=== PATIENT | male | born 1970 | race Caucasian/White ===

== ENCOUNTER 2016-09-07 05:52 | Day surgery (SDC) | payer BC ==
[2016-09-01 11:14] VITALS: BMI 21.4
[2016-09-07 06:19] VITALS: RESP 16; TEMP 97.8
[2016-09-07] MEDS ORDERED: SODIUM CHLORIDE 0.9% 1,000 ML IV ONE (06:22)
[2016-09-07 06:29] LABS: Basophils # (A) 0.1 k/uL (0-0.2); Basophils % (A) 1 %; CH 32.5; Eosinophils # (A) 0.2 k/uL (0-0.7); Eosinophils % (A) 2 %; HCT 45.7 % (39.0-53.0); HDW 2.68; HGB 15.3 gm/dL (13.0-17.5); Luc # (Auto) 0.18; Luc % (Auto) 2; Lymphocytes # (A) 3.5 k/uL (1.0-4.8); Lymphocytes % (A) 39 %; MCH 32.2 pg (25.0-35.0); MCHC 33.5 g/dL (31.0-37.0); Mean Platelet Volume 9.5; Monocytes # (A) 0.6 k/uL (0-1.0); Monocytes % (A) 7 %; Neutrophils # (A) 4.5 k/uL (1.3-7.7); Neutrophils % (A) 50 %; RBC 4.76 m/uL (4.30-5.90); RDW 13.7 % (11.5-15.5); WBC (Perox) 9.25
[2016-09-07] MEDS ORDERED: fentaNYL (PF) 50 MCG/ML 2 ML AMP ONE (07:16)
[2016-09-07] MEDS ORDERED: MIDAZOLAM 2 MG/2 ML VIAL ONE ×2 (07:16→07:28)
[2016-09-07] MEDS: BENZOCAINE SPRAY 100 APPLIC/CAN MUCOUS MEM ONE ×3 (07:24→07:40)
[2016-09-07] MEDS ORDERED: MIDAZOLAM 2 MG/2 ML VIAL IVP ONE (07:41)
[2016-09-07] MEDS: MIDAZOLAM 2 MG/2 ML VIAL IVP ONE ×2 (07:43→07:46)
[2016-09-07 09:42] VITALS: BP 91/53; PULSE 71
--- NOTE | 2016-09-07 14:39 | ECHOT ---
DATE OF SERVICE: September 07, 2016. PERFORMING PHYSICIAN: Brian Harris MD, Software Project Manager. PROCEDURE PERFORMED: Transesophageal echocardiogram. INDICATIONS: This is a pleasant 46-year-old gentleman who is known to have coronary artery disease and prior stenting of the LAD who was found to have severe aortic stenosis by transthoracic echocardiogram. The BETSEY is for further clarification. COMPLICATIONS: None. LEVEL OF SEDATION: Moderate. PROCEDURE DESCRIPTION: After obtaining informed consent, the patient was brought to the transesophageal echocardiogram suite. A pulse oximetry and heart rate monitors were attached to the patient. The transesophageal echocardiogram probe was advanced through the bite guard to the midesophagus, where 2-D echocardiogram images as well as color Doppler images of various cardiac structures were obtained. Particular attention was paid to the aortic valve. The procedure was completed without any complication. FINDINGS: The left ventricular dimension and systolic function appeared to be within normal limits with an ejection fraction of 60% and normal wall motion. There was mild concentric left ventricular hypertrophy seen. The right ventricle is of normal size and function. The left atrium and right atrium appeared to be within normal. The left atrial appendage appeared to be free from any thrombus. The intra-atrial septum appeared to be intact. The aortic valve is very calcified and thickened and probably bicuspid with restriction to opening and evidence of critical aortic stenosis with aortic valve mean gradient 100 mmHg. The mitral valve seems to be also thickened and calcified with mild MR. Mild tricuspid regurgitation was seen. CONCLUSION: 1. Probably bicuspid aortic valve with evidence of severe aortic sclerosis and a critical aortic stenosis along with mild aortic insufficiency. 2. Normal cardiac chamber sizes. 3. Normal left ventricular dimension and systolic function. 4. Mild concentric LVH. 5. Normal left atrial appendage. 6. Intact intra-atrial septum. 7. Normal aortic root dimension. 8. No evidence of pericardial effusion.
== END 2016-09-07 11:14 | disposition home or self-care (01) ==
LOC: CATHCVL 05:52
PROVIDERS: ATTEND Internal Medicine Interventional Cardiology
DX: I08.3 Combined rheumatic disorders of mitral, aortic and tricuspid valves (principal); Z79.02 Long term (current) use of antithrombotics/antiplatelets; Z79.82 Long term (current) use of aspirin; Z79.899 Other long term (current) drug therapy; F17.210 Nicotine dependence, cigarettes, uncomplicated; I73.9 Peripheral vascular disease, unspecified
CPT/HCPCS: 93312; 93320; 93325; 85025; J2250

== ENCOUNTER 2016-09-11 14:56 | Inpatient (IN) | payer BC ==
[2016-09-11] MEDS ORDERED: ASPIRIN 81 MG CHEW PO STA (15:07)
[2016-09-11] MEDS ORDERED: SODIUM CHLORIDE 0.9% 500 ML IV STA (15:07)
--- NOTE | 2016-09-11 15:14 | ED ---
Chest Pain HPI - General Chief Complaint: Chest Pain Stated Complaint: chest pain Time Seen by Provider: 09/11/16 15:07 Source: patient, EMS Mode of arrival: EMS Limitations: no limitations - History of Present Illness Initial Comments: This patient is a 46-year-old man who presents with chest pain. The patient had onset of this while at work approximately 1 hour he 40 1. He states that he had a feeling of tingling in the precordial/substernal area. It was constant , mild intensity, and he did not notice anything that make it worse. He states that he took a sublingual nitroglycerin and then had some lightheadedness, and then felt like he was going to pass out. 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 He then was lying on the floor and the symptoms improved, such that the symptoms have resolved now. Complaint: chest pain Onset/Timin -: hour(s) Onset: other (While at work) Pain Location: substernal Pain Radiation: none Severity: mild Quality: other (Tingling) Consistency: constant, now resolved Improves With: nitroglycerin Worsens With: nothing - Related Data Home Medications Medication Instructions Recorded Confirmed Aspirin EC [Ecotrin Low Dose] 81 mg PO DAILY 08/22/16 09/11/16 Metoprolol Tartrate [Lopressor] 12.5 mg PO BID 08/22/16 09/11/16 Triamcinolone 0.025% Cream 1 applic TOPICAL BID 09/11/16 09/11/16 [Kenalog] Previous Rx's Medication Instructions Recorded Atorvastatin [Lipitor] 80 mg PO HS #30 tab 07/23/16 Clopidogrel [Plavix] 75 mg PO DAILY #30 tab 07/23/16 Nitroglycerin Sl Tabs [Nitrostat] 0.4 mg SUBLINGUAL Q5M PRN #0 tab 07/23/16 Allergies Allergy/AdvReac Type Severity Reaction Status Date / Time milk Allergy Rash/Hives Verified 09/11/16 15:14 tetanus immune globulin Allergy Unknown Verified 09/11/16 15:14 Review of Systems ROS Statement: Those systems with pertinent positive or pertinent negative responses have been documented in the HPI. ROS Other: All systems not noted in ROS Statement are negative. Constitutional: Denies: fever, chills Eyes: Denies: vision change Respiratory: Denies: cough, dyspnea Cardiovascular: Reports: as per HPI, chest pain, other (Near syncopal episode). Denies: palpitations, edema, syncope Gastrointestinal: Denies: abdominal pain, nausea, vomiting Genitourinary: Denies: dysuria, hematuria Musculoskeletal: Denies: back pain Skin: Denies: rash Neurological: Denies: headache, weakness, numbness EKG Findings - EKG Comments: EKG Findings:: Patient has left bundle-branch block present on the comparison EKG from July 2016. - EKG Results: EKG: interpreted by GM, sinus rhythm (Rate approximate 73 bpm) - Blocks, [place], Hypertrophy, ST Abn: AV and intraventricular conduction: left bundle branch block (fixed/intermittent , complete/incomplete) Past Medical History Past Medical History: Chest Pain / Angina, CVA/TIA, Hyperlipidemia, Myocardial Infarction ([place]) Additional Past Medical History / Comment(s): 04/23/15 TIA, denies residual effects. HX: heart murmur, head injury with scalp laceration requiring cira, bronchitis. Last Myocardial Infarction Date:: 07-21-16 History of Any Multi-Drug Resistant Organisms: None Reported Past Surgical History: Heart Catheterization With Stent, Hernia Repair Additional Past Surgical History / Comment(s): L inquinal hernia repair. HEART CATH W/ STENT TO LAD Past Anesthesia/Blood Transfusion Reactions: No Reported Reaction Date of Last Stent Placement:: 07-21-16 Past Psychological History: No Psychological Hx Reported Additional Psychological History / Comment(s): Pt lives with his STEPHEN. He is independent. He uses no assistive devices or home care. He drives. Smoking Status: Current every day smoker Past Alcohol Use History: None Reported Additional Past Alcohol Use History / Comment(s): Pt started smoking at 13 yrs of age and smokes 3-4 cigarettes per day. Past Drug Use History: None Reported - Past Family History Father Family Medical History: AFIB, COPD, Eye Disorder Additional Family Medical History / Comment(s): Father has emphysema, spinal and neck surgeries, neuropathy, spinal stenosis, eye herpes. Mother Family Medical History: CVA/TIA, Hyperlipidemia, Hypertension Additional Family Medical History / Comment(s): Mother has had a recent TIA. General Exam Limitations: no limitations General appearance: alert, in no apparent distress Head exam: Present: atraumatic, normocephalic Eye exam: Present: normal appearance. Absent: scleral icterus, conjunctival injection ENT exam: Present: normal oropharynx Neck exam: Present: normal inspection, full ROM Respiratory exam: Present: normal lung sounds bilaterally. Absent: respiratory distress, wheezes, rales, rhonchi, stridor Cardiovascular Exam: Present: regular rate, normal rhythm, systolic murmur. Absent: diastolic murmur, rubs, gallop GI/Abdominal exam: Present: soft. Absent: distended, tenderness, guarding, rebound, mass Extremities exam: Present: normal inspection, normal capillary refill. Absent: pedal edema, calf tenderness Back exam: Present: normal inspection, CVA tenderness (R), CVA tenderness (L) Neurological exam: Present: alert Skin exam: Present: warm, dry, intact, normal color. Absent: rash, cyanosis, diaphoretic, erythema, petechiae, pallor, mottled Course Vital Signs 09/11/16 09/11/16 09/11/16 15:01 15:15 15:31 Temperature 97.8 F 98.0 F Pulse Rate 75 79 Pulse Rate [ 80 Tricot Knitter ] Respiratory 16 18 Rate Blood Pressure 98/64 104/60 O2 Sat by Pulse 98 98 Oximetry 09/11/16 16:32 Temperature 98.1 F Pulse Rate 78 Pulse Rate [ Tricot Knitter ] Respiratory 16 Rate Blood Pressure 90/53 O2 Sat by Pulse [address] [facility] Patient is a 46-year-old man with history of previous coronary disease who presents with episode of angina while at work that was relieved with nitroglycerin, but, given by a near-syncopal episode. Patient will be admitted for serial cardiac enzymes and telemetry monitoring. Cardiology consultation. Case discussed with his admitting physician. Disposition Clinical Impression: Chest pain, Near syncope Disposition: ADMITTED IP TO THIS [facility] Condition: Fair
[2016-09-11 15:25] LABS: Basophils # (A) 0.1 k/uL (0-0.2); Basophils % (A) 1 %; CH 32.5; CHCM 33.8; Eosinophils # (A) 0.1 k/uL (0-0.7); Eosinophils % (A) 1 %; HCT 42.4 % (39.0-53.0); HDW 2.68; Luc # (Auto) 0.13; Luc % (Auto) 2; Lymphocytes # (A) 2.5 k/uL (1.0-4.8); Lymphocytes % (A) 34 %; MCH 31.9 pg (25.0-35.0); MCV 96.7 fL (80.0-100.0); Monocytes # (A) 0.4 k/uL (0-1.0); Monocytes % (A) 5 %; Neutrophils # (A) 4.3 k/uL (1.3-7.7); Neutrophils % (A) 57 %; RBC 4.39 m/uL (4.30-5.90); RDW 13.7 % (11.5-15.5); WBC 7.5 k/uL (3.8-10.6); WBC (Perox) 8.07
[2016-09-11 15:40] LABS: INR 1.3 (<1.1); Prothrombin Time 12.9 sec (9.0-12.0)
[2016-09-11 15:41] LABS: ALT 35 U/L (21-72); AST 30 U/L (17-59); Alkaline Phosphatase 63 U/L (38-126); Anion Gap 9 mmol/L; Blood Urea Nitrogen 11 mg/dL (9-20); Calcium 8.5 mg/dL (8.4-10.2); Carbon Dioxide 23 mmol/L (22-30); Chloride 110 mmol/L (98-107); Glucose 116 mg/dL (74-99); Magnesium 1.6 mg/dL (1.6-2.3); Non-African American GFR(MDRD) >60 (>60 ml/min/1.73 sqM); Potassium 4.4 mmol/L (3.5-5.1); Sodium 142 mmol/L (137-145); Total Bilirubin 0.8 mg/dL (0.2-1.3); Total Protein 6.5 g/dL (6.3-8.2)
--- NOTE | 2016-09-11 15:51 | P.CRDCN ---
History of Present Illness Consult date: 09/11/16 Chief complaint: Presyncope History of present illness: This is a pleasant 46-year-old gentleman who I have seen in the office once after an acute coronary syndrome with known coronary artery disease and prior stenting of the distal LAD in July 2016, severe aortic stenosis, and significant history of smoking, was brought to the emergency room by ambulance earlier today. The patient was at work when he felt some tingling sensation in the chest and subsequently he took a nitroglycerin sublingual and then started feeling dizzy and lightheaded. Ambulance was called and the patient was brought to the emergency room and in the ER he was slightly hypotensive but his blood pressure has improved significantly after that. The patient presented to the emergency room in July 2016 after he had syncope at work. The EKG showed new LBBB. Subsequently the patient was rushed to the cardiac catheterization laboratory where he underwent a heart catheterization and was found to have severe disease involving the distal LAD where he underwent stenting of the LAD with a good angiographic results. Subsequently he underwent an echocardiogram which showed evidence of severe aortic stenosis. Last week the patient underwent transesophageal echocardiogram which showed it seems to be bicuspid aortic valve with evidence of critical aortic stenosis and significant mean gradient. He was scheduled to be seen in the office today for a follow-up visit and to be referred to see cardiothoracic surgeon. I am going to admit the patient to the hospital. Hold the Plavix. Hold metoprolol. IV fluids. I already spoken with Dr. Sanchez who is going to see the patient tomorrow. Past Medical History Past Medical History: Chest Pain / Angina, CVA/TIA, Hyperlipidemia, Myocardial Infarction ([place]) Additional Past Medical History / Comment(s): 04/23/15 TIA, denies residual effects. HX: heart murmur, head injury with scalp laceration requiring cira, bronchitis. Last Myocardial Infarction Date:: 07-21-16 History of Any Multi-Drug Resistant Organisms: None Reported Past Surgical History: Heart Catheterization With Stent, Hernia Repair Additional Past Surgical History / Comment(s): L inquinal hernia repair. HEART CATH W/ STENT TO LAD Past Anesthesia/Blood Transfusion Reactions: No Reported Reaction Date of Last Stent Placement:: 07-21-16 Past Psychological History: No Psychological Hx Reported Additional Psychological History / Comment(s): Pt lives with his STEPHEN. He is independent. He uses no assistive devices or home care. He drives. Smoking Status: Current every day smoker Past Alcohol Use History: None Reported Additional Past Alcohol Use History / Comment(s): Pt started smoking at 13 yrs of age and smokes 3-4 cigarettes per day. Past Drug Use History: None Reported - Past Family History Father Family Medical History: AFIB, COPD, Eye Disorder Additional Family Medical History / Comment(s): Father has emphysema, spinal and neck surgeries, neuropathy, spinal stenosis, eye herpes. Mother Family Medical History: CVA/TIA, Hyperlipidemia, Hypertension Additional Family Medical History / Comment(s): Mother has had a recent TIA. Medications and Allergies Home Medications Medication Instructions Recorded Confirmed Type Aspirin EC [Ecotrin Low Dose] 81 mg PO DAILY 08/22/16 09/11/16 History Metoprolol Tartrate [Lopressor] 12.5 mg PO BID 08/22/16 09/11/16 History Triamcinolone 0.025% Cream 1 applic TOPICAL BID 09/11/16 09/11/16 History [Kenalog] Allergies Allergy/AdvReac Type Severity Reaction Status Date / Time milk Allergy Rash/Hives Verified 09/11/16 15:14 tetanus immune globulin Allergy Unknown Verified 09/11/16 15:14 Physical Exam Vitals: Vital Signs Temp Pulse Pulse Resp BP Pulse Ox 09/11/16 15:31 98.0 F 79 18 104/60 98 09/11/16 15:15 80 09/11/16 15:01 97.8 F 75 16 98/64 98 Intake and Output 09/11/16 09/11/16 09/11/16 06:59 14:59 22:59 Other: Weight 67.132 kg Patient Weight 09/12/16 06:59 Weight 67.132 kg - Constitutional General appearance: no acute distress - Respiratory Respiratory: bilateral: CTA - Cardiovascular Rhythm: regular Heart sounds: normal: S1 Abnormal Heart Sounds: systolic murmur Results 09/11/16 15:05 09/11/16 15:05 Cardiac Enzymes 09/11/16 Range/Units 15:05 AST 30 (17-59) U/L Coagulation 09/11/16 Range/Units 15:05 PT 12.9 H (9.0-12.0) sec APTT 26.0 (22.0-30.0) sec CBC 09/11/16 Range/Units 15:05 WBC 7.5 (3.8-10.6) k/uL RBC 4.39 (4.30-5.90) m/uL Hgb 14.0 (13.0-17.5) gm/dL Hct 42.4 (39.0-53.0) % Plt Count 102 L (150-450) k/uL Comprehensive Metabolic Panel 09/11/16 Range/Units 15:05 Sodium 142 (137-145) mmol/L Potassium 4.4 (3.5-5.1) mmol/L Chloride 110 H (98-107) mmol/L Carbon Dioxide 23 (22-30) mmol/L BUN 11 (9-20) mg/dL Creatinine 1.05 (0.66-1.25) mg/dL Glucose 116 H (74-99) mg/dL Calcium 8.5 (8.4-10.2) mg/dL AST 30 (17-59) U/L ALT 35 (21-72) U/L Alkaline Phosphatase 63 (38-126) U/L Total Protein 6.5 (6.3-8.2) g/dL Albumin 3.7 (3.5-5.0) g/dL Intake and Output 09/11/16 09/11/16 09/11/16 06:59 14:59 22:59 Other: Weight 67.132 kg Patient Weight 09/12/16 06:59 Weight 67.132 kg 09/11/16 15:05 09/11/16 15:05 Assessment and Plan Plan: Assessment #1 critical aortic stenosis #2 CAD and prior LAD stenting Plan #1 hold blood pressure medications #2 IV fluid #3 hold Plavix #4 waiting for the cardiothoracic surgery consult
[2016-09-11 15:55] LABS: Creatine Kinase MB 1.1 ng/mL (0.0-2.4); Troponin I 0.021 ng/mL (0.000-0.034)
--- NOTE | 2016-09-11 16:46 | XR ---
EXAMINATION TYPE: XR chest 1V portable DATE OF EXAM: 09/11/2016 4:39 PM COMPARISON: Prior chest x-ray December HISTORY: Chest pain, hypotension TECHNIQUE: Single frontal view of the chest is obtained on 2 images. FINDINGS: There are overlying cardiac leads. Interstitium is somewhat increased. Heart size is stabl e. Pulmonary vascularity and ernesto not significantly changed. No pneumothorax or pleural effusion. IMPRESSION: Correlate to exclude pulmonary venous hypertension and interstitial edema. Follow-up is recommended.
[2016-09-11] MEDS ORDERED: NITROGLYCERIN SL TABS 0.4 MG TAB SUBLINGUAL PRN (17:27)
[2016-09-11 21:52] LABS: Creatine Kinase MB 2.2 ng/mL (0.0-2.4)
[2016-09-11 21:59] LABS: Troponin I 0.266 ng/mL (0.000-0.034)
[2016-09-12 03:22] LABS: Cholesterol 74 mg/dL (<200); HDL Cholesterol 45 mg/dL (40-60); Triglycerides 49 mg/dL (<150)
[2016-09-12 03:43] LABS: Creatine Kinase MB 2.2 ng/mL (0.0-2.4); Troponin I 0.174 ng/mL (0.000-0.034)
[2016-09-12] MEDS: ASPIRIN 325 MG TAB PO SCH (10:24)
--- NOTE | 2016-09-12 10:48 | ECHOF ---
Referral Reason:CP MEASUREMENTS -------- HEIGHT: 175.3 cm WEIGHT: 67.1 kg BP: IVSd: 1.5 cm (0.6 - 1.1) LVIDd: 4.0 cm (3.9 - 5.3) LVPWd: 1.7 cm (0.6 - 1.1) IVSs: 2.1 cm LVIDs: 2.7 cm LVPWs: 2.4 cm MV E Stew: 1.32 m/s MV DecT: 164 ms MV A Stew: 0.94 m/s MV E/A Ratio: 1.40 AV maxP.96 mmHg AV meanP.43 mmHg RAP: 5.00 mmHg RVSP: 19.44 mmHg FINDINGS -------- Sinus rhythm. Limited Study There is severe concentric left ventricular hypertrophy. Overall left ventricular systolic function is low-normal with, an EF between 50 - 55 %. There is severe aortic stenosis present. Peak/mean gradient across the Aortic Valve is 92.96mmHg / 58.43mmHg. CONCLUSIONS -------- 1. Sinus rhythm. 2. Limited Study 3. There is severe concentric left ventricular hypertrophy. 4. Overall left ventricular systolic function is low-normal with, an EF between 50 - 55 %. 5. There is severe aortic stenosis present. 6. Peak/mean gradient across the Aortic Valve is 92.96mmHg / 58.43mmHg. LOIN PULLER: Paulina Palmer [facility]
--- NOTE | 2016-09-12 11:48 | P.PN ---
Subjective Principal diagnosis: Critical This is a pleasant 46-year-old gentleman with a known CAD and known critical aortic stenosis was brought to the hospital by ambulance with presyncope. He was found to be hypotensive. He just underwent a BETSEY which showed critical aortic stenosis and he was scheduled to see cardiothoracic surgeon in the next few days. I'll follow-up with him today, he denies having any chest pain or discomfort or difficulty breathing. Blood pressure continues to be marginally low. The repeated echocardiogram in the ER yesterday continues to show preserved LV function with critical aortic stenoses. Cardiothoracic surgery consult was placed and the patient is in process to be seen. I will continue holding any kind of blood pressure medication and continue holding any kind of nitroglycerin sublingual. I am starting the patient on some IV fluid because he is nothing by mouth. Objective - Vital Signs Vital signs: Vital Signs Temp 98.0 F 09/12/16 08:00 Pulse 93 09/12/16 08:00 Resp 16 09/12/16 03:47 BP 98/60 09/12/16 08:00 Pulse Ox 95 09/12/16 08:00 Intake & Output 09/11/16 09/12/16 09/12/16 18:59 06:59 18:59 Intake Total 120 Output Total 1000 650 Balance -880 -650 Weight 66.933 kg Intake: Oral 120 Output: Urine 1000 650 Other: Voiding Method Urinal - Constitutional General appearance: Present: no acute distress - Respiratory Respiratory: bilateral: CTA - Cardiovascular Rhythm: regular Heart sounds: normal: S1 - Labs CBC & Chem 7: 09/11/16 15:05 09/11/16 15:05 Labs: Abnormal Lab Results - Last 24 Hours (Table) 09/11/16 09/12/16 Range/Units 21:04 02:51 Troponin I 0.266 H* 0.174 H* (0.000-0.034) ng/mL Assessment and Plan Plan: Assessment #1 symptomatic critical aortic stenoses #2 marginal below blood pressure Plan #1 continue holding the blood pressure medications #2 continue holding nitroglycerin #3 start IV fluid #4 follow-up with the patient
[2016-09-12] MEDS ORDERED: MD COMMUNICATION TO PHARMACY 1 EACH MISC PO ONE ×2 (12:19)
--- NOTE | 2016-09-12 12:42 | P.GSCN ---
History of Present Illness Consult date: 09/12/16 Reason for Consult: Severe bicuspid aortic valve stenosis Requesting physician: Brian Harris History of present illness: Patient is a 46 years old gentleman with past medical history of tobacco abuse, TIA, non-ST elevation myocardial infarction status post stenting of his distal LAD in July 2016 admitted for a tingling chest sensation for which he took nitroglycerin followed by diaphoresis and weakness. He denies syncope per se or chest pain. Patient has severe bicuspid aortic valve stenosis discovered after his stenting and a cardiothoracic surgical consult was called. Patient had presented to the emergency room end of August for bronchitis and took 3 days of antibiotics. He has a persistent dry cough however improved. Denies fever or chills. Patient remains in functional class I Review of Systems - Cardiovascular Cardiovascular Comment(s): Tingling sensation in the chest Reports lightheadedness - Respiratory Reports congestion, Reports cough Past Medical History Past Medical History: Chest Pain / Angina, CVA/TIA, Hyperlipidemia, Myocardial Infarction ([place]) Additional Past Medical History / Comment(s): 04/23/15 TIA, denies residual effects. HX: heart murmur, head injury with scalp laceration requiring cira, bronchitis. Last Myocardial Infarction Date:: 07-21-16 History of Any Multi-Drug Resistant Organisms: None Reported Past Surgical History: Heart Catheterization With Stent, Hernia Repair Additional Past Surgical History / Comment(s): L inquinal hernia repair. HEART CATH W/ STENT TO LAD Past Anesthesia/Blood Transfusion Reactions: No Reported Reaction Date of Last Stent Placement:: 07-21-16 Past Psychological History: No Psychological Hx Reported Additional Psychological History / Comment(s): Pt lives with his STEPHEN. He is independent. He uses no assistive devices or home care. He drives. Smoking Status: Current every day smoker Past Alcohol Use History: None Reported Additional Past Alcohol Use History / Comment(s): Pt started smoking at 13 yrs of age and smokes 3-4 cigarettes per day. Past Drug Use History: None Reported - Past Family History Father Family Medical History: AFIB, COPD, Eye Disorder Additional Family Medical History / Comment(s): Father has emphysema, spinal and neck surgeries, neuropathy, spinal stenosis, eye herpes. Mother Family Medical History: CVA/TIA, Hyperlipidemia, Hypertension Additional Family Medical History / Comment(s): Mother has had a recent TIA. Medications and Allergies Home Medications and Allergies Comment(s): Patient took his last Plavix on 09/10/2015 Home Medications Medication Instructions Recorded Confirmed Type Aspirin EC [Ecotrin Low Dose] 81 mg PO DAILY 08/22/16 09/11/16 History Metoprolol Tartrate [Lopressor] 12.5 mg PO BID 08/22/16 09/11/16 History Triamcinolone 0.025% Cream 1 applic TOPICAL BID 09/11/16 09/11/16 History [Kenalog] Allergies Allergy/AdvReac Type Severity Reaction Status Date / Time milk Allergy Rash/Hives Verified 09/11/16 15:14 tetanus immune globulin Allergy Unknown Verified 09/11/16 15:14 Surgical - Exam Vital Signs Temp Pulse Resp BP Pulse Ox 97.8 F 75 16 98/64 98 09/11/16 15:01 09/11/16 15:01 09/11/16 15:01 09/11/16 15:01 09/11/16 15:01 - Cardiovascular Heart Sounds: abnormal: S2 (Absent) Abnormal Heart Sounds: systolic murmur - Integumentary Patient is edentulous. No peripheral edema Results - Labs 09/11/16 15:05 09/11/16 15:05 Abnormal Lab Results - Last 24 Hours (Table) 09/11/16 09/12/16 Range/Units 21:04 02:51 Troponin I 0.266 H* 0.174 H* (0.000-0.034) ng/mL Diabetes panel 09/12/16 Range/Units 02:51 Triglycerides 49 (<150) mg/dL HDL Cholesterol 45 (40-60) mg/dL - Imaging Chest x-ray: report reviewed, image reviewed EKG: report reviewed, image reviewed Additional studies: Patient's has severe LVH and severe aortic valve stenosis with preserved systolic function. Trace aortic valve regurgitation. Mild mitral regurgitation. Assessment and Plan Plan: 46 years old gentleman with the above comorbidities, status post distal LAD stenting with a drug-eluting stent in July 2016 with at this point severe aortic valve stenosis on a bicuspid valve without evidence of ascending aortic dilatation on a computed tomography scan performed on 08/23/2016. Case was discussed with Dr. Estrada. We will be initiating preoperative workup in particular pulmonary assessment before potential proceeding with surgical aortic valve replacement early next week after at least 5 days off Plavix interruption. Cardiology would decide on potential bridging with heparin in view of recent distal LAD stenting. Choice of valve will be further discussed with the patient once the plans are finalized.
[2016-09-12 13:44] LABS: INR 1.3 (<1.1); Prothrombin Time 12.6 sec (9.0-12.0)
[2016-09-12 13:55] LABS: Basophils # (A) 0.1 k/uL (0-0.2); Basophils % (A) 1 %; CH 32.5; CHCM 33.4; Eosinophils # (A) 0.1 k/uL (0-0.7); Eosinophils % (A) 1 %; HDW 2.64; HGB 13.8 gm/dL (13.0-17.5); Luc % (Auto) 1; Lymphocytes # (A) 2.4 k/uL (1.0-4.8); Lymphocytes % (A) 20 %; MCH 32.2 pg (25.0-35.0); MCHC 32.9 g/dL (31.0-37.0); MCV 97.8 fL (80.0-100.0); Mean Platelet Volume 10.2; Monocytes # (A) 0.6 k/uL (0-1.0); Monocytes % (A) 5 %; Neutrophils # (A) 8.9 k/uL (1.3-7.7); Neutrophils % (A) 73 %; RBC 4.29 m/uL (4.30-5.90); WBC 12.2 k/uL (3.8-10.6)
[2016-09-12 14:03] LABS: ALT 38 U/L (21-72); AST 23 U/L (17-59); Alkaline Phosphatase 54 U/L (38-126); Anion Gap 7 mmol/L; Blood Urea Nitrogen 14 mg/dL (9-20); Calcium 8.9 mg/dL (8.4-10.2); Carbon Dioxide 25 mmol/L (22-30); Chloride 112 mmol/L (98-107); Glucose 115 mg/dL (74-99); Magnesium 1.8 mg/dL (1.6-2.3); Non-African American GFR(MDRD) >60 (>60 ml/min/1.73 sqM); Potassium 4.3 mmol/L (3.5-5.1); Sodium 144 mmol/L (137-145); Total Bilirubin 1.1 mg/dL (0.2-1.3); Total Protein 6.1 g/dL (6.3-8.2)
--- NOTE | 2016-09-12 14:26 | US ---
EXAMINATION TYPE: US carotid duplex BILAT DATE OF EXAM: 09/12/2016 1:18 PM COMPARISON: NONE CLINICAL HISTORY: chest pain,near syncope. EXAM MEASUREMENTS: RIGHT: Peak Systolic Velocity (PSV) cm/sec ----- Right CCA: 117.6 ----- Right ICA: 100.2 ----- Right ECA: 97.3 ICA/CCA ratio: 0.9 RIGHT: End Diastole cm/sec ----- Right CCA: 14.4 ----- Right ICA: 24.6 ----- Right ECA: 0.0 LEFT: Peak Systolic Velocity (PSV) cm/sec ----- Left CCA: 95.8 ----- Left ICA: 87.1 ----- Left ECA: 100.2 ICA/CCA ratio: 0.9 LEFT: End Diastole cm/sec ----- Left CCA: 15.8 ----- Left ICA: 21.7 ----- Left ECA: 10.0 VERTEBRALS (direction of flow): Right Vertebral: Antegrade Left Vertebral: Antegrade Findings: No significant stenosis seen, mild plaque noted, no elevated velocities. IMPRESSION: 1. No significant hemodynamic stenosis bilaterally. 2. Mild plaque seen bilaterally Criteria for Assigning % of Stenosis / Diameter reduction (Estimation based on the indirect measurements of the internal carotid artery velocities (ICA PSV). 1. Normal (no stenosis)=ICA PSV < 125 cm/s: ratio < 2.0: ICA EDV<40 cm/s. 2. Less than 50% stenosis=ICA PSV < 125 cm/s: ratio < 2.0: ICA EDV<40 cm/s. 3. 50 to 69% stenosis=ICA PSV of 125 to 230 cm/s: ration 2.0 ? 4.0: ICA EDV 40-100 cm/s. 4. Greater than 70% stenosis to near occlusion= ICA PSV > 230 cm/s: ratio > 4.0: ICA EDV > 100 cm/s. 5. Near occlusion= ICA PSV velocities may be low or undetectable: variable ratio and ICA EDV. 6. Total occlusion=unable to detect flow.
[2016-09-12 14:34] LABS: Hepatitis B Surface Ag Index 0.08
[2016-09-12 14:39] LABS: Hepatitis B Core IgM Index 0.03
[2016-09-12 14:51] LABS: Hepatitis C Virus IgG Index 0.02
[2016-09-12 15:04] LABS: Hepatitis C Virus IgG Ab Negative (Negative)
--- NOTE | 2016-09-12 15:06 | P.CNPUL ---
History of Present Illness Consult date: 09/12/16 Requesting physician: Theo Haas Reason for consult: COPD Chief complaint: Chest pain History of present illness: This is a very pleasant 46-year-old gentleman who follows with Dr. Haas as his primary care physician. He has a history of TIA, coronary artery disease with recent stent placement to the LAD. He has preserved left ventricular systolic function with estimated ejection fraction 45-50%. He was also found to have significant bicuspid aortic valve stenosis and the plan is for aortic valve replacement. He states he has known about heart murmur for approximately 3 years now. He does have a 30+ pack per day smoking history up to as many as 3 packs per day at one point. He has not been seen by a passenger coach driver in the past but was scheduled to be seen in our office 09/21/2016 for preop evaluation prior to his aortic valve replacement. He is not on oxygen nor any inhalers in the outpatient setting. He was recently treated for what he felt was bronchitis with a Tri-Terry of azithromycin 500 mg daily 3 days. He presented here to the emergency room yesterday with complaints of chest tingling and numbness. He states he did have some anxiety secondary to recent cardiac event. He is seen today in the end emergency room still. He is awake and alert in no acute distress. He denies any chest pain, palpitations, lightheadedness or dizziness. No shortness of breath, cough or congestion. His chest x-ray did reveal some pulmonary venous hypertension and mild congestion. His proBNP level was 6510. There is a small troponin leak. The plan is performing aortic valve replacement early next week. The patient's Plavix has been on hold and he'll be bridged in the interim. Review of Systems 14 point review of system was conducted all negative other than as mentioned in HPI. Past Medical History Past Medical History: Chest Pain / Angina, CVA/TIA, Hyperlipidemia, Myocardial Infarction ([place]) Additional Past Medical History / Comment(s): 04/23/15 TIA, denies residual effects. HX: heart murmur, head injury with scalp laceration requiring cira, bronchitis. Last Myocardial Infarction Date:: 07-21-16 History of Any Multi-Drug Resistant Organisms: None Reported Past Surgical History: Heart Catheterization With Stent, Hernia Repair Additional Past Surgical History / Comment(s): L inquinal hernia repair. HEART CATH W/ STENT TO LAD Past Anesthesia/Blood Transfusion Reactions: No Reported Reaction Date of Last Stent Placement:: 07-21-16 Past Psychological History: No Psychological Hx Reported Additional Psychological History / Comment(s): Pt lives with his STEPHEN. He is independent. He uses no assistive devices or home care. He drives. Smoking Status: Current every day smoker Past Alcohol Use History: None Reported Additional Past Alcohol Use History / Comment(s): Pt started smoking at 13 yrs of age and smokes 3-4 cigarettes per day. Past Drug Use History: None Reported - Past Family History Father Family Medical History: AFIB, COPD, Eye Disorder Additional Family Medical History / Comment(s): Father has emphysema, spinal and neck surgeries, neuropathy, spinal stenosis, eye herpes. Mother Family Medical History: CVA/TIA, Hyperlipidemia, Hypertension Additional Family Medical History / Comment(s): Mother has had a recent TIA. Medications and Allergies Home Medications Medication Instructions Recorded Confirmed Type Aspirin EC [Ecotrin Low Dose] 81 mg PO DAILY 08/22/16 09/11/16 History Metoprolol Tartrate [Lopressor] 12.5 mg PO BID 08/22/16 09/11/16 History Triamcinolone 0.025% Cream 1 applic TOPICAL BID 09/11/16 09/11/16 History [Kenalog] Allergies Allergy/AdvReac Type Severity Reaction Status Date / Time milk Allergy Rash/Hives Verified 09/11/16 15:14 tetanus immune globulin Allergy Unknown Verified 09/11/16 15:14 Physical Exam Vitals: Vital Signs Temp Pulse Pulse Resp BP BP Pulse Ox 09/12/16 12:00 95 117/56 95 09/12/16 08:00 98.0 F 93 98/60 95 09/12/16 03:47 98.1 F 75 16 104/55 97 09/12/16 00:00 98.3 F 77 18 137/90 94 L 09/11/16 20:42 76 16 105/57 95 09/11/16 19:01 98.2 F 76 18 105/57 94 L Intake and Output 09/11/16 09/12/16 09/12/16 22:59 06:59 14:59 Intake Total 120 Output Total 1000 650 Balance -880 -650 Intake: Oral 120 Output: Urine 1000 650 Other: Voiding Method Urinal Weight 65.317 kg 66.933 kg GENERAL EXAM: Alert, active, comfortable in no apparent distress. HEAD: Normocephalic. EYES: Normal reaction of pupils, equal size. NOSE: Clear with pink turbinates. THROAT: No erythema or exudates. NECK: No masses, no JVD. CHEST: No chest wall deformity. LUNGS: Equal air entry with no crackles, wheeze, rhonchi or dullness. Diminished. CVS: S1 and S2 normal with positive mumur, regular rhythm. ABDOMEN: No hepatosplenomegaly, normal bowel sounds, no guarding or rigidity. SPINE: No scoliosis or deformity SKIN: No rashes CENTRAL NERVOUS SYSTEM: No focal deficits, tone is normal in all 4 extremities. Extremities: There is no significant peripheral edema. No clubbing, no cyanosis. Peripheral pulses are intact. Results - Laboratory Findings CBC and BMP: 09/12/16 13:18 09/11/16 15:05 PT/INR, D-dimer PT 12.6 sec (9.0-12.0) H 09/12/16 13:18 INR 1.3 (<1.1) 09/12/16 13:18 D-Dimer 0.49 mg/L FEU (<0.60) 09/11/16 15:05 Abnormal lab findings: Abnormal Labs 09/11/16 09/12/16 09/12/16 21:04 02:51 13:18 WBC 12.2 H RBC 4.29 L Plt Count 97 L Neutrophils # 8.9 H PT Troponin I 0.266 H* 0.174 H* 09/12/16 09/12/16 13:18 13:18 WBC RBC Plt Count Neutrophils # PT 12.6 H Troponin I 0.088 H* - Diagnostic Findings Chest x-ray: image reviewed Assessment and Plan Plan: Impression: #1 Chest discomfort in a patient with recent non-ST segment elevation myocardial infarction and stenting to the LAD. #2 Severe bicuspid aortic valve stenosis here #3 Chronic and ongoing tobacco dependence. #4 Recent computed tomography scan of the chest revealing diffuse emphysematous changes and interstitial pulmonary fibrotic changes bilaterally with scarring and atelectasis in the lung bases. #5 Nodular scarring measuring 6 x 3 mm in the apical area of the right upper lobe. #6 Coronary artery disease with status post stenting to the LAD on 07/21/2016. #7 History of TIAs. Plan: The patient was seen and evaluated by Dr. Chan. His chest x-ray and labs were reviewed. He will require full pulmonary function testing to evaluate the severity of his COPD. We'll continue with bronchodilators and add Pulmicort and Perforomist inhalations twice a day. We will offer a NicoDerm patch as well. He is educated regarding the importance of complete smoking cessation. He will require follow-up CT scans of the chest in regards to the pulmonary nodule. The plan is for valve replacement early next week. We'll continue to follow make further recommendations based on his clinical status.
[2016-09-12] MEDS ORDERED: IPRATROPIUM-ALBUTEROL 3 ML NEB INHALATION PRN (15:08)
--- NOTE | 2016-09-12 15:15 | P.HPIM ---
History of Present Illness H&P Date: 09/12/16 Chief Complaint: Chest pain Patient is a 46-year-old male, patient of Dr. Theo Haas in the outpatient setting with medical history significant for myocardial infarction with stent placement to the LAD in July 2016, TIA, hyperlipidemia, and nicotine dependence. Patient presented to the emergency department with complaints of chest pain that started while he was at work associated with diaphoresis and lightheadedness after he took a nitroglycerin. Troponins 0.021 , 0.266, 0.174, and 0.088. NT proBNP 6510. Chest x-ray with evidence of pulmonary venous hypertension and interstitial edema. Echocardiogram with Doppler significant for severe concentric left ventricular hypertrophy, severe aortic stenosis, and left ventricular systolic function with an EF between 50-55 %. No significant stenosis seen on bilateral carotid Dopplers. Patient has been evaluated by cardiology and cardiothoracic surgery and is currently being scheduled for aortic valve replacement early next week after he has been off Plavix for 5 days. Consult has been requested for pulmonology assessment and clearance prior to surgery. Upon examination, patient is doing well. Denies chills, fevers, lightheadedness , nausea, vomiting, shortness of breath, chest pain, abdominal pain, or leg swelling. Patient does report bilateral calf pain after walking for long time. Patient reports that he's down to 6-7 cigarettes a day after smoking 3 packs for many years. Past Medical History Past Medical History: Chest Pain / Angina, CVA/TIA, Hyperlipidemia, Myocardial Infarction ([place]) Additional Past Medical History / Comment(s): 04/23/15 TIA, denies residual effects. HX: heart murmur, head injury with scalp laceration requiring cira, bronchitis. Last Myocardial Infarction Date:: 07-21-16 History of Any Multi-Drug Resistant Organisms: None Reported Past Surgical History: Heart Catheterization With Stent, Hernia Repair Additional Past Surgical History / Comment(s): L inquinal hernia repair. HEART CATH W/ STENT TO LAD Past Anesthesia/Blood Transfusion Reactions: No Reported Reaction Date of Last Stent Placement:: 07-21-16 Past Psychological History: No Psychological Hx Reported Additional Psychological History / Comment(s): Pt lives with his STEPHEN. He is independent. He uses no assistive devices or home care. He drives. Smoking Status: Current every day smoker Past Alcohol Use History: None Reported Additional Past Alcohol Use History / Comment(s): Pt started smoking at 13 yrs of age and smokes 3-4 cigarettes per day. Past Drug Use History: None Reported - Past Family History Father Family Medical History: AFIB, COPD, Eye Disorder Additional Family Medical History / Comment(s): Father has emphysema, spinal and neck surgeries, neuropathy, spinal stenosis, eye herpes. Mother Family Medical History: CVA/TIA, Hyperlipidemia, Hypertension Additional Family Medical History / Comment(s): Mother has had a recent TIA. Medications and Allergies Home Medications Medication Instructions Recorded Confirmed Type Aspirin EC [Ecotrin Low Dose] 81 mg PO DAILY 08/22/16 09/11/16 History Metoprolol Tartrate [Lopressor] 12.5 mg PO BID 08/22/16 09/11/16 History Triamcinolone 0.025% Cream 1 applic TOPICAL BID 09/11/16 09/11/16 History [Kenalog] Allergies Allergy/AdvReac Type Severity Reaction Status Date / Time milk Allergy Rash/Hives Verified 09/11/16 15:14 tetanus immune globulin Allergy Unknown Verified 09/11/16 15:14 Physical Exam Vitals: Vital Signs Temp Pulse Pulse Resp BP BP Pulse Ox 09/12/16 12:00 95 117/56 95 09/12/16 08:00 98.0 F 93 98/60 95 09/12/16 03:47 98.1 F 75 16 104/55 97 09/12/16 00:00 98.3 F 77 18 137/90 94 L 09/11/16 20:42 76 16 105/57 95 09/11/16 19:01 98.2 F 76 18 105/57 94 L Intake and Output 09/11/16 09/12/16 09/12/16 22:59 06:59 14:59 Intake Total 120 Output Total 1000 650 Balance -880 -650 Intake: Oral 120 Output: Urine 1000 650 Other: Voiding Method Urinal Weight 65.317 kg 66.933 kg GENERAL: Pt awake and alert, well-appearing, well-nourished, and in no acute distress. HEAD: Atraumatic, normocephalic. EYES: Pupils equal, round, and reactive to light, extraocular movements intact, sclera anicteric, conjunctiva are normal. ENT: Oropharynx clear without exudates. Moist mucous membranes. NECK:Normal range of motion, supple without lymphadenopathy or JVD. LUNGS: Breath sounds clear to auscultation bilaterally. No wheezes, rales, or rhonchi. HEART: Heart S1, S2, no S3 or S4. Systolic murmur. ABDOMEN: Soft, nontender, nondistended, normoactive bowel sounds. No guarding, no rebound. No masses or organomegaly appreciated. EXTREMITIES: 1+ dorsalis pedal pulses. No edema. No calf tenderness. NEUROLOGICAL: Pt oriented x 3. Cranial nerves II through XII grossly intact. Strength and sensation grossly intact. PSYCH: Normal mood, normal affect. SKIN: Warm, dry, intact. Lower extremities with dry skin. Results CBC & Chem 7: 09/12/16 13:18 09/11/16 15:05 Labs: Abnormal Lab Results - Last 24 Hours (Table) 09/11/16 09/12/16 09/12/16 Range/Units 21:04 02:51 13:18 WBC 12.2 H (3.8-10.6) k/uL RBC 4.29 L (4.30-5.90) m/uL Plt Count 97 L (150-450) k/uL Neutrophils # 8.9 H (1.3-7.7) k/uL PT (9.0-12.0) sec Troponin I 0.266 H* 0.174 H* (0.000-0.034) ng/mL 09/12/16 09/12/16 Range/Units 13:18 13:18 WBC (3.8-10.6) k/uL RBC (4.30-5.90) m/uL Plt Count (150-450) k/uL Neutrophils # (1.3-7.7) k/uL PT 12.6 H (9.0-12.0) sec Troponin I 0.088 H* (0.000-0.034) ng/mL Thrombosis Risk Factor Assmnt - DVT/VTE Prophylaxis DVT/VTE Prophylaxis: Mechanical Prophylaxis ordered - Choose All That Apply Any of the Below Risk Factors Present?: Yes Each Factor Represents 1 point: Acute [place] Other Risk Factors: No Other congenital or acquired thrombophilia - If yes, enter type in comment: No Thrombosis Risk Factor Assessment Total Risk Factor Score: 1 Thrombosis Risk Factor Assessment Level: Low Risk Assessment and Plan Plan: Impression: 1. Severe aortic stenosis. 2. Coronary artery disease with myocardial infarction in July 2016 with stenting to the distal LAD. 3. History of hyperlipidemia. 4. History of TIA. 5. History of bronchitis. 6. Nicotine dependence. 7. Elevated troponins. 8. Elevated proBNP. 9. Calf pain when walking long distances along with decreased pulses to bilateral feet suspect secondary to peripheral vascular disease secondary to smoking. Plan: 1. Patient is currently scheduled for aortic valve replacement pending pulmonary assessment and discontinuation of Plavix. Cardiology has seen and evaluated patient, recommendations noted. Pulmonary consult pending. Smoking secession encouraged. Continue to monitor patient, continue current medications , continue GI and DVT prophylaxis, continue to follow with consultants. The above impression and plan have been discussed and directed by Dr. Haas. Hailey CARDOSO acting as scribe for Dr. Haas.
[2016-09-12 16:55] LABS: Appearance,Urine Clear (Clear); Bilirubin,Urine Negative (Negative); Glucose,Urine (UA) Negative (Negative); Ketones,Urine Negative (Negative); Leukocyte Esterase,Urine Negative (Negative); Nitrite,Urine Negative (Negative); PH, Urine 6.5 (5.0-8.0); Protein,Urine Negative (Negative); Specific Gravity,Urine 1.011 (1.001-1.035); UA Billing (MACRO vs. MICRO) CHEM; Urobilinogen,Urine <2.0 mg/dL (<2.0)
[2016-09-12] MEDS: IPRATROPIUM-ALBUTEROL 3 ML NEB INHALATION SCH ×2 (16:57→21:11)
[2016-09-12] MEDS: NICOTINE 21MG/24HR PATCH TRANSDERM SCH (17:47)
[2016-09-12] MEDS: BUDESONIDE 1 MG/2 ML NEBU INHALATION SCH (21:11)
[2016-09-12] MEDS: FORMOTEROL FUMARATE 20 MCG/2 ML NEBU INHALATION SCH (21:11)
[2016-09-12] MEDS: FAMOTIDINE 20 MG TAB PO SCH (21:49)
[2016-09-12] MEDS: MUPIROCIN 2% OINT 22 GM TUBE NASAL SCH (21:57)
[2016-09-13 06:11] LABS: Basophils % (A) 0 %; CH 32.5; CHCM 33.6; Eosinophils # (A) 0.2 k/uL (0-0.7); Eosinophils % (A) 2 %; HCT 40.3 % (39.0-53.0); HDW 2.59; HGB 13.1 gm/dL (13.0-17.5); Luc % (Auto) 1; Lymphocytes # (A) 2.4 k/uL (1.0-4.8); Lymphocytes % (A) 23 %; MCH 31.6 pg (25.0-35.0); MCHC 32.6 g/dL (31.0-37.0); MCV 97.1 fL (80.0-100.0); Monocytes # (A) 0.5 k/uL (0-1.0); Monocytes % (A) 5 %; Neutrophils # (A) 7.3 k/uL (1.3-7.7); Neutrophils % (A) 69 %; RBC 4.15 m/uL (4.30-5.90); RDW 13.8 % (11.5-15.5); WBC 10.5 k/uL (3.8-10.6); WBC (Perox) 11.07
[2016-09-13 06:21] LABS: ALT 43 U/L (21-72); AST 23 U/L (17-59); Alkaline Phosphatase 56 U/L (38-126); Anion Gap 11 mmol/L; Blood Urea Nitrogen 13 mg/dL (9-20); Calcium 8.8 mg/dL (8.4-10.2); Carbon Dioxide 22 mmol/L (22-30); Chloride 111 mmol/L (98-107); Glucose 108 mg/dL (74-99); Non-African American GFR(MDRD) >60 (>60 ml/min/1.73 sqM); Potassium 4.2 mmol/L (3.5-5.1); Sodium 144 mmol/L (137-145); Total Bilirubin 1.1 mg/dL (0.2-1.3); Total Protein 6.1 g/dL (6.3-8.2)
[2016-09-13] MEDS: IPRATROPIUM-ALBUTEROL 3 ML NEB INHALATION SCH ×4 (08:10→19:40)
[2016-09-13] MEDS: FORMOTEROL FUMARATE 20 MCG/2 ML NEBU INHALATION SCH ×2 (08:20→19:40)
[2016-09-13] MEDS: BUDESONIDE 1 MG/2 ML NEBU INHALATION SCH ×2 (08:20→19:40)
[2016-09-13] MEDS: ASPIRIN 325 MG TAB PO SCH (08:42)
[2016-09-13] MEDS: NICOTINE 21MG/24HR PATCH TRANSDERM SCH (08:42)
[2016-09-13] MEDS: MUPIROCIN 2% OINT 22 GM TUBE NASAL SCH (08:43)
--- NOTE | 2016-09-13 09:29 | P.PN ---
Progress Note - Text Preoperative CV Surgery Nursing Patient getting pulmonary function testing. Vital Signs: Afebrile, T-max 98.8F Vital Signs - 24 hr 09/12/16 09/12/16 09/12/16 12:00 15:01 16:00 Temperature 98.1 F 98.1 F Pulse Rate Pulse Rate [ 95 76 77 Fitness Studies Teacher ] Respiratory 18 18 Rate Blood Pressure 117/56 102/58 110/58 [Right Arm] O2 Sat by Pulse 95 96 94 L Oximetry 09/12/16 09/12/16 09/12/16 16:59 17:14 17:27 Temperature Pulse Rate 80 80 Pulse Rate [ Fitness Studies Teacher ] Respiratory Rate Blood Pressure [Right Arm] O2 Sat by Pulse 96 Oximetry 09/12/16 09/12/16 09/12/16 20:25 21:07 21:20 Temperature 97.3 F L Pulse Rate 82 86 Pulse Rate [ 86 Fitness Studies Teacher ] Respiratory 18 Rate Blood Pressure 109/72 [Right Arm] O2 Sat by Pulse 93 L Oximetry 09/12/16 09/12/16 09/12/16 21:21 21:36 23:15 Temperature 98.8 F Pulse Rate 86 86 Pulse Rate [ 100 Fitness Studies Teacher ] Respiratory 18 Rate Blood Pressure 90/53 [Right Arm] O2 Sat by Pulse 90 L Oximetry 09/13/16 09/13/16 04:45 08:00 Temperature 97.3 F L 97.0 F L Pulse Rate Pulse Rate [ 88 97 Fitness Studies Teacher ] Respiratory 18 14 Rate Blood Pressure 104/61 108/59 [Right Arm] O2 Sat by Pulse 90 L 98 Oximetry Labs: Short CBC 09/12/16 09/13/16 Range/Units 13:18 05:58 WBC 12.2 H 10.5 (3.8-10.6) k/uL Hgb 13.8 13.1 (13.0-17.5) gm/dL Hct 42.0 40.3 (39.0-53.0) % Plt Count 97 L 100 L (150-450) k/uL Neutrophils # 8.9 H 7.3 (1.3-7.7) k/uL BMP 09/12/16 09/13/16 13:18 05:55 Sodium 144 144 Potassium 4.3 4.2 Chloride 112 H 111 H Carbon Dioxide 25 22 BUN 14 13 Creatinine 0.98 1.01 Glucose 115 H 108 H Calcium 8.9 8.8 Cardiac Enzymes 09/12/16 Range/Units 13:18 Troponin I 0.088 H* (0.000-0.034) ng/mL Liver Function 09/12/16 09/13/16 Range/Units 13:18 05:55 Total Bilirubin 1.1 1.1 (0.2-1.3) mg/dL AST 23 23 (17-59) U/L ALT 38 43 (21-72) U/L Alkaline Phosphatase 54 56 (38-126) U/L Albumin 3.4 L 3.4 L (3.5-5.0) g/dL Urine 09/12/16 Range/Units 16:45 Urine Color Yellow Urine Appearance Clear (Clear) Urine pH 6.5 (5.0-8.0) Ur Specific Whitman 1.011 (1.001-1.035) Urine Protein Negative (Negative) Urine Glucose (UA) Negative (Negative) O2 sat: 98% on room air Heart: S1S2, regular rate and rhythm, portable telemetry shows a normal sinus rhythm with a left bundle branch block. U/O: Adequate Intake & Output 09/11/16 09/12/16 09/13/16 09/14/16 06:59 06:59 06:59 06:59 Intake Total 120 1040 118 Output Total 1000 2150 Balance -880 -1110 118 Weight 66.933 kg 66.9 kg Active Medications Albuterol/Ipratropium (Duoneb 0.5 Mg-3 Mg/3 Ml Soln) 3 ml INHALATION RT-QID [facility] Last Admin: 09/13/16 08:10 Dose: 3 ml Albuterol/Ipratropium (Duoneb 0.5 Mg-3 Mg/3 Ml Soln) 3 ml INHALATION RT-Q2H PRN PRN Reason: Shortness Of Breath Or Wheezing Aminocaproic Acid (Amicar) 5,000 mg IV ONCE ONE Stop: 09/18/16 05:01 Aspirin (Aspirin) 325 mg PO DAILY [facility] Last Admin: 09/13/16 08:42 Dose: 325 mg Aspirin (Aspirin) 325 mg PO ONCE ONE Stop: 09/18/16 05:01 Atorvastatin Calcium (Lipitor) 80 mg PO [facility] Budesonide (Pulmicort) 1 mg INHALATION RT-BID [facility] Last Admin: 09/13/16 08:20 Dose: 1 mg Calcium Chloride (Calcium Chloride) 1,000 mg IVP ONCE ONE Stop: 09/18/16 05:01 Chlorhexidine Gluconate (Peridex) 15 ml MUCOUS MEM ONCE ONE Stop: 09/18/16 06:01 Famotidine (Pepcid) 20 mg PO HS [facility] Last Admin: 09/12/16 21:49 Dose: 20 mg Formoterol Fumarate (Perforomist) 20 mcg INHALATION RT-BID [facility] Last Admin: 09/13/16 08:20 Dose: 20 mcg Heparin Sodium (Porcine) (Heparin Sodium (1,000 Unit/Ml)) 10,000 unit IV ONCE ONE Stop: 09/18/16 05:01 Heparin Sodium (Porcine) (Heparin) 30,000 unit IV ONCE ONE Stop: 09/18/16 05:01 Heparin Sodium (Porcine) (Heparin) 30,000 unit IV ONCE ONE Stop: 09/18/16 05:01 Heparin Sodium (Porcine) (Heparin) 30,000 unit IV ONCE ONE Stop: 09/18/16 05:01 Albumin Human 50 ml/ IV (Solution) 50 mls @ 100 mls/hr IVPB ONCE ONE Stop: 09/18/16 05:29 Albumin Human 50 ml/ IV (Solution) 50 mls @ 100 mls/hr IVPB ONCE ONE Stop: 09/18/16 05:29 Albumin Human 500 ml/ IV (Solution) 500 mls @ 250 mls/hr IVPB ONCE ONE Stop: 09/18/16 06:59 Albumin Human 500 ml/ IV (Solution) 500 mls @ 250 mls/hr IVPB ONCE ONE Stop: 09/18/16 06:59 Albumin Human 500 ml/ IV (Solution) 500 mls @ 250 mls/hr IVPB ONCE ONE Stop: 09/18/16 06:59 Albumin Human 500 ml/ IV (Solution) 500 mls @ 250 mls/hr IVPB ONCE ONE Stop: 09/18/16 06:59 Albumin Human 500 ml/ IV (Solution) 500 mls @ 250 mls/hr IVPB ONCE ONE Stop: 09/18/16 06:59 Albumin Human 500 ml/ IV (Solution) 500 mls @ 250 mls/hr IVPB ONCE ONE Stop: 09/18/16 06:59 Aminocaproic Acid 5,000 mg/ (Dextrose/Water) 70 mls @ 200 mls/hr IV ONCE ONE Stop: 09/18/16 05:20 Aminocaproic Acid 5,000 mg/ (Dextrose/Water) 70 mls @ 200 mls/hr IV ONCE ONE Stop: 09/18/16 05:20 Potassium Chloride 110 meq/Magnesium Sulfate 16 meq/Sodium Bicarbonate 40 ml/ Lidocaine HCl 100 mg/ Dextrose /Water 1,109 mls @ 0 mls/hr IV .Q0M [facility]; Per Protocol PRN Reason: Protocol Potassium Chloride 25 meq/Sodium Chloride 27 meq/Magnesium Sulfate 16 meq/ Sodium Bicarbonate 40 ml/Lidocaine HCl 100 mg/ Dextrose /Water 1,073.25 mls @ 0 mls/hr IV .Q0M [facility] PRN Reason: Per Protocol Clevidipine 25 mg/ IV Solution 50 mls @ 2 mls/hr IV .Q24H ONE; 1 MG/HR PRN Reason: Protocol Stop: 09/19/16 04:59 Heparin Sodium (Porcine) 5,000 (unit/ Sodium Chloride) 501 mls @ 0 mls/hr IV ONCE ONE PRN Reason: As Directed Stop: 09/18/16 05:01 Insulin Human Regular 100 unit (/ Sodium Chloride) 101 mls @ 0 mls/hr IV .Q0M ONE PRN Reason: Titrate Stop: 09/18/16 05:01 Nitroglycerin/Dextrose 50 mg/ (IV Solution) 250 mls @ 1.5 mls/hr IV .Q24H ONE; 5 MCG/MIN PRN Reason: Protocol Stop: 09/19/16 04:59 Norepinephrine Bitartrate 4 mg (/ Sodium Chloride) 254 mls @ 0 mls/hr IV .Q0M ONE; Titrate PRN Reason: Protocol Stop: 09/18/16 05:01 Phenylephrine HCl 40 mg/ (Sodium Chloride) 254 mls @ 0 mls/hr IV .Q0M ONE; Per Protocol PRN Reason: Protocol Stop: 09/18/16 05:01 Propofol 500 mg/ IV Solution 50 mls @ 0 mls/hr IV .Q0M ONE; Titrate PRN Reason: Protocol Stop: 09/18/16 05:01 Protamine Sulfate 250 mg/ IV (Solution) 25 mls @ 0 mls/hr IV ONCE ONE PRN Reason: As Directed Stop: 09/18/16 05:01 Cefazolin Sodium 2 gm/ Sodium (Chloride) 30 mls @ 60 mls/hr IVPB ONCE ONE Stop: 09/18/16 05:29 Cefazolin Sodium 1,000 mg/ (Sodium Chloride) 1,000 mls @ 999 mls/hr IRRIGATION ONCE ONE Stop: 09/18/16 06:00 Magnesium Sulfate (Magnesium Sulfate Syg) 16.24 meq IV ONCE ONE Stop: 09/18/16 05:01 Mannitol (Osmitrol 25%) 12.5 gm IV ONCE ONE Stop: 09/18/16 05:01 Mannitol (Osmitrol 25%) 12.5 gm IV ONCE ONE Stop: 09/18/16 05:01 Metoprolol Tartrate (Lopressor) 12.5 mg PO ONCE ONE Stop: 09/18/16 05:01 Mupirocin (Bactroban Oint) 1 applic NASAL BID [facility] Stop: 09/17/16 21:01 Last Admin: 09/13/16 08:43 Dose: 1 applic Nicotine (Habitrol 21mg/24hr Patch) 1 patch TRANSDERM DAILY [facility] Last Admin: 09/12/16 17:47 Dose: Not Given Nitroglycerin/Dextrose (Nitro Drip 25 Mg/250 Ml In D5w Pmx) 1 mg IV ONCE ONE Stop: 09/18/16 05:01 Phenylephrine HCl (Jack-Synephrine Syringe) 1 mg IV ONCE ONE Stop: 09/18/16 05:01 Phenylephrine HCl (Jack-Synephrine Syringe) 1 mg IV ONCE ONE Stop: 09/18/16 05:01 Phenylephrine HCl (Jack-Synephrine Syringe) 1 mg IV ONCE ONE Stop: 09/18/16 05:01 Phenylephrine HCl (Jack-Synephrine Syringe) 1 mg IV ONCE ONE Stop: 09/18/16 05:01 Protamine Sulfate (Protamine Sulfate) 250 mg IV ONCE ONE Stop: 09/18/16 05:01 Sodium Bicarbonate (Sodium Bicarb 8.4% (1 Meq/Ml)) 50 ml IV ONCE ONE Stop: 09/18/16 05:01 Plan: Continue preoperative workup Continue to hold Plavix in anticipation of surgery.
--- NOTE | 2016-09-13 12:01 | P.PN ---
Subjective This is a very pleasant 46-year-old gentleman who follows with Dr. Haas as his primary care physician. He has a history of TIA, coronary artery disease with recent stent placement to the LAD. He has preserved left ventricular systolic function with estimated ejection fraction 45-50%. He was also found to have significant bicuspid aortic valve stenosis and the plan is for aortic valve replacement. He states he has known about heart murmur for approximately 3 years now. He does have a 30+ pack per day smoking history up to as many as 3 packs per day at one point. 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 He is not on oxygen nor any inhalers in the outpatient setting. He was recently treated for what he felt was bronchitis with a Tri-Terry of azithromycin 500 mg daily 3 days. He presented here to the emergency room yesterday with complaints of chest tingling and numbness. He states he did have some anxiety secondary to recent cardiac event. He is seen today in the end emergency room still. He is awake and alert in no acute distress. He denies any chest pain, palpitations, lightheadedness or dizziness. No shortness of breath, cough or congestion. His chest x-ray did reveal some pulmonary venous hypertension and mild congestion. His proBNP level was 6510. There is a small troponin leak. The plan is performing aortic valve replacement early next week. The patient's Plavix has been on hold and he'll be bridged in the interim. On 09/13/2016 the patient is being seen in follow-up. He completed a pulmonary function test and he was found to have mild to moderate COPD with an FEV1 of 69 % of predicted at baseline. She was started on a course of Zithromax and a prednisone burst taper to optimize further COPD. CAT scan of the chest was noted and there is a subcentimeter right apical scar which is of no major significance at this point however this is to be monitored and later stage. The patient is on IV heparin. The patient will be undergoing aortic valve replacement and later stage. Objective - Vital Signs Vital signs: Vital Signs Temp 97.0 F L 09/13/16 08:00 Pulse 97 09/13/16 08:00 Resp 14 09/13/16 08:00 BP 108/59 09/13/16 08:00 Pulse Ox 98 09/13/16 08:00 Intake & Output 09/12/16 09/13/16 09/13/16 18:59 06:59 18:59 Intake Total 440 600 118 Output Total 1250 900 700 Balance -810 -300 -582 Weight 66.9 kg Intake: Oral 440 600 118 Output: Urine 1250 900 700 Other: # Voids 1 1 - Exam Head exam was generally normal. There was no scleral icterus or corneal arcus. Mucous membranes were moist.Neck was supple and without jugular venous distension, thyromegaly, or carotid bruits. Carotids were easily palpable bilaterally. There was no adenopathy. Lung sounds are diminished bilaterally with no wheezes or rhonchi at this point. Heart sounds are regular and there is a systolic ejection murmur grade 3/6 heard throughout the precordium.Abdominal exam revealed normal bowel sounds. The abdomen was soft, non-tender, and without masses, organomegaly, or appreciable enlargement of the abdominal aorta.Examination of the extremities revealed easily palpable radial, femoral and pedal pulses. There was no cyanosis, clubbing or edema. - Labs CBC & Chem 7: 09/13/16 05:58 09/13/16 05:55 Labs: Abnormal Lab Results - Last 24 Hours (Table) 09/12/16 09/12/16 09/12/16 Range/Units 13:18 13:18 13:18 WBC 12.2 H (3.8-10.6) k/uL RBC 4.29 L (4.30-5.90) m/uL Plt Count 97 L (150-450) k/uL Neutrophils # 8.9 H (1.3-7.7) k/uL PT 12.6 H (9.0-12.0) sec Chloride 112 H (98-107) mmol/L Glucose 115 H (74-99) mg/dL Troponin I (0.000-0.034) ng/mL Total Protein 6.1 L (6.3-8.2) g/dL Albumin 3.4 L (3.5-5.0) g/dL 09/12/16 09/13/16 09/13/16 Range/Units 13:18 05:55 05:58 WBC (3.8-10.6) k/uL RBC 4.15 L (4.30-5.90) m/uL Plt Count 100 L (150-450) k/uL Neutrophils # (1.3-7.7) k/uL PT (9.0-12.0) sec Chloride 111 H (98-107) mmol/L Glucose 108 H (74-99) mg/dL Troponin I 0.088 H* (0.000-0.034) ng/mL Total Protein 6.1 L (6.3-8.2) g/dL Albumin 3.4 L (3.5-5.0) g/dL Microbiology - Last 24 Hours (Table) 09/12/16 16:45 Urine Culture - Preliminary Urine,Voided 09/12/16 17:55 Nasal Screen MRSA/MSSA ([facility]) - Preliminary Nasopharyngeal Swab Assessment and Plan Plan: Impression: #1 Chest discomfort in a patient with recent non-ST segment elevation myocardial infarction and stenting to the LAD. #2 Severe bicuspid aortic valve stenosis, symptomatic and the patient is awaiting aortic valve replacement #3 COPD of a mild to moderate in severity with an FEV1 of 69% of predicted . CAT scan of the chest was completed and it showed chronic diffuse emphysematous changes bilaterally most likely an incision with chronic smoking #4 right apical scar/nodule, subcentimeter, of no major significance of this point however this is to be monitored closely postop\ #5 nicotine addiction/smoking #6 Coronary artery disease with status post stenting to the LAD on 07/21/2016. #7 History of TIAs. Plan Patient is stable. Pulmonary standpoint. His COPD is mild to moderate in nature. He has enough lung capacity to undergo thoracotomy and aortic valve replacement. He was placed on albuterol and Atrovent about treatments around the clock. We will provide incentive spirometer. He'll complete a course of Z- Terry. As for the right apical subcentimeter pulmonary lesion, this can be inspected intraoperatively and if significant he may be considered for a intraoperative wedge resection. Otherwise, he will need outpatient follow-up with serial CAT scan imaging every 4-6 months especially with his COPD and chronic smoking status. The patient will be kept in the hospital and IV heparin. The plan is to proceed with an aortic valve replacement within the next few days.
--- NOTE | 2016-09-13 12:28 | P.PN ---
Subjective Principal diagnosis: Presyncope This is a pleasant 46-year-old gentleman with a known CAD and known critical aortic stenosis was brought to the hospital by ambulance with presyncope. He was found to be hypotensive.He just underwent a BETSEY which showed critical aortic stenosis. Patient was seen in consultation by cardiothoracic surgery. He is scheduled to undergo surgery on Sunday at this time. The blood pressure continues to be marginally low, therefore his blood pressure medications are continuing to be on hold at this time. He is noted at times to be mildly tachycardic as well. Overall the patient is feeling well, Objective - Vital Signs Vital signs: Vital Signs Temp 97.0 F L 09/13/16 08:00 Pulse 76 09/13/16 12:09 Resp 14 09/13/16 08:00 BP 108/59 09/13/16 08:00 Pulse Ox 98 09/13/16 08:00 Intake & Output 09/12/16 09/13/16 09/13/16 18:59 06:59 18:59 Intake Total 440 600 118 Output Total 1250 900 700 Balance -810 -300 -582 Weight 66.9 kg Intake: Oral 440 600 118 Output: Urine 1250 900 700 Other: # Voids 1 1 - Exam PHYSICAL EXAMINATION: HEENT: Head is atraumatic, normocephalic. Pupils equal, round. Neck is supple. There is no elevated jugular venous pressure. HEART EXAMINATION: Heart S1 and S2 systolic ejection murmur is heard. CHEST EXAMINATION: Lungs are clear to auscultation and precussion. No chest wall tenderness is noted on palpation or with deep breathing. ABDOMEN: Soft, nontender. Bowel sounds are heard. No organomegaly noted. EXTREMITIES: 2+ peripheral pulses with no evidence of peripheral edema and no calf tenderness noted. NEUROLOGIC patient is awake, alert and oriented -3. . - Labs CBC & Chem 7: 09/13/16 05:58 09/13/16 05:55 Labs: Abnormal Lab Results - Last 24 Hours (Table) 09/12/16 09/12/16 09/12/16 Range/Units 13:18 13:18 13:18 WBC 12.2 H (3.8-10.6) k/uL RBC 4.29 L (4.30-5.90) m/uL Plt Count 97 L (150-450) k/uL Neutrophils # 8.9 H (1.3-7.7) k/uL PT 12.6 H (9.0-12.0) sec Chloride 112 H (98-107) mmol/L Glucose 115 H (74-99) mg/dL Troponin I (0.000-0.034) ng/mL Total Protein 6.1 L (6.3-8.2) g/dL Albumin 3.4 L (3.5-5.0) g/dL 09/12/16 09/13/16 09/13/16 Range/Units 13:18 05:55 05:58 WBC (3.8-10.6) k/uL RBC 4.15 L (4.30-5.90) m/uL Plt Count 100 L (150-450) k/uL Neutrophils # (1.3-7.7) k/uL PT (9.0-12.0) sec Chloride 111 H (98-107) mmol/L Glucose 108 H (74-99) mg/dL Troponin I 0.088 H* (0.000-0.034) ng/mL Total Protein 6.1 L (6.3-8.2) g/dL Albumin 3.4 L (3.5-5.0) g/dL Microbiology - Last 24 Hours (Table) 09/12/16 16:45 Urine Culture - Preliminary Urine,Voided 09/12/16 17:55 Nasal Screen MRSA/MSSA ([facility]) - Preliminary Nasopharyngeal Swab Assessment and Plan (1) Pre-syncope Status: Acute (2) TIA (transient ischemic attack) Status: Acute (3) Hyperlipemia Status: Acute (4) Critical aortic valve stenosis Status: Acute (5) Presence of stent in LAD coronary artery Status: Acute (6) Systolic murmur Status: Acute (7) Tobacco abuse Status: Acute Plan: From cardiology's perspective, we will continue the patient on his current medications. He is not at present on any antihypertensive medications because of marginally low blood pressure. He will remain on the telemetry unit, scheduled for aortic valve surgery on Sunday. DNP note has been reviewed, I agree with a documented findings and plan of care. Patient was seen and examined.
--- NOTE | 2016-09-13 15:42 | P.PN ---
Subjective Principal diagnosis: Critical aortic stenosis Patient is a 46-year-old male, patient of Dr. Theo Haas in the outpatient setting with medical history significant for myocardial infarction with stent placement to the LAD in July 2016, TIA, hyperlipidemia, and nicotine dependence. Patient presented to the emergency department with complaints of chest pain that started while he was at work associated with diaphoresis and lightheadedness after he took a nitroglycerin. Troponins 0.021 , 0.266, 0.174, and 0.088. NT proBNP 6510. Chest x-ray with evidence of pulmonary venous hypertension and interstitial edema. Echocardiogram with Doppler significant for severe concentric left ventricular hypertrophy, severe aortic stenosis, and left ventricular systolic function with an EF between 50-55 %. No significant stenosis seen on bilateral carotid Dopplers. Patient has been evaluated by cardiology and cardiothoracic surgery and is currently being scheduled for aortic valve replacement early next week after he has been off Plavix for 5 days. Pulmonary service has seen and evaluated patient and is scheduled to undergo pulmonary function testing to evaluate severity of COPD. Upon examination, patient is doing well. Denies chills, fevers, lightheadedness , nausea, vomiting, shortness of breath, chest pain, abdominal pain, or leg swelling. Afebrile. Objective - Vital Signs Vital signs: Vital Signs Temp 97.1 F L 09/13/16 12:00 Pulse 76 09/13/16 12:09 Resp 14 09/13/16 12:00 BP 104/56 09/13/16 12:00 Pulse Ox 99 09/13/16 12:00 Intake & Output 09/12/16 09/13/16 09/13/16 18:59 06:59 18:59 Intake Total 440 600 118 Output Total 1250 900 700 Balance -810 -300 -582 Weight 66.9 kg Intake: Oral 440 600 118 Output: Urine 1250 900 700 Other: # Voids 1 1 - Exam GENERAL: Pt awake and alert, well-appearing, well-nourished, and in no acute distress. HEAD: Atraumatic, normocephalic. EYES: Pupils equal, round, and reactive to light, extraocular movements intact, sclera anicteric, conjunctiva are normal. ENT: Oropharynx clear without exudates. Moist mucous membranes. NECK:Normal range of motion, supple without lymphadenopathy or JVD. LUNGS: Breath sounds clear to auscultation bilaterally. No wheezes, rales, or rhonchi. HEART: Heart S1, S2, no S3 or S4. Systolic murmur. ABDOMEN: Soft, nontender, nondistended, normoactive bowel sounds. No guarding, no rebound. No masses or organomegaly appreciated. EXTREMITIES: 1+ dorsalis pedal pulses. No edema. No calf tenderness. NEUROLOGICAL: Pt oriented x 3. Cranial nerves II through XII grossly intact. Strength and sensation grossly intact. PSYCH: Normal mood, normal affect. SKIN: Warm, dry, intact. Lower extremities with dry skin. - Labs CBC & Chem 7: 09/13/16 05:58 09/13/16 05:55 Labs: Abnormal Lab Results - Last 24 Hours (Table) 09/13/16 09/13/16 Range/Units 05:55 05:58 RBC 4.15 L (4.30-5.90) m/uL Plt Count 100 L (150-450) k/uL Chloride 111 H (98-107) mmol/L Glucose 108 H (74-99) mg/dL Total Protein 6.1 L (6.3-8.2) g/dL Albumin 3.4 L (3.5-5.0) g/dL Microbiology - Last 24 Hours (Table) 09/12/16 16:45 Urine Culture - Preliminary Urine,Voided 09/12/16 17:55 Nasal Screen MRSA/MSSA ([facility]) - Preliminary Nasopharyngeal Swab Assessment and Plan Plan: Impression: 1. Severe bicuspid aortic valve stenosis, symptomatic. 2. Coronary artery disease with myocardial infarction in July 2016 with stenting to the distal LAD. 3. History of hyperlipidemia. 4. History of TIA. 5. History of bronchitis. 6. Nicotine dependence. 7. Elevated troponins. 8. Elevated proBNP. 9. Calf pain when walking long distances along with decreased pulses to bilateral feet suspect secondary to peripheral vascular disease secondary to smoking. 10. Mild to moderate COPD with an FEV1 of 69% of predicted at baseline. 11. Right apical scar/nodule, subcentimeter, of no major significance at this point, continue to monitor closely postop. Plan: 1. Patient is currently scheduled for aortic valve replacement on Sunday. Cardiology has seen and evaluated patient, recommendations noted. Continue IV heparin. Patient has been started on Zithromax and prednisone burst taper to optimize COPD. Smoking secession encouraged. Continue to monitor patient, continue current medications, continue GI and DVT prophylaxis, continue to follow with consultants. The above impression and plan have been discussed and directed by Dr. Haas. Hailey CARDOSO acting as scribe for Dr. Haas.
[2016-09-13] MEDS ORDERED: METOPROLOL TARTRATE 25 MG TAB PO SCH (21:00)
[2016-09-13] MEDS: ATORVASTATIN 80 MG TAB PO SCH (22:28)
[2016-09-13] MEDS: FAMOTIDINE 20 MG TAB PO SCH (22:29)
[2016-09-14] MEDS: MUPIROCIN 2% OINT 22 GM TUBE NASAL SCH ×3 (06:36→21:24)
[2016-09-14] MEDS: TRIAMCINOLONE 0.1% CREAM 80 GM TUBE TOPICAL SCH ×3 (06:37→21:24)
[2016-09-14] MEDS: IPRATROPIUM-ALBUTEROL 3 ML NEB INHALATION SCH ×4 (08:42→20:15)
[2016-09-14] MEDS: FORMOTEROL FUMARATE 20 MCG/2 ML NEBU INHALATION SCH ×2 (08:43→20:15)
[2016-09-14] MEDS: BUDESONIDE 1 MG/2 ML NEBU INHALATION SCH ×2 (08:43→20:15)
[2016-09-14] MEDS ORDERED: HEPARIN SODIUM,PORCINE/D5W PMX 25,000 UNIT in DEXTROSE/WATER 1 500ML.BAG IV SCH (09:00)
[2016-09-14] MEDS: ASPIRIN 325 MG TAB PO SCH (09:05)
[2016-09-14] MEDS: NICOTINE 21MG/24HR PATCH TRANSDERM SCH ×2 (09:05→09:07)
--- NOTE | 2016-09-14 09:06 | P.PN ---
Subjective Principal diagnosis: Chest pain, near syncope, severe aortic stenosis. Patient is sitting up in bed in no apparent distress, with at bedside. Denies chest pain, shortness of breath. Objective - Vital Signs Vital signs: Vital Signs Temp 97.5 F L 09/14/16 04:00 Pulse 72 09/14/16 08:43 Resp 18 09/14/16 04:00 BP 114/56 09/14/16 04:00 Pulse Ox 91 L 09/14/16 04:00 Intake & Output 09/13/16 09/14/16 09/14/16 18:59 06:59 18:59 Intake Total 118 Output Total 700 1400 Balance -582 -1400 Weight 66 kg Intake: Oral 118 Output: Urine 700 1400 Other: Voiding Method Urinal # Voids 1 - Constitutional General appearance: Present: cooperative, no acute distress - Respiratory Details: Lung sounds very diminished bilaterally, respirations even and nonlabored. Remains on room air. - Cardiovascular Details: Clear S1, S2 absent, systolic murmur present regular rate and rhythm, normal sinus rhythm on telemetry. No edema present. Palpable radial, DP, PT pulses. - Gastrointestinal Gastrointestinal Comment(s): Abdomen soft, nontender, nondistended. Bowel sounds active 4 quadrants. Patient tolerating diet. - Genitourinary Genitourinary Comment(s): Voiding clear yellow urine per urinal - Integumentary Integumentary Comment(s): Skin warm, dry, intact. - Neurologic Neurologic Comment(s): Alert and oriented 3, following all commands. - Musculoskeletal Musculoskeletal Comment(s): Able to ambulate in beltran ways. - Psychiatric Psychiatric: Present: appropriate affect, intact judgment & insight - Allied health notes Allied health notes reviewed: nursing - Labs CBC & Chem 7: 09/13/16 05:58 09/13/16 05:55 Labs: Microbiology - Last 24 Hours (Table) 09/12/16 17:55 Nasal Screen MRSA/MSSA ([facility]) - Final Nasopharyngeal Swab Staphylococcus aureus,Not MRSA 09/12/16 16:45 Urine Culture - Final Urine,Voided Assessment and Plan (1) Critical aortic valve stenosis Status: Acute (2) Near syncope Status: Acute (3) Hyperlipemia Status: Acute (4) Chest pain Status: Acute Plan: 1. Continue aspirin, Lipitor. Continue to hold Plavix. 2. Hold beta blockers at this time per cardiology recommendation secondary to marginal blood pressure and severity of the aortic valve. 3. 5 m walk test done, #1 3.43 seconds, #2 3.14 seconds, #3 4.01 seconds line 4. Encourage smoking cessation. 5. Continue preoperative teaching, encourage incentive spirometry use, encourage ambulation in the hallway.
--- NOTE | 2016-09-14 13:52 | P.PN ---
Subjective Principal diagnosis: Critical aortic stenosis Patient is a 46-year-old male, patient of Dr. Theo Haas in the outpatient setting with medical history significant for myocardial infarction with stent placement to the LAD in July 2016, TIA, hyperlipidemia, and nicotine dependence. Patient presented to the emergency department with complaints of chest pain that started while he was at work associated with diaphoresis and lightheadedness after he took a nitroglycerin. Troponins 0.021 , 0.266, 0.174, and 0.088. NT proBNP 6510. Chest x-ray with evidence of pulmonary venous hypertension and interstitial edema. Echocardiogram with Doppler significant for severe concentric left ventricular hypertrophy, severe aortic stenosis, and left ventricular systolic function with an EF between 50-55 %. No significant stenosis seen on bilateral carotid Dopplers. Patient has been evaluated by cardiology and cardiothoracic surgery and is currently being scheduled for aortic valve replacement early next week after he has been off Plavix for 5 days. Pulmonary service has seen and evaluated patient and is scheduled to undergo pulmonary function testing to evaluate severity of COPD. Upon examination, patient is doing well. Denies chills, fevers, lightheadedness , nausea, vomiting, shortness of breath, chest pain, abdominal pain, or leg swelling. Afebrile. Objective - Vital Signs Vital signs: Vital Signs Temp 98.6 F 09/14/16 09:10 Pulse 107 H 09/14/16 09:10 Resp 18 09/14/16 09:10 BP 108/58 09/14/16 09:10 Pulse Ox 99 09/14/16 09:10 Intake & Output 09/13/16 09/14/16 09/14/16 18:59 06:59 18:59 Intake Total 118 360 Output Total 700 1400 1200 Balance -582 -1400 -840 Weight 66 kg Intake: Oral 118 360 Output: Urine 700 1400 1200 Other: Voiding Method Urinal Urinal # Voids 1 # Bowel Movements 0 - Exam GENERAL: Pt awake and alert, well-appearing, well-nourished, and in no acute distress. HEAD: Atraumatic, normocephalic. EYES: Pupils equal, round, and reactive to light, extraocular movements intact, sclera anicteric, conjunctiva are normal. ENT: Oropharynx clear without exudates. Moist mucous membranes. NECK:Normal range of motion, supple without lymphadenopathy or JVD. LUNGS: Breath sounds clear to auscultation bilaterally. No wheezes, rales, or rhonchi. HEART: Heart S1, S2, no S3 or S4. Systolic murmur. ABDOMEN: Soft, nontender, nondistended, normoactive bowel sounds. No guarding, no rebound. No masses or organomegaly appreciated. EXTREMITIES: 1+ dorsalis pedal pulses. No edema. No calf tenderness. NEUROLOGICAL: Pt oriented x 3. Cranial nerves II through XII grossly intact. Strength and sensation grossly intact. PSYCH: Normal mood, normal affect. SKIN: Warm, dry, intact. Lower extremities with dry skin. - Labs CBC & Chem 7: 09/13/16 05:58 09/13/16 05:55 Labs: Microbiology - Last 24 Hours (Table) 09/12/16 17:55 Nasal Screen MRSA/MSSA ([facility]) - Final Nasopharyngeal Swab Staphylococcus aureus,Not MRSA 09/12/16 16:45 Urine Culture - Final Urine,Voided Assessment and Plan Plan: Impression: 1. Severe bicuspid aortic valve stenosis, symptomatic. 2. Coronary artery disease with myocardial infarction in July 2016 with stenting to the distal LAD. 3. History of hyperlipidemia. 4. History of TIA. 5. History of bronchitis. 6. Nicotine dependence. 7. Elevated troponins. 8. Elevated proBNP. 9. Calf pain when walking long distances along with decreased pulses to bilateral feet suspect secondary to peripheral vascular disease secondary to smoking. 10. Mild to moderate COPD with an FEV1 of 69% of predicted at baseline. 11. Right apical scar/nodule, subcentimeter, of no major significance at this point, continue to monitor closely postop. Plan: 1. Patient is currently scheduled for aortic valve replacement on Sunday. Cardiology has seen and evaluated patient, recommendations noted. Continue IV heparin. Patient has been started on Zithromax and prednisone burst taper to optimize COPD. Smoking secession encouraged. Continue to monitor patient, continue current medications, continue GI and DVT prophylaxis, continue to follow with consultants. The above impression and plan have been discussed and directed by Dr. Haas. Hailey CARDOSO acting as scribe for Dr. Haas.
--- NOTE | 2016-09-14 15:28 | P.PN ---
Subjective Principal diagnosis: Presyncope This is a pleasant 46-year-old gentleman with a known CAD and known critical aortic stenosis was brought to the hospital by ambulance with presyncope. He was found to be hypotensive.He just underwent a BETSEY which showed critical aortic stenosis. Patient was seen in consultation by cardiothoracic surgery. He is scheduled to undergo surgery on Sunday at this time. The blood pressure continues to be marginally low, therefore his blood pressure medications are continuing to be on hold at this time. He is noted at times to be mildly tachycardic as well. Overall the patient is feeling well, Objective - Vital Signs Vital signs: Vital Signs Temp 98.6 F 09/14/16 09:10 Pulse 107 H 09/14/16 09:10 Resp 18 09/14/16 09:10 BP 108/58 09/14/16 09:10 Pulse Ox 99 09/14/16 09:10 Intake & Output 09/13/16 09/14/16 09/14/16 18:59 06:59 18:59 Intake Total 118 360 Output Total 700 1400 1200 Balance -582 -1400 -840 Weight 66 kg Intake: Oral 118 360 Output: Urine 700 1400 1200 Other: Voiding Method Urinal Urinal # Voids 1 # Bowel Movements 0 - Exam PHYSICAL EXAMINATION: HEENT: Head is atraumatic, normocephalic. Pupils equal, round. Neck is supple. There is no elevated jugular venous pressure. HEART EXAMINATION: Heart S1 and S2 systolic ejection murmur is heard. CHEST EXAMINATION: Lungs are clear to auscultation and precussion. No chest wall tenderness is noted on palpation or with deep breathing. ABDOMEN: Soft, nontender. Bowel sounds are heard. No organomegaly noted. EXTREMITIES: 2+ peripheral pulses with no evidence of peripheral edema and no calf tenderness noted. NEUROLOGIC patient is awake, alert and oriented -3. . - Labs CBC & Chem 7: 09/13/16 05:58 09/13/16 05:55 Labs: Microbiology - Last 24 Hours (Table) 09/12/16 17:55 Nasal Screen MRSA/MSSA ([facility]) - Final Nasopharyngeal Swab Staphylococcus aureus,Not MRSA 09/12/16 16:45 Urine Culture - Final Urine,Voided Assessment and Plan (1) Pre-syncope Status: Acute (2) TIA (transient ischemic attack) Status: Acute (3) Hyperlipemia Status: Acute (4) Critical aortic valve stenosis Status: Acute (5) Presence of stent in LAD coronary artery Status: Acute (6) Systolic murmur Status: Acute (7) Tobacco abuse Status: Acute Plan: From cardiology's perspective, we will continue the patient on his current medications. He is not at present on any antihypertensive medications because of marginally low blood pressure. Continue aspirin and Lipitor. He will remain on the telemetry unit, scheduled for aortic valve surgery on Sunday. DNP note has been reviewed, I agree with a documented findings and plan of care. Patient was seen and examined.
--- NOTE | 2016-09-14 16:47 | P.PN ---
Subjective This is a very pleasant 46-year-old gentleman who follows with Dr. Haas as his primary care physician. He has a history of TIA, coronary artery disease with recent stent placement to the LAD. He has preserved left ventricular systolic function with estimated ejection fraction 45-50%. He was also found to have significant bicuspid aortic valve stenosis and the plan is for aortic valve replacement. He states he has known about heart murmur for approximately 3 years now. He does have a 30+ pack per day smoking history up to as many as 3 packs per day at one point. 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 He is not on oxygen nor any inhalers in the outpatient setting. He was recently treated for what he felt was bronchitis with a Tri-Terry of azithromycin 500 mg daily 3 days. He presented here to the emergency room yesterday with complaints of chest tingling and numbness. He states he did have some anxiety secondary to recent cardiac event. He is seen today in the end emergency room still. He is awake and alert in no acute distress. He denies any chest pain, palpitations, lightheadedness or dizziness. No shortness of breath, cough or congestion. His chest x-ray did reveal some pulmonary venous hypertension and mild congestion. His proBNP level was 6510. There is a small troponin leak. The plan is performing aortic valve replacement early next week. The patient's Plavix has been on hold and he'll be bridged in the interim. On 09/13/2016 the patient is being seen in follow-up. He completed a pulmonary function test and he was found to have mild to moderate COPD with an FEV1 of 69 % of predicted at baseline. She was started on a course of Zithromax and a prednisone burst taper to optimize further COPD. CAT scan of the chest was noted and there is a subcentimeter right apical scar which is of no major significance at this point however this is to be monitored and later stage. The patient is on IV heparin. The patient will be undergoing aortic valve replacement and later stage. On 09/14/2016, the patient is still awaiting his cardiac surgery. The patient is currently off IV heparin. No chest pain. No shortness of breath. He is ambulating in the hallway. The tentative plan is to proceed with aortic valve replacement by Sunday. Objective - Vital Signs Vital signs: Vital Signs Temp 97.4 F L 09/14/16 16:00 Pulse 104 H 09/14/16 16:28 Resp 18 09/14/16 16:00 BP 110/59 09/14/16 16:00 Pulse Ox 97 09/14/16 16:00 Intake & Output 09/13/16 09/14/16 09/14/16 18:59 06:59 18:59 Intake Total 118 360 Output Total 700 1400 1200 Balance -582 -1400 -840 Weight 66 kg Intake: Oral 118 360 Output: Urine 700 1400 1200 Other: Voiding Method Urinal Urinal # Voids 1 # Bowel Movements 0 - Exam Head exam was generally normal. There was no scleral icterus or corneal arcus. Mucous membranes were moist.Neck was supple and without jugular venous distension, thyromegaly, or carotid bruits. Carotids were easily palpable bilaterally. There was no adenopathy. Lung sounds are diminished bilaterally with no wheezes or rhonchi at this point. Heart sounds are regular and there is a systolic ejection murmur grade 3/6 heard throughout the precordium.Abdominal exam revealed normal bowel sounds. The abdomen was soft, non-tender, and without masses, organomegaly, or appreciable enlargement of the abdominal aorta.Examination of the extremities revealed easily palpable radial, femoral and pedal pulses. There was no cyanosis, clubbing or edema. - Labs CBC & Chem 7: 09/13/16 05:58 09/13/16 05:55 Labs: Microbiology - Last 24 Hours (Table) 09/12/16 17:55 Nasal Screen MRSA/MSSA ([facility]) - Final Nasopharyngeal Swab Staphylococcus aureus,Not MRSA 09/12/16 16:45 Urine Culture - Final Urine,Voided Assessment and Plan Plan: Impression: #1 Chest discomfort in a patient with recent non-ST segment elevation myocardial infarction and stenting to the LAD. #2 Severe bicuspid aortic valve stenosis, symptomatic and the patient is awaiting aortic valve replacement #3 COPD of a mild to moderate in severity with an FEV1 of 69% of predicted . CAT scan of the chest was completed and it showed chronic diffuse emphysematous changes bilaterally most likely an incision with chronic smoking #4 right apical scar/nodule, subcentimeter, of no major significance of this point however this is to be monitored closely postop\ #5 nicotine addiction/smoking #6 Coronary artery disease with status post stenting to the LAD on 07/21/2016. #7 History of TIAs. Plan Patient is stable. Pulmonary standpoint. His COPD is mild to moderate in nature. He has enough lung capacity to undergo thoracotomy and aortic valve replacement. He was placed on albuterol and Atrovent about treatments around the clock. We will provide incentive spirometer. He'll complete a course of Z- Terry. As for the right apical subcentimeter pulmonary lesion, this can be inspected intraoperatively and if significant he may be considered for a intraoperative wedge resection. Otherwise, he will need outpatient follow-up with serial CAT scan imaging every 4-6 months especially with his COPD and chronic smoking status. The patient will be kept in the hospital and IV heparin. The patient is in a stable condition is still. No significant events overnight. The patient is looking for an aortic valve replacement early next week.
[2016-09-14] MEDS: ATORVASTATIN 80 MG TAB PO SCH (21:24)
[2016-09-14] MEDS: FAMOTIDINE 20 MG TAB PO SCH (21:24)
[2016-09-15] MEDS: NICOTINE 21MG/24HR PATCH TRANSDERM SCH (08:06)
[2016-09-15] MEDS: TRIAMCINOLONE 0.1% CREAM 80 GM TUBE TOPICAL SCH ×2 (08:06→21:38)
[2016-09-15] MEDS: ASPIRIN 325 MG TAB PO SCH (08:06)
[2016-09-15] MEDS: MUPIROCIN 2% OINT 22 GM TUBE NASAL SCH ×2 (08:06→21:36)
[2016-09-15] MEDS: FORMOTEROL FUMARATE 20 MCG/2 ML NEBU INHALATION SCH ×2 (08:41→20:44)
[2016-09-15] MEDS: IPRATROPIUM-ALBUTEROL 3 ML NEB INHALATION SCH ×4 (08:41→20:46)
[2016-09-15] MEDS: BUDESONIDE 1 MG/2 ML NEBU INHALATION SCH ×2 (08:41→20:44)
[2016-09-15 10:33] LABS: Basophils # (A) 0.1 k/uL (0-0.2); Basophils % (A) 1 %; CH 32.4; CHCM 33.2; Eosinophils # (A) 0.1 k/uL (0-0.7); Eosinophils % (A) 2 %; HCT 42.4 % (39.0-53.0); HDW 2.65; HGB 13.6 gm/dL (13.0-17.5); Luc # (Auto) 0.11; Luc % (Auto) 1; Lymphocytes # (A) 2.1 k/uL (1.0-4.8); Lymphocytes % (A) 23 %; MCH 31.4 pg (25.0-35.0); MCV 98.1 fL (80.0-100.0); Mean Platelet Volume 10.9; Monocytes # (A) 0.6 k/uL (0-1.0); Monocytes % (A) 6 %; Neutrophils # (A) 6.1 k/uL (1.3-7.7); Neutrophils % (A) 67 %; RBC 4.32 m/uL (4.30-5.90); WBC 9.1 k/uL (3.8-10.6); WBC (Perox) 10.31
[2016-09-15 10:46] LABS: Anion Gap 12 mmol/L; Blood Urea Nitrogen 10 mg/dL (9-20); Calcium 9.5 mg/dL (8.4-10.2); Carbon Dioxide 24 mmol/L (22-30); Chloride 107 mmol/L (98-107); Glucose 116 mg/dL (74-99); Non-African American GFR(MDRD) >60 (>60 ml/min/1.73 sqM); Potassium 4.1 mmol/L (3.5-5.1); Sodium 143 mmol/L (137-145)
--- NOTE | 2016-09-15 12:16 | P.PN ---
Subjective Principal diagnosis: Critical aortic stenosis Patient is a 46-year-old male, patient of Dr. Theo Haas in the outpatient setting with medical history significant for myocardial infarction with stent placement to the LAD in July 2016, TIA, hyperlipidemia, and nicotine dependence. Patient presented to the emergency department with complaints of chest pain that started while he was at work associated with diaphoresis and lightheadedness after he took a nitroglycerin. Troponins 0.021 , 0.266, 0.174, and 0.088. NT proBNP 6510. Chest x-ray with evidence of pulmonary venous hypertension and interstitial edema. Echocardiogram with Doppler significant for severe concentric left ventricular hypertrophy, severe aortic stenosis, and left ventricular systolic function with an EF between 50-55 %. No significant stenosis seen on bilateral carotid Dopplers. Patient has been evaluated by cardiology and cardiothoracic surgery and is currently being scheduled for aortic valve replacement on Sunday. Upon examination, patient is doing well. Denies chills, fevers, lightheadedness , nausea, vomiting, shortness of breath, chest pain, abdominal pain, or leg swelling. Afebrile. Patient reports good appetite. Urinating without difficulty. Denies diarrhea or constipation. Afebrile. Hemodynamically stable. Objective - Vital Signs Vital signs: Vital Signs Temp 97.0 F L 09/15/16 11:53 Pulse 96 09/15/16 12:00 Resp 14 09/15/16 11:53 BP 118/56 09/15/16 11:53 Pulse Ox 97 09/15/16 11:53 Intake & Output 09/14/16 09/15/16 09/15/16 18:59 06:59 18:59 Intake Total 600 1800 Output Total 1200 1800 600 Balance -600 0 -600 Weight 65.9 kg Intake: Oral 600 1800 Output: Urine 1200 1800 600 Other: Voiding Method Urinal Urinal # Voids 2 1 0 # Bowel Movements 0 - Exam GENERAL: Pt awake and alert, well-appearing, well-nourished, and in no acute distress. HEAD: Atraumatic, normocephalic. EYES: Pupils equal, round, and reactive to light, extraocular movements intact, sclera anicteric, conjunctiva are normal. ENT: Oropharynx clear without exudates. Moist mucous membranes. NECK:Normal range of motion, supple without lymphadenopathy or JVD. LUNGS: Breath sounds clear to auscultation bilaterally. No wheezes, rales, or rhonchi. HEART: Heart S1, S2, no S3 or S4. Systolic murmur. ABDOMEN: Soft, nontender, nondistended, normoactive bowel sounds. No guarding, no rebound. No masses or organomegaly appreciated. EXTREMITIES: 1+ dorsalis pedal pulses. No edema. No calf tenderness. NEUROLOGICAL: Pt oriented x 3. Cranial nerves II through XII grossly intact. Strength and sensation grossly intact. PSYCH: Normal mood, normal affect. SKIN: Warm, dry, intact. Lower extremities with dry skin. - Labs CBC & Chem 7: 09/15/16 10:17 09/15/16 10:17 Labs: Abnormal Lab Results - Last 24 Hours (Table) 09/15/16 09/15/16 Range/Units 10: 10:17 Plt Count 107 L (150-450) k/uL Glucose 116 H (74-99) mg/dL Assessment and Plan Plan: Impression: 1. Severe bicuspid aortic valve stenosis, symptomatic. 2. Coronary artery disease with myocardial infarction in July 2016 with stenting to the distal LAD. 3. History of hyperlipidemia. 4. History of TIA. 5. History of bronchitis. 6. Nicotine dependence. 7. Elevated troponins. 8. Elevated proBNP. 9. Calf pain when walking long distances along with decreased pulses to bilateral feet suspect secondary to peripheral vascular disease secondary to smoking. 10. Mild to moderate COPD with an FEV1 of 69% of predicted at baseline. 11. Right apical scar/nodule, subcentimeter, of no major significance at this point, continue to monitor closely postop. Plan: 1. Patient is currently scheduled for aortic valve replacement on Sunday. Cardiology has seen and evaluated patient, recommendations noted. Patient has been started on Zithromax and prednisone burst taper to optimize COPD. Smoking secession encouraged. Continue to monitor patient, continue current medications , continue GI and DVT prophylaxis, continue to follow with consultants. The above impression and plan have been discussed and directed by Dr. Haas. Hailey CARDOSO acting as scribe for Dr. Haas.
--- NOTE | 2016-09-15 12:23 | P.PN ---
Progress Note - Text This is a pleasant 46-year-old gentleman with a past medical history significant for CAD and prior stenting of the distal LAD, severe aortic stenoses , history of smoking, and known PAD, presented to the hospital complaining of atypical chest discomfort as well as dizziness and lightheadedness and presyncope. He just underwent was esophageal echocardiogram recently and that showed critical aortic stenosis secondary to bicuspid aortic valve. The patient was scheduled to see me in the office and to send the patient to have an aVR but unfortunately he ended in the emergency room here. He was admitted to the hospital where all his blood pressure medications were stopped and he was restarted on the aspirin and a statin. From the cardiac vascular standpoint of view, he seems to be doing good. He was seen and evaluated by the cardiothoracic surgery service and the plan is to proceed with aVR this coming Sunday. I would continue the aspirin and a statin and start the patient on heparin IV at low intensity only. We'll continue following up with him
[2016-09-15] MEDS ORDERED: HEPARIN SODIUM,PORCINE 5,000 UNIT/ML 1 ML VIAL IV PRN (12:31)
[2016-09-15] MEDS ORDERED: HEPARIN SODIUM,PORCINE 5,000 UNIT/ML 1 ML VIAL IV ONE (12:31)
[2016-09-15] MEDS: HEPARIN SODIUM,PORCINE/D5W PMX 25,000 UNIT in DEXTROSE/WATER 1 500ML.BAG IV SCH (13:30)
--- NOTE | 2016-09-15 15:28 | P.PN ---
Subjective Principal diagnosis: Chest pain, near syncope, severe aortic stenosis. Patient is sitting up in bed in no apparent distress, with at bedside. Denies chest pain, shortness of breath. Objective - Vital Signs Vital signs: Vital Signs Temp 97.0 F L 09/15/16 11:53 Pulse 96 09/15/16 12:00 Resp 14 09/15/16 11:53 BP 118/56 09/15/16 11:53 Pulse Ox 97 09/15/16 11:53 Intake & Output 09/14/16 09/15/16 09/15/16 18:59 06:59 18:59 Intake Total 600 1800 240 Output Total 1200 1800 1800 Balance -600 0 -1560 Weight 65.9 kg Intake: Oral 600 1800 240 Output: Urine 1200 1800 1800 Other: Voiding Method Urinal Urinal # Voids 2 1 0 # Bowel Movements 0 - Constitutional General appearance: Present: cooperative, no acute distress - Respiratory Details: Lungs sounds diminished bilaterally. Respirations even and nonlabored. Patient remains on room air. Using incentive spirometer. - Cardiovascular Details: Clear S1. Absent S2, systolic murmur present. Regular rate and rhythm, normal sinus rhythm on telemetry. No edema present. Palpable radial, DP, PT pulses bilaterally. - Gastrointestinal Gastrointestinal Comment(s): Abdomen soft nontender nondistended. Active bowel sounds 4 quadrants. Tolerating diet. - Genitourinary Genitourinary Comment(s): Voiding clear yellow urine per urinal. - Integumentary Integumentary Comment(s): Skin warm, dry, pink, intact. - Neurologic Neurologic Comment(s): Alert and oriented 3. Following all commands. - Musculoskeletal Musculoskeletal Comment(s): Ambulating in beltran without incident. - Psychiatric Psychiatric: Present: appropriate affect, intact judgment & insight - Allied health notes Allied health notes reviewed: nursing - Labs CBC & Chem 7: 09/15/16 10:17 09/15/16 10:17 Labs: Abnormal Lab Results - Last 24 Hours (Table) 09/15/16 09/15/16 Range/Units 10:17 10:17 Plt Count 107 L (150-450) k/uL Glucose 116 H (74-99) mg/dL Assessment and Plan (1) Critical aortic valve stenosis Status: Acute (2) Near syncope Status: Acute (3) Hyperlipemia Status: Acute (4) Chest pain Status: Acute Plan: 1. Continue aspirin, Lipitor. Continue to hold Plavix. 2. Hold beta blockers at this time per cardiology recommendation secondary to marginal blood pressure and severity of the aortic valve. 3. Encourage smoking cessation. 4. Continue preoperative teaching, encourage incentive spirometry use, encourage ambulation in the hallway. 5. Plan for aortic valve replacement on September 18. Time with Patient: Greater than 30
[2016-09-15] MEDS: ATORVASTATIN 80 MG TAB PO SCH (21:36)
[2016-09-15] MEDS: FAMOTIDINE 20 MG TAB PO SCH (21:36)
[2016-09-16] MEDS: TRIAMCINOLONE 0.1% CREAM 80 GM TUBE TOPICAL SCH ×2 (08:01→20:45)
[2016-09-16] MEDS: MUPIROCIN 2% OINT 22 GM TUBE NASAL SCH ×2 (08:01→20:45)
[2016-09-16] MEDS: NICOTINE 21MG/24HR PATCH TRANSDERM SCH (08:01)
[2016-09-16] MEDS: ASPIRIN 325 MG TAB PO SCH (08:01)
[2016-09-16] MEDS: FORMOTEROL FUMARATE 20 MCG/2 ML NEBU INHALATION SCH ×2 (08:23→19:21)
[2016-09-16] MEDS: IPRATROPIUM-ALBUTEROL 3 ML NEB INHALATION SCH ×4 (08:23→19:21)
[2016-09-16] MEDS: BUDESONIDE 1 MG/2 ML NEBU INHALATION SCH ×2 (08:24→19:21)
--- NOTE | 2016-09-16 09:40 | P.PN ---
Subjective Principal diagnosis: Critical This is a pleasant 46-year-old gentleman with a known CAD and known critical aortic stenosis was brought to the hospital by ambulance with presyncope. He was found to be hypotensive. He just underwent a BETSEY which showed critical aortic stenosis and he was scheduled to see cardiothoracic surgeon in the next few days. I'll follow-up with him today, he denies having any chest pain or discomfort or difficulty breathing. Blood pressure continues to be marginally low. The repeated echocardiogram in the ER yesterday continues to show preserved LV function with critical aortic stenoses. The patient is going to have an AVR on Sunday. Objective - Vital Signs Vital signs: Vital Signs Temp 96.8 F L 09/16/16 08:00 Pulse 94 09/16/16 08:45 Resp 16 09/16/16 08:00 BP 96/58 09/16/16 08:00 Pulse Ox 93 L 09/16/16 08:26 Intake & Output 09/15/16 09/16/16 09/16/16 18:59 06:59 18:59 Intake Total 462 264.079 360 Output Total 2400 2150 Balance -1938 -1885.921 360 Weight 65.9 kg Intake: Intake, IV Titration 264.079 Amount Heparin Sodium,Porcine/ 264.079 D5w Pmx 25,000 unit In Dextrose/Water 1 500ml. bag @ 12 UNITS/KG/HR 15. 81 mls/hr IV .Q24H [facility] Rx #:[id number] Oral 462 360 Output: Urine 2400 2150 Other: Voiding Method Urinal Urinal # Voids 0 1 - Constitutional General appearance: Present: no acute distress - Labs CBC & Chem 7: 09/15/16 10:17 09/15/16 10:17 Labs: Abnormal Lab Results - Last 24 Hours (Table) 09/15/16 09/15/16 09/15/16 Range/Units 10:17 10:17 19:42 Plt Count 107 L (150-450) k/uL APTT 31.3 H (22.0-30.0) sec Glucose 116 H (74-99) mg/dL 09/16/16 Range/Units 03:42 Plt Count (150-450) k/uL APTT 39.3 H (22.0-30.0) sec Glucose (74-99) mg/dL Assessment and Plan Plan: Assessment #1 symptomatic critical aortic stenoses #2 marginal below blood pressure Plan #1 continue holding the blood pressure medications #2 continue holding nitroglycerin #3 aVR this coming Sunday
[2016-09-16] MEDS: HEPARIN SODIUM,PORCINE/D5W PMX 25,000 UNIT in DEXTROSE/WATER 1 500ML.BAG IV SCH (10:48)
--- NOTE | 2016-09-16 18:19 | P.PN ---
Subjective 46 yr old with h/o of critical is admitted to the hospital with an episode of diaphoresis, and near syncope. Pt was admitted, and monitered in the hospital for recurrent symptoms. Pt has been off plavix since last sunday. Currently symptom free. Denies chest pain, n/v , abdominal pain, dizziness. Does have a cough non productive in nature. Objective - Vital Signs Vital signs: Vital Signs Temp 96.8 F L 09/16/16 15:37 Pulse 98 09/16/16 15:43 Resp 16 09/16/16 15:38 BP 106/60 09/16/16 15:37 Pulse Ox 95 09/16/16 15:37 Intake & Output 09/15/16 09/16/16 09/16/16 18:59 06:59 18:59 Intake Total 462 264.079 970.227 Output Total 2400 2150 500 Balance -1938 -1885.921 470.227 Weight 65.9 kg Intake: IV 220 .9 @ 20 220 Intake, IV Titration 264.079 150.227 Amount Heparin Sodium,Porcine/ 264.079 150.227 D5w Pmx 25,000 unit In Dextrose/Water 1 500ml. bag @ 12 UNITS/KG/HR 15. 81 mls/hr IV .Q24H [facility] Rx #:[id number] Oral 462 600 Output: Urine 2400 2150 500 Other: Voiding Method Urinal Urinal # Voids 0 1 1 - Constitutional General appearance: Present: average body habitus, no acute distress - EENT Eyes: Present: EOMI, PERRLA - Neck Neck: Present: normal ROM - Respiratory Respiratory: negative: CTA - Cardiovascular Rhythm: regular Heart sounds: normal: S1, S2 Abnormal Heart Sounds: Present: systolic murmur - Gastrointestinal General gastrointestinal: Absent: absent bowel sounds, decreased bowel sounds, distended, hepatomegaly, hyperactive bowel sounds, normal bowel sounds, organomegaly, rigid, scaphoid, soft, splenomegaly, tenderness, umbilical hernia , ventral hernia - Neurologic Neurologic: Present: CNII-XII intact. Absent: focal deficits - Psychiatric Psychiatric: Present: A&O x's 3, appropriate affect - Labs CBC & Chem 7: 09/15/16 10:17 09/15/16 10:17 Labs: Abnormal Lab Results - Last 24 Hours (Table) 09/15/16 09/16/1609/16/17 Range/Units 19:42 03:42 10:36 APTT 31.3 H 39.3 H 52.5 H (22.0-30.0) sec Assessment and Plan Plan: 1. Critical aortic stenosis 2. COPD, stable 3. Pulmonary nodule 4. CAD, s/p PCI LAD in jul, 2016. 5. H/o of HTN Plan continue anticoagulation.ASA, Atorvastatin 80mg. Surgery on sunday. Poss wedge resection in regards to the nodule IS. Telemetry. slightly tachycardic.
[2016-09-16] MEDS: ATORVASTATIN 80 MG TAB PO SCH (20:45)
[2016-09-16] MEDS: FAMOTIDINE 20 MG TAB PO SCH (20:45)
[2016-09-17] MEDS: NICOTINE 21MG/24HR PATCH TRANSDERM SCH (08:00)
[2016-09-17] MEDS: MUPIROCIN 2% OINT 22 GM TUBE NASAL SCH ×2 (08:00→21:15)
[2016-09-17] MEDS: ASPIRIN 325 MG TAB PO SCH (08:00)
[2016-09-17] MEDS: FORMOTEROL FUMARATE 20 MCG/2 ML NEBU INHALATION SCH ×2 (08:02→20:42)
[2016-09-17] MEDS: BUDESONIDE 1 MG/2 ML NEBU INHALATION SCH ×2 (08:02→20:42)
[2016-09-17] MEDS: IPRATROPIUM-ALBUTEROL 3 ML NEB INHALATION SCH ×4 (08:02→20:42)
[2016-09-17] MEDS: HEPARIN SODIUM,PORCINE/D5W PMX 25,000 UNIT in DEXTROSE/WATER 1 500ML.BAG IV SCH (08:16)
[2016-09-17] MEDS: TRIAMCINOLONE 0.1% CREAM 80 GM TUBE TOPICAL SCH ×2 (08:16→21:28)
--- NOTE | 2016-09-17 11:06 | P.PN ---
Progress Note - Text CV Surgery Preoperative Nursing Note Patient is awake and alert, in no acute distress, resting in bed with no complaints. Vital signs are stable. Patient is afebrile. Portable telemetry shows a normal sinus rhythm without ectopy. Oxygen saturation is 93% on room air. Incentive Spirometry: 2500 ml. Patient gave a return demonstration of correct use of the incentive spirometer. IVs: Heparin drip at 18 units per kilogram per hour. Plan: For aortic valve replacement tomorrow a.m. All questions answered regarding the operation and recovery process. Patient verbalizes his understanding of the procedure and states his willingness to proceed.
--- NOTE | 2016-09-17 11:47 | P.PN ---
Subjective 46 yr old with h/o of critical is admitted to the hospital with an episode of diaphoresis, and near syncope. Pt was admitted, and monitered in the hospital for recurrent symptoms. Pt has been off plavix since last sunday. Currently symptom free. Denies chest pain, n/v , abdominal pain, dizziness. Does have a cough non productive in nature. 09/17/2016 Patient denies having any new complaints. Objective - Vital Signs Vital signs: Vital Signs Temp 97.6 F 09/17/16 11:25 Pulse 90 09/17/16 11:26 Resp 16 09/17/16 11:26 BP 104/63 09/17/16 11:25 Pulse Ox 95 09/17/16 11:25 Intake & Output 09/16/16 09/17/16 09/17/16 18:59 06:59 18:59 Intake Total 2951.238 0361 740.000 Output Total 1050 1000 600 Balance 40.227 172 140.000 Weight 65.4 kg Intake: IV 220 572 .9 @ 20 220 240 Heparin Sodium,Porcine/ 332 D5w Pmx 25,000 unit In Dextrose/Water 1 500ml. bag @ 12 UNITS/KG/HR 15. 81 mls/hr IV .Q24H [facility] Rx #:[id number] Intake, IV Titration 150.227 500.000 Amount Heparin Sodium,Porcine/ 150.227 500.000 D5w Pmx 25,000 unit In Dextrose/Water 1 500ml. bag @ 12 UNITS/KG/HR 15. 81 mls/hr IV .Q24H [facility] Rx #:[id number] Oral 720 600 240 Output: Urine 1050 1000 600 Other: Voiding Method Urinal Urinal Urinal # Voids 1 1 1 - Exam Gen. appearance alert oriented 3 in no acute distress Lungs good air entry clear to auscultation Heart S1-S2 heard a loud systolic murmur is predominantly appreciated at the aortic region Abdomen is soft nontender no organomegaly Lower extremity is no edema appreciated. Neurologically no focal motor or sensory deficits appreciated. - Labs CBC & Chem 7: 09/15/16 10:17 09/15/16 10:17 Labs: Abnormal Lab Results - Last 24 Hours (Table) 09/17/16 09/17/16 Range/Units 06:16 06:16 APTT 55.5 H (22.0-30.0) sec Crossmatch See Detail Assessment and Plan Plan: 1. Critical aortic stenosis 2. COPD, stable 3. Pulmonary nodule 4. CAD, s/p PCI LAD in jul, 2016. 5. H/o of HTN Plan continue anticoagulation.ASA, Atorvastatin 80mg. Surgery on sunday. Poss wedge resection in regards to the nodule IS. Telemetry. slightly tachycardic.
--- NOTE | 2016-09-17 13:59 | P.PN ---
Progress Note - Text This is a pleasant 46-year-old gentleman with a known CAD and known critical aortic stenosis was brought to the hospital by ambulance with presyncope. He was found to be hypotensive. He just underwent a BETSEY which showed critical aortic stenosis and he was scheduled to see cardiothoracic surgeon in the next few days. I'll follow-up with him today, he denies having any chest pain or discomfort or difficulty breathing. Blood pressure continues to be marginally low. The repeated echocardiogram in the ER yesterday continues to show preserved LV function with critical aortic stenoses. The patient is going to have an AVR on Sunday.
[2016-09-17] MEDS: FAMOTIDINE 20 MG TAB PO SCH (21:15)
[2016-09-17] MEDS: ATORVASTATIN 80 MG TAB PO SCH (21:15)
[2016-09-18] MEDS ORDERED: PROTAMINE SULFATE 10 MG/ML 25 ML VIAL IV PRN (05:00)
[2016-09-18] MEDS ORDERED: HEPARIN SODIUM,PORCINE 5,000 UNIT in SODIUM CHLORIDE 0.9% 500 ML IV PRN (05:00)
[2016-09-18] MEDS ORDERED: PROTAMINE SULFATE 250 MG in EMPTY BAG 1 BAG IV PRN (05:00)
[2016-09-18] MEDS ORDERED: DEXTROSE 5% IN WATER 1,000 ML with POTASSIUM CHLORIDE 110 MEQ, MAGNESIUM SULFATE 16 MEQ... IV PRN ×5 (05:00)
[2016-09-18] MEDS ORDERED: AMINOCAPROIC ACID 5,000 MG in DEXTROSE 5% IN WATER 50 ML IV PRN ×4 (05:00)
[2016-09-18] MEDS ORDERED: ASPIRIN 325 MG TAB PO ONE (05:00)
[2016-09-18] MEDS ORDERED: DEXTROSE 5% IN WATER 1,000 ML with POTASSIUM CHLORIDE 25 MEQ, SODIUM CHLORIDE 4MEQ/ML V... IV PRN ×6 (05:00)
[2016-09-18] MEDS ORDERED: HEPARIN SODIUM 1,000 UNIT/ML VIAL IV PRN (05:00)
[2016-09-18] MEDS ORDERED: NITROGLYCERIN-D5W PMX 25 MG/250 ML BTL IV PRN (05:00)
[2016-09-18] MEDS ORDERED: NITROGLYCERIN-D5W PMX 50 MG in DEXTROSE/WATER 1 250ML.BAG IV PRN (05:00)
[2016-09-18] MEDS ORDERED: PHENYLEPHRINE-0.9% NACL SYG 1 MG/10 ML SYRINGE IV PRN ×4 (05:00)
[2016-09-18] MEDS ORDERED: ALBUMIN HUMAN 25% 50 ML in EMPTY BAG 1 BAG IVPB PRN (05:00)
[2016-09-18] MEDS ORDERED: METOPROLOL TARTRATE 12.5 MG TAB PO ONE (05:00)
[2016-09-18] MEDS ORDERED: ALBUMIN HUMAN 5% 500 ML in EMPTY BAG 1 BAG IVPB PRN ×6 (05:00)
[2016-09-18] MEDS ORDERED: SODIUM BICARB 8.4% 50 ML SYR (1 MEQ/ML) IV PRN (05:00)
[2016-09-18] MEDS ORDERED: MAGNESIUM SULFATE SYG 4.06 MEQ/ML SYRINGE IV PRN (05:00)
[2016-09-18] MEDS ORDERED: PROPOFOL 500 MG in EMPTY BAG 1 BAG IV PRN (05:00)
[2016-09-18] MEDS ORDERED: NOREPINEPHRINE 4 MG in SODIUM CHLORIDE 0.9% 250 ML IV PRN (05:00)
[2016-09-18] MEDS ORDERED: ceFAZolin 2 GM in SODIUM CHLORIDE 0.9% 30 ML IVPB PRN (05:00)
[2016-09-18] MEDS ORDERED: PHENYLEPHRINE 40 MG in SODIUM CHLORIDE 0.9% 250 ML IV PRN (05:00)
[2016-09-18] MEDS ORDERED: MANNITOL 25% 12.5 GM/50 ML VIAL IV PRN ×4 (05:00→08:39)
[2016-09-18] MEDS ORDERED: AMINOCAPROIC ACID 250 MG/ML 20 ML VIAL IV PRN ×2 (05:00→08:40)
[2016-09-18] MEDS ORDERED: CALCIUM CHLORIDE 100 MG/ML 10 ML SYRINGE IVP PRN (05:00)
[2016-09-18] MEDS ORDERED: ceFAZolin 1,000 MG in SODIUM CHLORIDE 0.9% IRRIGATIO 1,000 ML IRRIGATION PRN (05:00)
[2016-09-18] MEDS ORDERED: INSULIN REGULAR 100 UNIT in SODIUM CHLORIDE 0.9% 100 ML IV PRN (05:00)
[2016-09-18] MEDS ORDERED: CLEVIDIPINE BUTYRATE 25 MG in EMPTY BAG 1 BAG IV PRN (05:00)
[2016-09-18] MEDS ORDERED: CHLORHEXIDINE GLUCONATE 15 ML CUP MUCOUS MEM ONE (06:00)
[2016-09-18] MEDS ORDERED: IV FLUID CONTINUATION 550 ML IV ONE (06:23)
[2016-09-18 06:58] LABS: Basophils # (A) 0.1 k/uL (0-0.2); Basophils % (A) 2 %; CH 32.3; CHCM 33.5; Eosinophils # (A) 0.1 k/uL (0-0.7); Eosinophils % (A) 2 %; HCT 40.4 % (39.0-53.0); HDW 2.64; HGB 13.2 gm/dL (13.0-17.5); Luc # (Auto) 0.15; Luc % (Auto) 2; Lymphocytes # (A) 2.9 k/uL (1.0-4.8); Lymphocytes % (A) 36 %; MCH 31.6 pg (25.0-35.0); MCHC 32.5 g/dL (31.0-37.0); Monocytes # (A) 0.6 k/uL (0-1.0); Monocytes % (A) 7 %; Neutrophils # (A) 4.3 k/uL (1.3-7.7); Neutrophils % (A) 52 %; RBC 4.17 m/uL (4.30-5.90); RDW 14.1 % (11.5-15.5); WBC 8.2 k/uL (3.8-10.6); WBC (Perox) 8.59
[2016-09-18 07:07] LABS: Ionized Calcium 5.1 mg/dL (4.5-5.3)
[2016-09-18 07:09] LABS: INR 1.2 (<1.1); Partial Thromboplastin Time 34.4 sec (22.0-30.0); Prothrombin Time 12.1 sec (9.0-12.0)
[2016-09-18 07:15] LABS: Anion Gap 9 mmol/L; Blood Urea Nitrogen 13 mg/dL (9-20); Calcium 8.9 mg/dL (8.4-10.2); Carbon Dioxide 24 mmol/L (22-30); Chloride 109 mmol/L (98-107); Glucose 96 mg/dL (74-99); Magnesium 1.7 mg/dL (1.6-2.3); Non-African American GFR(MDRD) >60 (>60 ml/min/1.73 sqM); Potassium 4.4 mmol/L (3.5-5.1); Sodium 142 mmol/L (137-145)
[2016-09-18] MEDS ORDERED: VECURONIUM 10 MG VIAL IV ONE (08:04)
[2016-09-18] MEDS ORDERED: PHENYLEPHRINE-0.9% NACL SYG 1 MG/10 ML SYRINGE ONE (08:04)
[2016-09-18] MEDS ORDERED: LIDOCAINE 1% INJ 10MG/ML (20 ML MDV) ONE (08:04)
[2016-09-18] MEDS ORDERED: HEPARIN SODIUM,PORCINE 10,000 UNIT/ML 1 ML VIAL ONE (08:04)
[2016-09-18] MEDS ORDERED: SODIUM CHLORIDE 0.9% IRRIG 1,000 ML BTL IRRIGATION ONE (08:04)
[2016-09-18] MEDS ORDERED: PROPOFOL 10 MG/ML 20 ML VIAL IV ONE (08:04)
[2016-09-18] MEDS ORDERED: LIDOCAINE 2% SYG (PF) 100 MG/5 ML ONE (08:04)
[2016-09-18] MEDS ORDERED: MAGNESIUM SULFATE 4 MEQ/ML 2 ML VIAL ONE (08:04)
[2016-09-18] MEDS ORDERED: MIDAZOLAM 2 MG/2 ML VIAL ONE (08:04)
[2016-09-18] MEDS ORDERED: HEPARIN SODIUM 1,000 UNIT/ML VIAL ONE (08:04)
[2016-09-18] MEDS ORDERED: fentaNYL (PF) 50 MCG/ML 2 ML AMP ONE (08:04)
[2016-09-18] MEDS ORDERED: CALCIUM CHLORIDE 100 MG/ML 10 ML SYRINGE ONE (08:04)
[2016-09-18] MEDS ORDERED: SODIUM BICARB 8.4% 50 ML SYR (1 MEQ/ML) ONE (08:04)
[2016-09-18] MEDS ORDERED: fentaNYL (PF) 50 MCG/ML 50 ML VIAL ONE (08:04)
[2016-09-18] MEDS ORDERED: ELECTROLYTE-R (PH 7.4) 1,000 ML IV.SOLN IV ONE (08:04)
[2016-09-18 08:57] LABS: Glucose,Whole Blood 94 mg/dL (75-99)
[2016-09-18 09:54] LABS: Glucose,Whole Blood 114 mg/dL (75-99)
[2016-09-18 10:22] LABS: Glucose,Whole Blood 280 mg/dL (75-99)
[2016-09-18 10:45] LABS: Glucose,Whole Blood 248 mg/dL (75-99)
[2016-09-18 11:00] LABS: Glucose,Whole Blood 184 mg/dL (75-99)
[2016-09-18 11:33] LABS: Glucose,Whole Blood 159 mg/dL (75-99)
[2016-09-18 11:50] LABS: Glucose,Whole Blood 151 mg/dL (75-99)
[2016-09-18] MEDS: FORMOTEROL FUMARATE 20 MCG/2 ML NEBU INHALATION SCH (12:00)
[2016-09-18] MEDS: BUDESONIDE 1 MG/2 ML NEBU INHALATION SCH (12:00)
[2016-09-18] MEDS: IPRATROPIUM-ALBUTEROL 3 ML NEB INHALATION SCH ×4 (12:00→19:21)
[2016-09-18 12:22] LABS: Glucose,Whole Blood 165 mg/dL (75-99)
[2016-09-18] MEDS: HEPARIN SODIUM,PORCINE/D5W PMX 25,000 UNIT in DEXTROSE/WATER 1 500ML.BAG IV SCH (13:11)
[2016-09-18] MEDS: NICOTINE 21MG/24HR PATCH TRANSDERM SCH (13:11)
[2016-09-18] MEDS: TRIAMCINOLONE 0.1% CREAM 80 GM TUBE TOPICAL SCH (13:11)
[2016-09-18 13:20] LABS: Glucose,Whole Blood 89 mg/dL (75-99)
[2016-09-18] MEDS ORDERED: Phosphorus Replacement Protoco 1 EACH MISC MISCELLANE PRN (13:22)
[2016-09-18] MEDS ORDERED: MORPHINE SULFATE 2 MG/ML SYRINGE IVP PRN ×2 (13:22)
[2016-09-18] MEDS ORDERED: ALBUMIN HUMAN 5% 250 ML in EMPTY BAG 1 BAG IVPB PRN (13:22)
[2016-09-18] MEDS ORDERED: Magnesium Replacement Protocol 1 EACH MISC MISCELLANE PRN (13:22)
[2016-09-18] MEDS ORDERED: DEXTROSE 5% IN WATER 100 ML with AMIODARONE 150 MG IV PRN (13:22)
[2016-09-18] MEDS ORDERED: hydrALAZINE HCL 20 MG/ML 1 ML VIAL IVP PRN (13:22)
[2016-09-18] MEDS ORDERED: CLEVIDIPINE BUTYRATE 25 MG in EMPTY BAG 1 BAG IV SCH (13:22)
[2016-09-18] MEDS ORDERED: METOCLOPRAMIDE 5 MG/ML 2 ML VIAL IVP PRN (13:22)
[2016-09-18] MEDS ORDERED: AMIODARONE 450 MG in DEXTROSE 5% IN WATER 250 ML IV PRN ×2 (13:22)
[2016-09-18] MEDS ORDERED: Potassium Replacement Protocol 1 EACH MISC MISCELLANE PRN (13:22)
[2016-09-18] MEDS ORDERED: ONDANSETRON 4 MG/2 ML VIAL IVP PRN (13:22)
[2016-09-18] MEDS ORDERED: PROPOFOL 500 MG in EMPTY BAG 1 BAG IV SCH (13:22)
[2016-09-18 13:31] LABS: Glucose,Whole Blood 113 mg/dL (75-99)
[2016-09-18] MEDS ORDERED: NITROGLYCERIN-D5W PMX 50 MG in DEXTROSE/WATER 1 250ML.BAG IV SCH (14:00)
[2016-09-18 14:40] LABS: Glucose,Whole Blood 99 mg/dL (75-99)
[2016-09-18 14:43] LABS: Basophils # (A) 0.1 k/uL (0-0.2); Basophils % (A) 0 %; CH 32.4; CHCM 32.8; Eosinophils % (A) 0 %; HCT 21.2 % (39.0-53.0); Immature Gran Flag Slight; Large Platelets Flag Slight; Luc # (Auto) 0.09; Luc % (Auto) 1; Lymphocytes # (A) 1.1 k/uL (1.0-4.8); Lymphocytes % (A) 8 %; MCH 32.9 pg (25.0-35.0); MCHC 33.1 g/dL (31.0-37.0); MCV 99.5 fL (80.0-100.0); Macrocytosis Slight; Mean Platelet Volume 12.5; Monocytes # (A) 0.9 k/uL (0-1.0); Monocytes % (A) 7 %; Neutrophils # (A) 10.8 k/uL (1.3-7.7); Neutrophils % (A) 83 %; RBC 2.13 m/uL (4.30-5.90); RDW 14.4 % (11.5-15.5); WBC (Perox) 13.35
[2016-09-18 14:52] LABS: Ionized Calcium 4.2 mg/dL (4.5-5.3)
[2016-09-18 14:54] LABS: Partial Thromboplastin Time 45.2 sec (22.0-30.0); Prothrombin Time 18.9 sec (9.0-12.0)
[2016-09-18 15:00] LABS: ALT 41 U/L (21-72); AST 38 U/L (17-59); Alkaline Phosphatase 24 U/L (38-126); Anion Gap 7 mmol/L; Blood Urea Nitrogen 12 mg/dL (9-20); Calcium 6.6 mg/dL (8.4-10.2); Carbon Dioxide 26 mmol/L (22-30); Chloride 110 mmol/L (98-107); Glucose 92 mg/dL (74-99); Magnesium 2.2 mg/dL (1.6-2.3); Non-African American GFR(MDRD) >60 (>60 ml/min/1.73 sqM); Potassium 4.7 mmol/L (3.5-5.1); Sodium 143 mmol/L (137-145); Total Bilirubin 1.1 mg/dL (0.2-1.3); Total Protein 4.2 g/dL (6.3-8.2)
[2016-09-18 15:11] LABS: Manual Review Performed
--- NOTE | 2016-09-18 15:14 | XR ---
EXAMINATION TYPE: XR chest 1V portable DATE OF EXAM: 09/18/2016 2:48 PM CLINICAL HISTORY: Post open cardiac surgery. TECHNIQUE: Single AP portable semiupright view of the chest is obtained. COMPARISON: Chest x-ray from September 11, 2016 FINDINGS: There is new endotracheal tube with tip at superior aortic knob level, proximally 5 to 6 c m above the ismale. There is new orogastric tube projecting below diaphragm. There is right internal jugular [place]-Bruno catheter with tip at level of pulmonary outflow tract at carinal level. Sternal wir es as well as cardiac closure device superior left heart border are now identified. There is mediasti nal drainage catheter now present. Cardiac silhouette size is upper limits of normal and more prominent versus prior. Well-defined lucen t heart borders raises concern for pneumomediastinum or pneumopericardium. Mild to moderate central v ascular congestion is seen more prominent versus prior study. No large pleural effusion or pneumothor ax is present bilaterally. Epicardial pacer wires are noted. Osseous structures are intact. Linear courtney cency right infraclavicular region could reflect small amount of subcutaneous air though favor produc t of overlying artifact. IMPRESSION: 1. New tubes and lines are satisfactory in position as detailed above. 2. Slightly more prominent mild to moderate central vascular congestion. Possible pneumopericardium o r pneumomediastinum presumed postsurgical.
[2016-09-18] MEDS: CALCIUM GLUCONATE 1,000 MG in SODIUM CHLORIDE 0.9% 100 ML IVPB SCH ×2 (15:15→15:58)
[2016-09-18 15:25] LABS: ABG HCO3 24 mmol/L (21-25); ABG PCO2 43 mmHg (35-45); ABG PH 7.36 (7.35-7.45); ABG PO2 184 mmHg (83-108); ABG TCO2 25 mmol/L (19-24)
[2016-09-18 15:33] LABS: Glucose,Whole Blood 107 mg/dL (75-99)
[2016-09-18] MEDS: LACTATED RINGERS 1,000 ML IV SCH (15:44)
[2016-09-18] MEDS ORDERED: MILRINONE-D5W PMX 20 MG in DEXTROSE/WATER 1 100ML.BAG IV SCH (15:45)
[2016-09-18] MEDS: NOREPINEPHRINE 4 MG in SODIUM CHLORIDE 0.9% 250 ML IV SCH ×2 (15:59→21:47)
[2016-09-18] MEDS ORDERED: NOREPINEPHRINE 16 MG in SODIUM CHLORIDE 0.9% 250 ML IV SCH (16:30)
[2016-09-18 16:35] LABS: Glucose,Whole Blood 123 mg/dL (75-99)
[2016-09-18] MEDS: ACETAMINOPHEN IV (For NPO) 1,000 MG in EMPTY BAG 1 BAG IVPB SCH (16:59)
[2016-09-18] MEDS ORDERED: INSULIN REGULAR 100 UNIT in SODIUM CHLORIDE 0.9% 100 ML IV SCH (17:00)
[2016-09-18] MEDS: ceFAZolin 2 GM in SODIUM CHLORIDE 0.9% 100 ML IVPB SCH ×2 (17:16→23:35)
--- NOTE | 2016-09-18 17:26 | P.PN ---
Subjective Principal diagnosis: Severe aortic stenosis This is a very pleasant 46-year-old gentleman who follows with Dr. Haas as his primary care physician. He has a history of TIA, coronary artery disease with recent stent placement to the LAD. He has preserved left ventricular systolic function with estimated ejection fraction 45-50%. He was also found to have significant bicuspid aortic valve stenosis and the plan is for aortic valve replacement. He states he has known about heart murmur for approximately 3 years now. He does have a 30+ pack per day smoking history up to as many as 3 packs per day at one point. He has not been seen by a manager floral in the past but was scheduled to be seen in our office 09/21/2016 for preop evaluation prior to his aortic valve replacement. He is not on oxygen nor any inhalers in the outpatient setting. He was recently treated for what he felt was bronchitis with a Tri-Terry of azithromycin 500 mg daily 3 days. He presented here to the emergency room yesterday with complaints of chest tingling and numbness. He states he did have some anxiety secondary to recent cardiac event. He is seen today in the end emergency room still. He is awake and alert in no acute distress. He denies any chest pain, palpitations, lightheadedness or dizziness. No shortness of breath, cough or congestion. His chest x-ray did reveal some pulmonary venous hypertension and mild congestion. His proBNP level was 6510. There is a small troponin leak. The plan is performing aortic valve replacement early next week. The patient's Plavix has been on hold and he'll be bridged in the interim. Patient was seen today on 09/18/2016, patient just came back from the OR, and he is status post aortic valve replacement. Patient is also status post distal LAD stenting. Presently the patient is on mechanical ventilation, he is on assist control rate of 20, tidal volume of 550, FiO2 is down to 50%, he was earlier on 100%. And PEEP is at 5. Postoperative chest x-ray showed postoperative changes, otherwise unremarkable. ABG was reviewed, pO2 was 184 pCO2 of 43 and pH of 7.36. Basic metabolic profile is normal. Platelets were noted to be low at 42,000. Objective - Vital Signs Vital signs: Vital Signs Temp 96.1 F L 09/18/16 16:00 Pulse 90 09/18/16 16:00 Resp 20 09/18/16 16:00 BP 101/52 09/18/16 16:00 Pulse Ox 97 09/18/16 16:00 Intake & Output 09/17/16 09/18/16 09/18/16 18:59 06:59 18:59 Intake Total 1604.000 775.901 Output Total 1275 2100 3913 Balance 329.000 -2100 3137.099 Weight 65.6 kg 65.6 kg Intake: IV 384 0 .9 @ 20 160 Heparin Sodium,Porcine/ 224 D5w Pmx 25,000 unit In Dextrose/Water 1 500ml. bag @ 12 UNITS/KG/HR 15. 81 mls/hr IV .Q24H [facility] Rx #:[id number] Intake, IV Titration 500.000 775.901 Amount Albumin Human 5% 250 ml 500 In Empty Bag 1 bag @ 250 mls/hr IVPB Q1HR PRN Rx#: [id number] Calcium Gluconate 1,000 100 mg In Sodium Chloride 0.9 % 100 ml @ 100 mls/hr IVPB Q1HR ZOILA Rx#: [id number] Heparin Sodium,Porcine/ 500.000 D5w Pmx 25,000 unit In Dextrose/Water 1 500ml. bag @ 12 UNITS/KG/HR 15. 81 mls/hr IV .Q24H [facility] Rx #:[id number] Lactated Ringers 1,000 ml 100 @ 50 mls/hr IV .Q20H [facility] Rx#:[id number] Milrinone-D5w Pmx 20 mg 7.8 In Dextrose/Water 1 100ml .bag @ 0.2 MCG/KG/MIN 3. 93 mls/hr IV .Q24H [facility] Rx #:[id number] Norepinephrine 4 mg In 66.724 Sodium Chloride 0.9% 250 ml @ Titrate IV .Q0M [facility] Rx#:[id number] Propofol 500 mg In Empty 1.377 Bag 1 bag @ Titrate IV . Q0M [facility]A Rx#:[id number] Oral 720 Output: Chest Tube Drainage 119 mediastinal 119 Urine 1275 2100 794 Estimated Blood Loss 3000 Other: Voiding Method Urinal Toilet Urinal # Voids 1 1 # Bowel Movements 0 0 ABP, PAP, CO, CI - Last Documented Arterial Blood Pressure 100/55 Pulmonary Artery Pressure 43/27 Cardiac Output 7.4 Cardiac Index 4.1 - Exam Physical Exam: Revealed a 46-year-old white male on mechanical ventilation, sedated, in no distress. HEENT:[Neck is supple.] [No neck masses.] [No thyromegaly.] [No JVD.] Endotracheal tube is intact. Chest: [Minimal crackles at the bases otherwise unremarkable..] Cardiac Exam: [Normal S1 and S2, no S3 gallop, 2/6 systolic murmur throughout the precordium. Positive pericardial rub. Abdomen: [Soft, nontender, no megaly, no rebound, no guarding, normal bowel sounds.] Extremities: [No clubbing, no edema, no cyanosis.] Neurological Exam: Cannot be assessed, patient is fully sedated. - Labs CBC & Chem 7: 09/18/16 14:30 09/18/16 14:30 Labs: Abnormal Lab Results - Last 24 Hours (Table) 09/17/16 09/18/16 09/18/16 Range/Units 06:16 06:45 06:45 WBC (3.8-10.6) k/uL RBC 4.17 L (4.30-5.90) m/uL Hgb (13.0-17.5) gm/dL Hct (39.0-53.0) % Plt Count 110 L (150-450) k/uL Neutrophils # (1.3-7.7) k/uL PT 12.1 H (9.0-12.0) sec APTT 34.4 H (22.0-30.0) sec ABG pO2 (83-108) mmHg ABG Total CO2 (19-24) mmol/L ABG O2 Saturation (94-97) % Chloride (98-107) mmol/L POC Glucose (mg/dL) (75-99) mg/dL Calcium (8.4-10.2) mg/dL Ionized Calcium Yadira (4.5-5.3) mg/dL Alkaline Phosphatase (38-126) U/L Total Protein (6.3-8.2) g/dL Albumin (3.5-5.0) g/dL Crossmatch See Detail 09/18/16 09/18/16 09/18/16 Range/Units 06:45 09:52 10:19 WBC (3.8-10.6) k/uL RBC (4.30-5.90) m/uL Hgb (13.0-17.5) gm/dL Hct (39.0-53.0) % Plt Count (150-450) k/uL Neutrophils # (1.3-7.7) k/uL PT (9.0-12.0) sec APTT (22.0-30.0) sec ABG pO2 (83-108) mmHg ABG Total CO2 (19-24) mmol/L ABG O2 Saturation (94-97) % Chloride 109 H (98-107) mmol/L POC Glucose (mg/dL) 114 H 280 H (75-99) mg/dL Calcium (8.4-10.2) mg/dL Ionized Calcium Yadira (4.5-5.3) mg/dL Alkaline Phosphatase (38-126) U/L Total Protein (6.3-8.2) g/dL Albumin (3.5-5.0) g/dL Crossmatch 09/18/16 09/18/16 09/18/16 Range/Units 10:43 10:58 11:30 WBC (3.8-10.6) k/uL RBC (4.30-5.90) m/uL Hgb (13.0-17.5) gm/dL Hct (39.0-53.0) % Plt Count (150-450) k/uL Neutrophils # (1.3-7.7) k/uL PT (9.0-12.0) sec APTT (22.0-30.0) sec ABG pO2 (83-108) mmHg ABG Total CO2 (19-24) mmol/L ABG O2 Saturation (94-97) % Chloride (98-107) mmol/L POC Glucose (mg/dL) 248 H 184 H 159 H (75-99) mg/dL Calcium (8.4-10.2) mg/dL Ionized Calcium Yadira (4.5-5.3) mg/dL Alkaline Phosphatase (38-126) U/L Total Protein (6.3-8.2) g/dL Albumin (3.5-5.0) g/dL Crossmatch 09/18/16 09/18/16 09/18/16 Range/Units 11:49 12:19 13:29 WBC (3.8-10.6) k/uL RBC (4.30-5.90) m/uL Hgb (13.0-17.5) gm/dL Hct (39.0-53.0) % Plt Count (150-450) k/uL Neutrophils # (1.3-7.7) k/uL PT (9.0-12.0) sec APTT (22.0-30.0) sec ABG pO2 (83-108) mmHg ABG Total CO2 (19-24) mmol/L ABG O2 Saturation (94-97) % Chloride (98-107) mmol/L POC Glucose (mg/dL) 151 H 165 H 113 H (75-99) mg/dL Calcium (8.4-10.2) mg/dL Ionized Calcium Yadira (4.5-5.3) mg/dL Alkaline Phosphatase (38-126) U/L Total Protein (6.3-8.2) g/dL Albumin (3.5-5.0) g/dL Crossmatch 09/18/16 09/18/16 09/18/16 Range/Units 14:30 14:30 14:30 WBC 13.0 H (3.8-10.6) k/uL RBC 2.13 L (4.30-5.90) m/uL Hgb 7.0 L* D (13.0-17.5) gm/dL Hct 21.2 L (39.0-53.0) % Plt Count 42 L* D (150-450) k/uL Neutrophils # 10.8 H (1.3-7.7) k/uL PT 18.9 H (9.0-12.0) sec APTT 45.2 H (22.0-30.0) sec ABG pO2 (83-108) mmHg ABG Total CO2 (19-24) mmol/L ABG O2 Saturation (94-97) % Chloride 110 H (98-107) mmol/L POC Glucose (mg/dL) (75-99) mg/dL Calcium 6.6 L (8.4-10.2) mg/dL Ionized Calcium Yadira 4.2 L (4.5-5.3) mg/dL Alkaline Phosphatase 24 L (38-126) U/L Total Protein 4.2 L (6.3-8.2) g/dL Albumin 2.9 L (3.5-5.0) g/dL Crossmatch 09/18/16 09/18/16 09/18/16 Range/Units 15:00 15:32 16:31 WBC (3.8-10.6) k/uL RBC (4.30-5.90) m/uL Hgb (13.0-17.5) gm/dL Hct (39.0-53.0) % Plt Count (150-450) k/uL Neutrophils # (1.3-7.7) k/uL PT (9.0-12.0) sec APTT (22.0-30.0) sec ABG pO2 184 H (83-108) mmHg ABG Total CO2 25 H (19-24) mmol/L ABG O2 Saturation 99.0 H (94-97) % Chloride (98-107) mmol/L POC Glucose (mg/dL) 107 H 123 H (75-99) mg/dL Calcium (8.4-10.2) mg/dL Ionized Calcium Yadira (4.5-5.3) mg/dL Alkaline Phosphatase (38-126) U/L Total Protein (6.3-8.2) g/dL Albumin (3.5-5.0) g/dL Crossmatch Assessment and Plan Plan: Impression: 1 Status post aortic valve replacement, patient is presently on mechanical ventilation as expected. 2 recent stenting of LAD in July of 2016. 3 history of right apical scarring/nodule will need to have outpatient follow- up. 4 history of TIAs. 5 history of mild to moderate COPD and history of chronic smoking. Recommendation: Patient will remain on mechanical ventilation, bronchodilators, and we will likely wean and extubate later this evening. We will continue to follow. Time with Patient: Greater than 30
[2016-09-18 17:31] LABS: Glucose,Whole Blood 125 mg/dL (75-99)
[2016-09-18 17:40] LABS: Basophils % (A) 0 %; CH 32.2; CHCM 32.7; Eosinophils % (A) 0 %; HCT 21.1 % (39.0-53.0); HDW 2.79; HGB 7.1 gm/dL (13.0-17.5); Large Platelets Flag Marked; Luc # (Auto) 0.09; Luc % (Auto) 1; Lymphocytes # (A) 0.7 k/uL (1.0-4.8); Lymphocytes % (A) 6 %; MCH 33.1 pg (25.0-35.0); MCHC 33.4 g/dL (31.0-37.0); Macrocytosis Slight; Mean Platelet Volume 13.3; Monocytes % (A) 8 %; Neutrophils # (A) 10.8 k/uL (1.3-7.7); Neutrophils % (A) 85 %; RBC 2.13 m/uL (4.30-5.90); RDW 14.5 % (11.5-15.5); WBC 12.7 k/uL (3.8-10.6); WBC (Perox) 12.93
[2016-09-18 17:51] LABS: Ionized Calcium 4.5 mg/dL (4.5-5.3)
[2016-09-18 17:53] LABS: INR 1.7 (<1.1); Prothrombin Time 16.9 sec (9.0-12.0)
[2016-09-18 17:59] LABS: ALT 37 U/L (21-72); AST 50 U/L (17-59); Alkaline Phosphatase 29 U/L (38-126); Anion Gap 10 mmol/L; Blood Urea Nitrogen 14 mg/dL (9-20); Calcium 7.5 mg/dL (8.4-10.2); Carbon Dioxide 24 mmol/L (22-30); Chloride 109 mmol/L (98-107); Glucose 115 mg/dL (74-99); Non-African American GFR(MDRD) >60 (>60 ml/min/1.73 sqM); Potassium 4.8 mmol/L (3.5-5.1); Sodium 143 mmol/L (137-145); Total Bilirubin 2.3 mg/dL (0.2-1.3); Total Protein 4.7 g/dL (6.3-8.2)
[2016-09-18 18:38] LABS: Glucose,Whole Blood 119 mg/dL (75-99)
[2016-09-18 19:21] LABS: Glucose,Whole Blood 106 mg/dL (75-99)
[2016-09-18 20:06] LABS: Glucose,Whole Blood 121 mg/dL (75-99)
[2016-09-18] MEDS ORDERED: HEPARIN SODIUM,PORCINE 5,000 UNIT/ML 1 ML VIAL SQ SCH (21:00)
[2016-09-18 21:03] LABS: INR 1.5 (<1.1); Partial Thromboplastin Time 83.9 sec (22.0-30.0); Prothrombin Time 14.9 sec (9.0-12.0)
[2016-09-18 21:03] LABS: Glucose,Whole Blood 125 mg/dL (75-99)
[2016-09-18 21:15] LABS: CH 32.2; CHCM 32.7; HCT 21.3 % (39.0-53.0); HDW 2.73; Large Platelets Flag Moderate; MCH 32.5 pg (25.0-35.0); MCHC 32.7 g/dL (31.0-37.0); MCV 99.2 fL (80.0-100.0); Macrocytosis Slight; Mean Platelet Volume 11.6; RBC 2.15 m/uL (4.30-5.90); RDW 14.4 % (11.5-15.5); WBC 10.5 k/uL (3.8-10.6)
[2016-09-18 21:18] LABS: Ionized Calcium 4.6 mg/dL (4.5-5.3)
[2016-09-18] MEDS: MUPIROCIN 2% OINT 22 GM TUBE NASAL SCH (21:19)
[2016-09-18 21:29] LABS: Anion Gap 9 mmol/L; Blood Urea Nitrogen 16 mg/dL (9-20); Calcium 7.6 mg/dL (8.4-10.2); Carbon Dioxide 24 mmol/L (22-30); Chloride 110 mmol/L (98-107); Glucose 112 mg/dL (74-99); Magnesium 2.2 mg/dL (1.6-2.3); Non-African American GFR(MDRD) >60 (>60 ml/min/1.73 sqM); Potassium 4.3 mmol/L (3.5-5.1); Sodium 143 mmol/L (137-145)
[2016-09-18 21:59] LABS: Glucose,Whole Blood 117 mg/dL (75-99)
[2016-09-18 22:04] LABS: ABG Base Excess -2.3 mmol/L; ABG HCO3 21 mmol/L (21-25); ABG PCO2 32 mmHg (35-45); ABG PH 7.44 (7.35-7.45); ABG PO2 84 mmHg (83-108); ABG TCO2 22 mmol/L (19-24)
[2016-09-18] MEDS: SODIUM PHOSPHATE 10 MMOL in SODIUM CHLORIDE 0.9% 100 ML IVPB SCH (22:39)
[2016-09-18 23:04] LABS: Glucose,Whole Blood 129 mg/dL (75-99)
[2016-09-19 00:06] LABS: Glucose,Whole Blood 123 mg/dL (75-99)
[2016-09-19] MEDS: ACETAMINOPHEN IV (For NPO) 1,000 MG in EMPTY BAG 1 BAG IVPB SCH ×4 (00:37→19:53)
[2016-09-19] MEDS: SODIUM PHOSPHATE 10 MMOL in SODIUM CHLORIDE 0.9% 100 ML IVPB SCH (00:40)
[2016-09-19 01:03] LABS: Magnesium 2.1 mg/dL (1.6-2.3); Potassium 4.5 mmol/L (3.5-5.1)
[2016-09-19 01:17] LABS: Glucose,Whole Blood 124 mg/dL (75-99)
[2016-09-19 02:11] LABS: Glucose,Whole Blood 125 mg/dL (75-99)
[2016-09-19 03:51] LABS: Glucose,Whole Blood 124 mg/dL (75-99)
[2016-09-19 04:18] LABS: Basophils % (A) 0 %; CH 32.2; CHCM 32.6; Eosinophils % (A) 0 %; HCT 22.1 % (39.0-53.0); HDW 2.78; HGB 7.1 gm/dL (13.0-17.5); Large Platelets Flag Moderate; Luc # (Auto) 0.08; Luc % (Auto) 1; Lymphocytes # (A) 1.2 k/uL (1.0-4.8); Lymphocytes % (A) 12 %; MCH 32.1 pg (25.0-35.0); MCHC 32.3 g/dL (31.0-37.0); MCV 99.5 fL (80.0-100.0); Macrocytosis Slight; Mean Platelet Volume 12.8; Monocytes # (A) 0.6 k/uL (0-1.0); Monocytes % (A) 7 %; Neutrophils # (A) 7.6 k/uL (1.3-7.7); Neutrophils % (A) 80 %; RBC 2.22 m/uL (4.30-5.90); RDW 14.8 % (11.5-15.5); WBC 9.5 k/uL (3.8-10.6); WBC (Perox) 9.76
[2016-09-19 04:40] LABS: Ionized Calcium 4.5 mg/dL (4.5-5.3)
[2016-09-19 04:48] LABS: ALT 43 U/L (21-72); AST 78 U/L (17-59); Alkaline Phosphatase 29 U/L (38-126); Anion Gap 9 mmol/L; Blood Urea Nitrogen 18 mg/dL (9-20); Calcium 7.4 mg/dL (8.4-10.2); Carbon Dioxide 24 mmol/L (22-30); Chloride 110 mmol/L (98-107); Glucose 111 mg/dL (74-99); Magnesium 2.1 mg/dL (1.6-2.3); Non-African American GFR(MDRD) 59 (>60 ml/min/1.73 sqM); Phosphorous 4.5 mg/dL (2.5-4.5); Potassium 4.3 mmol/L (3.5-5.1); Sodium 143 mmol/L (137-145); Total Bilirubin 0.9 mg/dL (0.2-1.3); Total Protein 4.6 g/dL (6.3-8.2)
[2016-09-19 05:11] LABS: Glucose,Whole Blood 125 mg/dL (75-99)
--- NOTE | 2016-09-19 05:49 | OP ---
DATE OF SERVICE: 09/18/2016 SURGEON: Unique Hagen MD DAMPPROOFER: [place] CM PREOPERATIVE DIAGNOSES: Severe aortic valve stenosis with bicuspid aortic valve heavily calcified, coronary artery disease, status post recent stenting of his distal left anterior descending artery, left bundle branch block. POSTOPERATIVE DIAGNOSES: Severe aortic valve stenosis with bicuspid aortic valve heavily calcified, coronary artery disease, status post recent stenting of his distal left anterior descending artery, left bundle branch block. OPERATION: 1. Aortic valve replacement using a 21 mm Carbomedics mechanical bileaflet tilting disc valve. 2. Exclusion of the left atrial appendage using a 35 mm AtriClip. ANESTHESIA: ESTIMATED BLOOD LOSS: SPECIMENS REMOVED: COMPLICATIONS: OPERATIVE FINDINGS: INDICATION FOR SURGERY: Patient is a 46-year-old gentleman who presented in July 2016 with chest pain and had a left bundle branch block was taken to the cardiac cath where he underwent stenting with a drug-eluting stent of his distal LAD just before the apex. Patient had a echo after that procedure that showed severe aortic valve stenosis with bicuspid aortic valve. Patient had recurrent chest pain, was readmitted to the hospital at this point and we waited off Plavix for about 5 days and bridged with heparin for 2 days before proceeding today with aortic valve replacement. Discussion followed with the patient and in view of his age decision was made to proceed with a mechanical valve. Risks, benefits, and alternatives were discussed with him and his . They understood and agreed to proceed. DESCRIPTION OF THE PROCEDURE: Patient in supine position a [place]-Bruno catheter was inserted via the right internal jugular vein and a right radial arterial line. The PA pressure was 60/30 and the cardiac index was 2.4. Subsequently general endotracheal anesthesia was induced uneventfully. The Bower catheter was inserted. Patient received 2 grams of cefazolin intravenously. The chest, abdomen and both lower extremities were prepped and draped using ChloraPrep. Ioban was used to cover the skin. BETSEY confirmed the preoperative finding of severe aortic valve stenosis on a bicuspid heavily calcified aortic valve. The ascending aorta appeared to be normal. There was no significant mitral valve regurgitation. There was severe hypertrophy with preserved function. The apex appeared hypokinetic. Limited midline sternotomy was performed and no bone wax was used. I made a breach in the right pleura to decompress any potential pneumothorax at the end of the procedure. Mediastinal fat was transected between 2 ties. Pericardium was opened in an inverted T fashion and a pericardial cradle was created. Findings included a soft aorta relatively small in size and a hypertrophied heart. After systemic heparinization, after placement of perspective pledgeted pursestring, aortic cannulation with a 21 Georgian soft flow cannula in the distal ascending aorta, a 29/37 dual stage venous cannula via the right atrial appendage was carried. Antegrade as well as retrograde cardioplegia catheters were also placed via pledgeted pursestrings. Patient went in fibrillation with hypotension when we tried to get the retrograde cardioplegia catheter and for that reason I initiated bypass and remained warm. At this point I proceeded at excluding the left atrial appendage, which was quite posterior down the pulmonary artery using a 35 mm AtriClip. Subsequently, the aorta was clamped and during aortic clamping, myocardial protection was achieved with an initial dose of antegrade cold blood cardioplegia followed by a retrograde dose. Subsequent doses were all given retrograde every 15 minutes. The last dose was warm blood around 1 L. Patient temperature was allowed to drift down to 34 degrees Celsius. The aorta was opened in a transverse fashion around two-thirds of its circumference as it was small. The left main ostium was high. The right coronary artery, which was rudimentary was also identified and it was also high takeoff as predicted in a bicuspid valve. The valve was heavily calcified protruding high in the aorta and obscuring the annulus. It took a while to decalcify and excise this valve. The final result was very satisfactory with pliable annulus throughout. The valve was bicuspid with fusion of the right and noncoronary cusp. Several sessions of thorough irrigation were performed. There was adequate backflow into the left main and the right coronary artery ostiae as we gave retrograde cardioplegia. Subsequently, the annulus was sized to a 21 mm top hat Carbomedics mechanical valve, which was selected. A total of 16 Ticron (2-0) sutures pledgeted on the ventricular side were placed and were passed symmetrically into the valve which seated nicely in a supraannular position. Both coronary ostia were clear. The needles were cut and the sutures were tied using the core knot device.Thorough irrigation performed one more time. There was adequate and free tilting movement of both valve discs with no entrapment. Rewarming started at this point and the aorta was closed using Prolene 4-0 in 2 layers, first layer in a horizontal mattress fashion pledgeted on each corner and the second layer in an over and over technique. Patient was given lidocaine and magnesium before unclamping the aorta after several de-airing maneuver. It took several defibrillations to regain rhythm and I placed a bipolar ventricular pacing wire via the inferior aspect of the right ventricle and placed 2 monopolar atrial wires via the pursestring of the venous cannulation. Progressively, patient regained spontaneous sinus rhythm with good conduction with his known left bundle branch block. The valve appeared to be seated nicely with no paravalvular leak. We eventually weaned off cardiopulmonary bypass after ensuring adequate de-airing guided by BETSEY. I started half dose Primacor in 0.3 mcg/kg per minute to help this very hypertrophied ventricle. Test dose and full dose protamine was given. One substernal chest tube 36 Georgian was brought into the midline. After ensuring adequate hemostasis and hemodynamics and after correct sponge, instrument and needle count, a total 7 stainless steel wires were used to close the sternum in interrupted fashion after interposing fibrillar between the sternal edges. Thorough irrigation with cefazolin followed. The rest of the closure proceeded in layers. Skin glue sealant was applied. The patient did not receive any blood back product, but received 900 mL of cell saver blood. He was transferred to the ICU on 0.3 mcg/kg per minute of Primacor, low-dose Levophed, cardiac index of 3.2, PA pressure 41/25, heart rate normal sinus rhythm with a left bundle branch block at 90 and a mean arterial pressure of 70. MTDD
[2016-09-19 06:08] LABS: Glucose,Whole Blood 122 mg/dL (75-99)
[2016-09-19] MEDS: ceFAZolin 2 GM in SODIUM CHLORIDE 0.9% 100 ML IVPB SCH (06:12)
[2016-09-19 07:03] LABS: INR 1.4 (<1.1); Prothrombin Time 13.6 sec (9.0-12.0)
[2016-09-19 07:14] LABS: Glucose,Whole Blood 123 mg/dL (75-99)
[2016-09-19] MEDS ORDERED: FUROSEMIDE 10 MG/ML 2 ML VIAL IV ONE (07:34)
[2016-09-19 08:02] LABS: Glucose,Whole Blood 123 mg/dL (75-99)
--- NOTE | 2016-09-19 08:06 | P.PN ---
Subjective Principal diagnosis: Severe aortic valve stenosis with bicuspid aortic valve heavily calcified, coronary artery disease, status post recent stenting of his distal left anterior descending artery, left bundle branch block. Postop day #1 aortic valve replacement using a 22 mm [employer] mechanical bileaflet tilting disc valve, postop day #1 exclusion of the left atrial appendage using a 35 mm AtriClip. Patient currently up in chair, denies pain, only complaint is that he wants more to drink. is at bedside. Objective - Vital Signs Vital signs: Vital Signs Temp 98.1 F 09/18/16 19:00 Pulse 83 09/19/16 07:00 Resp 14 09/19/16 07:00 BP 98/53 09/19/16 07:00 Pulse Ox 96 09/19/16 07:00 Intake & Output 09/18/16 09/19/16 09/19/16 18:59 06:59 18:59 Intake Total 3094.058 2460.407 65.9 Output Total 4258 1231 78 Balance -3171.799 919.407 -12.1 Weight 65.6 kg 75.1 kg Intake: IV 0 1494.9 65.9 ACETAMINOPHEN IV (For NPO 400 ) 1,000 mg In Empty Bag 1 bag @ 400 mls/hr IVPB Q6HR [facility] Rx#:[id number] CO/CI 180 Lactated Ringers 1,000 ml 540 50 @ 50 mls/hr IV .Q20H [facility] Rx#:[id number] Milrinone-D5w Pmx 20 mg 42.9 3.9 In Dextrose/Water 1 100ml .bag @ 0.2 MCG/KG/MIN 3. 93 mls/hr IV .Q24H [facility] Rx #:[id number] Pressure Bag 132 12 ceFAZolin 2 gm In Sodium 200 Chloride 0.9% 100 ml @ 100 mls/hr IVPB Q8H [facility] Rx#:[id number] Intake, IV Titration 1086.201 655.507 Amount ACETAMINOPHEN IV (For NPO 100 ) 1,000 mg In Empty Bag 1 bag @ 400 mls/hr IVPB Q6HR [facility] Rx#:[id number] Albumin Human 5% 250 ml 500 In Empty Bag 1 bag @ 250 mls/hr IVPB Q1HR PRN Rx#: [id number] Calcium Gluconate 1,000 100 mg In Sodium Chloride 0.9 % 100 ml @ 100 mls/hr IVPB Q1HR [facility] Rx#: [id number] Insulin Regular 100 unit 2.5 3.185 In Sodium Chloride 0.9% 100 ml @ Per Protocol IV .Q0M [facility] Rx#:[id number] Lactated Ringers 1,000 ml 200 50 @ 50 mls/hr IV .Q20H [facility] Rx#:[id number] Milrinone-D5w Pmx 20 mg 15.6 3.9 In Dextrose/Water 1 100ml .bag @ 0.2 MCG/KG/MIN 3. 93 mls/hr IV .Q24H [facility] Rx #:[id number] Norepinephrine 16 mg In 34.874 Sodium Chloride 0.9% 250 ml @ Titrate IV .Q0M [facility] Rx#:[id number] Norepinephrine 4 mg In 66.724 239.776 Sodium Chloride 0.9% 250 ml @ Titrate IV .Q0M [facility] Rx#:[id number] Propofol 500 mg In Empty 1.377 23.772 Bag 1 bag @ Titrate IV . Q0M [facility] Rx#:[id number] Sodium Phosphate 10 mmol 200 In Sodium Chloride 0.9% 100 ml @ 50 mls/hr IVPB Q2H [facility] Rx#:[id number] ceFAZolin 2 gm In Sodium 100 100 Chloride 0.9% 100 ml @ 100 mls/hr IVPB Q8H [facility] Rx#:[id number] Output: Chest Tube Drainage 189 436 40 mediastinal 189 436 40 Urine 1069 795 38 Estimated Blood Loss 3000 Other: Voiding Method Indwelling Catheter Indwelling Catheter # Bowel Movements 0 0 ABP, PAP, CO, CI - Last Documented Arterial Blood Pressure 125/55 Pulmonary Artery Pressure 36/20 Cardiac Output 7.5 Cardiac Index 4.2 - Constitutional General appearance: Present: cooperative, no acute distress - Respiratory Details: Lung sounds diminished bilaterally, respirations even and nonlabored, currently on 10 L high flow oxygen, able to achieve 1000 mL on incentive spirometer. Effective cough present. - Cardiovascular Details: S1 present, no clear S2, systolic murmur present. Regular rate and rhythm, normal sinus rhythm with a bundle branch block on telemetry. No edema present. Palpable radial, DP, PT pulses present. Chest stable. Heart hugger in place with good return demonstration of use. Mediastinal chest tube present draining serosanguineous fluid, 210 mL in the last 8 hours, 700 mL total in the atrium. Atrial and ventricular epicardial pacemaker wires present, generator turned to the VVI was a backup rate of 60 bpm. Breckenridge-Bruno catheter present. - Gastrointestinal Gastrointestinal Comment(s): Abdomen soft, nontender, nondistended. Hypoactive bowel sounds present. Patient unsure if flatus is present, no bowel movement yet since surgery. Tolerating clear liquids at this time. - Genitourinary Genitourinary Comment(s): Bower catheter in draining clear yellow urine. - Integumentary Integumentary Comment(s): Skin warm, dry, pink. Anterior chest incision covered with dry intact Dermabond dressing. - Neurologic Neurologic Comment(s): Alert and oriented 3, following all commands. - Musculoskeletal Musculoskeletal Comment(s): Currently up in chair with assist 2. - Psychiatric Psychiatric: Present: appropriate affect, intact judgment & insight - Allied health notes Allied health notes reviewed: RT - Labs CBC & Chem 7: 09/19/16 03:55 09/19/16 03:55 Labs: Abnormal Lab Results - Last 24 Hours (Table) 09/17/16 09/18/16 09/18/16 Range/Units 06:16 09:52 10:19 WBC (3.8-10.6) k/uL RBC (4.30-5.90) m/uL Hgb (13.0-17.5) gm/dL Hct (39.0-53.0) % Plt Count (150-450) k/uL Neutrophils # (1.3-7.7) k/uL Lymphocytes # (1.0-4.8) k/uL PT (9.0-12.0) sec APTT (22.0-30.0) sec ABG pCO2 (35-45) mmHg ABG pO2 (83-108) mmHg ABG Total CO2 (19-24) mmol/L ABG O2 Saturation (94-97) % Chloride (98-107) mmol/L Creatinine (0.66-1.25) mg/dL Glucose (74-99) mg/dL POC Glucose (mg/dL) 114 H 280 H (75-99) mg/dL Calcium (8.4-10.2) mg/dL Ionized Calcium Yadira (4.5-5.3) mg/dL Phosphorus (2.5-4.5) mg/dL Total Bilirubin (0.2-1.3) mg/dL AST (17-59) U/L Alkaline Phosphatase (38-126) U/L Total Protein (6.3-8.2) g/dL Albumin (3.5-5.0) g/dL Crossmatch See Detail 09/18/16 09/18/16 09/18/16 Range/Units 10:43 10:58 11:30 WBC (3.8-10.6) k/uL RBC (4.30-5.90) m/uL Hgb (13.0-17.5) gm/dL Hct (39.0-53.0) % Plt Count (150-450) k/uL Neutrophils # (1.3-7.7) k/uL Lymphocytes # (1.0-4.8) k/uL PT (9.0-12.0) sec APTT (22.0-30.0) sec ABG pCO2 (35-45) mmHg ABG pO2 (83-108) mmHg ABG Total CO2 (19-24) mmol/L ABG O2 Saturation (94-97) % Chloride (98-107) mmol/L Creatinine (0.66-1.25) mg/dL Glucose (74-99) mg/dL POC Glucose (mg/dL) 248 H 184 H 159 H (75-99) mg/dL Calcium (8.4-10.2) mg/dL Ionized Calcium Yadira (4.5-5.3) mg/dL Phosphorus (2.5-4.5) mg/dL Total Bilirubin (0.2-1.3) mg/dL AST (17-59) U/L Alkaline Phosphatase (38-126) U/L Total Protein (6.3-8.2) g/dL Albumin (3.5-5.0) g/dL Crossmatch 09/18/16 09/18/16 09/18/16 Range/Units 11:49 12:19 13:29 WBC (3.8-10.6) k/uL RBC (4.30-5.90) m/uL Hgb (13.0-17.5) gm/dL Hct (39.0-53.0) % Plt Count (150-450) k/uL Neutrophils # (1.3-7.7) k/uL Lymphocytes # (1.0-4.8) k/uL PT (9.0-12.0) sec APTT (22.0-30.0) sec ABG pCO2 (35-45) mmHg ABG pO2 (83-108) mmHg ABG Total CO2 (19-24) mmol/L ABG O2 Saturation (94-97) % Chloride (98-107) mmol/L Creatinine (0.66-1.25) mg/dL Glucose (74-99) mg/dL POC Glucose (mg/dL) 151 H 165 H 113 H (75-99) mg/dL Calcium (8.4-10.2) mg/dL Ionized Calcium Yadira (4.5-5.3) mg/dL Phosphorus (2.5-4.5) mg/dL Total Bilirubin (0.2-1.3) mg/dL AST (17-59) U/L Alkaline Phosphatase (38-126) U/L Total Protein (6.3-8.2) g/dL Albumin (3.5-5.0) g/dL Crossmatch 09/18/16 09/18/16 09/18/16 Range/Units 14:30 14:30 14:30 WBC 13.0 H (3.8-10.6) k/uL RBC 2.13 L (4.30-5.90) m/uL Hgb 7.0 L* D (13.0-17.5) gm/dL Hct 21.2 L (39.0-53.0) % Plt Count 42 L* D (150-450) k/uL Neutrophils # 10.8 H (1.3-7.7) k/uL Lymphocytes # (1.0-4.8) k/uL PT 18.9 H (9.0-12.0) sec APTT 45.2 H (22.0-30.0) sec ABG pCO2 (35-45) mmHg ABG pO2 (83-108) mmHg ABG Total CO2 (19-24) mmol/L ABG O2 Saturation (94-97) % Chloride 110 H (98-107) mmol/L Creatinine (0.66-1.25) mg/dL Glucose (74-99) mg/dL POC Glucose (mg/dL) (75-99) mg/dL Calcium 6.6 L (8.4-10.2) mg/dL Ionized Calcium Yadira 4.2 L (4.5-5.3) mg/dL Phosphorus (2.5-4.5) mg/dL Total Bilirubin (0.2-1.3) mg/dL AST (17-59) U/L Alkaline Phosphatase 24 L (38-126) U/L Total Protein 4.2 L (6.3-8.2) g/dL Albumin 2.9 L (3.5-5.0) g/dL Crossmatch 09/18/16 09/18/16 09/18/16 Range/Units 15:00 15:32 16:31 WBC (3.8-10.6) k/uL RBC (4.30-5.90) m/uL Hgb (13.0-17.5) gm/dL Hct (39.0-53.0) % Plt Count (150-450) k/uL Neutrophils # (1.3-7.7) k/uL Lymphocytes # (1.0-4.8) k/uL PT (9.0-12.0) sec APTT (22.0-30.0) sec ABG pCO2 (35-45) mmHg ABG pO2 184 H (83-108) mmHg ABG Total CO2 25 H (19-24) mmol/L ABG O2 Saturation 99.0 H (94-97) % Chloride (98-107) mmol/L Creatinine (0.66-1.25) mg/dL Glucose (74-99) mg/dL POC Glucose (mg/dL) 107 H 123 H (75-99) mg/dL Calcium (8.4-10.2) mg/dL Ionized Calcium Yadira (4.5-5.3) mg/dL Phosphorus (2.5-4.5) mg/dL Total Bilirubin (0.2-1.3) mg/dL AST (17-59) U/L Alkaline Phosphatase (38-126) U/L Total Protein (6.3-8.2) g/dL Albumin (3.5-5.0) g/dL Crossmatch 09/18/16 09/18/16 09/18/16 Range/Units 17:30 17:30 17:30 WBC 12.7 H (3.8-10.6) k/uL RBC 2.13 L (4.30-5.90) m/uL Hgb 7.1 L (13.0-17.5) gm/dL Hct 21.1 L (39.0-53.0) % Plt Count 48 L* (150-450) k/uL Neutrophils # 10.8 H (1.3-7.7) k/uL Lymphocytes # 0.7 L (1.0-4.8) k/uL PT (9.0-12.0) sec APTT (22.0-30.0) sec ABG pCO2 (35-45) mmHg ABG pO2 (83-108) mmHg ABG Total CO2 (19-24) mmol/L ABG O2 Saturation (94-97) % Chloride 109 H (98-107) mmol/L Creatinine (0.66-1.25) mg/dL Glucose 115 H (74-99) mg/dL POC Glucose (mg/dL) 125 H (75-99) mg/dL Calcium 7.5 L (8.4-10.2) mg/dL Ionized Calcium Yadira (4.5-5.3) mg/dL Phosphorus (2.5-4.5) mg/dL Total Bilirubin 2.3 H (0.2-1.3) mg/dL AST (17-59) U/L Alkaline Phosphatase 29 L (38-126) U/L Total Protein 4.7 L (6.3-8.2) g/dL Albumin 3.4 L (3.5-5.0) g/dL Crossmatch 09/18/16 09/18/16 09/18/16 Range/Units 17:30 18:37 19:19 WBC (3.8-10.6) k/uL RBC (4.30-5.90) m/uL Hgb (13.0-17.5) gm/dL Hct (39.0-53.0) % Plt Count (150-450) k/uL Neutrophils # (1.3-7.7) k/uL Lymphocytes # (1.0-4.8) k/uL PT 16.9 H (9.0-12.0) sec APTT 52.0 H (22.0-30.0) sec ABG pCO2 (35-45) mmHg ABG pO2 (83-108) mmHg ABG Total CO2 (19-24) mmol/L ABG O2 Saturation (94-97) % Chloride (98-107) mmol/L Creatinine (0.66-1.25) mg/dL Glucose (74-99) mg/dL POC Glucose (mg/dL) 119 H 106 H (75-99) mg/dL Calcium (8.4-10.2) mg/dL Ionized Calcium Yadira (4.5-5.3) mg/dL Phosphorus (2.5-4.5) mg/dL Total Bilirubin (0.2-1.3) mg/dL AST (17-59) U/L Alkaline Phosphatase (38-126) U/L Total Protein (6.3-8.2) g/dL Albumin (3.5-5.0) g/dL Crossmatch 09/18/16 09/18/16 09/18/16 Range/Units 20:04 20:30 20:30 WBC (3.8-10.6) k/uL RBC 2.15 L (4.30-5.90) m/uL Hgb 7.0 L* (13.0-17.5) gm/dL Hct 21.3 L (39.0-53.0) % Plt Count 49 L* (150-450) k/uL Neutrophils # (1.3-7.7) k/uL Lymphocytes # (1.0-4.8) k/uL PT 14.9 H (9.0-12.0) sec APTT 83.9 H (22.0-30.0) sec ABG pCO2 (35-45) mmHg ABG pO2 (83-108) mmHg ABG Total CO2 (19-24) mmol/L ABG O2 Saturation (94-97) % Chloride (98-107) mmol/L Creatinine (0.66-1.25) mg/dL Glucose (74-99) mg/dL POC Glucose (mg/dL) 121 H (75-99) mg/dL Calcium (8.4-10.2) mg/dL Ionized Calcium Yadira (4.5-5.3) mg/dL Phosphorus (2.5-4.5) mg/dL Total Bilirubin (0.2-1.3) mg/dL AST (17-59) U/L Alkaline Phosphatase (38-126) U/L Total Protein (6.3-8.2) g/dL Albumin (3.5-5.0) g/dL Crossmatch 09/18/16 09/18/16 09/18/16 Range/Units 20:30 21:01 21:50 WBC (3.8-10.6) k/uL RBC (4.30-5.90) m/uL Hgb (13.0-17.5) gm/dL Hct (39.0-53.0) % Plt Count (150-450) k/uL Neutrophils # (1.3-7.7) k/uL Lymphocytes # (1.0-4.8) k/uL PT (9.0-12.0) sec APTT (22.0-30.0) sec ABG pCO2 32 L (35-45) mmHg ABG pO2 (83-108) mmHg ABG Total CO2 (19-24) mmol/L ABG O2 Saturation (94-97) % Chloride 110 H (98-107) mmol/L Creatinine (0.66-1.25) mg/dL Glucose 112 H (74-99) mg/dL POC Glucose (mg/dL) 125 H (75-99) mg/dL Calcium 7.6 L (8.4-10.2) mg/dL Ionized Calcium Yadira (4.5-5.3) mg/dL Phosphorus 2.0 L (2.5-4.5) mg/dL Total Bilirubin (0.2-1.3) mg/dL AST (17-59) U/L Alkaline Phosphatase (38-126) U/L Total Protein (6.3-8.2) g/dL Albumin (3.5-5.0) g/dL Crossmatch 09/18/16 09/18/16 09/19/16 Range/Units 21:58 23:02 00:02 WBC (3.8-10.6) k/uL RBC (4.30-5.90) m/uL Hgb (13.0-17.5) gm/dL Hct (39.0-53.0) % Plt Count (150-450) k/uL Neutrophils # (1.3-7.7) k/uL Lymphocytes # (1.0-4.8) k/uL PT (9.0-12.0) sec APTT (22.0-30.0) sec ABG pCO2 (35-45) mmHg ABG pO2 (83-108) mmHg ABG Total CO2 (19-24) mmol/L ABG O2 Saturation (94-97) % Chloride (98-107) mmol/L Creatinine (0.66-1.25) mg/dL Glucose (74-99) mg/dL POC Glucose (mg/dL) 117 H 129 H 123 H (75-99) mg/dL Calcium (8.4-10.2) mg/dL Ionized Calcium Yadira (4.5-5.3) mg/dL Phosphorus (2.5-4.5) mg/dL Total Bilirubin (0.2-1.3) mg/dL AST (17-59) U/L Alkaline Phosphatase (38-126) U/L Total Protein (6.3-8.2) g/dL Albumin (3.5-5.0) g/dL Crossmatch 09/19/16 09/19/16 09/19/16 Range/Units 01:12 02:08 03:49 WBC (3.8-10.6) k/uL RBC (4.30-5.90) m/uL Hgb (13.0-17.5) gm/dL Hct (39.0-53.0) % Plt Count (150-450) k/uL Neutrophils # (1.3-7.7) k/uL Lymphocytes # (1.0-4.8) k/uL PT (9.0-12.0) sec APTT (22.0-30.0) sec ABG pCO2 (35-45) mmHg ABG pO2 (83-108) mmHg ABG Total CO2 (19-24) mmol/L ABG O2 Saturation (94-97) % Chloride (98-107) mmol/L Creatinine (0.66-1.25) mg/dL Glucose (74-99) mg/dL POC Glucose (mg/dL) 124 H 125 H 124 H (75-99) mg/dL Calcium (8.4-10.2) mg/dL Ionized Calcium Yadira (4.5-5.3) mg/dL Phosphorus (2.5-4.5) mg/dL Total Bilirubin (0.2-1.3) mg/dL AST (17-59) U/L Alkaline Phosphatase (38-126) U/L Total Protein (6.3-8.2) g/dL Albumin (3.5-5.0) g/dL Crossmatch 09/19/16 09/19/16 09/19/16 Range/Units 03:55 03:55 03:55 WBC (3.8-10.6) k/uL RBC 2.22 L (4.30-5.90) m/uL Hgb 7.1 L (13.0-17.5) gm/dL Hct 22.1 L (39.0-53.0) % Plt Count 50 L* (150-450) k/uL Neutrophils # (1.3-7.7) k/uL Lymphocytes # (1.0-4.8) k/uL PT (9.0-12.0) sec APTT 33.5 H (22.0-30.0) sec ABG pCO2 (35-45) mmHg ABG pO2 (83-108) mmHg ABG Total CO2 (19-24) mmol/L ABG O2 Saturation (94-97) % Chloride 110 H (98-107) mmol/L Creatinine 1.30 H (0.66-1.25) mg/dL Glucose 111 H (74-99) mg/dL POC Glucose (mg/dL) (75-99) mg/dL Calcium 7.4 L (8.4-10.2) mg/dL Ionized Calcium Yadira (4.5-5.3) mg/dL Phosphorus (2.5-4.5) mg/dL Total Bilirubin (0.2-1.3) mg/dL AST 78 H (17-59) U/L Alkaline Phosphatase 29 L (38-126) U/L Total Protein 4.6 L (6.3-8.2) g/dL Albumin 3.3 L (3.5-5.0) g/dL Crossmatch 09/19/16 09/19/16 09/19/16 Range/Units 03:55 05:09 06:06 WBC (3.8-10.6) k/uL RBC (4.30-5.90) m/uL Hgb (13.0-17.5) gm/dL Hct (39.0-53.0) % Plt Count (150-450) k/uL Neutrophils # (1.3-7.7) k/uL Lymphocytes # (1.0-4.8) k/uL PT 13.6 H (9.0-12.0) sec APTT (22.0-30.0) sec ABG pCO2 (35-45) mmHg ABG pO2 (83-108) mmHg ABG Total CO2 (19-24) mmol/L ABG O2 Saturation (94-97) % Chloride (98-107) mmol/L Creatinine (0.66-1.25) mg/dL Glucose (74-99) mg/dL POC Glucose (mg/dL) 125 H 122 H (75-99) mg/dL Calcium (8.4-10.2) mg/dL Ionized Calcium Yadira (4.5-5.3) mg/dL Phosphorus (2.5-4.5) mg/dL Total Bilirubin (0.2-1.3) mg/dL AST (17-59) U/L Alkaline Phosphatase (38-126) U/L Total Protein (6.3-8.2) g/dL Albumin (3.5-5.0) g/dL Crossmatch 09/19/16 Range/Units 07:12 WBC (3.8-10.6) k/uL RBC (4.30-5.90) m/uL Hgb (13.0-17.5) gm/dL Hct (39.0-53.0) % Plt Count (150-450) k/uL Neutrophils # (1.3-7.7) k/uL Lymphocytes # (1.0-4.8) k/uL PT (9.0-12.0) sec APTT (22.0-30.0) sec ABG pCO2 (35-45) mmHg ABG pO2 (83-108) mmHg ABG Total CO2 (19-24) mmol/L ABG O2 Saturation (94-97) % Chloride (98-107) mmol/L Creatinine (0.66-1.25) mg/dL Glucose (74-99) mg/dL POC Glucose (mg/dL) 123 H (75-99) mg/dL Calcium (8.4-10.2) mg/dL Ionized Calcium Yadira (4.5-5.3) mg/dL Phosphorus (2.5-4.5) mg/dL Total Bilirubin (0.2-1.3) mg/dL AST (17-59) U/L Alkaline Phosphatase (38-126) U/L Total Protein (6.3-8.2) g/dL Albumin (3.5-5.0) g/dL Crossmatch - Imaging and Cardiology Chest x-ray: image reviewed Assessment and Plan (1) Critical aortic valve stenosis Status: Acute (2) Near syncope Status: Acute (3) Hyperlipemia Status: Acute (4) Chest pain Status: Acute Plan: 1. Continue aspirin, beta alvin, statin. Hold Plavix secondary to low platelet count. We will start Coumadin today. 2. DC Primacor, wean levophed as tolerated, will DC his Breckenridge later today if cardiac output and index remain okay. 3. Will KVO IV fluids, give Lasix IV push 1 dose. Monitor urine output. 4. Encourage incentive spirometry use, coughing and deep breathing.. 5. Monitor labs closely. 6. GI/DVT prophylaxis. 7. Encourage early mobility. 8. More recs as patient progresses. Time with Patient: Greater than 30
[2016-09-19 08:09] LABS: ABG Base Excess -3.2 mmol/L; ABG HCO3 23 mmol/L (21-25); ABG PCO2 50 mmHg (35-45); ABG PH 7.29 (7.35-7.45); ABG PO2 302 mmHg (83-108); ABG TCO2 25 mmol/L (19-24)
[2016-09-19 08:10] LABS: ABG Oxygen Saturation 99.9 % (94-97)
[2016-09-19 08:11] LABS: ABG HCO3 24 mmol/L (21-25); ABG Oxygen Saturation 99.3 % (94-97); ABG PCO2 63 mmHg (35-45); ABG PH 7.21 (7.35-7.45); ABG PO2 185 mmHg (83-108); ABG TCO2 26 mmol/L (19-24)
[2016-09-19 08:12] LABS: ABG Base Excess -0.5 mmol/L; ABG HCO3 25 mmol/L (21-25); ABG PCO2 50 mmHg (35-45); ABG PH 7.33 (7.35-7.45); ABG PO2 409 mmHg (83-108); ABG TCO2 27 mmol/L (19-24)
[2016-09-19 08:16] LABS: ABG HCO3 21 mmol/L (21-25); ABG Oxygen Saturation 99.9 % (94-97); ABG PCO2 39 mmHg (35-45); ABG PH 7.35 (7.35-7.45); ABG PO2 267 mmHg (83-108); ABG TCO2 22 mmol/L (19-24)
[2016-09-19 08:18] LABS: ABG Base Excess -6.5 mmol/L; ABG HCO3 19 mmol/L (21-25); ABG Oxygen Saturation 99.8 % (94-97); ABG PCO2 41 mmHg (35-45); ABG PH 7.29 (7.35-7.45); ABG PO2 258 mmHg (83-108); ABG TCO2 20 mmol/L (19-24)
--- NOTE | 2016-09-19 08:19 | XR ---
EXAMINATION TYPE: XR chest 1V portable DATE OF EXAM: 09/19/2016 6:49 AM COMPARISON: Prior chest x-ray 18 September 2016 HISTORY: Postop cardiac surgery TECHNIQUE: Single frontal view of the chest is obtained. FINDINGS: Patient is post median sternotomy. Heart size is stable. Epicardial pacing leads are prese nt, right jugular central venous catheter shows the distal tip in the pulmonary artery. No evident pn eumothorax. Difficult to exclude small effusions, there is basilar increased density present. Pneumop ericardium change no longer evident. Interstitium somewhat improved. There are overlying cardiac lead s. Interval increase density in the lung bases, there is blunting of the costophrenic angles. IMPRESSION: Correlate for basilar edema versus pneumonia, atelectasis and associated effusion. There may be some improvement in volume status.
[2016-09-19 08:20] LABS: ABG Base Excess -4.6 mmol/L; ABG HCO3 21 mmol/L (21-25); ABG Oxygen Saturation 99.8 % (94-97); ABG PCO2 44 mmHg (35-45); ABG PO2 250 mmHg (83-108); ABG TCO2 22 mmol/L (19-24)
[2016-09-19 08:21] LABS: ABG Base Excess -1.3 mmol/L; ABG HCO3 23 mmol/L (21-25); ABG Oxygen Saturation 99.9 % (94-97); ABG PCO2 42 mmHg (35-45); ABG PH 7.37 (7.35-7.45); ABG PO2 287 mmHg (83-108); ABG TCO2 25 mmol/L (19-24)
[2016-09-19 08:23] LABS: ABG Base Excess -4.2 mmol/L; ABG HCO3 21 mmol/L (21-25); ABG Oxygen Saturation 99.9 % (94-97); ABG PCO2 41 mmHg (35-45); ABG PH 7.33 (7.35-7.45); ABG PO2 289 mmHg (83-108); ABG TCO2 22 mmol/L (19-24)
[2016-09-19 08:24] LABS: ABG HCO3 32 mmol/L (21-25); ABG PCO2 60 mmHg (35-45); ABG PH 7.35 (7.35-7.45); ABG PO2 230 mmHg (83-108)
[2016-09-19 08:25] LABS: ABG Base Excess 5.9 mmol/L; ABG Oxygen Saturation 99.8 % (94-97); ABG TCO2 34 mmol/L (19-24)
[2016-09-19] MEDS: PANTOPRAZOLE 40 MG/10 ML VIAL IVP SCH (08:26)
[2016-09-19] MEDS: ASPIRIN 81 MG CHEW PO SCH (08:26)
[2016-09-19] MEDS: HEPARIN SODIUM,PORCINE 5,000 UNIT/ML 1 ML VIAL SQ SCH ×2 (08:27→15:12)
[2016-09-19] MEDS: METOPROLOL TARTRATE 12.5 MG TAB PO SCH ×2 (08:28→22:52)
[2016-09-19] MEDS: MUPIROCIN 2% OINT 22 GM TUBE NASAL SCH ×2 (08:28→21:42)
[2016-09-19] MEDS: ATORVASTATIN 40 MG TAB PO SCH (08:28)
[2016-09-19] MEDS ORDERED: ASPIRIN 325 MG TAB PO SCH (09:00)
[2016-09-19] MEDS ORDERED: CLOPIDOGREL 75 MG TAB PO SCH (09:00)
[2016-09-19 09:09] LABS: Glucose,Whole Blood 145 mg/dL (75-99)
[2016-09-19 10:13] LABS: Glucose,Whole Blood 140 mg/dL (75-99)
[2016-09-19 11:07] LABS: Glucose,Whole Blood 129 mg/dL (75-99)
[2016-09-19] MEDS: IPRATROPIUM-ALBUTEROL 3 ML NEB INHALATION SCH ×3 (11:11→19:22)
[2016-09-19 12:08] LABS: Glucose,Whole Blood 126 mg/dL (75-99)
[2016-09-19] MEDS ORDERED: BISACODYL 10 MG SUPP RECTAL PRN (12:48)
[2016-09-19] MEDS ORDERED: MAGNESIUM HYDROXIDE 2,400 MG/10 ML CUP PO PRN (12:48)
--- NOTE | 2016-09-19 13:06 | P.PN ---
Progress Note - Text This is a pleasant 46-year-old gentleman with a known CAD and known critical aortic stenosis was brought to the hospital by ambulance with presyncope. He was found to be hypotensive. He just underwent a BETSEY which showed critical aortic stenosis and he was scheduled to see cardiothoracic surgeon in the next few days. The patient underwent aortic valve replacement using mechanical valve yesterday. He was extubated. Hemodynamically history requires small dose of Levophed which is going to be weaned. The platelets was checked and came in to be low. We are holding the Plavix because of that. I would continue the current medical treatment and continue following up with him.
--- NOTE | 2016-09-19 14:14 | P.PN ---
Subjective Principal diagnosis: Critical aortic stenosis with known coronary artery disease Patient is a 46-year-old male, patient of Dr. Theo Haas in the outpatient setting with medical history significant for myocardial infarction with stent placement to the LAD in July 2016, TIA, hyperlipidemia, and nicotine dependence. Patient presented to the emergency department with complaints of chest pain that started while he was at work associated with diaphoresis and lightheadedness after he took a nitroglycerin. Troponins 0.021 , 0.266, 0.174, and 0.088. NT proBNP 6510. Chest x-ray with evidence of pulmonary venous hypertension and interstitial edema. Echocardiogram with Doppler significant for severe concentric left ventricular hypertrophy, severe aortic stenosis, and left ventricular systolic function with an EF between 50-55 %. No significant stenosis seen on bilateral carotid Dopplers. Patient was evaluated by cardiology and cardiothoracic surgery and underwent aortic valve replacement with mechanical valve on 09/18/2016. Patient was evaluated in the intensive care unit where he is postop day #1. Patient has been extubated. Patient is currently on small dose of vasopressor for hemodynamic support. Patient is doing well. Denies chills, nausea, vomiting, shortness of breath, chest pain, or abdominal pain. Denies flatus or bowel movements. Incisional pain controlled. Afebrile. Patient tolerated clear liquid diet. Urine output adequate. Afebrile. Hemoglobin 7.1. Platelet count 50. Objective - Vital Signs Vital signs: Vital Signs Temp 98.1 F 09/18/16 19:00 Pulse 72 09/19/16 11:25 Resp 18 09/19/16 10:00 BP 99/52 09/19/16 09:00 Pulse Ox 97 09/19/16 10:00 Intake & Output 09/18/16 09/19/16 09/19/16 18:59 06:59 18:59 Intake Total 2337.046 8798.407 259.7 Output Total 4258 1231 463 Balance -3171.799 919.407 -203.3 Weight 65.6 kg 75.1 kg Intake: IV 0 1494.9 259.7 ACETAMINOPHEN IV (For NPO 400 ) 1,000 mg In Empty Bag 1 bag @ 400 mls/hr IVPB Q6HR [facility] Rx#:[id number] CO/CI 180 Lactated Ringers 1,000 ml 540 200 @ 30 mls/hr IV .Q24H [facility] Rx#:[id number] Milrinone-D5w Pmx 20 mg 42.9 11.7 In Dextrose/Water 1 100ml .bag @ 0.2 MCG/KG/MIN 3. 93 mls/hr IV .Q24H [facility] Rx #:[id number] Pressure Bag 132 48 ceFAZolin 2 gm In Sodium 200 Chloride 0.9% 100 ml @ 100 mls/hr IVPB Q8H [facility] Rx#:[id number] Intake, IV Titration 1086.201 655.507 Amount ACETAMINOPHEN IV (For NPO 100 ) 1,000 mg In Empty Bag 1 bag @ 400 mls/hr IVPB Q6HR [facility] Rx#:[id number] Albumin Human 5% 250 ml 500 In Empty Bag 1 bag @ 250 mls/hr IVPB Q1HR PRN Rx#: [id number] Calcium Gluconate 1,000 100 mg In Sodium Chloride 0.9 % 100 ml @ 100 mls/hr IVPB Q1HR [facility] Rx#: [id number] Insulin Regular 100 unit 2.5 3.185 In Sodium Chloride 0.9% 100 ml @ Per Protocol IV .Q0M [facility] Rx#:[id number] Lactated Ringers 1,000 ml 200 50 @ 30 mls/hr IV .Q24H [facility] Rx#:[id number] Milrinone-D5w Pmx 20 mg 15.6 3.9 In Dextrose/Water 1 100ml .bag @ 0.2 MCG/KG/MIN 3. 93 mls/hr IV .Q24H [facility] Rx #:[id number] Norepinephrine 16 mg In 34.874 Sodium Chloride 0.9% 250 ml @ Titrate IV .Q0M [facility] Rx#:[id number] Norepinephrine 4 mg In 66.724 239.776 Sodium Chloride 0.9% 250 ml @ Titrate IV .Q0M [facility] Rx#:[id number] Propofol 500 mg In Empty 1.377 23.772 Bag 1 bag @ Titrate IV . Q0M [facility] Rx#:[id number] Sodium Phosphate 10 mmol 200 In Sodium Chloride 0.9% 100 ml @ 50 mls/hr IVPB Q2H [facility] Rx#:[id number] ceFAZolin 2 gm In Sodium 100 100 Chloride 0.9% 100 ml @ 100 mls/hr IVPB Q8H [facility] Rx#:[id number] Output: Chest Tube Drainage 189 436 190 mediastinal 189 436 190 Urine 1069 795 273 Estimated Blood Loss 3000 Other: Voiding Method Indwelling Catheter Indwelling Catheter Indwelling Catheter # Bowel Movements 0 0 ABP, PAP, CO, CI - Last Documented Arterial Blood Pressure 118/59 Pulmonary Artery Pressure 34/21 Cardiac Output 6.8 Cardiac Index 3.8 - Exam GENERAL: Pt awake and alert, well-appearing, well-nourished, and in no acute distress. HEAD: Atraumatic, normocephalic. EYES: Pupils equal and round. Sclera anicteric, conjunctiva are normal. ENT: Moist mucous membranes. NECK:Supple without lymphadenopathy or JVD. LUNGS: Breath sounds diminished to auscultation bilaterally. No wheezes, rales , or rhonchi. HEART: Heart S1, S2, no S3 or S4. Regular rate and rhythm. Systolic murmur. ABDOMEN: Soft, nontender, nondistended, hyperactive bowel sounds. EXTREMITIES: 1+ dorsalis pedal pulses. No edema. No calf tenderness. NEUROLOGICAL: Pt oriented x 3. Cranial nerves II through XII grossly intact. Strength and sensation grossly intact. PSYCH: Normal mood, normal affect. SKIN: Warm, dry. Midline chest dressing dry and intact. - Labs CBC & Chem 7: 09/19/16 03:55 09/19/16 03:55 Labs: Abnormal Lab Results - Last 24 Hours (Table) 09/17/16 09/18/16 09/18/16 Range/Units 06:16 08:50 09:54 WBC (3.8-10.6) k/uL RBC (4.30-5.90) m/uL Hgb (13.0-17.5) gm/dL Hct (39.0-53.0) % Plt Count (150-450) k/uL Neutrophils # (1.3-7.7) k/uL Lymphocytes # (1.0-4.8) k/uL PT (9.0-12.0) sec APTT (22.0-30.0) sec ABG pH 7.29 L 7.21 L (7.35-7.45) ABG pCO2 50 H 63 H (35-45) mmHg ABG pO2 302 H 185 H (83-108) mmHg ABG HCO3 (21-25) mmol/L ABG Total CO2 25 H 26 H (19-24) mmol/L ABG O2 Saturation 99.9 H 99.3 H (94-97) % ABG Hematocrit (34.0-46.0) % ABG Sodium 148 H (135-146) mmol/L ABG Potassium 5.0 H 5.9 H (3.4-4.5) mmol/L Chloride (98-107) mmol/L Creatinine (0.66-1.25) mg/dL Glucose (74-99) mg/dL POC Glucose (mg/dL) (75-99) mg/dL Calcium (8.4-10.2) mg/dL Ionized Calcium Yadira (4.5-5.3) mg/dL Phosphorus (2.5-4.5) mg/dL Total Bilirubin (0.2-1.3) mg/dL AST (17-59) U/L Alkaline Phosphatase (38-126) U/L Total Protein (6.3-8.2) g/dL Albumin (3.5-5.0) g/dL Arterial Blood Potassium 5.0 H 5.9 H (3.4-4.5) mmol/L Crossmatch See Detail 09/18/16 09/18/16 09/18/16 Range/Units 10:23 10:44 11:00 WBC (3.8-10.6) k/uL RBC (4.30-5.90) m/uL Hgb (13.0-17.5) gm/dL Hct (39.0-53.0) % Plt Count (150-450) k/uL Neutrophils # (1.3-7.7) k/uL Lymphocytes # (1.0-4.8) k/uL PT (9.0-12.0) sec APTT (22.0-30.0) sec ABG pH 7.33 L 7.29 L (7.35-7.45) ABG pCO2 50 H (35-45) mmHg ABG pO2 409 H 267 H 258 H (83-108) mmHg ABG HCO3 19 L (21-25) mmol/L ABG Total CO2 27 H (19-24) mmol/L ABG O2 Saturation 100.0 H 99.9 H 99.8 H (94-97) % ABG Hematocrit 25 L 26 L 27 L (34.0-46.0) % ABG Sodium (135-146) mmol/L ABG Potassium >8.0 H* 7.3 H* 6.6 H* (3.4-4.5) mmol/L Chloride (98-107) mmol/L Creatinine (0.66-1.25) mg/dL Glucose (74-99) mg/dL POC Glucose (mg/dL) (75-99) mg/dL Calcium (8.4-10.2) mg/dL Ionized Calcium Yadira (4.5-5.3) mg/dL Phosphorus (2.5-4.5) mg/dL Total Bilirubin (0.2-1.3) mg/dL AST (17-59) U/L Alkaline Phosphatase (38-126) U/L Total Protein (6.3-8.2) g/dL Albumin (3.5-5.0) g/dL Arterial Blood Potassium >8.0 H* 7.3 H* 6.6 H* (3.4-4.5) mmol/L Crossmatch 09/18/16 09/18/16 09/18/16 Range/Units 11:32 11:51 12:21 WBC (3.8-10.6) k/uL RBC (4.30-5.90) m/uL Hgb (13.0-17.5) gm/dL Hct (39.0-53.0) % Plt Count (150-450) k/uL Neutrophils # (1.3-7.7) k/uL Lymphocytes # (1.0-4.8) k/uL PT (9.0-12.0) sec APTT (22.0-30.0) sec ABG pH 7.30 L 7.33 L (7.35-7.45) ABG pCO2 (35-45) mmHg ABG pO2 250 H 287 H 289 H (83-108) mmHg ABG HCO3 (21-25) mmol/L ABG Total CO2 25 H (19-24) mmol/L ABG O2 Saturation 99.8 H 99.9 H 99.9 H (94-97) % ABG Hematocrit 25 L 21 L 24 L (34.0-46.0) % ABG Sodium 148 H 147 H (135-146) mmol/L ABG Potassium 6.0 H 5.8 H 5.9 H (3.4-4.5) mmol/L Chloride (98-107) mmol/L Creatinine (0.66-1.25) mg/dL Glucose (74-99) mg/dL POC Glucose (mg/dL) (75-99) mg/dL Calcium (8.4-10.2) mg/dL Ionized Calcium Yadira (4.5-5.3) mg/dL Phosphorus (2.5-4.5) mg/dL Total Bilirubin (0.2-1.3) mg/dL AST (17-59) U/L Alkaline Phosphatase (38-126) U/L Total Protein (6.3-8.2) g/dL Albumin (3.5-5.0) g/dL Arterial Blood Potassium 6.0 H 5.8 H 5.9 H (3.4-4.5) mmol/L Crossmatch 09/18/16 09/18/16 09/18/16 Range/Units 13:28 14:30 14:30 WBC 13.0 H (3.8-10.6) k/uL RBC 2.13 L (4.30-5.90) m/uL Hgb 7.0 L* D (13.0-17.5) gm/dL Hct 21.2 L (39.0-53.0) % Plt Count 42 L* D (150-450) k/uL Neutrophils # 10.8 H (1.3-7.7) k/uL Lymphocytes # (1.0-4.8) k/uL PT (9.0-12.0) sec APTT (22.0-30.0) sec ABG pH (7.35-7.45) ABG pCO2 60 H (35-45) mmHg ABG pO2 230 H (83-108) mmHg ABG HCO3 32 H (21-25) mmol/L ABG Total CO2 34 H (19-24) mmol/L ABG O2 Saturation 99.8 H (94-97) % ABG Hematocrit 29 L (34.0-46.0) % ABG Sodium 152 H (135-146) mmol/L ABG Potassium 4.8 H (3.4-4.5) mmol/L Chloride 110 H (98-107) mmol/L Creatinine (0.66-1.25) mg/dL Glucose (74-99) mg/dL POC Glucose (mg/dL) (75-99) mg/dL Calcium 6.6 L (8.4-10.2) mg/dL Ionized Calcium Yadira 4.2 L (4.5-5.3) mg/dL Phosphorus (2.5-4.5) mg/dL Total Bilirubin (0.2-1.3) mg/dL AST (17-59) U/L Alkaline Phosphatase 24 L (38-126) U/L Total Protein 4.2 L (6.3-8.2) g/dL Albumin 2.9 L (3.5-5.0) g/dL Arterial Blood Potassium 4.8 H (3.4-4.5) mmol/L Crossmatch 09/18/16 09/18/16 09/18/16 Range/Units 14:30 15:00 15:32 WBC (3.8-10.6) k/uL RBC (4.30-5.90) m/uL Hgb (13.0-17.5) gm/dL Hct (39.0-53.0) % Plt Count (150-450) k/uL Neutrophils # (1.3-7.7) k/uL Lymphocytes # (1.0-4.8) k/uL PT 18.9 H (9.0-12.0) sec APTT 45.2 H (22.0-30.0) sec ABG pH (7.35-7.45) ABG pCO2 (35-45) mmHg ABG pO2 184 H (83-108) mmHg ABG HCO3 (21-25) mmol/L ABG Total CO2 25 H (19-24) mmol/L ABG O2 Saturation 99.0 H (94-97) % ABG Hematocrit (34.0-46.0) % ABG Sodium (135-146) mmol/L ABG Potassium (3.4-4.5) mmol/L Chloride (98-107) mmol/L Creatinine (0.66-1.25) mg/dL Glucose (74-99) mg/dL POC Glucose (mg/dL) 107 H (75-99) mg/dL Calcium (8.4-10.2) mg/dL Ionized Calcium Yadira (4.5-5.3) mg/dL Phosphorus (2.5-4.5) mg/dL Total Bilirubin (0.2-1.3) mg/dL AST (17-59) U/L Alkaline Phosphatase (38-126) U/L Total Protein (6.3-8.2) g/dL Albumin (3.5-5.0) g/dL Arterial Blood Potassium (3.4-4.5) mmol/L Crossmatch 09/18/16 09/18/16 09/18/16 Range/Units 16:31 17:30 17:30 WBC 12.7 H (3.8-10.6) k/uL RBC 2.13 L (4.30-5.90) m/uL Hgb 7.1 L (13.0-17.5) gm/dL Hct 21.1 L (39.0-53.0) % Plt Count 48 L* (150-450) k/uL Neutrophils # 10.8 H (1.3-7.7) k/uL Lymphocytes # 0.7 L (1.0-4.8) k/uL PT (9.0-12.0) sec APTT (22.0-30.0) sec ABG pH (7.35-7.45) ABG pCO2 (35-45) mmHg ABG pO2 (83-108) mmHg ABG HCO3 (21-25) mmol/L ABG Total CO2 (19-24) mmol/L ABG O2 Saturation (94-97) % ABG Hematocrit (34.0-46.0) % ABG Sodium (135-146) mmol/L ABG Potassium (3.4-4.5) mmol/L Chloride (98-107) mmol/L Creatinine (0.66-1.25) mg/dL Glucose (74-99) mg/dL POC Glucose (mg/dL) 123 H 125 H (75-99) mg/dL Calcium (8.4-10.2) mg/dL Ionized Calcium Yadira (4.5-5.3) mg/dL Phosphorus (2.5-4.5) mg/dL Total Bilirubin (0.2-1.3) mg/dL AST (17-59) U/L Alkaline Phosphatase (38-126) U/L Total Protein (6.3-8.2) g/dL Albumin (3.5-5.0) g/dL Arterial Blood Potassium (3.4-4.5) mmol/L Crossmatch 09/18/16 09/18/16 09/18/16 Range/Units 17:30 17:30 18:37 WBC (3.8-10.6) k/uL RBC (4.30-5.90) m/uL Hgb (13.0-17.5) gm/dL Hct (39.0-53.0) % Plt Count (150-450) k/uL Neutrophils # (1.3-7.7) k/uL Lymphocytes # (1.0-4.8) k/uL PT 16.9 H (9.0-12.0) sec APTT 52.0 H (22.0-30.0) sec ABG pH (7.35-7.45) ABG pCO2 (35-45) mmHg ABG pO2 (83-108) mmHg ABG HCO3 (21-25) mmol/L ABG Total CO2 (19-24) mmol/L ABG O2 Saturation (94-97) % ABG Hematocrit (34.0-46.0) % ABG Sodium (135-146) mmol/L ABG Potassium (3.4-4.5) mmol/L Chloride 109 H (98-107) mmol/L Creatinine (0.66-1.25) mg/dL Glucose 115 H (74-99) mg/dL POC Glucose (mg/dL) 119 H (75-99) mg/dL Calcium 7.5 L (8.4-10.2) mg/dL Ionized Calcium Yadira (4.5-5.3) mg/dL Phosphorus (2.5-4.5) mg/dL Total Bilirubin 2.3 H (0.2-1.3) mg/dL AST (17-59) U/L Alkaline Phosphatase 29 L (38-126) U/L Total Protein 4.7 L (6.3-8.2) g/dL Albumin 3.4 L (3.5-5.0) g/dL Arterial Blood Potassium (3.4-4.5) mmol/L Crossmatch 09/18/16 09/18/16 09/18/16 Range/Units 19:19 20:04 20:30 WBC (3.8-10.6) k/uL RBC 2.15 L (4.30-5.90) m/uL Hgb 7.0 L* (13.0-17.5) gm/dL Hct 21.3 L (39.0-53.0) % Plt Count 49 L* (150-450) k/uL Neutrophils # (1.3-7.7) k/uL Lymphocytes # (1.0-4.8) k/uL PT (9.0-12.0) sec APTT (22.0-30.0) sec ABG pH (7.35-7.45) ABG pCO2 (35-45) mmHg ABG pO2 (83-108) mmHg ABG HCO3 (21-25) mmol/L ABG Total CO2 (19-24) mmol/L ABG O2 Saturation (94-97) % ABG Hematocrit (34.0-46.0) % ABG Sodium (135-146) mmol/L ABG Potassium (3.4-4.5) mmol/L Chloride (98-107) mmol/L Creatinine (0.66-1.25) mg/dL Glucose (74-99) mg/dL POC Glucose (mg/dL) 106 H 121 H (75-99) mg/dL Calcium (8.4-10.2) mg/dL Ionized Calcium Yadira (4.5-5.3) mg/dL Phosphorus (2.5-4.5) mg/dL Total Bilirubin (0.2-1.3) mg/dL AST (17-59) U/L Alkaline Phosphatase (38-126) U/L Total Protein (6.3-8.2) g/dL Albumin (3.5-5.0) g/dL Arterial Blood Potassium (3.4-4.5) mmol/L Crossmatch 09/18/16 09/18/16 09/18/16 Range/Units 20:30 20:30 21:01 WBC (3.8-10.6) k/uL RBC (4.30-5.90) m/uL Hgb (13.0-17.5) gm/dL Hct (39.0-53.0) % Plt Count (150-450) k/uL Neutrophils # (1.3-7.7) k/uL Lymphocytes # (1.0-4.8) k/uL PT 14.9 H (9.0-12.0) sec APTT 83.9 H (22.0-30.0) sec ABG pH (7.35-7.45) ABG pCO2 (35-45) mmHg ABG pO2 (83-108) mmHg ABG HCO3 (21-25) mmol/L ABG Total CO2 (19-24) mmol/L ABG O2 Saturation (94-97) % ABG Hematocrit (34.0-46.0) % ABG Sodium (135-146) mmol/L ABG Potassium (3.4-4.5) mmol/L Chloride 110 H (98-107) mmol/L Creatinine (0.66-1.25) mg/dL Glucose 112 H (74-99) mg/dL POC Glucose (mg/dL) 125 H (75-99) mg/dL Calcium 7.6 L (8.4-10.2) mg/dL Ionized Calcium Yadira (4.5-5.3) mg/dL Phosphorus 2.0 L (2.5-4.5) mg/dL Total Bilirubin (0.2-1.3) mg/dL AST (17-59) U/L Alkaline Phosphatase (38-126) U/L Total Protein (6.3-8.2) g/dL Albumin (3.5-5.0) g/dL Arterial Blood Potassium (3.4-4.5) mmol/L Crossmatch 09/18/16 09/18/16 09/18/16 Range/Units 21:50 21:58 23:02 WBC (3.8-10.6) k/uL RBC (4.30-5.90) m/uL Hgb (13.0-17.5) gm/dL Hct (39.0-53.0) % Plt Count (150-450) k/uL Neutrophils # (1.3-7.7) k/uL Lymphocytes # (1.0-4.8) k/uL PT (9.0-12.0) sec APTT (22.0-30.0) sec ABG pH (7.35-7.45) ABG pCO2 32 L (35-45) mmHg ABG pO2 (83-108) mmHg ABG HCO3 (21-25) mmol/L ABG Total CO2 (19-24) mmol/L ABG O2 Saturation (94-97) % ABG Hematocrit (34.0-46.0) % ABG Sodium (135-146) mmol/L ABG Potassium (3.4-4.5) mmol/L Chloride (98-107) mmol/L Creatinine (0.66-1.25) mg/dL Glucose (74-99) mg/dL POC Glucose (mg/dL) 117 H 129 H (75-99) mg/dL Calcium (8.4-10.2) mg/dL Ionized Calcium Yadira (4.5-5.3) mg/dL Phosphorus (2.5-4.5) mg/dL Total Bilirubin (0.2-1.3) mg/dL AST (17-59) U/L Alkaline Phosphatase (38-126) U/L Total Protein (6.3-8.2) g/dL Albumin (3.5-5.0) g/dL Arterial Blood Potassium (3.4-4.5) mmol/L Crossmatch 09/19/16 09/19/16 09/19/16 Range/Units 00:02 01:12 02:08 WBC (3.8-10.6) k/uL RBC (4.30-5.90) m/uL Hgb (13.0-17.5) gm/dL Hct (39.0-53.0) % Plt Count (150-450) k/uL Neutrophils # (1.3-7.7) k/uL Lymphocytes # (1.0-4.8) k/uL PT (9.0-12.0) sec APTT (22.0-30.0) sec ABG pH (7.35-7.45) ABG pCO2 (35-45) mmHg ABG pO2 (83-108) mmHg ABG HCO3 (21-25) mmol/L ABG Total CO2 (19-24) mmol/L ABG O2 Saturation (94-97) % ABG Hematocrit (34.0-46.0) % ABG Sodium (135-146) mmol/L ABG Potassium (3.4-4.5) mmol/L Chloride (98-107) mmol/L Creatinine (0.66-1.25) mg/dL Glucose (74-99) mg/dL POC Glucose (mg/dL) 123 H 124 H 125 H (75-99) mg/dL Calcium (8.4-10.2) mg/dL Ionized Calcium Yadira (4.5-5.3) mg/dL Phosphorus (2.5-4.5) mg/dL Total Bilirubin (0.2-1.3) mg/dL AST (17-59) U/L Alkaline Phosphatase (38-126) U/L Total Protein (6.3-8.2) g/dL Albumin (3.5-5.0) g/dL Arterial Blood Potassium (3.4-4.5) mmol/L Crossmatch 09/19/16 09/19/16 09/19/16 Range/Units 03:49 03:55 03:55 WBC (3.8-10.6) k/uL RBC 2.22 L (4.30-5.90) m/uL Hgb 7.1 L (13.0-17.5) gm/dL Hct 22.1 L (39.0-53.0) % Plt Count 50 L* (150-450) k/uL Neutrophils # (1.3-7.7) k/uL Lymphocytes # (1.0-4.8) k/uL PT (9.0-12.0) sec APTT (22.0-30.0) sec ABG pH (7.35-7.45) ABG pCO2 (35-45) mmHg ABG pO2 (83-108) mmHg ABG HCO3 (21-25) mmol/L ABG Total CO2 (19-24) mmol/L ABG O2 Saturation (94-97) % ABG Hematocrit (34.0-46.0) % ABG Sodium (135-146) mmol/L ABG Potassium (3.4-4.5) mmol/L Chloride 110 H (98-107) mmol/L Creatinine 1.30 H (0.66-1.25) mg/dL Glucose 111 H (74-99) mg/dL POC Glucose (mg/dL) 124 H (75-99) mg/dL Calcium 7.4 L (8.4-10.2) mg/dL Ionized Calcium Yadira (4.5-5.3) mg/dL Phosphorus (2.5-4.5) mg/dL Total Bilirubin (0.2-1.3) mg/dL AST 78 H (17-59) U/L Alkaline Phosphatase 29 L (38-126) U/L Total Protein 4.6 L (6.3-8.2) g/dL Albumin 3.3 L (3.5-5.0) g/dL Arterial Blood Potassium (3.4-4.5) mmol/L Crossmatch 09/19/16 09/19/16 09/19/16 Range/Units 03:55 03:55 05:09 WBC (3.8-10.6) k/uL RBC (4.30-5.90) m/uL Hgb (13.0-17.5) gm/dL Hct (39.0-53.0) % Plt Count (150-450) k/uL Neutrophils # (1.3-7.7) k/uL Lymphocytes # (1.0-4.8) k/uL PT 13.6 H (9.0-12.0) sec APTT 33.5 H (22.0-30.0) sec ABG pH (7.35-7.45) ABG pCO2 (35-45) mmHg ABG pO2 (83-108) mmHg ABG HCO3 (21-25) mmol/L ABG Total CO2 (19-24) mmol/L ABG O2 Saturation (94-97) % ABG Hematocrit (34.0-46.0) % ABG Sodium (135-146) mmol/L ABG Potassium (3.4-4.5) mmol/L Chloride (98-107) mmol/L Creatinine (0.66-1.25) mg/dL Glucose (74-99) mg/dL POC Glucose (mg/dL) 125 H (75-99) mg/dL Calcium (8.4-10.2) mg/dL Ionized Calcium Yadira (4.5-5.3) mg/dL Phosphorus (2.5-4.5) mg/dL Total Bilirubin (0.2-1.3) mg/dL AST (17-59) U/L Alkaline Phosphatase (38-126) U/L Total Protein (6.3-8.2) g/dL Albumin (3.5-5.0) g/dL Arterial Blood Potassium (3.4-4.5) mmol/L Crossmatch 09/19/16 09/19/16 09/19/16 Range/Units 06:06 07:12 08:01 WBC (3.8-10.6) k/uL RBC (4.30-5.90) m/uL Hgb (13.0-17.5) gm/dL Hct (39.0-53.0) % Plt Count (150-450) k/uL Neutrophils # (1.3-7.7) k/uL Lymphocytes # (1.0-4.8) k/uL PT (9.0-12.0) sec APTT (22.0-30.0) sec ABG pH (7.35-7.45) ABG pCO2 (35-45) mmHg ABG pO2 (83-108) mmHg ABG HCO3 (21-25) mmol/L ABG Total CO2 (19-24) mmol/L ABG O2 Saturation (94-97) % ABG Hematocrit (34.0-46.0) % ABG Sodium (135-146) mmol/L ABG Potassium (3.4-4.5) mmol/L Chloride (98-107) mmol/L Creatinine (0.66-1.25) mg/dL Glucose (74-99) mg/dL POC Glucose (mg/dL) 122 H 123 H 123 H (75-99) mg/dL Calcium (8.4-10.2) mg/dL Ionized Calcium Yadira (4.5-5.3) mg/dL Phosphorus (2.5-4.5) mg/dL Total Bilirubin (0.2-1.3) mg/dL AST (17-59) U/L Alkaline Phosphatase (38-126) U/L Total Protein (6.3-8.2) g/dL Albumin (3.5-5.0) g/dL Arterial Blood Potassium (3.4-4.5) mmol/L Crossmatch 09/19/16 09/19/16 09/19/16 Range/Units 09:07 10:10 11:05 WBC (3.8-10.6) k/uL RBC (4.30-5.90) m/uL Hgb (13.0-17.5) gm/dL Hct (39.0-53.0) % Plt Count (150-450) k/uL Neutrophils # (1.3-7.7) k/uL Lymphocytes # (1.0-4.8) k/uL PT (9.0-12.0) sec APTT (22.0-30.0) sec ABG pH (7.35-7.45) ABG pCO2 (35-45) mmHg ABG pO2 (83-108) mmHg ABG HCO3 (21-25) mmol/L ABG Total CO2 (19-24) mmol/L ABG O2 Saturation (94-97) % ABG Hematocrit (34.0-46.0) % ABG Sodium (135-146) mmol/L ABG Potassium (3.4-4.5) mmol/L Chloride (98-107) mmol/L Creatinine (0.66-1.25) mg/dL Glucose (74-99) mg/dL POC Glucose (mg/dL) 145 H 140 H 129 H (75-99) mg/dL Calcium (8.4-10.2) mg/dL Ionized Calcium Yadira (4.5-5.3) mg/dL Phosphorus (2.5-4.5) mg/dL Total Bilirubin (0.2-1.3) mg/dL AST (17-59) U/L Alkaline Phosphatase (38-126) U/L Total Protein (6.3-8.2) g/dL Albumin (3.5-5.0) g/dL Arterial Blood Potassium (3.4-4.5) mmol/L Crossmatch 09/19/16 Range/Units 12:07 WBC (3.8-10.6) k/uL RBC (4.30-5.90) m/uL Hgb (13.0-17.5) gm/dL Hct (39.0-53.0) % Plt Count (150-450) k/uL Neutrophils # (1.3-7.7) k/uL Lymphocytes # (1.0-4.8) k/uL PT (9.0-12.0) sec APTT (22.0-30.0) sec ABG pH (7.35-7.45) ABG pCO2 (35-45) mmHg ABG pO2 (83-108) mmHg ABG HCO3 (21-25) mmol/L ABG Total CO2 (19-24) mmol/L ABG O2 Saturation (94-97) % ABG Hematocrit (34.0-46.0) % ABG Sodium (135-146) mmol/L ABG Potassium (3.4-4.5) mmol/L Chloride (98-107) mmol/L Creatinine (0.66-1.25) mg/dL Glucose (74-99) mg/dL POC Glucose (mg/dL) 126 H (75-99) mg/dL Calcium (8.4-10.2) mg/dL Ionized Calcium Yadira (4.5-5.3) mg/dL Phosphorus (2.5-4.5) mg/dL Total Bilirubin (0.2-1.3) mg/dL AST (17-59) U/L Alkaline Phosphatase (38-126) U/L Total Protein (6.3-8.2) g/dL Albumin (3.5-5.0) g/dL Arterial Blood Potassium (3.4-4.5) mmol/L Crossmatch Assessment and Plan Plan: Impression: 1. Severe bicuspid aortic valve stenosis, symptomatic, status post aortic valve replacement using a mechanical valve on 09/18/2016. 2. Coronary artery disease with myocardial infarction in July 2016 with stenting to the distal LAD. 3. History of hyperlipidemia. 4. History of TIA. 5. History of bronchitis. 6. Nicotine dependence. 7. Mild to moderate COPD with an FEV1 of 69% of predicted at baseline. 11. Right apical scar/nodule. 12. Thrombocytopenia. Platelet count 50. Plan: 1. Continue surgical management by cardiothoracic service. Continue current medications. Continue to follow with cardiology and pulmonology service. Continue GI and DVT prophylaxis. Continue supportive treatment and pain management. Continue incentive spirometry 10 times an hour while awake. Increase activity as tolerated. The above impression and plan have been discussed and directed by Dr. Haas. Hailey CARDOSO acting as scribe for Dr. Haas.
[2016-09-19 14:18] LABS: Glucose,Whole Blood 107 mg/dL (75-99)
[2016-09-19 15:16] LABS: Glucose,Whole Blood 128 mg/dL (75-99)
[2016-09-19 16:04] LABS: Glucose,Whole Blood 136 mg/dL (75-99)
[2016-09-19 17:10] LABS: Glucose,Whole Blood 142 mg/dL (75-99)
[2016-09-19] MEDS: HYDROcodone/APAP 5-325MG 1 EACH TAB PO PRN ×2 (17:54→21:41)
[2016-09-19] MEDS: LACTATED RINGERS 1,000 ML IV SCH (17:55)
[2016-09-19] MEDS ORDERED: WARFARIN 5 MG TAB PO ONE (18:00)
[2016-09-19 18:05] LABS: Glucose,Whole Blood 133 mg/dL (75-99)
[2016-09-19 19:17] LABS: Glucose,Whole Blood 128 mg/dL (75-99)
[2016-09-19 20:48] LABS: Glucose,Whole Blood 130 mg/dL (75-99)
[2016-09-19] MEDS: SENNOSIDES-DOCUSATE SODIUM 1 EACH TAB PO SCH (21:44)
[2016-09-19] MEDS: BENZOCAINE/MENTHOL LOZENG 1 EACH LOZENGE MUCOUS MEM PRN (21:47)
[2016-09-19 23:04] LABS: Glucose,Whole Blood 118 mg/dL (75-99)
[2016-09-20] MEDS: HYDROcodone/APAP 5-325MG 1 EACH TAB PO PRN ×4 (00:37→19:59)
[2016-09-20] MEDS: HEPARIN SODIUM,PORCINE 5,000 UNIT/ML 1 ML VIAL SQ SCH ×3 (00:38→16:42)
[2016-09-20 00:40] LABS: Glucose,Whole Blood 118 mg/dL (75-99)
[2016-09-20 02:34] LABS: Glucose,Whole Blood 117 mg/dL (75-99)
[2016-09-20 04:10] LABS: Glucose,Whole Blood 115 mg/dL (75-99)
[2016-09-20 04:54] LABS: Basophils # (A) 0.1 k/uL (0-0.2); Basophils % (A) 0 %; CH 32.8; CHCM 33.2; Eosinophils % (A) 0 %; HCT 23.2 % (39.0-53.0); HDW 2.77; HGB 7.5 gm/dL (13.0-17.5); Large Platelets Flag Moderate; Luc # (Auto) 0.17; Luc % (Auto) 1; Lymphocytes # (A) 1.8 k/uL (1.0-4.8); Lymphocytes % (A) 13 %; MCH 32.4 pg (25.0-35.0); MCHC 32.6 g/dL (31.0-37.0); MCV 99.6 fL (80.0-100.0); Macrocytosis Slight; Mean Platelet Volume 12.2; Monocytes # (A) 1.1 k/uL (0-1.0); Monocytes % (A) 8 %; Neutrophils % (A) 78 %; RBC 2.33 m/uL (4.30-5.90); WBC 14.1 k/uL (3.8-10.6); WBC (Perox) 14.75
[2016-09-20 04:57] LABS: Ionized Calcium 4.6 mg/dL (4.5-5.3)
[2016-09-20 05:01] LABS: INR 1.6 (<1.1); Prothrombin Time 15.3 sec (9.0-12.0)
[2016-09-20 05:08] LABS: ALT 44 U/L (21-72); AST 63 U/L (17-59); Alkaline Phosphatase 39 U/L (38-126); Anion Gap 8 mmol/L; Blood Urea Nitrogen 21 mg/dL (9-20); Calcium 7.7 mg/dL (8.4-10.2); Carbon Dioxide 24 mmol/L (22-30); Chloride 103 mmol/L (98-107); Glucose 103 mg/dL (74-99); Non-African American GFR(MDRD) >60 (>60 ml/min/1.73 sqM); Phosphorous 2.6 mg/dL (2.5-4.5); Potassium 4.1 mmol/L (3.5-5.1); Sodium 135 mmol/L (137-145); Total Bilirubin 0.6 mg/dL (0.2-1.3)
[2016-09-20 06:17] LABS: Glucose,Whole Blood 118 mg/dL (75-99)
[2016-09-20] MEDS: IPRATROPIUM-ALBUTEROL 3 ML NEB INHALATION SCH ×4 (07:26→19:08)
[2016-09-20 08:17] LABS: Glucose,Whole Blood 114 mg/dL (75-99)
--- NOTE | 2016-09-20 08:17 | XR ---
EXAMINATION TYPE: XR chest 1V portable DATE OF EXAM: 09/20/2016 6:55 AM COMPARISON: Prior chest x-ray 19 September 2016 HISTORY: Abnormal chest x-ray, postop TECHNIQUE: Single frontal view of the chest is obtained. FINDINGS: Right jugular central venous sheath remains in place, catheter has been removed. Post medi an sternotomy change, left atrial appendage clipping again noted. There are overlying cardiac leads. No sizable pneumothorax evident. The heart remains enlarged. Bibasilar density is present, there is i nterval obscuration of the hemidiaphragms. Mediastinal drain remains in place. IMPRESSION: Interval increase in pleural effusions and associated edema versus atelectasis. Pneumoni a not excluded. Follow-up recommended.
[2016-09-20] MEDS: MUPIROCIN 2% OINT 22 GM TUBE NASAL SCH ×2 (08:50→20:00)
[2016-09-20] MEDS: METOPROLOL TARTRATE 12.5 MG TAB PO SCH ×2 (08:50→19:59)
[2016-09-20] MEDS: PANTOPRAZOLE 40 MG/10 ML VIAL IVP SCH (08:51)
[2016-09-20] MEDS: ATORVASTATIN 40 MG TAB PO SCH (08:51)
[2016-09-20] MEDS: ASPIRIN 81 MG CHEW PO SCH (08:51)
[2016-09-20] MEDS ORDERED: CALCIUM GLUCONATE 1,000 MG in SODIUM CHLORIDE 0.9% 100 ML IVPB ONE (09:23)
--- NOTE | 2016-09-20 09:24 | P.PN ---
Subjective Principal diagnosis: Critical This is a pleasant 46-year-old gentleman with a known CAD and known critical aortic stenosis was brought to the hospital by ambulance with presyncope. He was found to be hypotensive. He just underwent a BETSEY which showed critical aortic stenosis and he was scheduled to see cardiothoracic surgeon in the next few days. The patient underwent an aVR using mechanical valve yesterday. He continues to be slightly unstable and requiring small dose of Levophed. Currently he is on triple therapy. The platelet has been slightly better. Objective - Vital Signs Vital signs: Vital Signs Temp 98.1 F 09/20/16 04:00 Pulse 84 09/20/16 07:40 Resp 15 09/20/16 07:00 BP 108/56 09/20/16 07:00 Pulse Ox 96 09/20/16 07:00 Intake & Output 09/19/16 09/20/16 09/20/16 18:59 06:59 18:59 Intake Total 653.7 1639.443 Output Total 990 890 Balance -336.3 749.443 Intake: IV 653.7 552 Lactated Ringers 1,000 ml 540 480 @ 30 mls/hr IV .Q24H [facility] Rx#:[id number] Milrinone-D5w Pmx 20 mg 11.7 In Dextrose/Water 1 100ml .bag @ 0.2 MCG/KG/MIN 3. 93 mls/hr IV .Q24H [facility] Rx #:[id number] Pressure Bag 102 72 Intake, IV Titration 247.443 Amount Insulin Regular 100 unit 16.317 In Sodium Chloride 0.9% 100 ml @ Per Protocol IV .Q0M [facility] Rx#:[id number] Norepinephrine 16 mg In 231.126 Sodium Chloride 0.9% 250 ml @ Titrate IV .Q0M [facility] Rx#:[id number] Oral 840 Output: Chest Tube Drainage 410 90 mediastinal 410 90 Urine 580 800 Other: Voiding Method Indwelling Catheter Indwelling Catheter ABP, PAP, CO, CI - Last Documented Arterial Blood Pressure 128/56 Pulmonary Artery Pressure 37/20 Cardiac Output 6 Cardiac Index 3.8 - Constitutional General appearance: Present: no acute distress - Labs CBC & Chem 7: 09/20/16 04:22 09/20/16 04:22 Labs: Abnormal Lab Results - Last 24 Hours (Table) 09/19/16 09/19/16 09/19/16 Range/Units 10:10 11:05 12:07 WBC (3.8-10.6) k/uL RBC (4.30-5.90) m/uL Hgb (13.0-17.5) gm/dL Hct (39.0-53.0) % Plt Count (150-450) k/uL Neutrophils # (1.3-7.7) k/uL Monocytes # (0-1.0) k/uL PT (9.0-12.0) sec Sodium (137-145) mmol/L BUN (9-20) mg/dL Glucose (74-99) mg/dL POC Glucose (mg/dL) 140 H 129 H 126 H (75-99) mg/dL Calcium (8.4-10.2) mg/dL AST (17-59) U/L Total Protein (6.3-8.2) g/dL Albumin (3.5-5.0) g/dL 09/19/16 09/19/16 09/19/16 Range/Units 14:16 15:14 16:01 WBC (3.8-10.6) k/uL RBC (4.30-5.90) m/uL Hgb (13.0-17.5) gm/dL Hct (39.0-53.0) % Plt Count (150-450) k/uL Neutrophils # (1.3-7.7) k/uL Monocytes # (0-1.0) k/uL PT (9.0-12.0) sec Sodium (137-145) mmol/L BUN (9-20) mg/dL Glucose (74-99) mg/dL POC Glucose (mg/dL) 107 H 128 H 136 H (75-99) mg/dL Calcium (8.4-10.2) mg/dL AST (17-59) U/L Total Protein (6.3-8.2) g/dL Albumin (3.5-5.0) g/dL 09/19/16 09/19/16 09/19/16 Range/Units 17:08 18:03 19:14 WBC (3.8-10.6) k/uL RBC (4.30-5.90) m/uL Hgb (13.0-17.5) gm/dL Hct (39.0-53.0) % Plt Count (150-450) k/uL Neutrophils # (1.3-7.7) k/uL Monocytes # (0-1.0) k/uL PT (9.0-12.0) sec Sodium (137-145) mmol/L BUN (9-20) mg/dL Glucose (74-99) mg/dL POC Glucose (mg/dL) 142 H 133 H 128 H (75-99) mg/dL Calcium (8.4-10.2) mg/dL AST (17-59) U/L Total Protein (6.3-8.2) g/dL Albumin (3.5-5.0) g/dL 09/19/16 09/19/16 09/20/16 Range/Units 20:47 23:03 00:39 WBC (3.8-10.6) k/uL RBC (4.30-5.90) m/uL Hgb (13.0-17.5) gm/dL Hct (39.0-53.0) % Plt Count (150-450) k/uL Neutrophils # (1.3-7.7) k/uL Monocytes # (0-1.0) k/uL PT (9.0-12.0) sec Sodium (137-145) mmol/L BUN (9-20) mg/dL Glucose (74-99) mg/dL POC Glucose (mg/dL) 130 H 118 H 118 H (75-99) mg/dL Calcium (8.4-10.2) mg/dL AST (17-59) U/L Total Protein (6.3-8.2) g/dL Albumin (3.5-5.0) g/dL 09/20/16 09/20/16 09/20/16 Range/Units 02:33 04:09 04:22 WBC (3.8-10.6) k/uL RBC (4.30-5.90) m/uL Hgb (13.0-17.5) gm/dL Hct (39.0-53.0) % Plt Count (150-450) k/uL Neutrophils # (1.3-7.7) k/uL Monocytes # (0-1.0) k/uL PT (9.0-12.0) sec Sodium 135 L (137-145) mmol/L BUN 21 H (9-20) mg/dL Glucose 103 H (74-99) mg/dL POC Glucose (mg/dL) 117 H 115 H (75-99) mg/dL Calcium 7.7 L (8.4-10.2) mg/dL AST 63 H (17-59) U/L Total Protein 5.0 L (6.3-8.2) g/dL Albumin 3.2 L (3.5-5.0) g/dL 09/20/16 09/20/16 09/20/16 Range/Units 04:22 04:22 06:16 WBC 14.1 H (3.8-10.6) k/uL RBC 2.33 L (4.30-5.90) m/uL Hgb 7.5 L (13.0-17.5) gm/dL Hct 23.2 L (39.0-53.0) % Plt Count 74 L (150-450) k/uL Neutrophils # 11.0 H (1.3-7.7) k/uL Monocytes # 1.1 H (0-1.0) k/uL PT 15.3 H (9.0-12.0) sec Sodium (137-145) mmol/L BUN (9-20) mg/dL Glucose (74-99) mg/dL POC Glucose (mg/dL) 118 H (75-99) mg/dL Calcium (8.4-10.2) mg/dL AST (17-59) U/L Total Protein (6.3-8.2) g/dL Albumin (3.5-5.0) g/dL 09/20/16 Range/Units 08:16 WBC (3.8-10.6) k/uL RBC (4.30-5.90) m/uL Hgb (13.0-17.5) gm/dL Hct (39.0-53.0) % Plt Count (150-450) k/uL Neutrophils # (1.3-7.7) k/uL Monocytes # (0-1.0) k/uL PT (9.0-12.0) sec Sodium (137-145) mmol/L BUN (9-20) mg/dL Glucose (74-99) mg/dL POC Glucose (mg/dL) 114 H (75-99) mg/dL Calcium (8.4-10.2) mg/dL AST (17-59) U/L Total Protein (6.3-8.2) g/dL Albumin (3.5-5.0) g/dL Assessment and Plan Plan: Assessment #1 symptomatic critical aortic stenoses #2 marginal below blood pressure Plan #1 the patient underwent an aVR using mechanical valve #2 we'll continue following up with the patient
[2016-09-20 10:23] LABS: Glucose,Whole Blood 150 mg/dL (75-99)
[2016-09-20] MEDS: CLOPIDOGREL 75 MG TAB PO SCH (10:43)
--- NOTE | 2016-09-20 11:46 | P.PN ---
Progress Note - Text Mediastinal chest tube removed without incident. Pt melanie well.
[2016-09-20 11:58] LABS: Glucose,Whole Blood 109 mg/dL (75-99)
--- NOTE | 2016-09-20 12:35 | P.PN ---
Subjective Principal diagnosis: Critical aortic stenosis with known coronary artery disease Patient is a 46-year-old male, patient of Dr. Theo Haas in the outpatient setting with medical history significant for myocardial infarction with stent placement to the LAD in July 2016, TIA, hyperlipidemia, and nicotine dependence. Patient presented to the emergency department with complaints of chest pain associated with diaphoresis and lightheadedness after he took a nitroglycerin. Patient was found to have evidence of critical aortic stenosis. Patient was evaluated by cardiology and cardiothoracic surgery and underwent aortic valve replacement with mechanical valve on 09/18/2016. Patient is evaluated in the intensive care unit where he is postop day #2. Patient reports he had one episode of emesis after getting up this morning. Denies flatus or bowel movements. Incisional pain controlled. Patient remains on small dose of norepinephrine for hemodynamic support. Afebrile. Urine output adequate. T-max the last 24 hours 99.4. Hemoglobin stable at 7.5. Platelet count improved to 74. Objective - Vital Signs Vital signs: Vital Signs Temp 98.1 F 09/20/16 08:00 Pulse 79 09/20/16 11:33 Resp 13 09/20/16 10:00 BP 107/64 09/20/16 10:00 Pulse Ox 95 09/20/16 10:00 Intake & Output 09/19/16 09/20/16 09/20/16 18:59 06:59 18:59 Intake Total 653.7 1639.443 135 Output Total 990 890 290 Balance -336.3 749.443 -155 Weight 78.4 kg Intake: IV 653.7 552 135 Lactated Ringers 1,000 ml 540 480 120 @ 30 mls/hr IV .Q24H [facility] Rx#:[id number] Milrinone-D5w Pmx 20 mg 11.7 In Dextrose/Water 1 100ml .bag @ 0.2 MCG/KG/MIN 3. 93 mls/hr IV .Q24H [facility] Rx #:[id number] Pressure Bag 102 72 15 Intake, IV Titration 247.443 Amount Insulin Regular 100 unit 16.317 In Sodium Chloride 0.9% 100 ml @ Per Protocol IV .Q0M [facility] Rx#:[id number] Norepinephrine 16 mg In 231.126 Sodium Chloride 0.9% 250 ml @ Titrate IV .Q0M [facility] Rx#:[id number] Oral 840 Output: Chest Tube Drainage 410 90 20 mediastinal 410 90 20 Urine 580 800 270 Other: Voiding Method Indwelling Catheter Indwelling Catheter ABP, PAP, CO, CI - Last Documented Arterial Blood Pressure 123/58 Pulmonary Artery Pressure 37/20 Cardiac Output 6 Cardiac Index 3.8 - Exam GENERAL: Pt awake and alert, well-appearing, well-nourished, and in no acute distress. HEAD: Atraumatic, normocephalic. EYES: Pupils equal and round. Sclera anicteric, conjunctiva are normal. ENT: Moist mucous membranes. NECK:Supple without lymphadenopathy or JVD. LUNGS: Breath sounds diminished to auscultation bilaterally. No wheezes, rales , or rhonchi. HEART: Heart S1, S2, no S3 or S4. Regular rate and rhythm. Systolic murmur. ABDOMEN: Soft, nontender, nondistended, hypoactive bowel sounds. EXTREMITIES: 1+ dorsalis pedal pulses. No edema. No calf tenderness. NEUROLOGICAL: Pt oriented x 3. Cranial nerves II through XII grossly intact. Strength and sensation grossly intact. PSYCH: Normal mood, normal affect. SKIN: Warm, dry. Midline chest dressing dry and intact. - Labs CBC & Chem 7: 09/20/16 04:22 09/20/16 04:22 Labs: Abnormal Lab Results - Last 24 Hours (Table) 09/19/16 09/19/16 09/19/16 Range/Units 14:16 15:14 16:01 WBC (3.8-10.6) k/uL RBC (4.30-5.90) m/uL Hgb (13.0-17.5) gm/dL Hct (39.0-53.0) % Plt Count (150-450) k/uL Neutrophils # (1.3-7.7) k/uL Monocytes # (0-1.0) k/uL PT (9.0-12.0) sec Sodium (137-145) mmol/L BUN (9-20) mg/dL Glucose (74-99) mg/dL POC Glucose (mg/dL) 107 H 128 H 136 H (75-99) mg/dL Calcium (8.4-10.2) mg/dL AST (17-59) U/L Total Protein (6.3-8.2) g/dL Albumin (3.5-5.0) g/dL 09/19/16 09/19/16 09/19/16 Range/Units 17:08 18:03 19:14 WBC (3.8-10.6) k/uL RBC (4.30-5.90) m/uL Hgb (13.0-17.5) gm/dL Hct (39.0-53.0) % Plt Count (150-450) k/uL Neutrophils # (1.3-7.7) k/uL Monocytes # (0-1.0) k/uL PT (9.0-12.0) sec Sodium (137-145) mmol/L BUN (9-20) mg/dL Glucose (74-99) mg/dL POC Glucose (mg/dL) 142 H 133 H 128 H (75-99) mg/dL Calcium (8.4-10.2) mg/dL AST (17-59) U/L Total Protein (6.3-8.2) g/dL Albumin (3.5-5.0) g/dL 09/19/16 09/19/16 09/20/16 Range/Units 20:47 23:03 00:39 WBC (3.8-10.6) k/uL RBC (4.30-5.90) m/uL Hgb (13.0-17.5) gm/dL Hct (39.0-53.0) % Plt Count (150-450) k/uL Neutrophils # (1.3-7.7) k/uL Monocytes # (0-1.0) k/uL PT (9.0-12.0) sec Sodium (137-145) mmol/L BUN (9-20) mg/dL Glucose (74-99) mg/dL POC Glucose (mg/dL) 130 H 118 H 118 H (75-99) mg/dL Calcium (8.4-10.2) mg/dL AST (17-59) U/L Total Protein (6.3-8.2) g/dL Albumin (3.5-5.0) g/dL 09/20/16 09/20/16 09/20/16 Range/Units 02:33 04:09 04:22 WBC (3.8-10.6) k/uL RBC (4.30-5.90) m/uL Hgb (13.0-17.5) gm/dL Hct (39.0-53.0) % Plt Count (150-450) k/uL Neutrophils # (1.3-7.7) k/uL Monocytes # (0-1.0) k/uL PT (9.0-12.0) sec Sodium 135 L (137-145) mmol/L BUN 21 H (9-20) mg/dL Glucose 103 H (74-99) mg/dL POC Glucose (mg/dL) 117 H 115 H (75-99) mg/dL Calcium 7.7 L (8.4-10.2) mg/dL AST 63 H (17-59) U/L Total Protein 5.0 L (6.3-8.2) g/dL Albumin 3.2 L (3.5-5.0) g/dL 09/20/16 09/20/16 09/20/16 Range/Units 04:22 04:22 06:16 WBC 14.1 H (3.8-10.6) k/uL RBC 2.33 L (4.30-5.90) m/uL Hgb 7.5 L (13.0-17.5) gm/dL Hct 23.2 L (39.0-53.0) % Plt Count 74 L (150-450) k/uL Neutrophils # 11.0 H (1.3-7.7) k/uL Monocytes # 1.1 H (0-1.0) k/uL PT 15.3 H (9.0-12.0) sec Sodium (137-145) mmol/L BUN (9-20) mg/dL Glucose (74-99) mg/dL POC Glucose (mg/dL) 118 H (75-99) mg/dL Calcium (8.4-10.2) mg/dL AST (17-59) U/L Total Protein (6.3-8.2) g/dL Albumin (3.5-5.0) g/dL 09/20/16 09/20/16 09/20/16 Range/Units 08:16 10:22 11:57 WBC (3.8-10.6) k/uL RBC (4.30-5.90) m/uL Hgb (13.0-17.5) gm/dL Hct (39.0-53.0) % Plt Count (150-450) k/uL Neutrophils # (1.3-7.7) k/uL Monocytes # (0-1.0) k/uL PT (9.0-12.0) sec Sodium (137-145) mmol/L BUN (9-20) mg/dL Glucose (74-99) mg/dL POC Glucose (mg/dL) 114 H 150 H 109 H (75-99) mg/dL Calcium (8.4-10.2) mg/dL AST (17-59) U/L Total Protein (6.3-8.2) g/dL Albumin (3.5-5.0) g/dL - Imaging and Cardiology Chest x-ray: report reviewed (Interval increase in pleural effusions and associated edema versus atelectasis. Pneumonia not excluded. Read by Dr. Tsai.) Assessment and Plan Plan: Impression: 1. Severe bicuspid aortic valve stenosis, symptomatic, status post aortic valve replacement using a mechanical valve on 09/18/2016. 2. Coronary artery disease with myocardial infarction in July 2016 with stenting to the distal LAD. 3. History of hyperlipidemia. 4. History of TIA. 5. History of bronchitis. 6. Nicotine dependence. 7. Mild to moderate COPD with an FEV1 of 69% of predicted at baseline. 11. Right apical scar/nodule. 12. Thrombocytopenia. Platelet count 74. 13. Acute hypoxic respiratory failure. Patient is currently on 10 L nasal cannula. Chest x-ray with interval increase in pleural effusions and associated edema versus atelectasis. Pneumonia not excluded. Plan: 1. Continue surgical management by cardiothoracic service. Continue current medications. Continue to follow with cardiology and pulmonology service. Continue GI and DVT prophylaxis. Continue supportive treatment and pain management. Continue incentive spirometry 10 times an hour while awake. Increase activity as tolerated. The above impression and plan have been discussed and directed by Dr. Haas. Hailey CARDOSO acting as scribe for Dr. Haas.
--- NOTE | 2016-09-20 13:24 | P.ARTDOP ---
Arterial Doppler LOWER EXTREMITY ARTERIAL DOPPLER: DATE OF SERVICE: 09/12/2016 Reason for study: Pre-open heart surgery Doppler waveforms: Multiphasic but blunted distally. Pulse volume recording: Some blunting distally. Pressure gradients: Across the knee on the right above the thigh on the left and across the knee on the left. Ankle-brachial indices: 0.68 on the right and 0.66 on the left. Toe pressures: [] on the right, [] on the left Impression: Moderate bilateral fem-pop disease..
[2016-09-20] MEDS: INSULIN LISPRO (humaLOG) 300 UNIT/3 ML VIAL SQ SCH ×3 (13:27→20:06)
--- NOTE | 2016-09-20 13:42 | P.PN ---
Subjective Principal diagnosis: Severe aortic stenosis This is a very pleasant 46-year-old gentleman who follows with Dr. Haas as his primary care physician. He has a history of TIA, coronary artery disease with recent stent placement to the LAD. He has preserved left ventricular systolic function with estimated ejection fraction 45-50%. He was also found to have significant bicuspid aortic valve stenosis and the plan is for aortic valve replacement. He states he has known about heart murmur for approximately 3 years now. He does have a 30+ pack per day smoking history up to as many as 3 packs per day at one point. He has not been seen by a medical health researcher in the past but was scheduled to be seen in our office 09/21/2016 for preop evaluation prior to his aortic valve replacement. He is not on oxygen nor any inhalers in the outpatient setting. He was recently treated for what he felt was bronchitis with a Tri-Terry of azithromycin 500 mg daily 3 days. He presented here to the emergency room yesterday with complaints of chest tingling and numbness. He states he did have some anxiety secondary to recent cardiac event. He is seen today in the end emergency room still. He is awake and alert in no acute distress. He denies any chest pain, palpitations, lightheadedness or dizziness. No shortness of breath, cough or congestion. His chest x-ray did reveal some pulmonary venous hypertension and mild congestion. His proBNP level was 6510. There is a small troponin leak. The plan is performing aortic valve replacement early next week. The patient's Plavix has been on hold and he'll be bridged in the interim. Patient was seen today on 09/18/2016, patient just came back from the OR, and he is status post aortic valve replacement. Patient is also status post distal LAD stenting. Presently the patient is on mechanical ventilation, he is on assist control rate of 20, tidal volume of 550, FiO2 is down to 50%, he was earlier on 100%. And PEEP is at 5. Postoperative chest x-ray showed postoperative changes, otherwise unremarkable. ABG was reviewed, pO2 was 184 pCO2 of 43 and pH of 7.36. Basic metabolic profile is normal. Platelets were noted to be low at 42,000. Patient was seen on 09/19/2016, and he has been doing well, extubated overnight, and his postoperative course seems so far to be uneventful. Chest x-ray shows right lower lobe atelectasis, possible early infiltrate, however the patient is not showing any other findings to suggest pneumonia, hence we will hold on antibiotics for now, but if the patient develops worsening symptoms, antibiotics would have to be started. Patient is postoperative day #1, aortic valve replacement using 22 mm [employer] medical bileaflet tilting disc valve. Objective - Vital Signs Vital signs: Vital Signs Temp 98.1 F 09/20/16 08:00 Pulse 79 09/20/16 11:33 Resp 13 09/20/16 10:00 BP 107/64 09/20/16 10:00 Pulse Ox 95 09/20/16 10:00 Intake & Output 09/19/16 09/20/16 09/20/16 18:59 06:59 18:59 Intake Total 653.7 1639.443 135 Output Total 990 890 290 Balance -336.3 749.443 -155 Weight 78.4 kg Intake: IV 653.7 552 135 Lactated Ringers 1,000 ml 540 480 120 @ 30 mls/hr IV .Q24H [facility] Rx#:[id number] Milrinone-D5w Pmx 20 mg 11.7 In Dextrose/Water 1 100ml .bag @ 0.2 MCG/KG/MIN 3. 93 mls/hr IV .Q24H [facility] Rx #:[id number] Pressure Bag 102 72 15 Intake, IV Titration 247.443 Amount Insulin Regular 100 unit 16.317 In Sodium Chloride 0.9% 100 ml @ Per Protocol IV .Q0M [facility] Rx#:[id number] Norepinephrine 16 mg In 231.126 Sodium Chloride 0.9% 250 ml @ Titrate IV .Q0M [facility] Rx#:[id number] Oral 840 Output: Chest Tube Drainage 410 90 20 mediastinal 410 90 20 Urine 580 800 270 Other: Voiding Method Indwelling Catheter Indwelling Catheter ABP, PAP, CO, CI - Last Documented Arterial Blood Pressure 123/58 Pulmonary Artery Pressure 37/20 Cardiac Output 6 Cardiac Index 3.8 - Exam Physical Exam: Revealed a 46-year-old white male off mechanical ventilation, in no distress HEENT:[Neck is supple.] [No neck masses.] [No thyromegaly.] [No JVD.] Endotracheal tube is intact. Chest: [Minimal crackles at the bases otherwise unremarkable..] Cardiac Exam: [Normal S1 and S2, no S3 gallop, 2/6 systolic murmur throughout the precordium. Positive pericardial rub. Abdomen: [Soft, nontender, no megaly, no rebound, no guarding, normal bowel sounds.] Extremities: [No clubbing, no edema, no cyanosis.] Neurological Exam: No gross focal neurologic deficit - Labs CBC & Chem 7: 09/20/16 04:22 09/20/16 04:22 Labs: Abnormal Lab Results - Last 24 Hours (Table) 09/19/16 09/19/16 09/19/16 Range/Units 14:16 15:14 16:01 WBC (3.8-10.6) k/uL RBC (4.30-5.90) m/uL Hgb (13.0-17.5) gm/dL Hct (39.0-53.0) % Plt Count (150-450) k/uL Neutrophils # (1.3-7.7) k/uL Monocytes # (0-1.0) k/uL PT (9.0-12.0) sec Sodium (137-145) mmol/L BUN (9-20) mg/dL Glucose (74-99) mg/dL POC Glucose (mg/dL) 107 H 128 H 136 H (75-99) mg/dL Calcium (8.4-10.2) mg/dL AST (17-59) U/L Total Protein (6.3-8.2) g/dL Albumin (3.5-5.0) g/dL 09/19/16 09/19/16 09/19/16 Range/Units 17:08 18:03 19:14 WBC (3.8-10.6) k/uL RBC (4.30-5.90) m/uL Hgb (13.0-17.5) gm/dL Hct (39.0-53.0) % Plt Count (150-450) k/uL Neutrophils # (1.3-7.7) k/uL Monocytes # (0-1.0) k/uL PT (9.0-12.0) sec Sodium (137-145) mmol/L BUN (9-20) mg/dL Glucose (74-99) mg/dL POC Glucose (mg/dL) 142 H 133 H 128 H (75-99) mg/dL Calcium (8.4-10.2) mg/dL AST (17-59) U/L Total Protein (6.3-8.2) g/dL Albumin (3.5-5.0) g/dL 09/19/16 09/19/16 09/20/16 Range/Units 20:47 23:03 00:39 WBC (3.8-10.6) k/uL RBC (4.30-5.90) m/uL Hgb (13.0-17.5) gm/dL Hct (39.0-53.0) % Plt Count (150-450) k/uL Neutrophils # (1.3-7.7) k/uL Monocytes # (0-1.0) k/uL PT (9.0-12.0) sec Sodium (137-145) mmol/L BUN (9-20) mg/dL Glucose (74-99) mg/dL POC Glucose (mg/dL) 130 H 118 H 118 H (75-99) mg/dL Calcium (8.4-10.2) mg/dL AST (17-59) U/L Total Protein (6.3-8.2) g/dL Albumin (3.5-5.0) g/dL 09/20/16 09/20/16 09/20/16 Range/Units 02:33 04:09 04:22 WBC (3.8-10.6) k/uL RBC (4.30-5.90) m/uL Hgb (13.0-17.5) gm/dL Hct (39.0-53.0) % Plt Count (150-450) k/uL Neutrophils # (1.3-7.7) k/uL Monocytes # (0-1.0) k/uL PT (9.0-12.0) sec Sodium 135 L (137-145) mmol/L BUN 21 H (9-20) mg/dL Glucose 103 H (74-99) mg/dL POC Glucose (mg/dL) 117 H 115 H (75-99) mg/dL Calcium 7.7 L (8.4-10.2) mg/dL AST 63 H (17-59) U/L Total Protein 5.0 L (6.3-8.2) g/dL Albumin 3.2 L (3.5-5.0) g/dL 09/20/16 09/20/16 09/20/16 Range/Units 04:22 04:22 06:16 WBC 14.1 H (3.8-10.6) k/uL RBC 2.33 L (4.30-5.90) m/uL Hgb 7.5 L (13.0-17.5) gm/dL Hct 23.2 L (39.0-53.0) % Plt Count 74 L (150-450) k/uL Neutrophils # 11.0 H (1.3-7.7) k/uL Monocytes # 1.1 H (0-1.0) k/uL PT 15.3 H (9.0-12.0) sec Sodium (137-145) mmol/L BUN (9-20) mg/dL Glucose (74-99) mg/dL POC Glucose (mg/dL) 118 H (75-99) mg/dL Calcium (8.4-10.2) mg/dL AST (17-59) U/L Total Protein (6.3-8.2) g/dL Albumin (3.5-5.0) g/dL 09/20/16 09/20/16 09/20/16 Range/Units 08:16 10:22 11:57 WBC (3.8-10.6) k/uL RBC (4.30-5.90) m/uL Hgb (13.0-17.5) gm/dL Hct (39.0-53.0) % Plt Count (150-450) k/uL Neutrophils # (1.3-7.7) k/uL Monocytes # (0-1.0) k/uL PT (9.0-12.0) sec Sodium (137-145) mmol/L BUN (9-20) mg/dL Glucose (74-99) mg/dL POC Glucose (mg/dL) 114 H 150 H 109 H (75-99) mg/dL Calcium (8.4-10.2) mg/dL AST (17-59) U/L Total Protein (6.3-8.2) g/dL Albumin (3.5-5.0) g/dL Assessment and Plan Plan: Impression: 1 Status post aortic valve replacement, postoperative day #1 extubated and tolerated the extubation well 2 recent stenting of LAD in July of 2016. 3 history of right apical scarring/nodule will need to have outpatient follow- up. 4 history of TIAs. 5 history of mild to moderate COPD and history of chronic smoking. Recommendation: Patient was extubated, continue incentive spirometry, continue to monitor the abnormality on the right lower lobe. We'll decide on antibiotics in the next 24 hours. This evaluation was on 09/19/2016 Time with Patient: Less than 30
--- NOTE | 2016-09-20 13:45 | P.PN ---
Subjective Principal diagnosis: Severe aortic stenosis This is a very pleasant 46-year-old gentleman who follows with Dr. Haas as his primary care physician. He has a history of TIA, coronary artery disease with recent stent placement to the LAD. He has preserved left ventricular systolic function with estimated ejection fraction 45-50%. He was also found to have significant bicuspid aortic valve stenosis and the plan is for aortic valve replacement. He states he has known about heart murmur for approximately 3 years now. He does have a 30+ pack per day smoking history up to as many as 3 packs per day at one point. He has not been seen by a farm operations technical director in the past but was scheduled to be seen in our office 09/21/2016 for preop evaluation prior to his aortic valve replacement. He is not on oxygen nor any inhalers in the outpatient setting. He was recently treated for what he felt was bronchitis with a Tri-Terry of azithromycin 500 mg daily 3 days. He presented here to the emergency room yesterday with complaints of chest tingling and numbness. He states he did have some anxiety secondary to recent cardiac event. He is seen today in the end emergency room still. He is awake and alert in no acute distress. He denies any chest pain, palpitations, lightheadedness or dizziness. No shortness of breath, cough or congestion. His chest x-ray did reveal some pulmonary venous hypertension and mild congestion. His proBNP level was 6510. There is a small troponin leak. The plan is performing aortic valve replacement early next week. The patient's Plavix has been on hold and he'll be bridged in the interim. Patient was seen today on 09/18/2016, patient just came back from the OR, and he is status post aortic valve replacement. Patient is also status post distal LAD stenting. Presently the patient is on mechanical ventilation, he is on assist control rate of 20, tidal volume of 550, FiO2 is down to 50%, he was earlier on 100%. And PEEP is at 5. Postoperative chest x-ray showed postoperative changes, otherwise unremarkable. ABG was reviewed, pO2 was 184 pCO2 of 43 and pH of 7.36. Basic metabolic profile is normal. Platelets were noted to be low at 42,000. Patient was seen on 09/19/2016, and he has been doing well, extubated overnight, and his postoperative course seems so far to be uneventful. Chest x-ray shows right lower lobe atelectasis, possible early infiltrate, however the patient is not showing any other findings to suggest pneumonia, hence we will hold on antibiotics for now, but if the patient develops worsening symptoms, antibiotics would have to be started. Patient is postoperative day #1, aortic valve replacement using 22 mm [employer] medical bileaflet tilting disc valve. Patient was reevaluated today on 09/20/2016, continues to do relatively well, his mediastinal chest tube was removed today, patient is postoperative day #2. He is status post aortic valve replacement using 22 mm [employer] medical bileaflet tilting disc valve. Chest x-ray continues to show abnormality in the right lower lobe, and the patient is now experiencing coughing spells his cough is productive with thick brownish phlegm, hence I will go ahead and empirically start the patient today on Rocephin. Cultures on the sputum were ordered. Overall clinically the patient is doing much better. Objective - Vital Signs Vital signs: Vital Signs Temp 98.1 F 09/20/16 08:00 Pulse 79 09/20/16 11:33 Resp 13 09/20/16 10:00 BP 107/64 09/20/16 10:00 Pulse Ox 95 09/20/16 10:00 Intake & Output 09/19/16 09/20/16 09/20/16 18:59 06:59 18:59 Intake Total 653.7 1639.443 135 Output Total 990 890 290 Balance -336.3 749.443 -155 Weight 78.4 kg Intake: IV 653.7 552 135 Lactated Ringers 1,000 ml 540 480 120 @ 30 mls/hr IV .Q24H [facility] Rx#:[id number] Milrinone-D5w Pmx 20 mg 11.7 In Dextrose/Water 1 100ml .bag @ 0.2 MCG/KG/MIN 3. 93 mls/hr IV .Q24H [facility] Rx #:[id number] Pressure Bag 102 72 15 Intake, IV Titration 247.443 Amount Insulin Regular 100 unit 16.317 In Sodium Chloride 0.9% 100 ml @ Per Protocol IV .Q0M [facility] Rx#:[id number] Norepinephrine 16 mg In 231.126 Sodium Chloride 0.9% 250 ml @ Titrate IV .Q0M [facility] Rx#:[id number] Oral 840 Output: Chest Tube Drainage 410 90 20 mediastinal 410 90 20 Urine 580 800 270 Other: Voiding Method Indwelling Catheter Indwelling Catheter ABP, PAP, CO, CI - Last Documented Arterial Blood Pressure 123/58 Pulmonary Artery Pressure 37/20 Cardiac Output 6 Cardiac Index 3.8 - Exam Physical Exam: Revealed a 46-year-old white male off mechanical ventilation, in no distress HEENT:[Neck is supple.] [No neck masses.] [No thyromegaly.] [No JVD.] Endotracheal tube is intact. Chest: [Minimal crackles at the bases otherwise unremarkable..] Cardiac Exam: [Normal S1 and S2, no S3 gallop, 2/6 systolic murmur throughout the precordium. Positive pericardial rub. Abdomen: [Soft, nontender, no megaly, no rebound, no guarding, normal bowel sounds.] Extremities: [No clubbing, no edema, no cyanosis.] Neurological Exam: No gross focal neurologic deficit - Labs CBC & Chem 7: 09/20/16 04:22 09/20/16 04:22 Labs: Abnormal Lab Results - Last 24 Hours (Table) 09/19/16 09/19/16 09/19/16 Range/Units 14:16 15:14 16:01 WBC (3.8-10.6) k/uL RBC (4.30-5.90) m/uL Hgb (13.0-17.5) gm/dL Hct (39.0-53.0) % Plt Count (150-450) k/uL Neutrophils # (1.3-7.7) k/uL Monocytes # (0-1.0) k/uL PT (9.0-12.0) sec Sodium (137-145) mmol/L BUN (9-20) mg/dL Glucose (74-99) mg/dL POC Glucose (mg/dL) 107 H 128 H 136 H (75-99) mg/dL Calcium (8.4-10.2) mg/dL AST (17-59) U/L Total Protein (6.3-8.2) g/dL Albumin (3.5-5.0) g/dL 09/19/16 09/19/16 09/19/16 Range/Units 17:08 18:03 19:14 WBC (3.8-10.6) k/uL RBC (4.30-5.90) m/uL Hgb (13.0-17.5) gm/dL Hct (39.0-53.0) % Plt Count (150-450) k/uL Neutrophils # (1.3-7.7) k/uL Monocytes # (0-1.0) k/uL PT (9.0-12.0) sec Sodium (137-145) mmol/L BUN (9-20) mg/dL Glucose (74-99) mg/dL POC Glucose (mg/dL) 142 H 133 H 128 H (75-99) mg/dL Calcium (8.4-10.2) mg/dL AST (17-59) U/L Total Protein (6.3-8.2) g/dL Albumin (3.5-5.0) g/dL 09/19/16 09/19/16 09/20/16 Range/Units 20:47 23:03 00:39 WBC (3.8-10.6) k/uL RBC (4.30-5.90) m/uL Hgb (13.0-17.5) gm/dL Hct (39.0-53.0) % Plt Count (150-450) k/uL Neutrophils # (1.3-7.7) k/uL Monocytes # (0-1.0) k/uL PT (9.0-12.0) sec Sodium (137-145) mmol/L BUN (9-20) mg/dL Glucose (74-99) mg/dL POC Glucose (mg/dL) 130 H 118 H 118 H (75-99) mg/dL Calcium (8.4-10.2) mg/dL AST (17-59) U/L Total Protein (6.3-8.2) g/dL Albumin (3.5-5.0) g/dL 09/20/16 09/20/16 09/20/16 Range/Units 02:33 04:09 04:22 WBC (3.8-10.6) k/uL RBC (4.30-5.90) m/uL Hgb (13.0-17.5) gm/dL Hct (39.0-53.0) % Plt Count (150-450) k/uL Neutrophils # (1.3-7.7) k/uL Monocytes # (0-1.0) k/uL PT (9.0-12.0) sec Sodium 135 L (137-145) mmol/L BUN 21 H (9-20) mg/dL Glucose 103 H (74-99) mg/dL POC Glucose (mg/dL) 117 H 115 H (75-99) mg/dL Calcium 7.7 L (8.4-10.2) mg/dL AST 63 H (17-59) U/L Total Protein 5.0 L (6.3-8.2) g/dL Albumin 3.2 L (3.5-5.0) g/dL 09/20/16 09/20/16 09/20/16 Range/Units 04:22 04:22 06:16 WBC 14.1 H (3.8-10.6) k/uL RBC 2.33 L (4.30-5.90) m/uL Hgb 7.5 L (13.0-17.5) gm/dL Hct 23.2 L (39.0-53.0) % Plt Count 74 L (150-450) k/uL Neutrophils # 11.0 H (1.3-7.7) k/uL Monocytes # 1.1 H (0-1.0) k/uL PT 15.3 H (9.0-12.0) sec Sodium (137-145) mmol/L BUN (9-20) mg/dL Glucose (74-99) mg/dL POC Glucose (mg/dL) 118 H (75-99) mg/dL Calcium (8.4-10.2) mg/dL AST (17-59) U/L Total Protein (6.3-8.2) g/dL Albumin (3.5-5.0) g/dL 09/20/16 09/20/16 09/20/16 Range/Units 08:16 10:22 11:57 WBC (3.8-10.6) k/uL RBC (4.30-5.90) m/uL Hgb (13.0-17.5) gm/dL Hct (39.0-53.0) % Plt Count (150-450) k/uL Neutrophils # (1.3-7.7) k/uL Monocytes # (0-1.0) k/uL PT (9.0-12.0) sec Sodium (137-145) mmol/L BUN (9-20) mg/dL Glucose (74-99) mg/dL POC Glucose (mg/dL) 114 H 150 H 109 H (75-99) mg/dL Calcium (8.4-10.2) mg/dL AST (17-59) U/L Total Protein (6.3-8.2) g/dL Albumin (3.5-5.0) g/dL Assessment and Plan Plan: Impression: 1 Status post aortic valve replacement, postoperative day #1 extubated and tolerated the extubation well 2 recent stenting of LAD in July of 2016. 3 history of right apical scarring/nodule will need to have outpatient follow- up. 4 history of TIAs. 5 history of mild to moderate COPD and history of chronic smoking. 6 right lower lobe atelectasis, difficult to rule out underlying pneumonia, patient has leukocytosis today, no documented fever, he has productive sputum brownish in color, hence I will empirically start Rocephin, severe cultures were ordered, and will follow closely. Recommendation: Continue bronchodilators, antibiotics were started, continue incentive spirometry, and ambulate today. Time with Patient: Less than 30
[2016-09-20 16:46] LABS: Glucose,Whole Blood 126 mg/dL (75-99)
[2016-09-20] MEDS: FERROUS SULFATE 325 MG TAB PO SCH (17:19)
[2016-09-20] MEDS ORDERED: WARFARIN 5 MG TAB PO ONE (18:00)
[2016-09-20] MEDS ORDERED: DEXTROSE 5% IN WATER 100 ML with AMIODARONE 150 MG IV ONE (19:00)
[2016-09-20 19:48] LABS: Anion Gap 9 mmol/L; Blood Urea Nitrogen 21 mg/dL (9-20); Carbon Dioxide 23 mmol/L (22-30); Chloride 102 mmol/L (98-107); Glucose 158 mg/dL (74-99); Non-African American GFR(MDRD) >60 (>60 ml/min/1.73 sqM); Potassium 4.7 mmol/L (3.5-5.1); Sodium 134 mmol/L (137-145)
[2016-09-20] MEDS: LACTATED RINGERS 1,000 ML IV SCH (19:58)
[2016-09-20] MEDS: AMIODARONE 450 MG in DEXTROSE 5% IN WATER 250 ML IV SCH ×2 (19:59)
[2016-09-20] MEDS: SENNOSIDES-DOCUSATE SODIUM 1 EACH TAB PO SCH (20:01)
[2016-09-20 20:07] LABS: Glucose,Whole Blood 161 mg/dL (75-99)
[2016-09-21 00:16] LABS: Glucose,Whole Blood 141 mg/dL (75-99)
[2016-09-21] MEDS: HEPARIN SODIUM,PORCINE 5,000 UNIT/ML 1 ML VIAL SQ SCH ×2 (00:16→09:01)
[2016-09-21] MEDS: INSULIN LISPRO (humaLOG) 300 UNIT/3 ML VIAL SQ SCH ×6 (00:17→20:51)
[2016-09-21] MEDS: HYDROcodone/APAP 5-325MG 1 EACH TAB PO PRN ×3 (02:20→20:34)
[2016-09-21] MEDS: AMIODARONE 450 MG in DEXTROSE 5% IN WATER 250 ML IV SCH ×6 (04:09→15:19)
[2016-09-21 04:22] LABS: Glucose,Whole Blood 128 mg/dL (75-99)
[2016-09-21] MEDS: BENZOCAINE/MENTHOL LOZENG 1 EACH LOZENGE MUCOUS MEM PRN ×2 (04:57→20:34)
[2016-09-21 05:08] LABS: Basophils # (A) 0.1 k/uL (0-0.2); Basophils % (A) 0 %; CH 32.8; CHCM 33.5; Eosinophils # (A) 0.1 k/uL (0-0.7); Eosinophils % (A) 1 %; HCT 22.9 % (39.0-53.0); HGB 7.4 gm/dL (13.0-17.5); Large Platelets Flag Moderate; Luc # (Auto) 0.26; Luc % (Auto) 2; Lymphocytes # (A) 1.5 k/uL (1.0-4.8); Lymphocytes % (A) 12 %; MCHC 32.4 g/dL (31.0-37.0); MCV 98.7 fL (80.0-100.0); Macrocytosis Slight; Mean Platelet Volume 11.6; Monocytes # (A) 1.4 k/uL (0-1.0); Monocytes % (A) 11 %; Neutrophils # (A) 9.8 k/uL (1.3-7.7); Neutrophils % (A) 75 %; RBC 2.32 m/uL (4.30-5.90); RDW 15.5 % (11.5-15.5); WBC (Perox) 14.02
[2016-09-21 05:19] LABS: Ionized Calcium 4.5 mg/dL (4.5-5.3)
[2016-09-21 05:27] LABS: ALT 53 U/L (21-72); AST 56 U/L (17-59); Alkaline Phosphatase 40 U/L (38-126); Anion Gap 9 mmol/L; Blood Urea Nitrogen 20 mg/dL (9-20); Calcium 7.8 mg/dL (8.4-10.2); Carbon Dioxide 24 mmol/L (22-30); Chloride 101 mmol/L (98-107); Glucose 110 mg/dL (74-99); Non-African American GFR(MDRD) >60 (>60 ml/min/1.73 sqM); Potassium 4.1 mmol/L (3.5-5.1); Sodium 134 mmol/L (137-145); Total Bilirubin 0.5 mg/dL (0.2-1.3); Total Protein 4.8 g/dL (6.3-8.2)
[2016-09-21 05:31] LABS: Large Platelets Present; Manual Review Performed
[2016-09-21 05:38] LABS: Prothrombin Time 65.2 sec (9.0-12.0)
[2016-09-21 05:41] LABS: INR 6.4 (<1.1)
--- NOTE | 2016-09-21 08:18 | XR ---
EXAMINATION TYPE: XR chest 1V portable DATE OF EXAM: 09/21/2016 6:35 AM COMPARISON: Prior chest x-ray 20 September 2016 HISTORY: Postop cardiac surgery TECHNIQUE: Single frontal view of the chest is obtained. FINDINGS: The heart remains enlarged. Bilateral pleural effusions are again noted. No evident pneumo thorax. Postop changes again seen. There are overlying cardiac leads. IMPRESSION: Bilateral pleural effusions and associated atelectasis versus edema, correlate to exclu de pneumonia. Cardiomegaly. Follow-up recommended.
[2016-09-21 08:26] LABS: Glucose,Whole Blood 126 mg/dL (75-99)
[2016-09-21] MEDS: PANTOPRAZOLE 40 MG/10 ML VIAL IVP SCH (09:01)
[2016-09-21] MEDS: FERROUS SULFATE 325 MG TAB PO SCH ×2 (09:01→16:38)
[2016-09-21] MEDS: CLOPIDOGREL 75 MG TAB PO SCH (09:01)
[2016-09-21] MEDS: ASPIRIN 81 MG CHEW PO SCH (09:01)
[2016-09-21] MEDS: ATORVASTATIN 40 MG TAB PO SCH (09:01)
[2016-09-21] MEDS: METOPROLOL TARTRATE 12.5 MG TAB PO SCH (09:02)
[2016-09-21] MEDS: MUPIROCIN 2% OINT 22 GM TUBE NASAL SCH ×2 (10:25→20:34)
[2016-09-21] MEDS ORDERED: METOPROLOL TARTRATE 25 MG TAB PO STA (10:29)
--- NOTE | 2016-09-21 10:37 | P.PN ---
Subjective Principal diagnosis: Critical aortic stenosis with known coronary artery disease Patient is a 46-year-old male, patient of Dr. Theo Haas in the outpatient setting with medical history significant for myocardial infarction with stent placement to the LAD in July 2016, TIA, hyperlipidemia, and nicotine dependence. Patient presented to the emergency department with complaints of chest pain associated with diaphoresis and lightheadedness after he took a nitroglycerin. Patient was found to have evidence of critical aortic stenosis. Patient was evaluated by cardiology and cardiothoracic surgery and underwent aortic valve replacement with mechanical valve on 09/18/2016. Patient is evaluated in the intensive care unit where he is postop day #3. Patient sitting up in a chair and complains of slight nausea without vomiting. Patient reports productive cough. Denies chills, increased shortness of breath , or abdominal pain. Reports flatus without bowel movements. Incisional pain controlled. Vasopressors have been weaned off. Patient currently on IV amiodarone for episode of atrial fibrillation last night. Patient currently in sinus rhythm. Afebrile. Urine output adequate. WBC decreased to 13. Hemoglobin stable at 7.4. Platelet count improved to 96. INR 6.4. Patient has been started on IV Rocephin for empiric coverage for right lower lobe atelectasis, rule out underlying pneumonia. Objective - Vital Signs Vital signs: Vital Signs Temp 98.7 F 09/21/16 08:30 Pulse 67 09/21/16 10:00 Resp 13 09/21/16 10:00 BP 91/60 09/21/16 10:00 Pulse Ox 97 09/21/16 10:00 Intake & Output 09/20/16 09/21/16 09/21/16 18:59 06:59 18:59 Intake Total 376 746.531 160 Output Total 765 500 0 Balance -389 246.531 160 Weight 78.3 kg Intake: IV 376 260 60 Lactated Ringers 1,000 ml 340 260 60 @ 30 mls/hr IV .Q24H [facility] Rx#:[id number] Pressure Bag 36 Intake, IV Titration 236.531 100 Amount Amiodarone 450 mg In 236.531 Dextrose 5% in Water 250 ml @ 1 MG/MIN 34.53 mls/ hr IV .Q7H31M [facility] Rx#: [id number] cefTRIAXone 1,000 mg In 100 Sodium Chloride 0.9% 50 ml @ 100 mls/hr IVPB Q24HR [facility] Rx#:[id number] Oral 250 Output: Chest Tube Drainage 20 mediastinal 20 Urine 745 500 0 Other: Voiding Method Indwelling Catheter Urinal Urinal # Voids 1 ABP, PAP, CO, CI - Last Documented Arterial Blood Pressure 123/58 Pulmonary Artery Pressure 37/20 Cardiac Output 6 Cardiac Index 3.8 - Exam GENERAL: Pt awake and alert, well-appearing, well-nourished, and in no acute distress. HEAD: Atraumatic, normocephalic. EYES: Pupils equal and round. Sclera anicteric, conjunctiva are normal. ENT: Moist mucous membranes. NECK:Supple without lymphadenopathy or JVD. LUNGS: Breath sounds diminished with crackles to posterior bases. HEART: Heart S1, S2, no S3 or S4. Regular rate and rhythm. Systolic murmur. ABDOMEN: Soft, nontender, nondistended, hypoactive bowel sounds. EXTREMITIES: 1+ dorsalis pedal pulses. No edema. No calf tenderness. NEUROLOGICAL: Pt oriented x 3. Cranial nerves II through XII grossly intact. Strength and sensation grossly intact. PSYCH: Normal mood, normal affect. SKIN: Warm, dry. Midline chest dressing dry and intact. - Labs CBC & Chem 7: 09/21/16 04:51 09/21/16 04:51 Labs: Abnormal Lab Results - Last 24 Hours (Table) 09/20/16 09/20/16 09/20/16 Range/Units 11:57 16:44 19:03 WBC (3.8-10.6) k/uL RBC (4.30-5.90) m/uL Hgb (13.0-17.5) gm/dL Hct (39.0-53.0) % Plt Count (150-450) k/uL Neutrophils # (1.3-7.7) k/uL Monocytes # (0-1.0) k/uL PT (9.0-12.0) sec INR (<1.1) Sodium 134 L (137-145) mmol/L BUN 21 H (9-20) mg/dL Glucose 158 H (74-99) mg/dL POC Glucose (mg/dL) 109 H 126 H (75-99) mg/dL Calcium 8.0 L (8.4-10.2) mg/dL Total Protein (6.3-8.2) g/dL Albumin (3.5-5.0) g/dL 09/20/16 09/21/16 09/21/16 Range/Units 20:05 00:15 04:20 WBC (3.8-10.6) k/uL RBC (4.30-5.90) m/uL Hgb (13.0-17.5) gm/dL Hct (39.0-53.0) % Plt Count (150-450) k/uL Neutrophils # (1.3-7.7) k/uL Monocytes # (0-1.0) k/uL PT (9.0-12.0) sec INR (<1.1) Sodium (137-145) mmol/L BUN (9-20) mg/dL Glucose (74-99) mg/dL POC Glucose (mg/dL) 161 H 141 H 128 H (75-99) mg/dL Calcium (8.4-10.2) mg/dL Total Protein (6.3-8.2) g/dL Albumin (3.5-5.0) g/dL 09/21/16 09/21/16 09/21/16 Range/Units 04:51 04:51 04:51 WBC 13.0 H (3.8-10.6) k/uL RBC 2.32 L (4.30-5.90) m/uL Hgb 7.4 L (13.0-17.5) gm/dL Hct 22.9 L (39.0-53.0) % Plt Count 96 L (150-450) k/uL Neutrophils # 9.8 H (1.3-7.7) k/uL Monocytes # 1.4 H (0-1.0) k/uL PT 65.2 H (9.0-12.0) sec INR 6.4 H* (<1.1) Sodium 134 L (137-145) mmol/L BUN (9-20) mg/dL Glucose 110 H (74-99) mg/dL POC Glucose (mg/dL) (75-99) mg/dL Calcium 7.8 L (8.4-10.2) mg/dL Total Protein 4.8 L (6.3-8.2) g/dL Albumin 3.0 L (3.5-5.0) g/dL 09/21/16 Range/Units 08:24 WBC (3.8-10.6) k/uL RBC (4.30-5.90) m/uL Hgb (13.0-17.5) gm/dL Hct (39.0-53.0) % Plt Count (150-450) k/uL Neutrophils # (1.3-7.7) k/uL Monocytes # (0-1.0) k/uL PT (9.0-12.0) sec INR (<1.1) Sodium (137-145) mmol/L BUN (9-20) mg/dL Glucose (74-99) mg/dL POC Glucose (mg/dL) 126 H (75-99) mg/dL Calcium (8.4-10.2) mg/dL Total Protein (6.3-8.2) g/dL Albumin (3.5-5.0) g/dL Microbiology - Last 24 Hours (Table) 09/20/16 16:13 Gram Stain - Preliminary Sputum Assessment and Plan Plan: Impression: 1. Severe bicuspid aortic valve stenosis, symptomatic, status post aortic valve replacement using a mechanical valve on 09/18/2016. 2. Coronary artery disease with myocardial infarction in July 2016 with stenting to the distal LAD. 3. History of hyperlipidemia. 4. History of TIA. 5. History of bronchitis. 6. Nicotine dependence. 7. Mild to moderate COPD with an FEV1 of 69% of predicted at baseline. 11. Right apical scar/nodule, follow-up in outpatient setting. 12. Thrombocytopenia. Platelet count 96. 13. Acute hypoxic respiratory failure. Patient is currently on 10 L nasal cannula with oxygen saturation of 93%. Productive sputum. Chest x-ray with bilateral pleural effusions and associated edema versus atelectasis. Pneumonia not excluded. Plan: 1. Continue surgical management by cardiothoracic service. Continue current medications. Continue to follow with cardiology and pulmonology service. Continue GI and DVT prophylaxis. Continue supportive treatment and pain management. Continue incentive spirometry 10 times an hour while awake. Increase activity as tolerated. The above impression and plan have been discussed and directed by Dr. Haas. Hailey CARDOSO acting as scribe for Dr. Haas.
[2016-09-21] MEDS: IPRATROPIUM-ALBUTEROL 3 ML NEB INHALATION SCH ×4 (10:47→19:57)
[2016-09-21 11:45] LABS: Prothrombin Time 81.8 sec (9.0-12.0)
[2016-09-21 11:49] LABS: INR 7.9 (<1.1)
[2016-09-21 11:53] LABS: Glucose,Whole Blood 112 mg/dL (75-99)
[2016-09-21] MEDS: AMIODARONE 200 MG TAB PO SCH ×2 (12:23→20:34)
--- NOTE | 2016-09-21 12:44 | P.PN ---
Subjective Principal diagnosis: Severe aortic stenosis This is a very pleasant 46-year-old gentleman who follows with Dr. Haas as his primary care physician. He has a history of TIA, coronary artery disease with recent stent placement to the LAD. He has preserved left ventricular systolic function with estimated ejection fraction 45-50%. He was also found to have significant bicuspid aortic valve stenosis and the plan is for aortic valve replacement. He states he has known about heart murmur for approximately 3 years now. He does have a 30+ pack per day smoking history up to as many as 3 packs per day at one point. He has not been seen by a field artillery operations specialist in the past but was scheduled to be seen in our office 09/21/2016 for preop evaluation prior to his aortic valve replacement. He is not on oxygen nor any inhalers in the outpatient setting. He was recently treated for what he felt was bronchitis with a Tri-Terry of azithromycin 500 mg daily 3 days. He presented here to the emergency room yesterday with complaints of chest tingling and numbness. He states he did have some anxiety secondary to recent cardiac event. He is seen today in the end emergency room still. He is awake and alert in no acute distress. He denies any chest pain, palpitations, lightheadedness or dizziness. No shortness of breath, cough or congestion. His chest x-ray did reveal some pulmonary venous hypertension and mild congestion. His proBNP level was 6510. There is a small troponin leak. The plan is performing aortic valve replacement early next week. The patient's Plavix has been on hold and he'll be bridged in the interim. Patient was seen today on 09/18/2016, patient just came back from the OR, and he is status post aortic valve replacement. Patient is also status post distal LAD stenting. Presently the patient is on mechanical ventilation, he is on assist control rate of 20, tidal volume of 550, FiO2 is down to 50%, he was earlier on 100%. And PEEP is at 5. Postoperative chest x-ray showed postoperative changes, otherwise unremarkable. ABG was reviewed, pO2 was 184 pCO2 of 43 and pH of 7.36. Basic metabolic profile is normal. Platelets were noted to be low at 42,000. Patient was seen on 09/19/2016, and he has been doing well, extubated overnight, and his postoperative course seems so far to be uneventful. Chest x-ray shows right lower lobe atelectasis, possible early infiltrate, however the patient is not showing any other findings to suggest pneumonia, hence we will hold on antibiotics for now, but if the patient develops worsening symptoms, antibiotics would have to be started. Patient is postoperative day #1, aortic valve replacement using 22 mm [employer] medical bileaflet tilting disc valve. Patient was reevaluated today on 09/20/2016, continues to do relatively well, his mediastinal chest tube was removed today, patient is postoperative day #2. He is status post aortic valve replacement using 22 mm [employer] medical bileaflet tilting disc valve. Chest x-ray continues to show abnormality in the right lower lobe, and the patient is now experiencing coughing spells his cough is productive with thick brownish phlegm, hence I will go ahead and empirically start the patient today on Rocephin. Cultures on the sputum were ordered. Overall clinically the patient is doing much better. Patient was reevaluated today on 09/21/2016, patient is doing relatively well, however his INR is elevated because of the Coumadin, his chest x-ray is showing a small to moderate right-sided pleural effusion and right lower lobe atelectasis, and a small tiny left pleural effusion. INR was 7.9 today, hence Coumadin is presently on hold. Hemoglobin is 7.4, electrolytes and renal profile are normal. Clinically the patient is feeling well, denies any specific complaints. Objective - Vital Signs Vital signs: Vital Signs Temp 98.7 F 09/21/16 08:30 Pulse 66 09/21/16 12:00 Resp 12 09/21/16 12:00 BP 84/56 09/21/16 12:00 Pulse Ox 96 09/21/16 12:00 Intake & Output 09/20/16 09/21/16 09/21/16 18:59 06:59 18:59 Intake Total 376 746.531 220 Output Total 765 500 160 Balance -389 246.531 60 Weight 78.3 kg Intake: IV 376 260 120 Lactated Ringers 1,000 ml 340 260 120 @ 30 mls/hr IV .Q24H [facility] Rx#:[id number] Pressure Bag 36 Intake, IV Titration 236.531 100 Amount Amiodarone 450 mg In 236.531 Dextrose 5% in Water 250 ml @ 1 MG/MIN 34.53 mls/ hr IV .Q7H31M [facility] Rx#: [id number] cefTRIAXone 1,000 mg In 100 Sodium Chloride 0.9% 50 ml @ 100 mls/hr IVPB Q24HR [facility] Rx#:[id number] Oral 250 Output: Chest Tube Drainage 20 mediastinal 20 Urine 745 500 160 Other: Voiding Method Indwelling Catheter Urinal Urinal # Voids 1 ABP, PAP, CO, CI - Last Documented Arterial Blood Pressure 123/58 Pulmonary Artery Pressure 37/20 Cardiac Output 6 Cardiac Index 3.8 - Exam Physical Exam: Revealed a 46-year-old white male in no form of respiratory distress HEENT:[Neck is supple.] [No neck masses.] [No thyromegaly.] [No JVD.] Endotracheal tube is intact. Chest: [Slightly diminished breath sounds at the right base...] Cardiac Exam: [Normal S1 and S2, no S3 gallop, 2/6 systolic murmur throughout the precordium. Positive pericardial rub. Abdomen: [Soft, nontender, no megaly, no rebound, no guarding, normal bowel sounds.] Extremities: [No clubbing, no edema, no cyanosis.] Neurological Exam: No gross focal neurologic deficit - Labs CBC & Chem 7: 09/21/16 04:51 09/21/16 04:51 Labs: Abnormal Lab Results - Last 24 Hours (Table) 09/20/16 09/20/16 09/20/16 Range/Units 16:44 19:03 20:05 WBC (3.8-10.6) k/uL RBC (4.30-5.90) m/uL Hgb (13.0-17.5) gm/dL Hct (39.0-53.0) % Plt Count (150-450) k/uL Neutrophils # (1.3-7.7) k/uL Monocytes # (0-1.0) k/uL PT (9.0-12.0) sec INR (<1.1) Sodium 134 L (137-145) mmol/L BUN 21 H (9-20) mg/dL Glucose 158 H (74-99) mg/dL POC Glucose (mg/dL) 126 H 161 H (75-99) mg/dL Calcium 8.0 L (8.4-10.2) mg/dL Total Protein (6.3-8.2) g/dL Albumin (3.5-5.0) g/dL 09/21/16 09/21/16 09/21/16 Range/Units 00:15 04:20 04:51 WBC 13.0 H (3.8-10.6) k/uL RBC 2.32 L (4.30-5.90) m/uL Hgb 7.4 L (13.0-17.5) gm/dL Hct 22.9 L (39.0-53.0) % Plt Count 96 L (150-450) k/uL Neutrophils # 9.8 H (1.3-7.7) k/uL Monocytes # 1.4 H (0-1.0) k/uL PT (9.0-12.0) sec INR (<1.1) Sodium (137-145) mmol/L BUN (9-20) mg/dL Glucose (74-99) mg/dL POC Glucose (mg/dL) 141 H 128 H (75-99) mg/dL Calcium (8.4-10.2) mg/dL Total Protein (6.3-8.2) g/dL Albumin (3.5-5.0) g/dL 09/21/16 09/21/16 09/21/16 Range/Units 04:51 04:51 08:24 WBC (3.8-10.6) k/uL RBC (4.30-5.90) m/uL Hgb (13.0-17.5) gm/dL Hct (39.0-53.0) % Plt Count (150-450) k/uL Neutrophils # (1.3-7.7) k/uL Monocytes # (0-1.0) k/uL PT 65.2 H (9.0-12.0) sec INR 6.4 H* (<1.1) Sodium 134 L (137-145) mmol/L BUN (9-20) mg/dL Glucose 110 H (74-99) mg/dL POC Glucose (mg/dL) 126 H (75-99) mg/dL Calcium 7.8 L (8.4-10.2) mg/dL Total Protein 4.8 L (6.3-8.2) g/dL Albumin 3.0 L (3.5-5.0) g/dL 09/21/16 09/21/16 Range/Units 10:51 11:51 WBC (3.8-10.6) k/uL RBC (4.30-5.90) m/uL Hgb (13.0-17.5) gm/dL Hct (39.0-53.0) % Plt Count (150-450) k/uL Neutrophils # (1.3-7.7) k/uL Monocytes # (0-1.0) k/uL PT 81.8 H (9.0-12.0) sec INR 7.9 H* (<1.1) Sodium (137-145) mmol/L BUN (9-20) mg/dL Glucose (74-99) mg/dL POC Glucose (mg/dL) 112 H (75-99) mg/dL Calcium (8.4-10.2) mg/dL Total Protein (6.3-8.2) g/dL Albumin (3.5-5.0) g/dL Microbiology - Last 24 Hours (Table) 09/20/16 16:13 Gram Stain - Preliminary Sputum Assessment and Plan Plan: Impression: 1 Status post aortic valve replacement, postoperative day #3 extubated and tolerated the extubation well 2 recent stenting of LAD in July of 2016. 3 history of right apical scarring/nodule will need to have outpatient follow- up. 4 history of TIAs. 5 history of mild to moderate COPD and history of chronic smoking. 6 right lower lobe atelectasis, difficult to rule out underlying pneumonia, and now the patient has a small right pleural effusion which we will monitor. If the effusion gets any larger, I would consider thoracentesis. But definitely not now especially with the INR being elevated. 7 Coumadin related coagulopathy with elevated INR, presently Coumadin is on hold. Recommendation: Continue bronchodilators, antibiotics were started, continue incentive spirometry, and ambulate today. Time with Patient: Less than 30
[2016-09-21] MEDS ORDERED: PHYTONADIONE 2 MG in SODIUM CHLORIDE 0.9% 50 ML IVPB STA (13:24)
--- NOTE | 2016-09-21 14:23 | P.PN ---
Subjective Principal diagnosis: Severe aortic valve stenosis with bicuspid aortic valve heavily calcified, coronary artery disease, status post recent stenting of his distal left anterior descending artery, left bundle branch block. Postop day #3 aortic valve replacement using a 22 mm [employer] mechanical bileaflet tilting disc valve, postop day #3 exclusion of the left atrial appendage using a 35 mm AtriClip. Patient currently sitting up in bed, states pain controlled w/ current meds. is at bedside. Objective - Vital Signs Vital signs: Vital Signs Temp 98.3 F 09/21/16 04:00 Pulse 71 09/21/16 06:00 Resp 13 09/21/16 06:00 BP 98/70 09/21/16 06:00 Pulse Ox 99 09/21/16 06:00 Intake & Output 09/20/16 09/21/16 09/21/16 18:59 06:59 18:59 Intake Total 376 746.531 Output Total 515 500 Balance -139 246.531 Weight 78.3 kg Intake: IV 376 260 Lactated Ringers 1,000 ml 340 260 @ 30 mls/hr IV .Q24H [facility] Rx#:[id number] Pressure Bag 36 Intake, IV Titration 236.531 Amount Amiodarone 450 mg In 236.531 Dextrose 5% in Water 250 ml @ 1 MG/MIN 34.53 mls/ hr IV .Q7H31M [facility] Rx#: [id number] Oral 250 Output: Chest Tube Drainage 20 mediastinal 20 Urine 495 500 Other: Voiding Method Indwelling Catheter Urinal ABP, PAP, CO, CI - Last Documented Arterial Blood Pressure 123/58 Pulmonary Artery Pressure 37/20 Cardiac Output 6 Cardiac Index 3.8 - Constitutional General appearance: Present: cooperative, no acute distress - Respiratory Details: Lungs sounds diminished bilaterally, coarse in the right base. Respirations even, nonlabored. Currently remains on 10 L high flow oxygen. Able to achieve 1250 ml on incentive spirometer. - Cardiovascular Details: S1 present, diminished S2, systolic murmur present. Regular rate and rhythm, sinus rhythm on telemetry. No edema present. Palpable radial, DP, PT pulses bilaterally. Heart hugger in place and patient exhibits appropriate use. Chest stable. - Gastrointestinal Gastrointestinal Comment(s): Abdomen soft, nontender, nondistended. Active bowel sounds 4 quadrants. Positive flatus, negative BM since surgery. Tolerating diet. - Genitourinary Genitourinary Comment(s): Voiding clear yellow urine per urinal. - Integumentary Integumentary Comment(s): Skin warm, dry. Chest incisions covered with dry, intact silver dressing. - Neurologic Neurologic: Present: CNII-XII intact - Musculoskeletal Musculoskeletal Comment(s): Moves all extremities, able to ambulate in the hallway with assistance. - Psychiatric Psychiatric: Present: A&O x's 3, appropriate affect, intact judgment & insight - Allied health notes Allied health notes reviewed: RT - Labs CBC & Chem 7: 09/21/16 04:51 09/21/16 04:51 Labs: Abnormal Lab Results - Last 24 Hours (Table) 09/20/16 09/20/16 09/20/16 Range/Units 08:16 10:22 11:57 WBC (3.8-10.6) k/uL RBC (4.30-5.90) m/uL Hgb (13.0-17.5) gm/dL Hct (39.0-53.0) % Plt Count (150-450) k/uL Neutrophils # (1.3-7.7) k/uL Monocytes # (0-1.0) k/uL PT (9.0-12.0) sec INR (<1.1) Sodium (137-145) mmol/L BUN (9-20) mg/dL Glucose (74-99) mg/dL POC Glucose (mg/dL) 114 H 150 H 109 H (75-99) mg/dL Calcium (8.4-10.2) mg/dL Total Protein (6.3-8.2) g/dL Albumin (3.5-5.0) g/dL 09/20/16 09/20/16 09/20/16 Range/Units 16:44 19:03 20:05 WBC (3.8-10.6) k/uL RBC (4.30-5.90) m/uL Hgb (13.0-17.5) gm/dL Hct (39.0-53.0) % Plt Count (150-450) k/uL Neutrophils # (1.3-7.7) k/uL Monocytes # (0-1.0) k/uL PT (9.0-12.0) sec INR (<1.1) Sodium 134 L (137-145) mmol/L BUN 21 H (9-20) mg/dL Glucose 158 H (74-99) mg/dL POC Glucose (mg/dL) 126 H 161 H (75-99) mg/dL Calcium 8.0 L (8.4-10.2) mg/dL Total Protein (6.3-8.2) g/dL Albumin (3.5-5.0) g/dL 09/21/16 09/21/16 09/21/16 Range/Units 00:15 04:20 04:51 WBC 13.0 H (3.8-10.6) k/uL RBC 2.32 L (4.30-5.90) m/uL Hgb 7.4 L (13.0-17.5) gm/dL Hct 22.9 L (39.0-53.0) % Plt Count 96 L (150-450) k/uL Neutrophils # 9.8 H (1.3-7.7) k/uL Monocytes # 1.4 H (0-1.0) k/uL PT (9.0-12.0) sec INR (<1.1) Sodium (137-145) mmol/L BUN (9-20) mg/dL Glucose (74-99) mg/dL POC Glucose (mg/dL) 141 H 128 H (75-99) mg/dL Calcium (8.4-10.2) mg/dL Total Protein (6.3-8.2) g/dL Albumin (3.5-5.0) g/dL 09/21/16 09/21/16 Range/Units 04:51 04:51 WBC (3.8-10.6) k/uL RBC (4.30-5.90) m/uL Hgb (13.0-17.5) gm/dL Hct (39.0-53.0) % Plt Count (150-450) k/uL Neutrophils # (1.3-7.7) k/uL Monocytes # (0-1.0) k/uL PT 65.2 H (9.0-12.0) sec INR 6.4 H* (<1.1) Sodium 134 L (137-145) mmol/L BUN (9-20) mg/dL Glucose 110 H (74-99) mg/dL POC Glucose (mg/dL) (75-99) mg/dL Calcium 7.8 L (8.4-10.2) mg/dL Total Protein 4.8 L (6.3-8.2) g/dL Albumin 3.0 L (3.5-5.0) g/dL Microbiology - Last 24 Hours (Table) 09/20/16 16:13 Gram Stain - Preliminary Sputum - Imaging and Cardiology Chest x-ray: image reviewed Assessment and Plan (1) Critical aortic valve stenosis Status: Acute (2) Near syncope Status: Acute (3) Hyperlipemia Status: Acute (4) Chest pain Status: Acute Plan: 1. Continue aspirin, beta alvin, statin, Plavix. 2. INR 6.4 this morning, hold Coumadin today. Redraw PT/INR at 10 AM. 3. Paroxysmal atrial fibrillation last night, started on IV amiodarone, will transition to oral amiodarone today. 4. Encourage incentive spirometry use, coughing and deep breathing. 5. Monitor labs closely. 6. GI/DVT prophylaxis. 7. Encourage early mobility. 8. Probable transfer to [facility] today. Time with Patient: Greater than 30
[2016-09-21 17:06] LABS: Glucose,Whole Blood 111 mg/dL (75-99)
[2016-09-21 18:27] LABS: INR 2.6 (<1.1); Prothrombin Time 25.5 sec (9.0-12.0)
[2016-09-21] MEDS: SENNOSIDES-DOCUSATE SODIUM 1 EACH TAB PO SCH (20:34)
[2016-09-21] MEDS: METOPROLOL TARTRATE 25 MG TAB PO SCH (20:34)
[2016-09-21 20:41] LABS: Glucose,Whole Blood 104 mg/dL (75-99)
[2016-09-22 00:24] LABS: Glucose,Whole Blood 103 mg/dL (75-99)
[2016-09-22] MEDS: INSULIN LISPRO (humaLOG) 300 UNIT/3 ML VIAL SQ SCH ×6 (00:30→21:35)
[2016-09-22] MEDS: HYDROcodone/APAP 5-325MG 1 EACH TAB PO PRN ×4 (02:30→21:40)
[2016-09-22 03:35] LABS: Glucose,Whole Blood 109 mg/dL (75-99)
[2016-09-22 06:33] LABS: INR 1.4 (<1.1); Prothrombin Time 13.7 sec (9.0-12.0)
[2016-09-22 06:36] LABS: Anisocytosis Slight; CH 32.5; CHCM 33.1; HCT 22.6 % (39.0-53.0); HDW 3.24; HGB 7.4 gm/dL (13.0-17.5); MCH 32.6 pg (25.0-35.0); MCHC 32.9 g/dL (31.0-37.0); MCV 99.2 fL (80.0-100.0); Macrocytosis Slight; Mean Platelet Volume 9.5; RBC 2.28 m/uL (4.30-5.90); RDW 16.3 % (11.5-15.5); WBC 12.7 k/uL (3.8-10.6)
[2016-09-22] MEDS: FERROUS SULFATE 325 MG TAB PO SCH (06:39)
[2016-09-22] MEDS: PANTOPRAZOLE 40 MG TABLET PO SCH (06:39)
[2016-09-22 06:46] LABS: Glucose,Whole Blood 111 mg/dL (75-99)
--- NOTE | 2016-09-22 08:21 | XR ---
EXAMINATION TYPE: XR chest 2V DATE OF EXAM: 09/22/2016 7:12 AM HISTORY: Postop CABG. REFERENCE: Previous study dated 09/21/2016. FINDINGS: There has been a midline sternotomy. There are bilateral effusions. There is bibasilar atelectasis. Heart size is upper limits of normal. The overall appearance of the chest has improved. IMPRESSION: IMPROVING POSTOPERATIVE CHANGES.
[2016-09-22] MEDS ORDERED: FUROSEMIDE 10 MG/ML 2 ML VIAL IV ONE (08:31)
[2016-09-22] MEDS: ASPIRIN 81 MG CHEW PO SCH (08:41)
[2016-09-22] MEDS: AMIODARONE 200 MG TAB PO SCH ×2 (08:41→21:40)
[2016-09-22] MEDS: ATORVASTATIN 40 MG TAB PO SCH (08:42)
[2016-09-22] MEDS: METOPROLOL TARTRATE 25 MG TAB PO SCH ×2 (08:42→21:40)
[2016-09-22] MEDS: CLOPIDOGREL 75 MG TAB PO SCH (08:42)
[2016-09-22] MEDS: IPRATROPIUM-ALBUTEROL 3 ML NEB INHALATION SCH ×4 (09:30→20:36)
--- NOTE | 2016-09-22 10:03 | US ---
EXAMINATION TYPE: US chest DATE OF EXAM: 09/22/2016 9:39 AM COMPARISON: NONE CLINICAL HISTORY: Possible thoracentesis. Pleural effusion EXAM MEASUREMENTS: Right Pleural Effusion fluid pocket: 11.5cm cm Right skin to fluid thickness: 2.3 cm Left Pleural Effusion fluid pocket: 8.1 cm Left skin to fluid thickness: 2.6 cm Right side marked for possible thoracentesis outside the dept. Left side marked for possible thoracentesis outside the dept. Pulmonologists are able to review the images in the patient?s EMR. TECHNOLOGIST IMPRESSION: bilateral pleural effusions, lung persistent within images bilaterally. IMPRESSIONS: Bilateral pleural effusions.
--- NOTE | 2016-09-22 10:06 | P.PN ---
<Dallas,Amy Vishnu - Last Filed: 09/22/16 09:58> Subjective Principal diagnosis: Severe aortic valve stenosis with bicuspid aortic valve heavily calcified, coronary artery disease, status post recent stenting of his distal left anterior descending artery, left bundle branch block. Postop day #4 aortic valve replacement using a 22 mm [employer] mechanical bileaflet tilting disc valve, postop day #4 exclusion of the left atrial appendage using a 35 mm AtriClip. Patient currently sitting up in chair, states pain controlled w/ current meds. Denies any new complaints or concerns. is at bedside. Objective - Vital Signs Vital signs: Vital Signs Temp 98.3 F 09/22/16 08:25 Pulse 75 09/22/16 08:58 Resp 16 09/22/16 08:25 BP 116/60 09/22/16 08:25 Pulse Ox 96 09/22/16 08:58 Intake & Output 09/21/16 09/22/16 09/22/16 18:59 06:59 18:59 Intake Total 710 320 Output Total 360 2050 Balance 350 -1730 Weight 78.3 kg 78.3 kg Intake: IV 120 40 Lactated Ringers 1,000 ml 120 40 @ 30 mls/hr IV .Q24H [facility] Rx#:[id number] Intake, IV Titration 100 160 Amount Lactated Ringers 1,000 ml 160 @ 30 mls/hr IV .Q24H [facility] Rx#:[id number] cefTRIAXone 1,000 mg In 100 Sodium Chloride 0.9% 50 ml @ 100 mls/hr IVPB Q24HR [facility] Rx#:[id number] Oral 490 120 Output: Urine 360 2050 Other: Voiding Method Urinal Urinal # Voids 1 1 # Bowel Movements 0 0 ABP, PAP, CO, CI - Last Documented Arterial Blood Pressure 123/58 Pulmonary Artery Pressure 37/20 Cardiac Output 6 Cardiac Index 3.8 - Constitutional General appearance: Present: cooperative, no acute distress - Respiratory Details: Lungs sounds diminished bilaterally, respirations even and nonlabored. Remains on 9 L high flow O2. Able to achieve 1250 mL on incentive spirometry. Able to cough effectively. - Cardiovascular Details: S1 present, diminished S2, systolic murmur present. Regular rate and rhythm, normal sinus rhythm on telemetry. Chest stable. No edema present. Palpable radial, DP, PT pulses bilaterally. Heart hugger in place with good return demonstration on its use. Teds present, SCDs present. - Gastrointestinal Gastrointestinal Comment(s): Abdomen soft, nontender, nondistended. Active bowel sounds 4 quadrants. Positive flatus, no BM since surgery. Tolerating diet. - Genitourinary Genitourinary Comment(s): Continues to void clear, yellow urine per urinal. - Integumentary Integumentary Comment(s): Skin warm, dry. Anterior chest wall incision covered with dry intact silver dressing. - Neurologic Neurologic: Present: CNII-XII intact - Musculoskeletal Musculoskeletal Comment(s): Ambulating in hallway with standby assist. - Psychiatric Psychiatric: Present: A&O x's 3, appropriate affect, intact judgment & insight - Allied health notes Allied health notes reviewed: PT - Labs CBC & Chem 7: 09/22/16 06:00 09/21/16 04:51 Labs: Abnormal Lab Results - Last 24 Hours (Table) 09/21/16 09/21/16 09/21/16 Range/Units 10:51 11:51 17:02 WBC (3.8-10.6) k/uL RBC (4.30-5.90) m/uL Hgb (13.0-17.5) gm/dL Hct (39.0-53.0) % RDW (11.5-15.5) % Plt Count (150-450) k/uL PT 81.8 H (9.0-12.0) sec INR 7.9 H* (<1.1) POC Glucose (mg/dL) 112 H 111 H (75-99) mg/dL 09/21/16 09/21/16 09/22/16 Range/Units 18:10 20:39 00:12 WBC (3.8-10.6) k/uL RBC (4.30-5.90) m/uL Hgb (13.0-17.5) gm/dL Hct (39.0-53.0) % RDW (11.5-15.5) % Plt Count (150-450) k/uL PT 25.5 H (9.0-12.0) sec INR (<1.1) POC Glucose (mg/dL) 104 H 103 H (75-99) mg/dL 09/22/16 09/22/16 09/22/16 Range/Units 03:33 06:00 06:00 WBC 12.7 H (3.8-10.6) k/uL RBC 2.28 L (4.30-5.90) m/uL Hgb 7.4 L (13.0-17.5) gm/dL Hct 22.6 L (39.0-53.0) % RDW 16.3 H (11.5-15.5) % Plt Count 138 L (150-450) k/uL PT 13.7 H (9.0-12.0) sec INR (<1.1) POC Glucose (mg/dL) 109 H (75-99) mg/dL 09/22/16 Range/Units 06:40 WBC (3.8-10.6) k/uL RBC (4.30-5.90) m/uL Hgb (13.0-17.5) gm/dL Hct (39.0-53.0) % RDW (11.5-15.5) % Plt Count (150-450) k/uL PT (9.0-12.0) sec INR (<1.1) POC Glucose (mg/dL) 111 H (75-99) mg/dL - Imaging and Cardiology Chest x-ray: image reviewed Assessment and Plan (1) Critical aortic valve stenosis Status: Acute (2) Near syncope Status: Acute (3) Hyperlipemia Status: Acute (4) Chest pain Status: Acute Plan: 1. Continue aspirin, beta alvin, statin, Plavix. 2. INR 1.4 this morning, will give Coumadin 3 mg by mouth this evening. 3. Continue amiodarone for atrial fibrillation prophylaxis. 4. Encourage incentive spirometry use, coughing and deep breathing. 5. Monitor labs closely. 6. GI/DVT prophylaxis. 7. Encourage ambulation. 8. Wean O2 as tolerated. 9. Chest ultrasound ordered per recommendation of Dr. Morocho to determine fluid status. We will defer to his judgment for possible thoracentesis. 10. Advised RN to give milk of mag, if no BM by noon we will give suppository. 11. Anticipate discharge to home soon. Time with Patient: Greater than 30 <Albino Hoyt - Last Filed: 09/22/16 15:29> Objective - Vital Signs Vital signs: Vital Signs Temp 97.8 F 09/22/16 12:00 Pulse 69 09/22/16 12:00 Resp 16 09/22/16 12:00 BP 101/57 09/22/16 12:00 Pulse Ox 95 09/22/16 12:00 Intake & Output 09/21/16 09/22/16 09/22/16 18:59 06:59 18:59 Intake Total 710 320 120 Output Total 360 2050 1500 Balance 350 -1730 -1380 Weight 78.3 kg 78.3 kg Intake: IV 120 40 Lactated Ringers 1,000 ml 120 40 @ 30 mls/hr IV .Q24H [facility] Rx#:[id number] Intake, IV Titration 100 160 Amount Lactated Ringers 1,000 ml 160 @ 30 mls/hr IV .Q24H [facility] Rx#:[id number] cefTRIAXone 1,000 mg In 100 Sodium Chloride 0.9% 50 ml @ 100 mls/hr IVPB Q24HR [facility] Rx#:[id number] Oral 490 120 120 Output: Urine 360 2050 200 Other 1300 Other: Voiding Method Urinal Urinal Urinal # Voids 1 1 # Bowel Movements 0 0 0 ABP, PAP, CO, CI - Last Documented Arterial Blood Pressure 123/58 Pulmonary Artery Pressure 37/20 Cardiac Output 6 Cardiac Index 3.8 - Labs CBC & Chem 7: 09/22/16 06:00 09/21/16 04:51 Labs: Abnormal Lab Results - Last 24 Hours (Table) 09/21/16 09/21/16 09/21/16 Range/Units 17:02 18:10 20:39 WBC (3.8-10.6) k/uL RBC (4.30-5.90) m/uL Hgb (13.0-17.5) gm/dL Hct (39.0-53.0) % RDW (11.5-15.5) % Plt Count (150-450) k/uL PT 25.5 H (9.0-12.0) sec POC Glucose (mg/dL) 111 H 104 H (75-99) mg/dL Lactate Dehydrogenase (313-618) U/L Total Protein (6.3-8.2) g/dL 09/22/16 09/22/16 09/22/16 Range/Units 00:12 03:33 06:00 WBC 12.7 H (3.8-10.6) k/uL RBC 2.28 L (4.30-5.90) m/uL Hgb 7.4 L (13.0-17.5) gm/dL Hct 22.6 L (39.0-53.0) % RDW 16.3 H (11.5-15.5) % Plt Count 138 L (150-450) k/uL PT (9.0-12.0) sec POC Glucose (mg/dL) 103 H 109 H (75-99) mg/dL Lactate Dehydrogenase (313-618) U/L Total Protein (6.3-8.2) g/dL 09/22/16 09/22/16 09/22/16 Range/Units 06:00 06:00 06:40 WBC (3.8-10.6) k/uL RBC (4.30-5.90) m/uL Hgb (13.0-17.5) gm/dL Hct (39.0-53.0) % RDW (11.5-15.5) % Plt Count (150-450) k/uL PT 13.7 H (9.0-12.0) sec POC Glucose (mg/dL) 111 H (75-99) mg/dL Lactate Dehydrogenase 1167 H (313-618) U/L Total Protein 5.1 L (6.3-8.2) g/dL 09/22/16 Range/Units 11:47 WBC (3.8-10.6) k/uL RBC (4.30-5.90) m/uL Hgb (13.0-17.5) gm/dL Hct (39.0-53.0) % RDW (11.5-15.5) % Plt Count (150-450) k/uL PT (9.0-12.0) sec POC Glucose (mg/dL) 109 H (75-99) mg/dL Lactate Dehydrogenase (313-618) U/L Total Protein (6.3-8.2) g/dL Microbiology - Last 24 Hours (Table) 09/20/16 16:13 Gram Stain - Preliminary Sputum Sputum Culture - Preliminary Margot albicans Assessment and Plan Plan: I agree with the above assessment and plan. Patient underwent right thoracentesis earlier this morning with removal of 1.3 L of serous fluid. He is breathing easier now. His INR is down to 1.4. We will administer 3 mg of Coumadin this evening. We are awaiting return of bowel function. He is currently passing gas but has not had a bowel movement. Otherwise he'll continue with incentive spirometry to wean his supplemental oxygen. He will likely be discharged home within the next several days.
--- NOTE | 2016-09-22 11:23 | XR ---
EXAMINATION TYPE: XR chest 1V portable DATE OF EXAM: 09/22/2016 11:17 AM HISTORY: Postop right-sided thoracentesis. REFERENCE: Previous study of earlier today. FINDINGS: A right-sided thoracentesis been performed. There is some platelike atelectasis at the righ t lung base. There is a diminished right pleural effusion. There is a continuing left pleural effusio n. I do not see evidence of pneumothorax. Heart size is upper limits of normal. There has been a prev ious midline sternotomy. IMPRESSION: I DO NOT SEE A POSTTHORACENTESIS COMPLICATION.
[2016-09-22 12:07] LABS: Glucose,Whole Blood 109 mg/dL (75-99)
[2016-09-22 12:30] LABS: Total Protein 5.1 g/dL (6.3-8.2)
--- NOTE | 2016-09-22 12:49 | PN ---
DATE OF SERVICE: 09/21/2016 BRIEF HISTORY: This is a pleasant 46-year-old gentleman who underwent an aortic valve replacement using mechanical valve for critical aortic stenosis secondary to bicuspid aortic valve. On follow up with the patient today, he seems to be doing well clinically. He had an episode of atrial fibrillation and was converted into normal sinus mechanism. Current medications include the following, the patient is on: 1. Amiodarone 400 mg p.o. b.i.d. 2. Aspirin 81 mg p.o. daily. 3. Coumadin. 4. Plavix 75 mg p.o. daily. 5. Atorvastatin 40 mg p.o. q.h.s. 6. Metoprolol 25 mg p.o. b.i.d. ASSESSMENT: Critical aortic stenosis and status post aortic valve replacement using mechanical valve. PLAN: 1. Continue the patient on the current medical treatment. 2. Continue following up with him.
--- NOTE | 2016-09-22 13:02 | P.PN ---
Subjective Principal diagnosis: Critical aortic stenosis with known coronary artery disease Patient is a 46-year-old male, patient of Dr. Theo Haas in the outpatient setting with medical history significant for myocardial infarction with stent placement to the LAD in July 2016, TIA, hyperlipidemia, and nicotine dependence. Patient presented to the emergency department with complaints of chest pain associated with diaphoresis and lightheadedness after he took a nitroglycerin. Patient was found to have evidence of critical aortic stenosis. Patient was evaluated by cardiology and cardiothoracic surgery and underwent aortic valve replacement with mechanical valve on 09/18/2016. Patient is evaluated selective care unit where he is postop day #4. Patient is status post right-sided thoracenteses this. Patient tolerated procedure well. Patient states breathing is better. Denies chills, nausea, vomiting, abdominal pain, or leg pain. Reports flatus without bowel movements. Incisional pain controlled. Afebrile. Patient is urinating without difficulty. WBC decreased to 12.7. Hemoglobin stable at 7.4. Platelet count improved to 136. INR decreased to 1.4. Chest x-ray shows diminished right pleural effusion and continued left pleural effusion with no evidence of pneumothorax. Objective - Vital Signs Vital signs: Vital Signs Temp 97.8 F 09/22/16 12:00 Pulse 69 09/22/16 12:00 Resp 16 09/22/16 12:00 BP 101/57 09/22/16 12:00 Pulse Ox 95 09/22/16 12:00 Intake & Output 09/21/16 09/22/16 09/22/16 18:59 06:59 18:59 Intake Total 710 320 120 Output Total 360 2050 1500 Balance 350 -1730 -1380 Weight 78.3 kg 78.3 kg Intake: IV 120 40 Lactated Ringers 1,000 ml 120 40 @ 30 mls/hr IV .Q24H [facility] Rx#:[id number] Intake, IV Titration 100 160 Amount Lactated Ringers 1,000 ml 160 @ 30 mls/hr IV .Q24H [facility] Rx#:[id number] cefTRIAXone 1,000 mg In 100 Sodium Chloride 0.9% 50 ml @ 100 mls/hr IVPB Q24HR [facility] Rx#:[id number] Oral 490 120 120 Output: Urine 360 2050 200 Other 1300 Other: Voiding Method Urinal Urinal Urinal # Voids 1 1 # Bowel Movements 0 0 0 ABP, PAP, CO, CI - Last Documented Arterial Blood Pressure 123/58 Pulmonary Artery Pressure 37/20 Cardiac Output 6 Cardiac Index 3.8 - Exam GENERAL: Pt awake and alert, well-appearing, well-nourished, and in no acute distress. HEAD: Atraumatic, normocephalic. EYES: Pupils equal and round. Sclera anicteric, conjunctiva are normal. ENT: Moist mucous membranes. NECK:Supple without lymphadenopathy or JVD. LUNGS: Breath sounds diminished with crackles to posterior bases. HEART: Heart S1, S2, no S3 or S4. Regular rate and rhythm. Systolic murmur. ABDOMEN: Soft, nontender, nondistended, hypoactive bowel sounds. EXTREMITIES: 1+ dorsalis pedal pulses. No edema. No calf tenderness. NEUROLOGICAL: Pt oriented x 3. Cranial nerves II through XII grossly intact. Strength and sensation grossly intact. PSYCH: Normal mood, normal affect. SKIN: Warm, dry. Midline chest dressing dry and intact. - Labs CBC & Chem 7: 09/22/16 06:00 09/21/16 04:51 Labs: Abnormal Lab Results - Last 24 Hours (Table) 09/21/16 09/21/16 09/21/16 Range/Units 17:02 18:10 20:39 WBC (3.8-10.6) k/uL RBC (4.30-5.90) m/uL Hgb (13.0-17.5) gm/dL Hct (39.0-53.0) % RDW (11.5-15.5) % Plt Count (150-450) k/uL PT 25.5 H (9.0-12.0) sec POC Glucose (mg/dL) 111 H 104 H (75-99) mg/dL Lactate Dehydrogenase (313-618) U/L Total Protein (6.3-8.2) g/dL 09/22/16 09/22/16 09/22/16 Range/Units 00:12 03:33 06:00 WBC 12.7 H (3.8-10.6) k/uL RBC 2.28 L (4.30-5.90) m/uL Hgb 7.4 L (13.0-17.5) gm/dL Hct 22.6 L (39.0-53.0) % RDW 16.3 H (11.5-15.5) % Plt Count 138 L (150-450) k/uL PT (9.0-12.0) sec POC Glucose (mg/dL) 103 H 109 H (75-99) mg/dL Lactate Dehydrogenase (313-618) U/L Total Protein (6.3-8.2) g/dL 09/22/16 09/22/16 09/22/16 Range/Units 06:00 06:00 06:40 WBC (3.8-10.6) k/uL RBC (4.30-5.90) m/uL Hgb (13.0-17.5) gm/dL Hct (39.0-53.0) % RDW (11.5-15.5) % Plt Count (150-450) k/uL PT 13.7 H (9.0-12.0) sec POC Glucose (mg/dL) 111 H (75-99) mg/dL Lactate Dehydrogenase 1167 H (313-618) U/L Total Protein 5.1 L (6.3-8.2) g/dL 09/22/16 Range/Units 11:47 WBC (3.8-10.6) k/uL RBC (4.30-5.90) m/uL Hgb (13.0-17.5) gm/dL Hct (39.0-53.0) % RDW (11.5-15.5) % Plt Count (150-450) k/uL PT (9.0-12.0) sec POC Glucose (mg/dL) 109 H (75-99) mg/dL Lactate Dehydrogenase (313-618) U/L Total Protein (6.3-8.2) g/dL Microbiology - Last 24 Hours (Table) 09/20/16 16:13 Gram Stain - Preliminary Sputum Sputum Culture - Preliminary Margot albicans Assessment and Plan Plan: Impression: 1. Severe bicuspid aortic valve stenosis, symptomatic, status post aortic valve replacement using a mechanical valve on 09/18/2016. 2. Coronary artery disease with myocardial infarction in July 2016 with stenting to the distal LAD. 3. History of hyperlipidemia. 4. History of TIA. 5. History of bronchitis. 6. Nicotine dependence. 7. Mild to moderate COPD with an FEV1 of 69% of predicted at baseline. 11. Right apical scar/nodule, follow-up in outpatient setting. 12. Thrombocytopenia. Platelet count 96. 13. Acute hypoxic respiratory failure. Patient is currently on 7 L nasal cannula with oxygen saturation of 95%. Chest x-ray with bilateral pleural effusions patient status post right thoracentesis on 09/22/2016. 14. Acute blood loss anemia suspect secondary to blood loss from surgery. Hemoglobin is 7.4. 15. Leukocytosis with preliminary sputum culture positive for Margot albicans. Will refer antibiotic choice to pulmonology and surgery service. Plan: 1. Continue surgical management by cardiothoracic service. Continue current medications. Continue to follow with cardiology and pulmonology service. Continue GI and DVT prophylaxis. Continue supportive treatment and pain management. Continue incentive spirometry 10 times an hour while awake. Increase activity as tolerated. The above impression and plan have been discussed and directed by Dr. Haas. Hailey CARDOSO acting as scribe for Dr. Haas.
--- NOTE | 2016-09-22 13:10 | P.PN ---
Subjective Principal diagnosis: Severe aortic stenosis with heavily calcified bicuspid aortic valve and coronary artery disease. This is a very pleasant 46-year-old gentleman who follows with Dr. Haas as his primary care physician. He has a history of TIA, coronary artery disease with recent stent placement to the LAD. He has preserved left ventricular systolic function with estimated ejection fraction 45-50%. He was also found to have significant bicuspid aortic valve stenosis and the plan is for aortic valve replacement. He states he has known about heart murmur for approximately 3 years now. He does have a 30+ pack per day smoking history up to as many as 3 packs per day at one point. He has not been seen by a explosives worker in the past but was scheduled to be seen in our office 09/21/2016 for preop evaluation prior to his aortic valve replacement. He is not on oxygen nor any inhalers in the outpatient setting. He was recently treated for what he felt was bronchitis with a Tri-Terry of azithromycin 500 mg daily 3 days. He presented here to the emergency room yesterday with complaints of chest tingling and numbness. He states he did have some anxiety secondary to recent cardiac event. He is seen today in the end emergency room still. He is awake and alert in no acute distress. He denies any chest pain, palpitations, lightheadedness or dizziness. No shortness of breath, cough or congestion. His chest x-ray did reveal some pulmonary venous hypertension and mild congestion. His proBNP level was 6510. There is a small troponin leak. The plan is performing aortic valve replacement early next week. The patient's Plavix has been on hold and he'll be bridged in the interim. Patient was reevaluated today on 09/22/2016, his postoperative day #4, status post aortic valve replacement. Patient is feeling well, however his chest x- ray continues to show a good sized right-sided pleural effusion, ultrasound was reviewed from this morning, and I went ahead and recommended the right sided thoracentesis I was able to drain about 1400 mL of serosanguineous fluid. Patient remains on a high flow nasal cannula, and we hope after the thoracentesis would be able to titrate his FiO2 down. Patient felt much better after the thoracentesis. Objective - Vital Signs Vital signs: Vital Signs Temp 97.8 F 09/22/16 12:00 Pulse 69 09/22/16 12:00 Resp 16 09/22/16 12:00 BP 101/57 09/22/16 12:00 Pulse Ox 95 09/22/16 12:00 Intake & Output 09/21/16 09/22/16 09/22/16 18:59 06:59 18:59 Intake Total 710 320 120 Output Total 360 2050 1500 Balance 350 -1730 -1380 Weight 78.3 kg 78.3 kg Intake: IV 120 40 Lactated Ringers 1,000 ml 120 40 @ 30 mls/hr IV .Q24H [facility] Rx#:[id number] Intake, IV Titration 100 160 Amount Lactated Ringers 1,000 ml 160 @ 30 mls/hr IV .Q24H [facility] Rx#:[id number] cefTRIAXone 1,000 mg In 100 Sodium Chloride 0.9% 50 ml @ 100 mls/hr IVPB Q24HR [facility] Rx#:[id number] Oral 490 120 120 Output: Urine 360 2050 200 Other 1300 Other: Voiding Method Urinal Urinal Urinal # Voids 1 1 # Bowel Movements 0 0 0 ABP, PAP, CO, CI - Last Documented Arterial Blood Pressure 123/58 Pulmonary Artery Pressure 37/20 Cardiac Output 6 Cardiac Index 3.8 - Exam Physical Exam: Revealed a 46-year-old white male in no form of respiratory distress HEENT:[Neck is supple.] [No neck masses.] [No thyromegaly.] [No JVD. Chest: [Slightly diminished breath sounds at the right base.. Left side is relatively clear.] Cardiac Exam: [Normal S1 and S2, no S3 gallop, 2/6 systolic murmur throughout the precordium. Positive pericardial rub. Abdomen: [Soft, nontender, no megaly, no rebound, no guarding, normal bowel sounds.] Extremities: [No clubbing, no edema, no cyanosis.] Neurological Exam: No gross focal neurologic deficit - Labs CBC & Chem 7: 09/22/16 06:00 09/21/16 04:51 Labs: Abnormal Lab Results - Last 24 Hours (Table) 09/21/16 09/21/16 09/21/16 Range/Units 17:02 18:10 20:39 WBC (3.8-10.6) k/uL RBC (4.30-5.90) m/uL Hgb (13.0-17.5) gm/dL Hct (39.0-53.0) % RDW (11.5-15.5) % Plt Count (150-450) k/uL PT 25.5 H (9.0-12.0) sec POC Glucose (mg/dL) 111 H 104 H (75-99) mg/dL Lactate Dehydrogenase (313-618) U/L Total Protein (6.3-8.2) g/dL 09/22/16 09/22/16 09/22/16 Range/Units 00:12 03:33 06:00 WBC 12.7 H (3.8-10.6) k/uL RBC 2.28 L (4.30-5.90) m/uL Hgb 7.4 L (13.0-17.5) gm/dL Hct 22.6 L (39.0-53.0) % RDW 16.3 H (11.5-15.5) % Plt Count 138 L (150-450) k/uL PT (9.0-12.0) sec POC Glucose (mg/dL) 103 H 109 H (75-99) mg/dL Lactate Dehydrogenase (313-618) U/L Total Protein (6.3-8.2) g/dL 09/22/16 09/22/16 09/22/16 Range/Units 06:00 06:00 06:40 WBC (3.8-10.6) k/uL RBC (4.30-5.90) m/uL Hgb (13.0-17.5) gm/dL Hct (39.0-53.0) % RDW (11.5-15.5) % Plt Count (150-450) k/uL PT 13.7 H (9.0-12.0) sec POC Glucose (mg/dL) 111 H (75-99) mg/dL Lactate Dehydrogenase 1167 H (313-618) U/L Total Protein 5.1 L (6.3-8.2) g/dL 09/22/16 Range/Units 11:47 WBC (3.8-10.6) k/uL RBC (4.30-5.90) m/uL Hgb (13.0-17.5) gm/dL Hct (39.0-53.0) % RDW (11.5-15.5) % Plt Count (150-450) k/uL PT (9.0-12.0) sec POC Glucose (mg/dL) 109 H (75-99) mg/dL Lactate Dehydrogenase (313-618) U/L Total Protein (6.3-8.2) g/dL Microbiology - Last 24 Hours (Table) 09/20/16 16:13 Gram Stain - Preliminary Sputum Sputum Culture - Preliminary Margot albicans Assessment and Plan Plan: Impression: 1 Status post aortic valve replacement, postoperative day #4 2 recent stenting of LAD in July of 2016. 3 history of right apical scarring/nodule will need to have outpatient follow- up. 4 history of TIAs. 5 history of mild to moderate COPD and history of chronic smoking. 6 status post thoracentesis for moderate sized right-sided pleural effusion, 1400 mL of serosanguineous fluid drained from the right pleural space. This was done on 09/22/2016 6 right lower lobe atelectasis, resolved post thoracentesis. Recommendation: Continue bronchodilators, antibiotics continue incentive spirometry, restart Coumadin after thoracentesis. Patient will not require left sided thoracentesis is a lot of the fluid is minimal. We'll continue to follow Time with Patient: Less than 30
--- NOTE | 2016-09-22 15:06 | P.PN ---
Subjective Principal diagnosis: Presyncope This is a pleasant 46-year-old gentleman who is status post aortic valve replacement. He underwent a right-sided thoracentesis today by pulmonary. States his breathing is much improved overall. Continues to have a moderate left-sided pleural effusion. Remaining in normal sinus rhythm. Objective - Vital Signs Vital signs: Vital Signs Temp 97.8 F 09/22/16 12:00 Pulse 69 09/22/16 12:00 Resp 16 09/22/16 12:00 BP 101/57 09/22/16 12:00 Pulse Ox 95 09/22/16 12:00 Intake & Output 09/21/16 09/22/16 09/22/16 18:59 06:59 18:59 Intake Total 710 320 120 Output Total 360 2050 1500 Balance 350 -1730 -1380 Weight 78.3 kg 78.3 kg Intake: IV 120 40 Lactated Ringers 1,000 ml 120 40 @ 30 mls/hr IV .Q24H [facility] Rx#:[id number] Intake, IV Titration 100 160 Amount Lactated Ringers 1,000 ml 160 @ 30 mls/hr IV .Q24H [facility] Rx#:[id number] cefTRIAXone 1,000 mg In 100 Sodium Chloride 0.9% 50 ml @ 100 mls/hr IVPB Q24HR [facility] Rx#:[id number] Oral 490 120 120 Output: Urine 360 2050 200 Other 1300 Other: Voiding Method Urinal Urinal Urinal # Voids 1 1 # Bowel Movements 0 0 0 ABP, PAP, CO, CI - Last Documented Arterial Blood Pressure 123/58 Pulmonary Artery Pressure 37/20 Cardiac Output 6 Cardiac Index 3.8 - Exam PHYSICAL EXAMINATION: HEENT: Head is atraumatic, normocephalic. Pupils equal, round. Neck is supple. There is no elevated jugular venous pressure. HEART EXAMINATION: Heart S1 and S2 systolic murmur and pericardial rub are heard. CHEST EXAMINATION: Lungs are clear to with diminished air entry to the left posterior base. ABDOMEN: Soft, nontender. Bowel sounds are heard. No organomegaly noted. EXTREMITIES: 2+ peripheral pulses with no evidence of peripheral edema and no calf tenderness noted. NEUROLOGIC patient is awake, alert and oriented -3. . - Labs CBC & Chem 7: 09/22/16 06:00 09/21/16 04:51 Labs: Abnormal Lab Results - Last 24 Hours (Table) 09/21/16 09/21/16 09/21/16 Range/Units 17:02 18:10 20:39 WBC (3.8-10.6) k/uL RBC (4.30-5.90) m/uL Hgb (13.0-17.5) gm/dL Hct (39.0-53.0) % RDW (11.5-15.5) % Plt Count (150-450) k/uL PT 25.5 H (9.0-12.0) sec POC Glucose (mg/dL) 111 H 104 H (75-99) mg/dL Lactate Dehydrogenase (313-618) U/L Total Protein (6.3-8.2) g/dL 09/22/16 09/22/16 09/22/16 Range/Units 00:12 03:33 06:00 WBC 12.7 H (3.8-10.6) k/uL RBC 2.28 L (4.30-5.90) m/uL Hgb 7.4 L (13.0-17.5) gm/dL Hct 22.6 L (39.0-53.0) % RDW 16.3 H (11.5-15.5) % Plt Count 138 L (150-450) k/uL PT (9.0-12.0) sec POC Glucose (mg/dL) 103 H 109 H (75-99) mg/dL Lactate Dehydrogenase (313-618) U/L Total Protein (6.3-8.2) g/dL 09/22/16 09/22/16 09/22/16 Range/Units 06:00 06:00 06:40 WBC (3.8-10.6) k/uL RBC (4.30-5.90) m/uL Hgb (13.0-17.5) gm/dL Hct (39.0-53.0) % RDW (11.5-15.5) % Plt Count (150-450) k/uL PT 13.7 H (9.0-12.0) sec POC Glucose (mg/dL) 111 H (75-99) mg/dL Lactate Dehydrogenase 1167 H (313-618) U/L Total Protein 5.1 L (6.3-8.2) g/dL 09/22/16 Range/Units 11:47 WBC (3.8-10.6) k/uL RBC (4.30-5.90) m/uL Hgb (13.0-17.5) gm/dL Hct (39.0-53.0) % RDW (11.5-15.5) % Plt Count (150-450) k/uL PT (9.0-12.0) sec POC Glucose (mg/dL) 109 H (75-99) mg/dL Lactate Dehydrogenase (313-618) U/L Total Protein (6.3-8.2) g/dL Microbiology - Last 24 Hours (Table) 09/20/16 16:13 Gram Stain - Preliminary Sputum Sputum Culture - Preliminary Margot albicans Assessment and Plan (1) Pre-syncope Status: Acute (2) TIA (transient ischemic attack) Status: Acute (3) Hyperlipemia Status: Acute (4) Critical aortic valve stenosis Status: Acute (5) Presence of stent in LAD coronary artery Status: Acute (6) Systolic murmur Status: Acute (7) Tobacco abuse Status: Acute Plan: From cardiology's perspective, we will continue the patient on his current medications. Blood pressure 108/65 heart rate in the 60s today. DNP note has been reviewed, I agree with a documented findings and plan of care. Patient was seen and examined.
[2016-09-22] MEDS: HEPARIN SODIUM,PORCINE 5,000 UNIT/ML 1 ML VIAL SQ SCH (15:34)
[2016-09-22 16:26] LABS: RBC, Body Fluid 83300 /uL
[2016-09-22 16:52] LABS: Glucose,Whole Blood 112 mg/dL (75-99)
[2016-09-22] MEDS ORDERED: WARFARIN 3 MG TAB PO ONE (18:00)
--- NOTE | 2016-09-22 20:20 | PCN ---
DATE OF PROCEDURE: PROCEDURE: Right-sided thoracentesis. PREOPERATIVE DIAGNOSIS: Right-sided pleural effusion. POSTOPERATIVE DIAGNOSIS: Right-sided pleural effusion. ANESTHESIA USED: 2 mL of 1% lidocaine. DESCRIPTION OF PROCEDURE: Patient was placed in a sitting upright position. The fluid was earlier localized by ultrasound guidance. The area below the right scapula where the marking was placed by the mechanics supervisor was prepared in a sterile fashion and drapes were applied. That correlated to the level of the eighth intercostal space and tip of the scapula. After adequate local anesthesia applied, using lidocaine, 26-gauge needle was inserted at the same site, advanced into the pleural space and the fluid was obtained. Fluid was serosanguineous. Then a standard thoracentesis catheter and needle were used. Inserted at the same site, advanced into the pleural space, and once the fluid was obtained, the catheter was advanced out of the needle and the needle was pulled out of the pleural space. Freely flowing fluid was removed. Roughly 1400 mL of serosanguineous fluid was drained from the right pleural space. Procedure was well tolerated. No evidence of any immediate complications. Fluid was sent for different diagnostic studies. Chest x-ray showed no evidence of pneumothorax.
[2016-09-22] MEDS: SENNOSIDES-DOCUSATE SODIUM 1 EACH TAB PO SCH (21:36)
[2016-09-22 21:40] LABS: Glucose,Whole Blood 112 mg/dL (75-99)
[2016-09-23] MEDS: HEPARIN SODIUM,PORCINE 5,000 UNIT/ML 1 ML VIAL SQ SCH ×3 (00:52→16:33)
[2016-09-23] MEDS: HYDROcodone/APAP 5-325MG 1 EACH TAB PO PRN ×2 (01:48→10:05)
[2016-09-23] MEDS: INSULIN LISPRO (humaLOG) 300 UNIT/3 ML VIAL SQ SCH ×7 (01:59→21:38)
[2016-09-23 03:38] LABS: Glucose,Whole Blood 109 mg/dL (75-99)
[2016-09-23 06:46] LABS: INR 1.5 (<1.1); Prothrombin Time 14.4 sec (9.0-12.0)
[2016-09-23 06:47] LABS: ALT 73 U/L (21-72); AST 55 U/L (17-59); Alkaline Phosphatase 53 U/L (38-126); Anion Gap 9 mmol/L; Blood Urea Nitrogen 16 mg/dL (9-20); Calcium 7.8 mg/dL (8.4-10.2); Carbon Dioxide 26 mmol/L (22-30); Chloride 100 mmol/L (98-107); Glucose 93 mg/dL (74-99); Non-African American GFR(MDRD) >60 (>60 ml/min/1.73 sqM); Potassium 3.8 mmol/L (3.5-5.1); Sodium 135 mmol/L (137-145); Total Bilirubin 0.7 mg/dL (0.2-1.3); Total Protein 5.4 g/dL (6.3-8.2)
[2016-09-23 06:49] LABS: Anisocytosis Slight; Basophils # (A) 0.1 k/uL (0-0.2); Basophils % (A) 1 %; CH 32.3; CHCM 32.7; Eosinophils # (A) 0.1 k/uL (0-0.7); Eosinophils % (A) 1 %; HCT 23.7 % (39.0-53.0); HDW 3.54; HGB 7.8 gm/dL (13.0-17.5); Hypochromasia Slight; Luc # (Auto) 0.22; Luc % (Auto) 2; Lymphocytes # (A) 1.9 k/uL (1.0-4.8); Lymphocytes % (A) 18 %; MCH 32.9 pg (25.0-35.0); MCHC 32.9 g/dL (31.0-37.0); MCV 100.1 fL (80.0-100.0); Macrocytosis Slight; Mean Platelet Volume 9.4; Monocytes # (A) 0.9 k/uL (0-1.0); Monocytes % (A) 9 %; Neutrophils # (A) 7.2 k/uL (1.3-7.7); Neutrophils % (A) 69 %; Poikilocytosis Slight; RBC 2.37 m/uL (4.30-5.90); RDW 16.6 % (11.5-15.5); WBC 10.4 k/uL (3.8-10.6); WBC (Perox) 11.06
[2016-09-23 06:58] LABS: Glucose,Whole Blood 106 mg/dL (75-99)
[2016-09-23] MEDS: PANTOPRAZOLE 40 MG TABLET PO SCH (07:00)
[2016-09-23] MEDS: IPRATROPIUM-ALBUTEROL 3 ML NEB INHALATION SCH ×4 (09:03→20:44)
--- NOTE | 2016-09-23 09:55 | P.PN ---
<Kaushal Wilhelm T - Last Filed: 09/23/16 09:44> Progress Note - Text CV Surgery Nursing POD: #5, aortic valve replacement using a 22 mm [employer] mechanical valve, exclusion of left atrial appendage using a 35 mm AtriCure clip Patient awake and alert, no distress noted, no specific complaints. Patient states that he is having much less shortness of breath since thoracentesis yesterday. Vital Signs: Afebrile, T-max 97.4F Vital Signs - 24 hr 09/22/16 09/22/16 09/22/16 11:16 11:19 11:30 Temperature Pulse Rate Pulse Rate [ 71 69 Medical Bill Processor ] Pulse Rate [ 69 Pulse Oximetery ] Respiratory Rate Blood Pressure 94/51 [Left Arm] Blood Pressure 119/66 108/65 [Right Arm] O2 Sat by Pulse 97 97 Oximetry 09/22/16 09/22/16 09/22/16 12:00 15:28 16:29 Temperature 97.8 F 99.0 F Pulse Rate 72 Pulse Rate [ Medical Bill Processor ] Pulse Rate [ 69 74 Pulse Oximetery ] Respiratory 16 20 Rate Blood Pressure [Left Arm] Blood Pressure 101/57 94/55 [Right Arm] O2 Sat by Pulse 95 94 L Oximetry 09/22/16 09/22/16 09/22/16 16:42 20:00 20:38 Temperature 98.8 F Pulse Rate 72 70 Pulse Rate [ 75 Medical Bill Processor ] Pulse Rate [ 87 Pulse Oximetery ] Respiratory 19 Rate Blood Pressure [Left Arm] Blood Pressure 121/61 [Right Arm] O2 Sat by Pulse 93 L Oximetry 09/22/16 09/23/16 09/23/16 20:53 00:00 04:00 Temperature 97.6 F 97.4 F L Pulse Rate 74 Pulse Rate [ 75 68 Medical Bill Processor ] Pulse Rate [ 75 71 Pulse Oximetery ] Respiratory 17 16 Rate Blood Pressure [Left Arm] Blood Pressure 108/60 98/56 [Right Arm] O2 Sat by Pulse 95 95 Oximetry Labs: Short CBC 09/23/16 Range/Units 05:55 WBC 10.4 (3.8-10.6) k/uL Hgb 7.8 L (13.0-17.5) gm/dL Hct 23.7 L (39.0-53.0) % Plt Count 201 (150-450) k/uL Neutrophils # 7.2 (1.3-7.7) k/uL BMP 09/23/16 05:55 Sodium 135 L Potassium 3.8 Chloride 100 Carbon Dioxide 26 BUN 16 Creatinine 0.85 Glucose 93 Calcium 7.8 L Liver Function 09/23/16 Range/Units 05:55 Total Bilirubin 0.7 (0.2-1.3) mg/dL AST 55 (17-59) U/L ALT 73 H (21-72) U/L Alkaline Phosphatase 53 (38-126) U/L Albumin 3.1 L (3.5-5.0) g/dL Lungs: Respirations are even and nonlabored, breath sounds slightly diminished bilateral bases O2 sat: 98% on 5 L of oxygen delivered via nasal cannula I/S: 6797-5174 mL, patient gave return demonstration of proper use of the incentive spirometer and states that he has been making regular use of it. Heart: S1S2, regular rate and rhythm, portable telemetry shows a normal sinus rhythm with a rate of about 70. Sternum stable, chest incision clean with silverlon dressing clean and dry. Abdomen: Soft, Positive bowel sounds present in all 4 quadrants. CBGs: 106-112 mg/dL U/O: Patient is voiding adequate amounts of urine Intake & Output 09/21/16 09/22/16 09/23/16 09/24/16 06:59 06:59 06:59 06:59 Intake Total 2136.157 6944 900 Output Total 1265 2410 4000 Balance -142.469 -1380 -3100 Weight 78.3 kg 78.3 kg 73.9 kg Active Medications Acetaminophen/Hydrocodone Bitart ([place] 5-325) 2 each PO Q4HR PRN PRN Reason: Severe Pain Last Admin: 09/23/16 01:48 Dose: 2 each Acetaminophen/Hydrocodone Bitart ([place] 5-325) 1 each PO Q4HR PRN PRN Reason: Moderate Pain Last Admin: 09/20/16 00:37 Dose: 1 each Albuterol/Ipratropium (Duoneb 0.5 Mg-3 Mg/3 Ml Soln) 3 ml INHALATION RT-QID [facility] Last Admin: 09/23/16 09:03 Dose: Not Given Amiodarone HCl (Cordarone) 400 mg PO BID [facility] Last Admin: 09/22/16 21:40 Dose: 400 mg Aspirin (Aspirin) 81 mg PO DAILY [facility] Last Admin: 09/22/16 08:41 Dose: 81 mg Atorvastatin Calcium (Lipitor) 40 mg PO DAILY [facility] Last Admin: 09/22/16 08:42 Dose: 40 mg Benzocaine/Menthol (Cepacol Lozenge) 1 each MUCOUS MEM Q2H PRN PRN Reason: Sore Throat Last Admin: 09/21/16 20:34 Dose: 1 each Bisacodyl (Dulcolax) 10 mg RECTAL DAILY PRN PRN Reason: Constipation Last Admin: 09/22/16 18:59 Dose: 10 mg Clopidogrel Bisulfate (Plavix) 75 mg PO DAILY [facility] Last Admin: 09/22/16 08:42 Dose: 75 mg Ferrous Sulfate (Feosol) 325 mg PO W/LUNCH [facility] Heparin Sodium (Porcine) (Heparin) 5,000 unit SQ Q8HR [facility] Last Admin: 09/23/16 00:52 Dose: 5,000 unit Ceftriaxone Sodium 1,000 mg/ (Sodium Chloride) 50 mls @ 100 mls/hr IVPB Q24HR [facility] Last Admin: 09/22/16 09:59 Dose: 100 mls/hr Insulin Human Lispro (Humalog) 0 unit SQ Q4H [facility] PRN Reason: Protocol Last Admin: 09/23/16 06:19 Dose: Not Given Magnesium Hydroxide (Milk Of Magnesia) 2,400 mg PO BID PRN PRN Reason: Constipation Last Admin: 09/22/16 09:59 Dose: 2,400 mg Metoprolol Tartrate (Lopressor) 25 mg PO BID [facility] Last Admin: 09/22/16 21:40 Dose: 25 mg Ondansetron HCl (Zofran) 4 mg IVP Q6HR PRN PRN Reason: Nausea And Vomiting Last Admin: 09/19/16 02:35 Dose: 4 mg Pantoprazole Sodium (Protonix) 40 mg PO AC-BRKFST [facility] Last Admin: 09/23/16 07:00 Dose: 40 mg Senna/Docusate Sodium (Senokot-S) 2 each PO HS [facility] Last Admin: 09/22/16 21:36 Dose: Not Given Sodium Chloride (Saline Flush) 10 ml IV Q12HR [facility] Last Admin: 09/22/16 21:45 Dose: 10 ml Warfarin Sodium (Coumadin) 4 mg PO ONCE@1800 ONE Stop: 09/23/16 18:01 Plan: Status post aortic valve replacement day #5, status post thoracentesis day #1 Respiratory status improved-continue to wean O2 as tolerated. INR remains subtherapeutic at 1.5-will continue gentle anticoagulation with 4 mg Coumadin today. Continue aggressive pulmonary toilet using incentive spirometry, coughing and deep breathing, inhalation treatments per respiratory therapy. Continue to increase activity. Hopefully home in 1-2 days. <Albino Hoyt - Last Filed: 09/23/16 12:53> Progress Note - Text The patient was seen and examined. Agree with above assessment and plan. Overall he is doing quite well. He is breathing easier following his recent thoracentesis. He remains on 5 L of nasal cannula supplement oxygen which we will wean today. His INR today is 1.5. He will be administered 4 mg of Coumadin this evening. He will continue with ambulation as tolerated. He will likely be discharged home within the next several days.
[2016-09-23] MEDS: ASPIRIN 81 MG CHEW PO SCH (10:07)
[2016-09-23] MEDS: AMIODARONE 200 MG TAB PO SCH ×2 (10:07→21:38)
[2016-09-23] MEDS: CLOPIDOGREL 75 MG TAB PO SCH (10:07)
[2016-09-23] MEDS: METOPROLOL TARTRATE 25 MG TAB PO SCH ×2 (10:07→21:38)
[2016-09-23] MEDS: ATORVASTATIN 40 MG TAB PO SCH (10:07)
[2016-09-23 10:21] VITALS: RESP 18
--- NOTE | 2016-09-23 10:37 | XR ---
EXAMINATION TYPE: XR chest 1V portable DATE OF EXAM: 09/23/2016 10:33 AM COMPARISON: NONE INDICATION: Pleural effusions TECHNIQUE: Single frontal view of the chest is obtained. FINDINGS: The heart size is normal. The pulmonary vasculature is normal. Small left pleural effusion is present. Some atelectasis may be at the right base. Sternotomy wires a re present. IMPRESSION: 1. Small left pleural effusion. 2. Atelectasis right base. Minimal right pleural effusion is not excluded.
--- NOTE | 2016-09-23 11:44 | P.PN ---
Subjective Principal diagnosis: Severe aortic stenosis with heavily calcified bicuspid aortic valve and coronary artery disease. This is a very pleasant 46-year-old gentleman who follows with Dr. Haas as his primary care physician. He has a history of TIA, coronary artery disease with recent stent placement to the LAD. He has preserved left ventricular systolic function with estimated ejection fraction 45-50%. He was also found to have significant bicuspid aortic valve stenosis and the plan is for aortic valve replacement. He states he has known about heart murmur for approximately 3 years now. He does have a 30+ pack per day smoking history up to as many as 3 packs per day at one point. 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 He is not on oxygen nor any inhalers in the outpatient setting. He was recently treated for what he felt was bronchitis with a Tri-Terry of azithromycin 500 mg daily 3 days. He presented here to the emergency room yesterday with complaints of chest tingling and numbness. He states he did have some anxiety secondary to recent cardiac event. He is seen today in the end emergency room still. He is awake and alert in no acute distress. He denies any chest pain, palpitations, lightheadedness or dizziness. No shortness of breath, cough or congestion. His chest x-ray did reveal some pulmonary venous hypertension and mild congestion. His proBNP level was 6510. There is a small troponin leak. The plan is performing aortic valve replacement early next week. The patient's Plavix has been on hold and he'll be bridged in the interim. Patient was reevaluated today on 09/22/2016, his postoperative day #4, status post aortic valve replacement. Patient is feeling well, however his chest x- ray continues to show a good sized right-sided pleural effusion, ultrasound was reviewed from this morning, and I went ahead and recommended the right sided thoracentesis I was able to drain about 1400 mL of serosanguineous fluid. Patient remains on a high flow nasal cannula, and we hope after the thoracentesis would be able to titrate his FiO2 down. Patient felt much better after the thoracentesis. Patient was reevaluated today on 09/23/2016, his postoperative day #5, status post aortic valve replacement, patient is doing well, asymptomatic, no cough no wheezing no shortness of breath, and his chest x-ray is definitely reassuring and much improved since he had his thoracentesis yesterday. Continues to have a small left pleural effusion and atelectasis at the right base. Objective - Vital Signs Vital signs: Vital Signs Temp 98.6 F 09/23/16 08:00 Pulse 73 09/23/16 08:00 Resp 18 09/23/16 08:00 BP 107/58 09/23/16 08:00 Pulse Ox 98 09/23/16 08:00 Intake & Output 09/22/16 09/23/16 09/23/16 18:59 06:59 18:59 Intake Total 480 420 Output Total 2600 1400 Balance -0 -980 Weight 73.9 kg Intake: IV 0 Lactated Ringers 1,000 ml 0 @ 30 mls/hr IV .Q24H ZOILA Rx#:[id number] Oral 480 420 Output: Urine 1300 1400 Other 1300 Other: Voiding Method Urinal Urinal # Voids 2 # Bowel Movements 0 1 ABP, PAP, CO, CI - Last Documented Arterial Blood Pressure 123/58 Pulmonary Artery Pressure 37/20 Cardiac Output 6 Cardiac Index 3.8 - Exam Physical Exam: Revealed a 46-year-old white male in no form of respiratory distress HEENT:[Neck is supple.] [No neck masses.] [No thyromegaly.] [No JVD. Chest: [Good breath sounds bilaterally, no rhonchi, no wheezes..] Cardiac Exam: [Normal S1 and S2, no S3 gallop, 2/6 systolic murmur throughout the precordium. Positive pericardial rub. Abdomen: [Soft, nontender, no megaly, no rebound, no guarding, normal bowel sounds.] Extremities: [No clubbing, no edema, no cyanosis.] Neurological Exam: No gross focal neurologic deficit - Labs CBC & Chem 7: 09/23/16 05:55 09/23/16 05:55 Labs: Abnormal Lab Results - Last 24 Hours (Table) 09/22/16 09/22/16 09/22/16 Range/Units 06:00 11:47 16:43 RBC (4.30-5.90) m/uL Hgb (13.0-17.5) gm/dL Hct (39.0-53.0) % MCV (80.0-100.0) fL RDW (11.5-15.5) % PT (9.0-12.0) sec Sodium (137-145) mmol/L POC Glucose (mg/dL) 109 H 112 H (75-99) mg/dL Calcium (8.4-10.2) mg/dL ALT (21-72) U/L Lactate Dehydrogenase 1167 H (313-618) U/L Total Protein 5.1 L (6.3-8.2) g/dL Albumin (3.5-5.0) g/dL 09/22/16 09/23/16 09/23/16 Range/Units 21:06 03:26 05:55 RBC 2.37 L (4.30-5.90) m/uL Hgb 7.8 L (13.0-17.5) gm/dL Hct 23.7 L (39.0-53.0) % MCV 100.1 H (80.0-100.0) fL RDW 16.6 H (11.5-15.5) % PT (9.0-12.0) sec Sodium (137-145) mmol/L POC Glucose (mg/dL) 112 H 109 H (75-99) mg/dL Calcium (8.4-10.2) mg/dL ALT (21-72) U/L Lactate Dehydrogenase (313-618) U/L Total Protein (6.3-8.2) g/dL Albumin (3.5-5.0) g/dL 09/23/16 09/23/16 09/23/16 Range/Units 05:55 05:55 06:53 RBC (4.30-5.90) m/uL Hgb (13.0-17.5) gm/dL Hct (39.0-53.0) % MCV (80.0-100.0) fL RDW (11.5-15.5) % PT 14.4 H (9.0-12.0) sec Sodium 135 L (137-145) mmol/L POC Glucose (mg/dL) 106 H (75-99) mg/dL Calcium 7.8 L (8.4-10.2) mg/dL ALT 73 H (21-72) U/L Lactate Dehydrogenase (313-618) U/L Total Protein 5.4 L (6.3-8.2) g/dL Albumin 3.1 L (3.5-5.0) g/dL Microbiology - Last 24 Hours (Table) 09/22/16 10:45 Gram Stain - Preliminary Thoracic Fluid Body Fluid Culture - Preliminary 09/20/16 16:13 Gram Stain - Final Sputum Sputum Culture - Final Margot albicans Assessment and Plan Plan: Impression: 1 Status post aortic valve replacement, postoperative day #4 2 recent stenting of LAD in July of 2016. 3 history of right apical scarring/nodule will need to have outpatient follow- up. 4 history of TIAs. 5 history of mild to moderate COPD and history of chronic smoking. 6 status post thoracentesis for moderate sized right-sided pleural effusion, 1400 mL of serosanguineous fluid drained from the right pleural space. This was done on 09/22/2016 6 right lower lobe atelectasis, resolved post thoracentesis. Recommendation: Continue bronchodilators, antibiotics continue incentive spirometry, restart Coumadin after thoracentesis. Patient will not require left sided thoracentesis is a lot of the fluid is minimal. We'll continue to follow
[2016-09-23 11:53] LABS: Glucose,Whole Blood 121 mg/dL (75-99)
--- NOTE | 2016-09-23 11:55 | P.PN ---
Subjective Principal diagnosis: Presyncope This is a pleasant 46-year-old gentleman who is status post aortic valve replacement. He underwent a right-sided thoracentesis yesterday by pulmonary. States his breathing is much improved overall. Was noted on the monitor to have a run of atrial tachycardia. In normal sinus rhythm this morning. Back on Coumadin. Objective - Vital Signs Vital signs: Vital Signs Temp 98.6 F 09/23/16 08:00 Pulse 73 09/23/16 08:00 Resp 18 09/23/16 08:00 BP 107/58 09/23/16 08:00 Pulse Ox 98 09/23/16 08:00 Intake & Output 09/22/16 09/23/16 09/23/16 18:59 06:59 18:59 Intake Total 480 420 Output Total 2600 1400 Balance -2120 -980 Weight 73.9 kg Intake: IV 0 Lactated Ringers 1,000 ml 0 @ 30 mls/hr IV .Q24H [facility]A Rx#:[id number] Oral 480 420 Output: Urine 1300 1400 Other 1300 Other: Voiding Method Urinal Urinal # Voids 2 # Bowel Movements 0 1 ABP, PAP, CO, CI - Last Documented Arterial Blood Pressure 123/58 Pulmonary Artery Pressure 37/20 Cardiac Output 6 Cardiac Index 3.8 - Exam PHYSICAL EXAMINATION: HEENT: Head is atraumatic, normocephalic. Pupils equal, round. Neck is supple. There is no elevated jugular venous pressure. HEART EXAMINATION: Heart S1 and S2 systolic murmur and pericardial rub are heard. CHEST EXAMINATION: Lungs are clear to with diminished air entry to the left posterior base. ABDOMEN: Soft, nontender. Bowel sounds are heard. No organomegaly noted. EXTREMITIES: 2+ peripheral pulses with no evidence of peripheral edema and no calf tenderness noted. NEUROLOGIC patient is awake, alert and oriented -3. . - Labs CBC & Chem 7: 09/23/16 05:55 09/23/16 05:55 Labs: Abnormal Lab Results - Last 24 Hours (Table) 09/22/16 09/22/16 09/22/16 Range/Units 06:00 11:47 16:43 RBC (4.30-5.90) m/uL Hgb (13.0-17.5) gm/dL Hct (39.0-53.0) % MCV (80.0-100.0) fL RDW (11.5-15.5) % PT (9.0-12.0) sec Sodium (137-145) mmol/L POC Glucose (mg/dL) 109 H 112 H (75-99) mg/dL Calcium (8.4-10.2) mg/dL ALT (21-72) U/L Lactate Dehydrogenase 1167 H (313-618) U/L Total Protein 5.1 L (6.3-8.2) g/dL Albumin (3.5-5.0) g/dL 09/22/16 09/23/16 09/23/16 Range/Units 21:06 03:26 05:55 RBC 2.37 L (4.30-5.90) m/uL Hgb 7.8 L (13.0-17.5) gm/dL Hct 23.7 L (39.0-53.0) % MCV 100.1 H (80.0-100.0) fL RDW 16.6 H (11.5-15.5) % PT (9.0-12.0) sec Sodium (137-145) mmol/L POC Glucose (mg/dL) 112 H 109 H (75-99) mg/dL Calcium (8.4-10.2) mg/dL ALT (21-72) U/L Lactate Dehydrogenase (313-618) U/L Total Protein (6.3-8.2) g/dL Albumin (3.5-5.0) g/dL 09/23/16 09/23/16 09/23/16 Range/Units 05:55 05:55 06:53 RBC (4.30-5.90) m/uL Hgb (13.0-17.5) gm/dL Hct (39.0-53.0) % MCV (80.0-100.0) fL RDW (11.5-15.5) % PT 14.4 H (9.0-12.0) sec Sodium 135 L (137-145) mmol/L POC Glucose (mg/dL) 106 H (75-99) mg/dL Calcium 7.8 L (8.4-10.2) mg/dL ALT 73 H (21-72) U/L Lactate Dehydrogenase (313-618) U/L Total Protein 5.4 L (6.3-8.2) g/dL Albumin 3.1 L (3.5-5.0) g/dL 09/23/16 Range/Units 11:38 RBC (4.30-5.90) m/uL Hgb (13.0-17.5) gm/dL Hct (39.0-53.0) % MCV (80.0-100.0) fL RDW (11.5-15.5) % PT (9.0-12.0) sec Sodium (137-145) mmol/L POC Glucose (mg/dL) 121 H (75-99) mg/dL Calcium (8.4-10.2) mg/dL ALT (21-72) U/L Lactate Dehydrogenase (313-618) U/L Total Protein (6.3-8.2) g/dL Albumin (3.5-5.0) g/dL Microbiology - Last 24 Hours (Table) 09/22/16 10:45 Gram Stain - Preliminary Thoracic Fluid Body Fluid Culture - Preliminary 09/20/16 16:13 Gram Stain - Final Sputum Sputum Culture - Final Margot albicans Assessment and Plan (1) Pre-syncope Status: Acute (2) TIA (transient ischemic attack) Status: Acute (3) Hyperlipemia Status: Acute (4) Critical aortic valve stenosis Status: Acute (5) Presence of stent in LAD coronary artery Status: Acute (6) Systolic murmur Status: Acute (7) Tobacco abuse Status: Acute Plan: From cardiology's perspective, we will continue the patient on his current medications. Hemodynamically stable. DNP note has been reviewed, I agree with a documented findings and plan of care. Patient was seen and examined.
[2016-09-23] MEDS: FERROUS SULFATE 325 MG TAB PO SCH (13:05)
[2016-09-23 17:10] LABS: Glucose,Whole Blood 128 mg/dL (75-99)
[2016-09-23] MEDS ORDERED: WARFARIN 2 MG TAB PO ONE (18:00)
[2016-09-23 21:00] LABS: Glucose,Whole Blood 108 mg/dL (75-99)
[2016-09-23] MEDS: SENNOSIDES-DOCUSATE SODIUM 1 EACH TAB PO SCH (21:45)
[2016-09-24] MEDS: HYDROcodone/APAP 5-325MG 1 EACH TAB PO PRN (00:06)
[2016-09-24] MEDS: HEPARIN SODIUM,PORCINE 5,000 UNIT/ML 1 ML VIAL SQ SCH ×2 (00:06→08:17)
[2016-09-24 06:01] LABS: Glucose,Whole Blood 99 mg/dL (75-99)
[2016-09-24 06:33] LABS: Anisocytosis Slight; Basophils % (A) 0 %; CH 32.1; CHCM 32.6; Eosinophils # (A) 0.1 k/uL (0-0.7); Eosinophils % (A) 1 %; HCT 23.4 % (39.0-53.0); HDW 3.93; HGB 7.4 gm/dL (13.0-17.5); Hypochromasia Slight; Luc # (Auto) 0.21; Luc % (Auto) 2; Lymphocytes # (A) 1.9 k/uL (1.0-4.8); Lymphocytes % (A) 21 %; MCH 31.6 pg (25.0-35.0); MCHC 31.7 g/dL (31.0-37.0); MCV 99.7 fL (80.0-100.0); Macrocytosis Slight; Mean Platelet Volume 8.5; Monocytes # (A) 0.7 k/uL (0-1.0); Monocytes % (A) 8 %; Neutrophils % (A) 67 %; Poikilocytosis Slight; RBC 2.34 m/uL (4.30-5.90); WBC (Perox) 9.42
[2016-09-24 06:34] LABS: INR 2.6 (<1.1); Prothrombin Time 25.4 sec (9.0-12.0)
[2016-09-24 06:43] LABS: ALT 81 U/L (21-72); AST 49 U/L (17-59); Alkaline Phosphatase 48 U/L (38-126); Anion Gap 9 mmol/L; Blood Urea Nitrogen 12 mg/dL (9-20); Calcium 7.8 mg/dL (8.4-10.2); Carbon Dioxide 24 mmol/L (22-30); Chloride 104 mmol/L (98-107); Glucose 92 mg/dL (74-99); Non-African American GFR(MDRD) >60 (>60 ml/min/1.73 sqM); Potassium 3.6 mmol/L (3.5-5.1); Sodium 137 mmol/L (137-145); Total Bilirubin 0.6 mg/dL (0.2-1.3); Total Protein 5.1 g/dL (6.3-8.2)
[2016-09-24] MEDS: PANTOPRAZOLE 40 MG TABLET PO SCH (06:54)
[2016-09-24] MEDS: INSULIN LISPRO (humaLOG) 300 UNIT/3 ML VIAL SQ SCH ×4 (06:54→21:20)
[2016-09-24] MEDS: ASPIRIN 81 MG CHEW PO SCH (08:25)
[2016-09-24] MEDS: AMIODARONE 200 MG TAB PO SCH ×2 (08:25→20:29)
[2016-09-24] MEDS: CLOPIDOGREL 75 MG TAB PO SCH (08:25)
[2016-09-24] MEDS: METOPROLOL TARTRATE 25 MG TAB PO SCH ×2 (08:25→20:29)
[2016-09-24] MEDS: ATORVASTATIN 40 MG TAB PO SCH (08:25)
--- NOTE | 2016-09-24 09:09 | PN ---
DATE OF SERVICE: 09/23/2016 This 46-year-old gentleman who underwent cardiac surgery is improving significantly. No chest pain, no palpitations. No fever. PT-INR is also being adjusted. On exam, alert and oriented x3. Pulse 71, blood pressure 98/56, respirations 16, temperature 97.4, pulse ox 90% on 5-L. HEENT: Conjunctivae normal. NECK: No jugular venous distention. CARDIOVASCULAR: S1 and S2, muffled. RESPIRATORY: Breath sounds diminished at the bases. A few scattered rhonchi. ABDOMEN: Soft, nontender. LEGS: No edema, no swelling. NERVOUS SYSTEM: No focal deficits. LABS: Hemoglobin 7.8. INR 1.5. Otherwise, albumin is 3.1. ASSESSMENT: 1. Severe bicuspid aortic valve stenosis symptomatic, status post aortic valve replacement using mechanical valve. 2. History of coronary artery disease with myocardial infarction in July 2016 with stenting of the distal left anterior descending. 3. History of hyperlipidemia. 4. History of transient ischemic attack. 5. History of bronchitis. 6. History of nicotine dependence. 7. History of mild to moderate chronic obstructive pulmonary disease. 8. Right apical . 9. Thrombocytopenia. 10. Acute hypoxic respiratory failure. 11. Acute blood loss anemia. 12. Leukocytosis. RECOMMENDATIONS AND DISCUSSION: I recommend to continue the current medications, continue monitoring and symptomatic treatment. Otherwise, incentive spirometry. Continue the rest of the medications. Monitor PT and INR closely. Repeat labs. Further recommendations to follow. MTDD
[2016-09-24] MEDS: IPRATROPIUM-ALBUTEROL 3 ML NEB INHALATION SCH ×4 (09:19→20:03)
--- NOTE | 2016-09-24 10:08 | P.PN ---
<Kaushal Wilhelm T - Last Filed: 09/24/16 09:54> Progress Note - Text CV Surgery Nursing POD: # 6, aortic valve replacement using a 22 mm Carbo[employer] mechanical valve, exclusion of left atrial appendage using a 35 mm AtriCure clip Patient awake and alert, no distress noted, no specific complaints. Vital Signs: Afebrile, T-max 98.8F Vital Signs - 24 hr 09/23/16 09/23/16 09/23/16 12:00 16:00 20:00 Temperature 97.0 F L 97.0 F L 98.8 F Pulse Rate [ 74 68 73 Pulse Oximetery ] Respiratory 18 18 18 Rate Blood Pressure 107/55 [Left Arm] Blood Pressure 126/59 111/58 [Right Arm] O2 Sat by Pulse 96 95 95 Oximetry 09/24/16 09/24/16 00:00 04:00 Temperature 97.1 F L Pulse Rate [ 72 68 Pulse Oximetery ] Respiratory 18 18 Rate Blood Pressure 104/58 104/56 [Left Arm] Blood Pressure [Right Arm] O2 Sat by Pulse 92 L 93 L Oximetry Labs: Short CBC 09/24/16 Range/Units 06:14 WBC 9.0 (3.8-10.6) k/uL Hgb 7.4 L (13.0-17.5) gm/dL Hct 23.4 L (39.0-53.0) % Plt Count 244 (150-450) k/uL Neutrophils # 6.0 (1.3-7.7) k/uL BMP 09/24/16 06:14 Sodium 137 Potassium 3.6 Chloride 104 Carbon Dioxide 24 BUN 12 Creatinine 0.80 Glucose 92 Calcium 7.8 L Liver Function 09/24/16 Range/Units 06:14 Total Bilirubin 0.6 (0.2-1.3) mg/dL AST 49 (17-59) U/L ALT 81 H (21-72) U/L Alkaline Phosphatase 48 (38-126) U/L Albumin 2.8 L (3.5-5.0) g/dL Lungs: Respirations are even and nonlabored, breath sounds slightly diminished bilaterally. O2 sat: 93% on 2 L of oxygen delivered via nasal cannula. I/S: 1500 mL, patient gave return demonstration of proper use of the device Heart: S1S2, regular rate and rhythm, portable telemetry shows a normal sinus rhythm at 75 bpm Sternum stable, chest incision clean with silverlon dressing clean and dry. Abdomen: Soft, Positive bowel sounds present in all 4 quadrants. Positive bowel movement yesterday CBGs: 99-128 mg/dL U/O: Patient is voiding adequate amounts of urine without difficulty Intake & Output 09/22/16 09/23/16 09/24/16 09/25/16 06:59 06:59 06:59 06:59 Intake Total 1030 900 180 Output Total 2410 4000 2425 Balance -1380 -3100 -2425 180 Weight 78.3 kg 73.4 kg Active Medications Acetaminophen/Hydrocodone Bitart (Pioneer 5-325) 2 each PO Q4HR PRN PRN Reason: Severe Pain Last Admin: 09/24/16 00:06 Dose: 2 each Acetaminophen/Hydrocodone Bitart (Pioneer 5-325) 1 each PO Q4HR PRN PRN Reason: Moderate Pain Last Admin: 09/20/16 00:37 Dose: 1 each Albuterol/Ipratropium (Duoneb 0.5 Mg-3 Mg/3 Ml Soln) 3 ml INHALATION RT-QID ON LICENSE OF [facility] Last Admin: 09/24/16 09:19 Dose: Not Given Amiodarone HCl (Cordarone) 400 mg PO BID ON LICENSE OF [facility] Last Admin: 09/24/16 08:25 Dose: 400 mg Aspirin (Aspirin) 81 mg PO DAILY ON LICENSE OF [facility] Last Admin: 09/24/16 08:25 Dose: 81 mg Atorvastatin Calcium (Lipitor) 40 mg PO DAILY ON LICENSE OF [facility] Last Admin: 09/24/16 08:25 Dose: 40 mg Benzocaine/Menthol (Cepacol Lozenge) 1 each MUCOUS MEM Q2H PRN PRN Reason: Sore Throat Last Admin: 09/21/16 20:34 Dose: 1 each Bisacodyl (Dulcolax) 10 mg RECTAL DAILY PRN PRN Reason: Constipation Last Admin: 09/22/16 18:59 Dose: 10 mg Clopidogrel Bisulfate (Plavix) 75 mg PO DAILY ON LICENSE OF [facility] Last Admin: 09/24/16 08:25 Dose: 75 mg Ferrous Sulfate (Feosol) 325 mg PO W/LUNCH ON LICENSE OF [facility] Last Admin: 09/23/16 13:05 Dose: 325 mg Furosemide (Lasix) 40 mg PO DAILY ON LICENSE OF [facility] Stop: 09/28/16 09:01 Insulin Human Lispro (Humalog) 0 unit SQ ACHS ON LICENSE OF [facility] PRN Reason: Protocol Last Admin: 09/24/16 06:54 Dose: Not Given Magnesium Hydroxide (Milk Of Magnesia) 2,400 mg PO BID PRN PRN Reason: Constipation Last Admin: 09/22/16 09:59 Dose: 2,400 mg Metoprolol Tartrate (Lopressor) 25 mg PO BID ON LICENSE OF [facility] Last Admin: 09/24/16 08:25 Dose: 25 mg Ondansetron HCl (Zofran) 4 mg IVP Q6HR PRN PRN Reason: Nausea And Vomiting Last Admin: 09/19/16 02:35 Dose: 4 mg Pantoprazole Sodium (Protonix) 40 mg PO AC-BRKFST ON LICENSE OF [facility] Last Admin: 09/24/16 06:54 Dose: 40 mg Potassium Chloride (K-Dur 20) 20 meq PO BID ON LICENSE OF [facility] Stop: 09/27/16 09:46 Senna/Docusate Sodium (Senokot-S) 2 each PO HS ON LICENSE OF [facility] Last Admin: 09/23/16 21:45 Dose: 2 each Sodium Chloride (Saline Flush) 10 ml IV Q12HR ON LICENSE OF [facility] Last Admin: 09/24/16 08:26 Dose: Not Given Warfarin Sodium (Coumadin) 2 mg PO ONCE@1800 ONE Stop: 09/24/16 18:01 Plan: Status post AVR day 6 Good progress INR today is 2.6 Start diuretics today, supplemented potassium Discontinue subq heparin as INR is therapeutic Home soon <Albino Hoyt - Last Filed: 09/24/16 13:30> Progress Note - Text The patient was seen and examined. I agree with the above assessment and plan. Overall he is doing quite well. His INR today is 2.6. We will dose his Coumadin this evening. He is currently off his supplemental oxygen. He was given Lasix this morning. He will likely be discharged home soon.
[2016-09-24] MEDS ORDERED: FUROSEMIDE 40 MG TAB PO SCH (10:19)
[2016-09-24 11:39] LABS: Glucose,Whole Blood 95 mg/dL (75-99)
[2016-09-24] MEDS ORDERED: FUROSEMIDE 40 MG TAB PO STA (11:45)
--- NOTE | 2016-09-24 12:03 | P.PN ---
Subjective Principal diagnosis: Severe aortic stenosis with heavily calcified bicuspid aortic valve and coronary artery disease. This is a very pleasant 46-year-old gentleman who follows with Dr. Haas as his primary care physician. He has a history of TIA, coronary artery disease with recent stent placement to the LAD. He has preserved left ventricular systolic function with estimated ejection fraction 45-50%. He was also found to have significant bicuspid aortic valve stenosis and the plan is for aortic valve replacement. He states he has known about heart murmur for approximately 3 years now. He does have a 30+ pack per day smoking history up to as many as 3 packs per day at one point. He has not been seen by a rewind operator in the past but was scheduled to be seen in our office 09/21/2016 for preop evaluation prior to his aortic valve replacement. He is not on oxygen nor any inhalers in the outpatient setting. He was recently treated for what he felt was bronchitis with a Tri-Terry of azithromycin 500 mg daily 3 days. He presented here to the emergency room yesterday with complaints of chest tingling and numbness. He states he did have some anxiety secondary to recent cardiac event. He is seen today in the end emergency room still. He is awake and alert in no acute distress. He denies any chest pain, palpitations, lightheadedness or dizziness. No shortness of breath, cough or congestion. His chest x-ray did reveal some pulmonary venous hypertension and mild congestion. His proBNP level was 6510. There is a small troponin leak. The plan is performing aortic valve replacement early next week. The patient's Plavix has been on hold and he'll be bridged in the interim. Patient was reevaluated today on 09/22/2016, his postoperative day #4, status post aortic valve replacement. Patient is feeling well, however his chest x- ray continues to show a good sized right-sided pleural effusion, ultrasound was reviewed from this morning, and I went ahead and recommended the right sided thoracentesis I was able to drain about 1400 mL of serosanguineous fluid. Patient remains on a high flow nasal cannula, and we hope after the thoracentesis would be able to titrate his FiO2 down. Patient felt much better after the thoracentesis. Patient was reevaluated today on 09/23/2016, his postoperative day #5, status post aortic valve replacement, patient is doing well, asymptomatic, no cough no wheezing no shortness of breath, and his chest x-ray is definitely reassuring and much improved since he had his thoracentesis yesterday. Continues to have a small left pleural effusion and atelectasis at the right base. Patient was reevaluated today on 09/24/2016, he is postoperative day #6. Status post aortic valve replacement. Patient had a T-max of 98.8, he is doing quite well, relatively asymptomatic. He remains on 2 L nasal cannula, O2 sat is 92%. Patient is therapeutic on omentum, INR is 2.6 and I believe discharge planning is in progress to be possibly in the next 24-48 hours. Objective - Vital Signs Vital signs: Vital Signs Temp 97.1 F L 09/24/16 04:00 Pulse 68 09/24/16 04:00 Resp 18 09/24/16 04:00 BP 104/56 09/24/16 04:00 Pulse Ox 93 L 09/24/16 04:00 Intake & Output 09/23/16 09/24/16 09/24/16 18:59 06:59 18:59 Intake Total 180 Output Total 675 1750 Balance -675 -1750 180 Weight 73.9 kg 73.4 kg Intake: Oral 180 Output: Urine 675 1750 Other: Voiding Method Urinal Toilet Urinal # Voids 0 ABP, PAP, CO, CI - Last Documented Arterial Blood Pressure 123/58 Pulmonary Artery Pressure 37/20 Cardiac Output 6 Cardiac Index 3.8 - Exam Physical Exam: Revealed a 46-year-old white male in no form of respiratory distress HEENT:[Neck is supple.] [No neck masses.] [No thyromegaly.] [No JVD. Chest: [Good breath sounds bilaterally, no rhonchi, no wheezes..] Cardiac Exam: [Normal S1 and S2, no S3 gallop, 2/6 systolic murmur throughout the precordium. Positive pericardial rub. Abdomen: [Soft, nontender, no megaly, no rebound, no guarding, normal bowel sounds.] Extremities: [No clubbing, no edema, no cyanosis.] Neurological Exam: No gross focal neurologic deficit - Labs CBC & Chem 7: 09/24/16 06:14 09/24/16 06:14 Labs: Abnormal Lab Results - Last 24 Hours (Table) 09/23/16 09/23/16 09/24/16 Range/Units 17:05 20:54 06:14 RBC 2.34 L (4.30-5.90) m/uL Hgb 7.4 L (13.0-17.5) gm/dL Hct 23.4 L (39.0-53.0) % RDW 17.0 H (11.5-15.5) % PT (9.0-12.0) sec POC Glucose (mg/dL) 128 H 108 H (75-99) mg/dL Calcium (8.4-10.2) mg/dL ALT (21-72) U/L Total Protein (6.3-8.2) g/dL Albumin (3.5-5.0) g/dL 09/24/16 09/24/16 Range/Units 06:14 06:14 RBC (4.30-5.90) m/uL Hgb (13.0-17.5) gm/dL Hct (39.0-53.0) % RDW (11.5-15.5) % PT 25.4 H (9.0-12.0) sec POC Glucose (mg/dL) (75-99) mg/dL Calcium 7.8 L (8.4-10.2) mg/dL ALT 81 H (21-72) U/L Total Protein 5.1 L (6.3-8.2) g/dL Albumin 2.8 L (3.5-5.0) g/dL Microbiology - Last 24 Hours (Table) 09/22/16 10:45 Gram Stain - Preliminary Thoracic Fluid Body Fluid Culture - Preliminary 09/20/16 16:13 Gram Stain - Final Sputum Sputum Culture - Final Margot albicans Assessment and Plan Plan: Impression: 1 Status post aortic valve replacement, postoperative day #5 2 recent stenting of LAD in July of 2016. 3 history of right apical scarring/nodule will need to have outpatient follow- up. 4 history of TIAs. 5 history of mild to moderate COPD and history of chronic smoking. 6 status post thoracentesis for moderate sized right-sided pleural effusion, 1400 mL of serosanguineous fluid drained from the right pleural space. This was done on 09/22/2016 6 right lower lobe atelectasis, resolved post thoracentesis. Recommendation: Continue bronchodilators, discontinued IV antibiotics, continue incentive spirometry, he started Coumadin after thoracentesis. Patient will not require left sided thoracentesis is a lot of the fluid is minimal. Discharge planning in the next 24-48 hours we'll continue to follow. Time with Patient: Less than 30
[2016-09-24] MEDS: POTASSIUM CHLORIDE ER 20 MEQ TAB.ER PO SCH ×2 (13:26→20:29)
[2016-09-24] MEDS: FERROUS SULFATE 325 MG TAB PO SCH (13:27)
--- NOTE | 2016-09-24 16:59 | P.PN ---
Subjective Patient is doing well. His breathing is a lot better. No chest discomfort he is progressing well Afebrile 98.3, pulse rate 70, respirations 18, blood pressure 102/54 mmHg Breath sounds are reduced bilaterally especially at the bases but no rhonchi no crackles Heart sounds S1 and S2 are soft and normal Abdomen soft Nontender 70s warm no edema Impression Aortic valve replacement Recent stenting of the LAD COPD Pleural effusion status post thoracentesis Plan Continue current medications without any changes and discharge planning Objective - Vital Signs Vital signs: Vital Signs Temp 98.3 F 09/24/16 16:20 Pulse 72 09/24/16 16:20 Resp 18 09/24/16 16:20 BP 102/54 09/24/16 16:20 Pulse Ox 84 L 09/24/16 16:20 Intake & Output 09/23/16 09/24/16 09/24/16 18:59 06:59 18:59 Intake Total 639 Output Total 675 1750 Balance -675 -1750 639 Weight 73.9 kg 73.4 kg Intake: Oral 639 Output: Urine 675 1750 Other: Voiding Method Urinal Toilet Toilet Urinal Urinal # Voids 0 ABP, PAP, CO, CI - Last Documented Arterial Blood Pressure 123/58 Pulmonary Artery Pressure 37/20 Cardiac Output 6 Cardiac Index 3.8 - Labs CBC & Chem 7: 09/24/16 06:14 09/24/16 06:14 Labs: Abnormal Lab Results - Last 24 Hours (Table) 09/23/16 09/23/16 09/24/16 Range/Units 17:05 20:54 06:14 RBC 2.34 L (4.30-5.90) m/uL Hgb 7.4 L (13.0-17.5) gm/dL Hct 23.4 L (39.0-53.0) % RDW 17.0 H (11.5-15.5) % PT (9.0-12.0) sec POC Glucose (mg/dL) 128 H 108 H (75-99) mg/dL Calcium (8.4-10.2) mg/dL ALT (21-72) U/L Total Protein (6.3-8.2) g/dL Albumin (3.5-5.0) g/dL 09/24/16 09/24/16 Range/Units 06:14 06:14 RBC (4.30-5.90) m/uL Hgb (13.0-17.5) gm/dL Hct (39.0-53.0) % RDW (11.5-15.5) % PT 25.4 H (9.0-12.0) sec POC Glucose (mg/dL) (75-99) mg/dL Calcium 7.8 L (8.4-10.2) mg/dL ALT 81 H (21-72) U/L Total Protein 5.1 L (6.3-8.2) g/dL Albumin 2.8 L (3.5-5.0) g/dL Microbiology - Last 24 Hours (Table) 09/22/16 10:45 Gram Stain - Preliminary Thoracic Fluid Body Fluid Culture - Preliminary
[2016-09-24 17:08] LABS: Glucose,Whole Blood 102 mg/dL (75-99)
[2016-09-24] MEDS ORDERED: WARFARIN 2 MG TAB PO ONE (18:00)
[2016-09-24] MEDS: SENNOSIDES-DOCUSATE SODIUM 1 EACH TAB PO SCH (20:46)
[2016-09-24 21:17] LABS: Glucose,Whole Blood 96 mg/dL (75-99)
--- NOTE | 2016-09-24 23:31 | PN ---
DATE OF SERVICE: 09/24/2016 I am covering for Dr. Haas. This 46-year-old gentleman admitted with severe bicuspid aortic valve had aortic valve replacement. The patient is being monitored closely. No chest pain or palpitations. No fever. Hemoglobin most recent is 7.4. On exam, alert, oriented x3. Pulse is 72, blood pressure 102/54, respiration 18, temperature normal, pulse ox 84% on room air. HEENT: Conjunctivae normal. NECK: No JVD. CARDIOVASCULAR: S1 and S2 muffled. LUNGS: Breath sounds are diminished at the bases. Few scattered rhonchi. ABDOMEN: Soft, nontender. EXTREMITIES: Legs no edema. NERVOUS SYSTEM: No focal deficits. LABS: Albumin 2.8, hemoglobin 7.4. ASSESSMENT: 1. Severe bicuspid aortic valve stenosis, symptomatic, status post aortic replacement using mechanical valve. 2. History of coronary artery disease with myocardial infarction in July 2000 with stenting of the distal LAD. 3. History of hyperlipidemia. 4. Transient ischemic attack. 5. Anemia. 6. History of bronchitis. 7. History of nicotine dependence. 8. History of mild to moderate chronic obstructive pulmonary disease. 9. Thrombocytopenia. 10. Acute hypoxic respiratory failure. 11. Leukocytosis. RECOMMENDATIONS AND DISCUSSION: In this 46-year-old gentleman who presented with multiple medical complex medical issues, we will monitor the patient closely. Continue the current medications and symptomatic treatment. Otherwise at this time, continue with antiplatelet agents and spirometry. The most recent chest x-ray done yesterday showed small left pleural effusion with atelectasis at the right base. Recommend the rest of the medications. Closely follow with cardiology. Dr. Haas will follow up tomorrow.
[2016-09-25 02:08] LABS: Glucose,Whole Blood 100 mg/dL (75-99)
[2016-09-25 06:49] LABS: Anisocytosis Slight; CH 32.2; CHCM 33.2; HCT 25.5 % (39.0-53.0); HDW 4.38; HGB 8.2 gm/dL (13.0-17.5); Hypochromasia Moderate; MCH 31.6 pg (25.0-35.0); MCHC 32.1 g/dL (31.0-37.0); MCV 98.5 fL (80.0-100.0); Macrocytosis Slight; Mean Platelet Volume 9.5; Poikilocytosis Moderate; RBC 2.59 m/uL (4.30-5.90); RDW 17.5 % (11.5-15.5); WBC 11.7 k/uL (3.8-10.6)
[2016-09-25 06:59] LABS: Glucose,Whole Blood 114 mg/dL (75-99)
[2016-09-25] MEDS: PANTOPRAZOLE 40 MG TABLET PO SCH (07:02)
[2016-09-25] MEDS: INSULIN LISPRO (humaLOG) 300 UNIT/3 ML VIAL SQ SCH ×2 (07:02→11:47)
[2016-09-25 07:45] LABS: INR 2.7 (<1.1); Prothrombin Time 26.3 sec (9.0-12.0)
[2016-09-25 07:54] LABS: Anion Gap 9 mmol/L; Blood Urea Nitrogen 11 mg/dL (9-20); Calcium 8.1 mg/dL (8.4-10.2); Carbon Dioxide 23 mmol/L (22-30); Chloride 106 mmol/L (98-107); Glucose 108 mg/dL (74-99); Non-African American GFR(MDRD) >60 (>60 ml/min/1.73 sqM); Potassium 3.9 mmol/L (3.5-5.1); Sodium 138 mmol/L (137-145)
[2016-09-25] MEDS: IPRATROPIUM-ALBUTEROL 3 ML NEB INHALATION SCH ×2 (08:38→13:02)
[2016-09-25] MEDS ORDERED: FUROSEMIDE 40 MG TAB PO SCH (09:00)
[2016-09-25] MEDS: ASPIRIN 81 MG CHEW PO SCH (09:02)
[2016-09-25] MEDS: AMIODARONE 200 MG TAB PO SCH (09:02)
[2016-09-25] MEDS: ATORVASTATIN 40 MG TAB PO SCH (09:02)
[2016-09-25] MEDS: CLOPIDOGREL 75 MG TAB PO SCH (09:03)
[2016-09-25] MEDS: POTASSIUM CHLORIDE ER 20 MEQ TAB.ER PO SCH (09:03)
[2016-09-25] MEDS: METOPROLOL TARTRATE 25 MG TAB PO SCH (09:03)
--- NOTE | 2016-09-25 10:16 | XR ---
EXAMINATION TYPE: XR chest 2V DATE OF EXAM: 09/25/2016 6:23 AM COMPARISON: 09/23/2016 HISTORY: Status post aVR FINDINGS: Bilateral pleural effusion and infiltrate stable. Postoperative changes seen. Cardiomegaly noted. Cor relate for underlying COPD. Less than 5% tiny right apical pneumothorax suspected. IMPRESSION: 1. Tiny less than 5% right apical pneumothorax. 2. Bilateral lower lobe infiltrate and small effusion are stable.
--- NOTE | 2016-09-25 11:02 | P.PN ---
Subjective Principal diagnosis: Critical aortic stenosis with known coronary artery disease Patient is a 46-year-old male, patient of Dr. Theo Haas in the outpatient setting with medical history significant for myocardial infarction with stent placement to the LAD in July 2016, TIA, hyperlipidemia, and nicotine dependence. Patient presented to the emergency department with complaints of chest pain associated with diaphoresis and lightheadedness after he took a nitroglycerin. Patient was found to have evidence of critical aortic stenosis. Patient was evaluated by cardiology and cardiothoracic surgery and underwent aortic valve replacement with mechanical valve on 09/18/2016. Patient is evaluated selective care unit where he is postop day #7. Patient is feeling well. Denies chills, nausea, vomiting, abdominal pain, or leg pain. Reports flatus without bowel movements. Incisional pain controlled. Afebrile. Patient is urinating without difficulty. Tolerating diet. Chest x-ray with evidence of less than 5% right apical pneumothorax; the lateral lower lobe infiltrate and small effusions, stable infiltrate and small effusions, stable. Objective - Vital Signs Vital signs: Vital Signs Temp 98.6 F 09/25/16 09:02 Pulse 78 09/25/16 09:02 Resp 18 09/25/16 09:02 BP 107/53 09/25/16 09:02 Pulse Ox 99 09/25/16 09:02 Intake & Output 09/24/16 09/25/16 09/25/16 18:59 06:59 18:59 Intake Total 861 180 Output Total 1870 2500 625 Balance -1009 -2500 -445 Weight 71.4 kg Intake: Oral 861 180 Output: Urine 1870 2500 625 Other: Voiding Method Toilet Toilet Toilet Urinal Urinal Urinal # Voids 2 1 ABP, PAP, CO, CI - Last Documented Arterial Blood Pressure 123/58 Pulmonary Artery Pressure 37/20 Cardiac Output 6 Cardiac Index 3.8 - Exam GENERAL: Pt awake and alert, well-appearing, well-nourished, and in no acute distress. HEAD: Atraumatic, normocephalic. EYES: Pupils equal and round. Sclera anicteric, conjunctiva are normal. ENT: Moist mucous membranes. NECK:Supple without lymphadenopathy or JVD. LUNGS: Breath sounds diminished to auscultation. No wheezes, rales, rhonchi. HEART: Heart S1, S2, no S3 or S4. Regular rate and rhythm. Systolic murmur. ABDOMEN: Soft, nontender, nondistended, hypoactive bowel sounds. EXTREMITIES: 1+ dorsalis pedal pulses. No edema. No calf tenderness. NEUROLOGICAL: Pt oriented x 3. Cranial nerves II through XII grossly intact. Strength and sensation grossly intact. PSYCH: Normal mood, normal affect. SKIN: Warm, dry. Midline chest dressing dry and intact. - Labs CBC & Chem 7: 09/25/16 06:25 09/25/16 07:16 Labs: Abnormal Lab Results - Last 24 Hours (Table) 09/24/16 09/25/16 09/25/16 Range/Units 17:00 02:03 06:25 WBC 11.7 H (3.8-10.6) k/uL RBC 2.59 L (4.30-5.90) m/uL Hgb 8.2 L (13.0-17.5) gm/dL Hct 25.5 L (39.0-53.0) % RDW 17.5 H (11.5-15.5) % PT (9.0-12.0) sec Glucose (74-99) mg/dL POC Glucose (mg/dL) 102 H 100 H (75-99) mg/dL Calcium (8.4-10.2) mg/dL 09/25/16 09/25/16 09/25/16 Range/Units 06:30 07:16 07:16 WBC (3.8-10.6) k/uL RBC (4.30-5.90) m/uL Hgb (13.0-17.5) gm/dL Hct (39.0-53.0) % RDW (11.5-15.5) % PT 26.3 H (9.0-12.0) sec Glucose 108 H (74-99) mg/dL POC Glucose (mg/dL) 114 H (75-99) mg/dL Calcium 8.1 L (8.4-10.2) mg/dL Microbiology - Last 24 Hours (Table) 09/22/16 10:45 Gram Stain - Preliminary Thoracic Fluid Body Fluid Culture - Preliminary Assessment and Plan Plan: Impression: 1. Severe bicuspid aortic valve stenosis, symptomatic, status post aortic valve replacement using a mechanical valve on 09/18/2016. 2. Coronary artery disease with myocardial infarction in July 2016 with stenting to the distal LAD. 3. History of hyperlipidemia. 4. History of TIA. 5. History of bronchitis. 6. Nicotine dependence. 7. Mild to moderate COPD with an FEV1 of 69% of predicted at baseline. 11. Right apical scar/nodule, follow-up in outpatient setting. 12. Thrombocytopenia, resolved. 13. Acute hypoxic respiratory failure, resolved. 14. Acute blood loss anemia suspect secondary to blood loss from surgery. Hemoglobin improved to 8.2. 15. Leukocytosis. 16. Status post thoracentesis for moderate sized right pleural effusion with 1400 mL of serosanguineous fluid drained on the right pleural space on 2016. Plan: 1. Continue surgical management by cardiothoracic service. Continue current medications. Continue to follow with cardiology and pulmonology service. Continue GI and DVT prophylaxis. Continue supportive treatment and pain management. Continue incentive spirometry 10 times an hour while awake. Increase activity as tolerated. Discharge planning process. Patient will follow-up with Dr. Haas in 2 weeks in the outpatient setting. The above impression and plan have been discussed and directed by Dr. Haas. Hailey CARDOSO acting as scribe for Dr. Haas.
[2016-09-25 11:48] VITALS: BP 105/56; TEMP 98.7
[2016-09-25 11:53] LABS: Glucose,Whole Blood 104 mg/dL (75-99)
--- NOTE | 2016-09-25 12:17 | P.PN ---
Subjective Principal diagnosis: Presyncope This is a pleasant 46-year-old gentleman who is status post aortic valve replacement. Remaining in normal sinus rhythm, up ambulating in the beltran without any difficulty today. Plans being made for discharge home today. Objective - Vital Signs Vital signs: Vital Signs Temp 98.7 F 09/25/16 11:05 Pulse 72 09/25/16 11:05 Resp 18 09/25/16 11:05 BP 105/56 09/25/16 11:05 Pulse Ox 94 L 09/25/16 11:05 Intake & Output 09/24/16 09/25/16 09/25/16 18:59 06:59 18:59 Intake Total 861 180 Output Total 1870 2500 1075 Balance -1009 -2500 -895 Weight 71.4 kg Intake: Oral 861 180 Output: Urine 1870 2500 1075 Other: Voiding Method Toilet Toilet Toilet Urinal Urinal Urinal # Voids 2 1 ABP, PAP, CO, CI - Last Documented Arterial Blood Pressure 123/58 Pulmonary Artery Pressure 37/20 Cardiac Output 6 Cardiac Index 3.8 - Exam PHYSICAL EXAMINATION: HEENT: Head is atraumatic, normocephalic. Pupils equal, round. Neck is supple. There is no elevated jugular venous pressure. HEART EXAMINATION: Heart S1 and S2 systolic murmur and pericardial rub are heard. CHEST EXAMINATION: Lungs are clear to with diminished air entry to the left posterior base. ABDOMEN: Soft, nontender. Bowel sounds are heard. No organomegaly noted. EXTREMITIES: 2+ peripheral pulses with no evidence of peripheral edema and no calf tenderness noted. NEUROLOGIC patient is awake, alert and oriented -3. . - Labs CBC & Chem 7: 09/25/16 06:25 09/25/16 07:16 Labs: Abnormal Lab Results - Last 24 Hours (Table) 09/24/16 09/25/16 09/25/16 Range/Units 17:00 02:03 06:25 WBC 11.7 H (3.8-10.6) k/uL RBC 2.59 L (4.30-5.90) m/uL Hgb 8.2 L (13.0-17.5) gm/dL Hct 25.5 L (39.0-53.0) % RDW 17.5 H (11.5-15.5) % PT (9.0-12.0) sec Glucose (74-99) mg/dL POC Glucose (mg/dL) 102 H 100 H (75-99) mg/dL Calcium (8.4-10.2) mg/dL 09/25/16 09/25/16 09/25/16 Range/Units 06:30 07:16 07:16 WBC (3.8-10.6) k/uL RBC (4.30-5.90) m/uL Hgb (13.0-17.5) gm/dL Hct (39.0-53.0) % RDW (11.5-15.5) % PT 26.3 H (9.0-12.0) sec Glucose 108 H (74-99) mg/dL POC Glucose (mg/dL) 114 H (75-99) mg/dL Calcium 8.1 L (8.4-10.2) mg/dL 09/25/16 Range/Units 11:37 WBC (3.8-10.6) k/uL RBC (4.30-5.90) m/uL Hgb (13.0-17.5) gm/dL Hct (39.0-53.0) % RDW (11.5-15.5) % PT (9.0-12.0) sec Glucose (74-99) mg/dL POC Glucose (mg/dL) 104 H (75-99) mg/dL Calcium (8.4-10.2) mg/dL Microbiology - Last 24 Hours (Table) 09/22/16 10:45 Gram Stain - Preliminary Thoracic Fluid Body Fluid Culture - Preliminary Assessment and Plan (1) Pre-syncope Status: Acute (2) TIA (transient ischemic attack) Status: Acute (3) Hyperlipemia Status: Acute (4) Critical aortic valve stenosis Status: Acute (5) Presence of stent in LAD coronary artery Status: Acute (6) Systolic murmur Status: Acute (7) Tobacco abuse Status: Acute Plan: From cardiology's perspective, we will continue the patient on his current medications. Hemodynamically stable. Follow-up appointment will be made with Dr. Estrada in the office post discharge. DNP note has been reviewed, I agree with a documented findings and plan of care. Patient was seen and examined.
[2016-09-25] MEDS: FERROUS SULFATE 325 MG TAB PO SCH (12:19)
[2016-09-25 13:00] VITALS: BMI 23.2
[2016-09-25 13:17] VITALS: PULSE 78
--- NOTE | 2016-09-25 13:51 | P.PN ---
Subjective Principal diagnosis: Severe aortic valve stenosis with bicuspid aortic valve heavily calcified, coronary artery disease, status post recent stenting of his distal left anterior descending artery, left bundle branch block. Postop day #7 aortic valve replacement using a 22 mm [employer] mechanical bileaflet tilting disc valve, postop day #7 exclusion of the left atrial appendage using a 35 mm AtriClip. Patient currently sitting up in chair, states pain controlled w/ current meds. Denies any new complaints or concerns. Wants to go home. is at bedside. Objective - Vital Signs Vital signs: Vital Signs Temp 99.4 F 09/25/16 04:00 Pulse 75 09/25/16 04:00 Resp 18 09/25/16 04:00 BP 100/52 09/25/16 04:00 Pulse Ox 86 L 09/25/16 04:00 Intake & Output 09/24/16 09/25/16 09/25/16 18:59 06:59 18:59 Intake Total 861 180 Output Total 1870 2500 Balance -1009 -2500 180 Weight 71.4 kg Intake: Oral 861 180 Output: Urine 1870 2500 Other: Voiding Method Toilet Toilet Urinal Urinal # Voids 2 1 ABP, PAP, CO, CI - Last Documented Arterial Blood Pressure 123/58 Pulmonary Artery Pressure 37/20 Cardiac Output 6 Cardiac Index 3.8 - Constitutional General appearance: Present: cooperative, no acute distress - Respiratory Details: Lungs sounds diminished bilaterally. Respirations even, nonlabored. Currently on 2 L nasal cannula. Able to achieve 1500 mL on incentive spirometer. Effective cough present. - Cardiovascular Details: S1 present diminished S2, systolic murmur present. Regular rate and rhythm, sinus rhythm on telemetry. No edema present. Palpable radial, DP, PT pulses bilaterally. Heart hugger in place, patient exhibits appropriate use. Teds, SCDs present. Chest stable. - Gastrointestinal Gastrointestinal Comment(s): Abdomen soft, nontender, nondistended. Active bowel sounds 4 quadrants. Positive BM yesterday. Tolerating diet. - Genitourinary Genitourinary Comment(s): Continues to void clear, yellow urine per urinal. - Integumentary Integumentary Comment(s): Skin warm, dry. Anterior chest incision covered with dry intact silver dressing. - Neurologic Neurologic: Present: CNII-XII intact - Musculoskeletal Musculoskeletal Comment(s): Ambulating in hallway without difficulty. - Psychiatric Psychiatric: Present: A&O x's 3, appropriate affect, intact judgment & insight - Allied health notes Allied health notes reviewed: PT - Labs CBC & Chem 7: 09/25/16 06:25 09/25/16 07:16 Labs: Abnormal Lab Results - Last 24 Hours (Table) 09/24/16 09/25/16 09/25/16 Range/Units 17:00 02:03 06:25 WBC 11.7 H (3.8-10.6) k/uL RBC 2.59 L (4.30-5.90) m/uL Hgb 8.2 L (13.0-17.5) gm/dL Hct 25.5 L (39.0-53.0) % RDW 17.5 H (11.5-15.5) % PT (9.0-12.0) sec Glucose (74-99) mg/dL POC Glucose (mg/dL) 102 H 100 H (75-99) mg/dL Calcium (8.4-10.2) mg/dL 09/25/16 09/25/16 09/25/16 Range/Units 06:30 07:16 07:16 WBC (3.8-10.6) k/uL RBC (4.30-5.90) m/uL Hgb (13.0-17.5) gm/dL Hct (39.0-53.0) % RDW (11.5-15.5) % PT 26.3 H (9.0-12.0) sec Glucose 108 H (74-99) mg/dL POC Glucose (mg/dL) 114 H (75-99) mg/dL Calcium 8.1 L (8.4-10.2) mg/dL Microbiology - Last 24 Hours (Table) 09/22/16 10:45 Gram Stain - Preliminary Thoracic Fluid Body Fluid Culture - Preliminary - Imaging and Cardiology Chest x-ray: image reviewed Assessment and Plan (1) Critical aortic valve stenosis Status: Acute (2) Near syncope Status: Acute (3) Hyperlipemia Status: Acute (4) Chest pain Status: Acute Plan: 1. Continue aspirin, beta alvin, statin, Plavix. 2. INR 2.7 this morning, will give Coumadin 2 mg by mouth this evening. 3. Continue amiodarone for atrial fibrillation prophylaxis. 4. Encourage incentive spirometry use, coughing and deep breathing. 5. Monitor labs closely. 6. GI/DVT prophylaxis. 7. Encourage ambulation. 8. Wean O2 as tolerated. Discussed with RN need to evaluate oxygen needs for discharge planning. 9. Anticipate discharge to home this afternoon or tomorrow morning. 10. Will have patient follow in the Coumadin clinic for Coumadin dosing. Time with Patient: Greater than 30
--- NOTE | 2016-09-25 15:14 | P.PN ---
Subjective Principal diagnosis: Severe aortic stenosis with bicuspid aortic valve, coronary disease. Status post aortic valve replacement. This is a very pleasant 46-year-old gentleman who was found to have bicuspid aortic valve that was how heavily calcified and severe aortic valve stenosis. He had undergone a aortic valve replacement using a 22 mm [employer] mechanical bileaflet valve. This is postoperative day #7. He did have significant right-sided pleural effusion and is status post right-sided thoracentesis with approximate 1400 mL of serosanguineous fluid removed by Dr. Morocho on 09/22/2016. He is seen today on the selective care unit. He is awake and alert in no acute distress. He denies any shortness of breath, cough or congestion. He's been up ambulating in the hallway with assistance. He is noted to have decreased saturations at 85 and 87%. Objective - Vital Signs Vital signs: Vital Signs Temp 98.7 F 09/25/16 11:05 Pulse 78 09/25/16 13:15 Resp 18 09/25/16 11:05 BP 105/56 09/25/16 11:05 Pulse Ox 94 L 09/25/16 11:05 Intake & Output 09/24/16 09/25/16 09/25/16 18:59 06:59 18:59 Intake Total 861 305 Output Total 1870 2500 1075 Balance -9803 -3620 -509 Weight 71.4 kg 71.4 kg Intake: Oral 861 305 Output: Urine 1870 2500 1075 Other: Voiding Method Toilet Toilet Toilet Urinal Urinal Urinal # Voids 2 1 ABP, PAP, CO, CI - Last Documented Arterial Blood Pressure 123/58 Pulmonary Artery Pressure 37/20 Cardiac Output 6 Cardiac Index 3.8 - Exam GENERAL EXAM: Alert, active, comfortable in no apparent distress. HEAD: Normocephalic. EYES: Normal reaction of pupils, equal size. NOSE: Clear with pink turbinates. THROAT: No erythema or exudates. NECK: No masses, no JVD. CHEST: No chest wall deformity. Sternum stable. LUNGS: Equal air entry with faint crackles in the posterior bases. CVS: S1 and S2 normal with no audible murmurs, regular rhythm. ABDOMEN: No hepatosplenomegaly, normal bowel sounds, no guarding or rigidity. SPINE: No scoliosis or deformity SKIN: No rashes CENTRAL NERVOUS SYSTEM: No focal deficits, tone is normal in all 4 extremities. Extremities: There is no significant peripheral edema. No clubbing, no cyanosis. Peripheral pulses are intact. - Labs CBC & Chem 7: 09/25/16 06:25 09/25/16 07:16 Labs: Abnormal Lab Results - Last 24 Hours (Table) 09/24/16 09/25/16 09/25/16 Range/Units 17:00 02:03 06:25 WBC 11.7 H (3.8-10.6) k/uL RBC 2.59 L (4.30-5.90) m/uL Hgb 8.2 L (13.0-17.5) gm/dL Hct 25.5 L (39.0-53.0) % RDW 17.5 H (11.5-15.5) % PT (9.0-12.0) sec Glucose (74-99) mg/dL POC Glucose (mg/dL) 102 H 100 H (75-99) mg/dL Calcium (8.4-10.2) mg/dL 09/25/16 09/25/16 09/25/16 Range/Units 06:30 07:16 07:16 WBC (3.8-10.6) k/uL RBC (4.30-5.90) m/uL Hgb (13.0-17.5) gm/dL Hct (39.0-53.0) % RDW (11.5-15.5) % PT 26.3 H (9.0-12.0) sec Glucose 108 H (74-99) mg/dL POC Glucose (mg/dL) 114 H (75-99) mg/dL Calcium 8.1 L (8.4-10.2) mg/dL 09/25/16 Range/Units 11:37 WBC (3.8-10.6) k/uL RBC (4.30-5.90) m/uL Hgb (13.0-17.5) gm/dL Hct (39.0-53.0) % RDW (11.5-15.5) % PT (9.0-12.0) sec Glucose (74-99) mg/dL POC Glucose (mg/dL) 104 H (75-99) mg/dL Calcium (8.4-10.2) mg/dL Microbiology - Last 24 Hours (Table) 09/22/16 10:45 Gram Stain - Preliminary Thoracic Fluid Body Fluid Culture - Preliminary Assessment and Plan Plan: Impression: #1 Chest discomfort in a patient with recent non-ST segment elevation myocardial infarction and stenting to the LAD. #2 Severe bicuspid aortic valve stenosis status post aortic valve replacement. Postoperative day #7. #3 Chronic and ongoing tobacco dependence. #4 Recent computed tomography scan of the chest revealing diffuse emphysematous changes and interstitial pulmonary fibrotic changes bilaterally with scarring and atelectasis in the lung bases. #5 Nodular scarring measuring 6 x 3 mm in the apical area of the right upper lobe. #6 Coronary artery disease with status post stenting to the LAD on 07/21/2016. #7 History of TIAs. #8 Postoperative right-sided pleural effusion requiring a thoracentesis of approximately 1400 mL removed. Plan: The patient was seen and evaluated by Dr. Gardner. He is cleared for discharge from the pulmonary standpoint. We'll arrange for home oxygen probably just temporarily until the patient fully recovers. He is encouraged to continue to use incentive spirometer and cough and deep breathing exercises. He also follows up with Dr. Chan regarding the right upper lobe nodular scarring and possible repeat computed tomography scan in 2-3 months time. He and his are both encouraged to call sooner with any recurrence of symptoms or other questions or concerns.
[2016-09-25] MEDS ORDERED: WARFARIN 2 MG TAB PO SCH (18:00)
[2016-09-26 14:48] LABS: Mis test requested (Non-blood) Cholesterol Body Fld
--- NOTE | 2016-09-26 15:13 | P.DS ---
Providers Date of admission: 09/11/16 17:27 Attending physician: Unique Hagen Consults: 09/12/16 08:18 Consult Physician Routine Consulting Provider: Unique Hagen Consult Reason/Comments: bad valve, known pt Do you want consulting provider notified?: Already Contacted 09/12/16 12:19 Consult Anesthesia Routine Consulting Provider: Anesthesia,Services Consult Reason/Comments: Cardiac Surgery Pre-Op Consult Physician Routine Consulting Provider: Agnieszka Chan Consult Reason/Comments: pulm management Do you want consulting provider notified?: Yes 09/18/16 13:22 Consult Physician Routine Consulting Provider: Theo Haas Consult Reason/Comments: medical management Do you want consulting provider notified?: Already Contacted Primary care physician: Theo Haas [facility] Course: FINAL DIAGNOSIS: 1.[Severe aortic valve stenosis with bicuspid aortic valve] 2.[Coronary artery disease status post recent stenting of distal left anterior descending artery] 3.[left bundle branch block] 4.[hyperlipidemia] 5.[Postoperative right-sided pleural effusion] 6. [History of CVA/TIA] 7. 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 Afterwards, he had an echo which demonstrated severe aortic valve stenosis with bicuspid aortic valve. He was readmitted to the hospital with recurrent chest pain and near syncope, was evaluated by Dr. Harris, who requested consultation with cardiothoracic surgery for aortic valve replacement.] HOSPITAL COURSE:[This gentleman was seen by Dr. Hagen and given the option of aortic valve replacement. All risks/benefits were discussed at length with the patient and his , and they elected to proceed with surgery. He was kept inpatient and allowed time for Plavix metabolism. He was taken to the operating room suite on September 18, prepared in the usual fashion, and an aortic valve replacement was performed utilizing a 21 mm Carbomedics mechanical bileaflet tilting disc valve. In addition, exclusion of the left atrial appendage using a 35 mm AtriClip was performed. The patient was weaned from cardiopulmonary bypass, and was transferred to the ICU in stable condition. He was extubated the night of surgery, all lines/tubes/drains were removed as appropriate. He did exhibit an episode of atrial fibrillation on September 20, which converted to sinus rhythm after administration of amiodarone. He remained in stable condition, although still requiring 10 liters hi-flow oxygen , and was transferred to [address] [place] [address] on September 21. On September 22 there was concern for increasing pleural effusion, and thoracentesis was performed by Dr. Morocho with removal of 1.4 ml fluid. The patient progressed as expected throughout the weekend, oxygen demands were weaned down to room air with supplemental oxygen at 2 LPM when sleeping, and he was stable for discharge home on September 25. ] COMPLICATIONS: [Postop right pleural effusion, requiring thoracentesis with 1400 mL fluid removal. Postop paroxysmal atrial fibrillation.] CONSULTATIONS: 1.[Dr. Haas for primary care] 2.[Dr. Harris for cardiology] 3.[Dr. Morocho for pulmonology] DISCHARGE INSTRUCTIONS: 1. No driving for 4 weeks, or until physician gives their ok. 2. The patient should sleep in their own bed, no medical bed needed. 3. Stairs are not an issue. If the bedroom is upstairs, it is advised that the patient go up at night and down in the morning for the first week. Go slowly, using handrail and take 1 step at a time. 4. JHONATAN hose are to be worn for 30 days or until physician discontinues. 5. Heart hugger is to be worn 100% of the time until physician discontinues.( excepet when showering) 6. No lifting, pushing, or pulling more than 10 pounds for 12 weeks. The physician will advise of any restriction changes. 7. The patient is expected to continue the prescribed walking program. 8. Continue pain control per as needed orders. 9. Continue with incentive spirometry and splinting/heart hugger until otherwise directed by the physician. 10. Must shower daily using liquid antibacterial soap and a separate white washcloth for each individual incision. 11. Please remove Silverlon chest dressing on October 02 with routine sternal incision care thereafter. HOME HEALTH SERVICES TO PROVIDE: RN SKILLED HOME CARE SERVICES FOR POST-OP SURGICAL PATIENTS WITH THE FOLLOWING: Aortic Valve Replacement/Repair (AVR) RN TO CONTINUE EDUCATION FROM ``ROAD TO A HEALTH HEART PATIENT EDUCATION MANUAL (GIVEN TO PATIENT IN THE HOSPITAL) MEDICATION RECONCILIATION WITH EDUCATION NEEDED ON FIRST HOME VISIT EMPHASIZE IMPORTANCE OF WEARING HEART HUGGER ENCOURAGE USE OF INCENTIVE SPIROMETER 10 X EVERY HOUR WHILE AWAKE ENCOURAGE UTILIZATION OF LOWER EXTREMITY COMPRESSION STOCKINGS/JHONATAN HOSE and ELEVATE LEGS ABOVE LEVEL OF HEART WHILE AT REST. ENCOURAGE AMBULATION 3-5x/day INCREASING TOLERATES, WHILE AVOID EXTREMES IN TEMPERATURE FREQUENCY: RN TO OPEN THE PATIENT WITHIN 24 HOURS OF DISCHARGE FROM THE HOSPITAL WITH TELEHEALTH INSTALLED AT [facility], RN TO VISIT 2-3 X A WEEK FOR 4 WEEKS ESTABLISHED BY PATIENT NEEDS. LABORATORY: CBC, CMP TO BE DRAWN ON THE THIRD DAY HOME,Sunday09/29/2016 (RAN STAT) FAX RESULTS TO [phone]. PT/INR to be drawn Sunday, Sunday, then weekly with results called to Dr. Harris's office. TELEHEALTH PARAMETERS: WEIGHT: NOTIFY MD OF WEIGHT GAIN OF 2 LBS IN 24 HOURS OR 5 LBS IN ONE WEEK HR: NOTIFY MD OF HR <55 BPM OR HR>100 BPM BP: NOTIFY MD IF BP <90/55 OR BP>140/100 O2 SAT: NOTIFY MD IF PO2<93% ON ROOM AIR SEND TELEHEALTH REPORT TO MEDICAL RADIATION THERAPIST AND CARDIOVASCULAR SURGEON THE FIRST WEEK OF CARE AND THEN BI-WEEKLY. PLEASE ADDITIONALLY COMMUNICATE ANY ABNORMALS AND NEW FINDINGS TO THE SURGEONS OFFICE. Patient Condition at Discharge: Stable Plan - Discharge Summary New Discharge Prescriptions: Amiodarone [Cordarone] 200 mg PO BID #37 tab Atorvastatin [Lipitor] 40 mg PO DAILY #30 tab Ferrous Sulfate [Iron (65 MG Elemental)] 325 mg PO W/LUNCH #30 tab Furosemide [Lasix] 40 mg PO DAILY #3 tab HYDROcodone/APAP 5-325MG [[place] 5-325] 1 - 2 each PO Q4HR PRN #30 tab PRN Reason: Moderate Pain Metoprolol Tartrate [Lopressor] 25 mg PO BID #60 tab Potassium Chloride ER [K-Dur 20] 20 meq PO DAILY #3 tab.er.prt Warfarin [Coumadin] 2 mg PO DAILY@1800 #30 tab Discharge Medication List Clopidogrel [Plavix] 75 mg PO DAILY #30 tab 07/23/16 [Rx] Aspirin EC [Ecotrin Low Dose] 81 mg PO DAILY 08/22/16 [History] Amiodarone [Cordarone] 200 mg PO BID #37 tab 09/25/16 [Rx] Atorvastatin [Lipitor] 40 mg PO DAILY #30 tab 09/25/16 [Rx] Ferrous Sulfate [Iron (65 MG Elemental)] 325 mg PO W/LUNCH #30 tab 09/25/16 [Rx] Furosemide [Lasix] 40 mg PO DAILY #3 tab 09/25/16 [Rx] HYDROcodone/APAP 5-325MG [[place] 5-325] 1 - 2 each PO Q4HR PRN #30 tab 09/25/16 [ Rx] Metoprolol Tartrate [Lopressor] 25 mg PO BID #60 tab 09/25/16 [Rx] Potassium Chloride ER [K-Dur 20] 20 meq PO DAILY #3 tab.er.prt 09/25/16 [Rx] Warfarin [Coumadin] 2 mg PO DAILY@1800 #30 tab 09/25/16 [Rx] Follow up Appointment(s)/Referral(s): Brian Harris MD [STAFF PHYSICIAN] - 10/02/16 1:45 pm Unique Hagen MD [STAFF PHYSICIAN] - 10/20/16 11:00 am Theo Haas DO [Primary Care Provider] - 09/29/16 1:30 pm Agnieszka Chan MD [STAFF PHYSICIAN] - 10/12/16 3:30 pm [facility] Visiting Nurse, [NON-STAFF] - As Needed Ambulatory/Diagnostic Orders: Complete Blood Count w/diff [LAB.AMB] Time Frame: 09/29/16, Facility: [facility], Location: Laboratory [facility] Comprehensive Metabolic Panel [LAB.AMB] Time Frame: 09/29/16, Location: Determined By Patient Prothrombin Time INR [LAB.AMB] Time Frame: 09/27/16, Location: Determined By Patient Patient Instructions/Handouts: Coronary Artery Bypass Graft (DC) Activity/Diet/Wound Care/Special Instructions: DISCHARGE INSTRUCTIONS: 1. No driving for 4 weeks, or until physician gives their ok. 2. The patient should sleep in their own bed, no medical bed needed. 3. Stairs are not an issue. If the bedroom is upstairs, it is advised that the patient go up at night and down in the morning for the first week. Go slowly, using handrail and take 1 step at a time. 4. JHONATAN hose are to be worn for 30 days or until physician discontinues. 5. Heart hugger is to be worn 100% of the time until physician discontinues.( excepet when showering) 6. No lifting, pushing, or pulling more than 10 pounds for 12 weeks. The physician will advise of any restriction changes. 7. The patient is expected to continue the prescribed walking program. 8. Continue pain control per as needed orders. 9. Continue with incentive spirometry and splinting/heart hugger until otherwise directed by the physician. 10. Must shower daily using liquid antibacterial soap and a separate white washcloth for each individual incision. 11. Please remove Silverlon chest dressing on [October 02] with routine sternal incision care thereafter. Discharge Disposition: HOME SELF-CARE
== END 2016-09-25 15:55 | disposition home health service (06) | DRG 219 ==
LOC: EC 14:56 → 6SEL 17:27 → 6ICU 09-18 07:36 → 6SEL 09-21 13:16
PROVIDERS: ADMIT Family Medicine; ATTEND Surgery
PROC: B44HZZZ Ultrasonography of Bilateral Lower Extremity Arteries (ICD-10-PCS; 2016-09-12)
PROC: 02L70CK Occlusion of Left Atrial Appendage with Extraluminal Device, Open Approach (ICD-10-PCS; 2016-09-18)
PROC: 5A1221Z Performance of Cardiac Output, Continuous (ICD-10-PCS; 2016-09-18)
PROC: 02RF0JZ Replacement of Aortic Valve with Synthetic Substitute, Open Approach (ICD-10-PCS; principal; 2016-09-18 08:00)
PROC: 0W993ZZ Drainage of Right Pleural Cavity, Percutaneous Approach (ICD-10-PCS; 2016-09-22)
DX: I35.0 Nonrheumatic aortic (valve) stenosis (principal); J96.01 Acute respiratory failure with hypoxia; J90 Pleural effusion, not elsewhere classified; I27.2 Other secondary pulmonary hypertension; D69.6 Thrombocytopenia, unspecified; I95.9 Hypotension, unspecified; G45.9 Transient cerebral ischemic attack, unspecified; D62 Acute posthemorrhagic anemia; Q23.0 Congenital stenosis of aortic valve; J93.9 Pneumothorax, unspecified; I47.1 Supraventricular tachycardia; J98.11 Atelectasis; J98.4 Other disorders of lung; I25.119 Atherosclerotic heart disease of native coronary artery with unspecified angina pectoris; F17.210 Nicotine dependence, cigarettes, uncomplicated; I48.0 Paroxysmal atrial fibrillation; I25.2 Old myocardial infarction; I44.7 Left bundle-branch block, unspecified; T45.515A Adverse effect of anticoagulants, initial encounter; R79.1 Abnormal coagulation profile; D72.829 Elevated white blood cell count, unspecified; J44.9 Chronic obstructive pulmonary disease, unspecified; I73.9 Peripheral vascular disease, unspecified; E78.5 Hyperlipidemia, unspecified; Z86.73 Personal history of transient ischemic attack (TIA), and cerebral infarction without residual deficits; Z95.5 Presence of coronary angioplasty implant and graft; Z82.49 Family history of ischemic heart disease and other diseases of the circulatory system; Z79.02 Long term (current) use of antithrombotics/antiplatelets; Z79.82 Long term (current) use of aspirin; Z79.899 Other long term (current) drug therapy
CPT/HCPCS: 36415; 36620; 71010; 71020; 76604; 80048; 80053; 80061; 80074; 81003; 82150; 82330; 82550; 82553; 82805; 82945; 83036; 83615; 83735; 83880; 84100; 84132; 84155; 84157; 84311; 84443; 84484; 85025; 85027; 85379; 85520; 85610; 85730; 86850; 86891; 86900; 86901; 86920; 87070; 87086; 87205; 88108; 88305; 88311; 89050; 93005; 93308; 93880; 93923; 94060; 94150; 94640; 94726; 94729; 94760; 99285

== ENCOUNTER 2017-01-04 20:12 | Inpatient (IN) | payer BC ==
[2017-01-04] MEDS ORDERED: ACETAMINOPHEN TAB 500 MG TAB PO STA (21:26)
--- NOTE | 2017-01-04 21:29 | ED ---
General Adult HPI - General Chief complaint: Fever Stated complaint: Fever Time Seen by Provider: 01/04/17 21:22 Source: patient, RN notes reviewed Mode of arrival: ambulatory Limitations: no limitations - History of Present Illness Initial comments: Patient is a pleasant 46-year-old male presenting to the emergency department for feeling cold. Patient states symptoms started this morning and have been intermittent throughout the day. Patient has no other complaints. is concerned about fever. He should denies any chest pain or cough or dyspnea. No sore throat or rhinorrhea or upper respiratory symptoms. No abdominal pain. No dysuria. No rash. Patient did have heart valve replacement surgery done back in September. No complications. - Related Data Home Medications Medication Instructions Recorded Confirmed Aspirin EC [Ecotrin Low Dose] 81 mg PO DAILY 08/22/16 01/04/17 Warfarin Sodium [Coumadin] 2 mg PO MOTH@1800 01/04/17 01/04/17 Warfarin Sodium [Coumadin] 4 mg PO SUTUWEFRSA@1800 01/04/17 01/04/17 Previous Rx's Medication Instructions Recorded Clopidogrel [Plavix] 75 mg PO DAILY #30 tab 07/23/16 Atorvastatin [Lipitor] 40 mg PO DAILY #30 tab 09/25/16 Metoprolol Tartrate [Lopressor] 25 mg PO BID #60 tab 09/25/16 Allergies Allergy/AdvReac Type Severity Reaction Status Date / Time milk Allergy Rash/Hives Verified 01/04/17 21:24 tetanus immune globulin Allergy Unknown Verified 01/04/17 21:24 Review of Systems ROS Statement: Those systems with pertinent positive or pertinent negative responses have been documented in the HPI. ROS Other: All systems not noted in ROS Statement are negative. Constitutional: Reports: fever, chills Eyes: Denies: eye pain ENT: Denies: ear pain Respiratory: Denies: cough Cardiovascular: Denies: chest pain Endocrine: Denies: fatigue Gastrointestinal: Denies: abdominal pain Genitourinary: Denies: dysuria Musculoskeletal: Denies: back pain Skin: Denies: rash Neurological: Denies: weakness Past Medical History Past Medical History: Chest Pain / Angina, CVA/TIA, Hyperlipidemia, Myocardial Infarction (MT) Additional Past Medical History / Comment(s): 04/23/15 TIA, denies residual effects. HX: heart murmur, head injury with scalp laceration requiring cira, bronchitis. Last Myocardial Infarction Date:: 07-21-16 History of Any Multi-Drug Resistant Organisms: None Reported Past Surgical History: Heart Catheterization With Stent, Hernia Repair Additional Past Surgical History / Comment(s): L inquinal hernia repair. HEART CATH W/ STENT TO LAD, aortic valve replacement september 2016 Past Anesthesia/Blood Transfusion Reactions: No Reported Reaction Date of Last Stent Placement:: 07-21-16 Past Psychological History: No Psychological Hx Reported Additional Psychological History / Comment(s): Pt lives with his STEPHEN. He is independent. He uses no assistive devices or home care. He drives. Smoking Status: Former smoker Past Alcohol Use History: None Reported Additional Past Alcohol Use History / Comment(s): Pt started smoking at 13 yrs of age and smokes 3-4 cigarettes per day. Past Drug Use History: None Reported - Past Family History Father Family Medical History: AFIB, COPD, Eye Disorder Additional Family Medical History / Comment(s): Father has emphysema, spinal and neck surgeries, neuropathy, spinal stenosis, eye herpes. Mother Family Medical History: CVA/TIA, Hyperlipidemia, Hypertension Additional Family Medical History / Comment(s): Mother has had a recent TIA. General Exam Limitations: no limitations General appearance: alert, in no apparent distress Head exam: Present: atraumatic Eye exam: Present: normal appearance, PERRL ENT exam: Present: normal oropharynx Neck exam: Present: normal inspection. Absent: meningismus Respiratory exam: Present: normal lung sounds bilaterally Cardiovascular Exam: Present: regular rate, normal rhythm, systolic murmur GI/Abdominal exam: Present: soft. Absent: distended, tenderness Extremities exam: Present: normal inspection. Absent: pedal edema, calf tenderness Neurological exam: Present: alert Psychiatric exam: Present: normal affect, normal mood Skin exam: Present: normal color. Absent: rash Course Vital Signs 01/04/17 20:19 Temperature 101.6 F H Pulse Rate 80 Respiratory 16 Rate Blood Pressure 130/72 O2 Sat by Pulse 97 Oximetry EKG Findings - EKG Comments: EKG Findings:: Normal sinus rhythm at 77. TX 16. QRS 92. QT 402. QTC 454. Normal axis. Septal Q waves. Nonspecific ST-T. Medical Decision Making - Medical Decision Making Patient reevaluated and resting comfortably in bed. Patient and family updated on results and plan. Case discussed in detail with Dr. Haas who will admit his patient. Echo be ordered secondary to recent surgery. Patient does meet sepsis criteria diagnosed at 11 PM. - Lab Data Result diagrams: 01/04/17 22:00 01/04/17 22:00 Lab Results 01/04/17 01/04/17 01/04/17 Range/Units 22:00 22:00 22:00 WBC 15.1 H (3.8-10.6) k/uL RBC 4.83 (4.30-5.90) m/uL Hgb 15.2 (13.0-17.5) gm/dL Hct 44.9 (39.0-53.0) % MCV 92.9 (80.0-100.0) fL MCH 31.6 (25.0-35.0) pg MCHC 34.0 (31.0-37.0) g/dL RDW 14.5 (11.5-15.5) % Plt Count 179 (150-450) k/uL Neutrophils % 76 % Lymphocytes % 15 % Monocytes % 6 % Eosinophils % 1 % Basophils % 1 % Neutrophils # 11.5 H (1.3-7.7) k/uL Lymphocytes # 2.2 (1.0-4.8) k/uL Monocytes # 0.9 (0-1.0) k/uL Eosinophils # 0.1 (0-0.7) k/uL Basophils # 0.1 (0-0.2) k/uL PT (9.0-12.0) sec INR (<1.1) APTT (22.0-30.0) sec Sodium 137 (137-145) mmol/L Potassium 4.2 (3.5-5.1) mmol/L Chloride 104 (98-107) mmol/L Carbon Dioxide 23 (22-30) mmol/L Anion Gap 10 mmol/L BUN 12 (9-20) mg/dL Creatinine 1.15 (0.66-1.25) mg/dL Est GFR (MDRD) Af Amer >60 (>60 ml/min/1.73 sqM) Est GFR (MDRD) Non-Af >60 (>60 ml/min/1.73 sqM) Glucose 93 (74-99) mg/dL Plasma Lactic Acid Ron 1.0 (0.7-2.0) mmol/L Calcium 9.0 (8.4-10.2) mg/dL Total Bilirubin 0.7 (0.2-1.3) mg/dL AST 19 (17-59) U/L ALT 32 (21-72) U/L Alkaline Phosphatase 74 (38-126) U/L Total Creatine Kinase (55-170) U/L CK-MB (CK-2) (0.0-2.4) ng/mL CK-MB (CK-2) Rel Index Troponin I (0.000-0.034) ng/mL Total Protein 7.2 (6.3-8.2) g/dL Albumin 4.0 (3.5-5.0) g/dL Urine Color Urine Appearance (Clear) Urine pH (5.0-8.0) Ur Specific Everett (1.001-1.035) Urine Protein (Negative) Urine Glucose (UA) (Negative) Urine Ketones (Negative) Urine Blood (Negative) Urine Nitrite (Negative) Urine Bilirubin (Negative) Urine Urobilinogen (<2.0) mg/dL Ur Leukocyte Esterase (Negative) Urine RBC (0-5) /hpf Urine WBC (0-5) /hpf Urine Bacteria (None) /hpf Urine Mucus (None) /hpf Urine Yeast (Budding) (None) /hpf Influenza Type A RNA (Not Detectd) Influenza Type B (PCR) (Not Detectd) Group A Strep Rapid (Negative) 01/04/17 01/04/17 01/04/17 Range/Units 22:00 22:00 22:00 WBC (3.8-10.6) k/uL RBC (4.30-5.90) m/uL Hgb (13.0-17.5) gm/dL Hct (39.0-53.0) % MCV (80.0-100.0) fL MCH (25.0-35.0) pg MCHC (31.0-37.0) g/dL RDW (11.5-15.5) % Plt Count (150-450) k/uL Neutrophils % % Lymphocytes % % Monocytes % % Eosinophils % % Basophils % % Neutrophils # (1.3-7.7) k/uL Lymphocytes # (1.0-4.8) k/uL Monocytes # (0-1.0) k/uL Eosinophils # (0-0.7) k/uL Basophils # (0-0.2) k/uL PT 23.5 H (9.0-12.0) sec INR 2.4 (<1.1) APTT 32.6 H (22.0-30.0) sec Sodium (137-145) mmol/L Potassium (3.5-5.1) mmol/L Chloride (98-107) mmol/L Carbon Dioxide (22-30) mmol/L Anion Gap mmol/L BUN (9-20) mg/dL Creatinine (0.66-1.25) mg/dL Est GFR (MDRD) Af Amer (>60 ml/min/1.73 sqM) Est GFR (MDRD) Non-Af (>60 ml/min/1.73 sqM) Glucose (74-99) mg/dL Plasma Lactic Acid Ron (0.7-2.0) mmol/L Calcium (8.4-10.2) mg/dL Total Bilirubin (0.2-1.3) mg/dL AST (17-59) U/L ALT (21-72) U/L Alkaline Phosphatase (38-126) U/L Total Creatine Kinase 147 (55-170) U/L CK-MB (CK-2) 0.4 (0.0-2.4) ng/mL CK-MB (CK-2) Rel Index 0.3 Troponin I <0.012 (0.000-0.034) ng/mL Total Protein (6.3-8.2) g/dL Albumin (3.5-5.0) g/dL Urine Color Yellow Urine Appearance Cloudy (Clear) Urine pH 8.0 (5.0-8.0) Ur Specific [place]rett 1.014 (1.001-1.035) Urine Protein Negative (Negative) Urine Glucose (UA) Negative (Negative) Urine Ketones Negative (Negative) Urine Blood Negative (Negative) Urine Nitrite Positive (Negative) Urine Bilirubin Negative (Negative) Urine Urobilinogen <2.0 (<2.0) mg/dL Ur Leukocyte Esterase Small H (Negative) Urine RBC 4 (0-5) /hpf Urine WBC 44 H (0-5) /hpf Urine Bacteria Rare H (None) /hpf Urine Mucus Rare H (None) /hpf Urine Yeast (Budding) Rare H (None) /hpf Influenza Type A RNA (Not Detectd) Influenza Type B (PCR) (Not Detectd) Group A Strep Rapid (Negative) 01/04/17 01/04/17 Range/Units 22:00 22:00 WBC (3.8-10.6) k/uL RBC (4.30-5.90) m/uL Hgb (13.0-17.5) gm/dL Hct (39.0-53.0) % MCV (80.0-100.0) fL MCH (25.0-35.0) pg MCHC (31.0-37.0) g/dL RDW (11.5-15.5) % Plt Count (150-450) k/uL Neutrophils % % Lymphocytes % % Monocytes % % Eosinophils % % Basophils % % Neutrophils # (1.3-7.7) k/uL Lymphocytes # (1.0-4.8) k/uL Monocytes # (0-1.0) k/uL Eosinophils # (0-0.7) k/uL Basophils # (0-0.2) k/uL PT (9.0-12.0) sec INR (<1.1) APTT (22.0-30.0) sec Sodium (137-145) mmol/L Potassium (3.5-5.1) mmol/L Chloride (98-107) mmol/L Carbon Dioxide (22-30) mmol/L Anion Gap mmol/L BUN (9-20) mg/dL Creatinine (0.66-1.25) mg/dL Est GFR (MDRD) Af Amer (>60 ml/min/1.73 sqM) Est GFR (MDRD) Non-Af (>60 ml/min/1.73 sqM) Glucose (74-99) mg/dL Plasma Lactic Acid Ron (0.7-2.0) mmol/L Calcium (8.4-10.2) mg/dL Total Bilirubin (0.2-1.3) mg/dL AST (17-59) U/L ALT (21-72) U/L Alkaline Phosphatase (38-126) U/L Total Creatine Kinase (55-170) U/L CK-MB (CK-2) (0.0-2.4) ng/mL CK-MB (CK-2) Rel Index Troponin I (0.000-0.034) ng/mL Total Protein (6.3-8.2) g/dL Albumin (3.5-5.0) g/dL Urine Color Urine Appearance (Clear) Urine pH (5.0-8.0) Ur Specific [place] (1.001-1.035) Urine Protein (Negative) Urine Glucose (UA) (Negative) Urine Ketones (Negative) Urine Blood (Negative) Urine Nitrite (Negative) Urine Bilirubin (Negative) Urine Urobilinogen (<2.0) mg/dL Ur Leukocyte Esterase (Negative) Urine RBC (0-5) /hpf Urine WBC (0-5) /hpf Urine Bacteria (None) /hpf Urine Mucus (None) /hpf Urine Yeast (Budding) (None) /hpf Influenza Type A RNA Not Detected (Not Detectd) Influenza Type B (PCR) Not Detected (Not Detectd) Group A Strep Rapid Negative (Negative) - Radiology Data Radiology results: image reviewed (Chest x-ray shows no acute process) Critical Care Time Critical Care Time: Yes Total Critical Care Time: 33 Disposition Clinical Impression: Sepsis, Urinary tract infection Disposition: ADMITTED IP TO THIS HOSP
--- NOTE | 2017-01-04 21:40 | XR ---
EXAMINATION TYPE: XR chest 2V DATE OF EXAM: 01/04/2017 9:36 PM COMPARISON: 09/25/2016 HISTORY: Chest pain TECHNIQUE: Frontal and lateral views of the chest are obtained. FINDINGS: There is no focal air space opacity. No evidence for pnuemothorax.No pleural effusion. The cardiac silhouette size is within normal limits. Sternotomy wiresare in place. Cardiac valvular p rosthesis noted. The osseous structures are grossly intact. IMPRESSION: 1. No acute cardiopulmonary process.
[2017-01-04 22:20] LABS: Basophils # (A) 0.1 k/uL (0-0.2); Basophils % (A) 1 %; CH 31.8; CHCM 34.3; Eosinophils # (A) 0.1 k/uL (0-0.7); Eosinophils % (A) 1 %; HCT 44.9 % (39.0-53.0); HDW 2.76; HGB 15.2 gm/dL (13.0-17.5); Luc % (Auto) 1; Lymphocytes # (A) 2.2 k/uL (1.0-4.8); Lymphocytes % (A) 15 %; MCH 31.6 pg (25.0-35.0); MCV 92.9 fL (80.0-100.0); Mean Platelet Volume 8.9; Monocytes # (A) 0.9 k/uL (0-1.0); Monocytes % (A) 6 %; Neutrophils # (A) 11.5 k/uL (1.3-7.7); Neutrophils % (A) 76 %; RBC 4.83 m/uL (4.30-5.90); RDW 14.5 % (11.5-15.5); WBC 15.1 k/uL (3.8-10.6); WBC (Perox) 15.35
[2017-01-04 22:30] LABS: Partial Thromboplastin Time 32.6 sec (22.0-30.0)
[2017-01-04 22:32] LABS: Appearance,Urine Cloudy (Clear); Bacteria,Urine Rare /hpf; Bilirubin,Urine Negative (Negative); Glucose,Urine (UA) Negative (Negative); INR 2.4 (<1.1); Ketones,Urine Negative (Negative); Leukocyte Esterase,Urine Small (Negative); Mucus,Urine Rare /hpf; Nitrite,Urine Positive (Negative); Particle Count 67695; Protein,Urine Negative (Negative); Prothrombin Time 23.5 sec (9.0-12.0); RBC,Urine 4 /hpf (0-5); Specific Gravity,Urine 1.014 (1.001-1.035); UA Billing (MACRO vs. MICRO) MICRO; Urobilinogen,Urine <2.0 mg/dL (<2.0); WBC,Urine 44 /hpf (0-5)
[2017-01-04 22:40] LABS: ALT 32 U/L (21-72); AST 19 U/L (17-59); Alkaline Phosphatase 74 U/L (38-126); Anion Gap 10 mmol/L; Blood Urea Nitrogen 12 mg/dL (9-20); Carbon Dioxide 23 mmol/L (22-30); Chloride 104 mmol/L (98-107); Creatine Kinase 147 U/L (55-170); Glucose 93 mg/dL (74-99); Non-African American GFR(MDRD) >60 (>60 ml/min/1.73 sqM); Potassium 4.2 mmol/L (3.5-5.1); Sodium 137 mmol/L (137-145); Total Bilirubin 0.7 mg/dL (0.2-1.3); Total Protein 7.2 g/dL (6.3-8.2)
[2017-01-04 22:53] LABS: Creatine Kinase MB 0.4 ng/mL (0.0-2.4); Troponin I <0.012 ng/mL (0.000-0.034)
[2017-01-04] MEDS ORDERED: NALOXONE 0.4 MG/ML 1 ML VIAL IV PRN (23:01)
[2017-01-04] MEDS ORDERED: ACETAMINOPHEN TAB 325 MG TAB PO PRN (23:01)
[2017-01-04] MEDS: SODIUM CHLORIDE 0.9% 1,000 ML IV SCH (23:40)
[2017-01-05 00:32] VITALS: BMI 23.6
[2017-01-05 04:14] LABS: Basophils # (A) 0.3 k/uL (0-0.2); Basophils % (A) 2 %; CH 31.4; CHCM 32.7; Eosinophils # (A) 0.2 k/uL (0-0.7); Eosinophils % (A) 1 %; HDW 2.57; HGB 15.4 gm/dL (13.0-17.5); Luc # (Auto) 0.23; Luc % (Auto) 2; Lymphocytes # (A) 2.5 k/uL (1.0-4.8); Lymphocytes % (A) 17 %; MCH 30.8 pg (25.0-35.0); MCV 96.3 fL (80.0-100.0); Mean Platelet Volume 9.1; Monocytes # (A) 0.9 k/uL (0-1.0); Monocytes % (A) 6 %; Neutrophils # (A) 10.5 k/uL (1.3-7.7); Neutrophils % (A) 72 %; RBC 4.98 m/uL (4.30-5.90); RDW 14.7 % (11.5-15.5); WBC 14.6 k/uL (3.8-10.6); WBC (Perox) 14.96
[2017-01-05 04:57] LABS: Creatine Kinase 115 U/L (55-170)
[2017-01-05 05:10] LABS: Creatine Kinase MB 0.4 ng/mL (0.0-2.4); Troponin I <0.012 ng/mL (0.000-0.034)
[2017-01-05 07:46] VITALS: RESP 16
[2017-01-05] MEDS: ATORVASTATIN 40 MG TAB PO SCH (09:01)
[2017-01-05] MEDS: ASPIRIN 81 MG CHEW PO SCH (09:01)
[2017-01-05] MEDS: METOPROLOL TARTRATE 25 MG TAB PO SCH ×2 (09:50→20:32)
[2017-01-05] MEDS: CLOPIDOGREL 75 MG TAB PO SCH (09:50)
--- NOTE | 2017-01-05 11:56 | ECHOF ---
Referral Reason:fever MEASUREMENTS -------- HEIGHT: 175.3 cm WEIGHT: 72.6 kg BP: IVSd: 1.2 cm (0.6 - 1.1) LVIDd: 3.5 cm (3.9 - 5.3) LVPWd: 1.3 cm (0.6 - 1.1) IVSs: 1.0 cm LVIDs: 2.2 cm LVPWs: 1.5 cm MV EXCURSION: 11.106 mm (> 18.000) MV EF SLOPE: 39 mm/s (70 - 150) EPSS: 1.4 cm MV E Stew: 0.95 m/s MV DecT: 262 ms MV A Stew: 0.74 m/s MV E/A Ratio: 1.27 AV maxP.24 mmHg AV meanP.58 mmHg RAP: 5.00 mmHg RVSP: 30.78 mmHg FINDINGS -------- Sinus rhythm. This was a technically adequate study. There is mild concentric left ventricular hypertrophy. Overall left ventricular systolic function is low-normal with, an EF between 50 - 55 %. There is paradoxical/dysynergic septal motion consistent with post-operative status. The right ventricle is normal in size and function. The left atrium is normal in size. The right atrium is normal in size. The aortic valve [Mechanical Tilting Disc] was not well visualized. Peak/mean gradient across the Aortic Valve is 38.24mmHg / 24.58mmHg. There is trace mitral regurgitation. Mild tricuspid regurgitation present. The right ventricular systolic pressure, as measured by Doppler, is 30.78mmHg. Pulmonic valve appears structurally normal. The aortic root size is normal. The pericardium is normal. CONCLUSIONS -------- 1. Sinus rhythm. 2. Peak/mean gradient across the Aortic Valve is 38.24mmHg / 24.58mmHg. 3. There is trace mitral regurgitation. 4. Mild tricuspid regurgitation present. 5. The right ventricular systolic pressure, as measured by Doppler, is 30.78mmHg. 6. Pulmonic valve appears structurally normal. 7. The aortic root size is normal. 8. The pericardium is normal. 9. This was a technically adequate study. 10. There is mild concentric left ventricular hypertrophy. 11. Overall left ventricular systolic function is low-normal with, an EF between 50 - 55 %. 12. There is paradoxical/dysynergic septal motion consistent with post-operative status. 13. The right ventricle is normal in size and function. 14. The left atrium is normal in size. 15. The right atrium is normal in size. 16. The aortic valve was not well visualized. HYDRAULIC REPAIRER: Paulina Palmer RDCS
[2017-01-05 12:12] LABS: Creatine Kinase 102 U/L (55-170)
[2017-01-05 12:20] LABS: Creatine Kinase MB 0.3 ng/mL (0.0-2.4); Troponin I <0.012 ng/mL (0.000-0.034)
--- NOTE | 2017-01-05 12:33 | CONS ---
DATE OF CONSULTATION: A 46-year-old gentleman with a known history of CAD and aortic valve replacement, came into the hospital with fever and chills, was found to be febrile on arrival, her white count was elevated and I was asked to see him to rule out any abnormality related to evaluate the setting of infection. However, so far the initial work-up is negative other than elevated white count and initial febrile status with chills we have not seen any further issues. He does not have any fever, his chills have resolved. White count remains about 15,000. He is resting comfortably without symptoms. This gentleman apparently was doing well until 2 days ago. Yesterday, he went to work, but when he was going to work. He felt feverish and had some chills. He continued to go to work, came back, felt feverish, chills, had a temp of 101, and was brought into the emergency room by his . After arrival, his temperature has resolved. He feels better. The chills have not recurred and the work-up for flu was negative. Chest x-ray is unremarkable. Urine analysis reveals a very questionable infection. He is resting comfortably without symptoms. Echocardiogram revealed that the valve was not easily visualized, but the gradient across the valve is a modest about 24 mm mean gradient, LV function is well preserved. This patient also had a history of prior stenting of his distal LAD in July of 2016 and when he had valve replacement, no bypasses were performed. PAST MEDICAL HISTORY: 1. CAD with previous non-ST elevation [place] and stenting of distal LAD. 2. Hypertension. 3. Hypercholesterolemia. 4. Aortic valve replacement performed in September of this year. Medications include: 1. Coumadin. 2. Aspirin. On examination, blood pressure is 112/66, pulse rate is 80 per minute. HEENT: Unremarkable. Fundus was not examined by me. Neck is supple. No JVD. I do not hear a carotid bruit. Heart exam reveals S1, S2 with a prosthetic valve clicks that are crisp, short systolic murmur noted. Lungs are clear. Abdomen is soft, nontender. Lower extremities reveal palpable pulses. No edema. Central nervous system is normal. EKG revealed sinus mechanism, LVH by voltage criteria with nonspecific ST-T changes. Echo revealed that the mechanical aortic valve was not easily visualized but the gradient appears to be mild to moderate without significant regurgitation and there is no evidence of any vegetations, but the valve was not well seen. IMPRESSION: 1. Fevers with chills, could be a flulike illness. 2. History of aortic valve replacement with a mechanical valve in September of this year. 3. History of coronary artery disease with previous stenting of distal left anterior descending artery in July of last year. RECOMMENDATIONS: For now I would not recommend any aggressive work-up. Patient looks quite good. He does not have any fever or chills and he does not look toxic. We will see what the cultures show and tomorrow will make a decision whether he will need a transesophageal echo or just clinical observation. I discussed my thoughts in detail with the patient and also talked to Dr. Harris, who will see him tomorrow. Thank you very much for the consult.
--- NOTE | 2017-01-05 15:31 | P.PN ---
Subjective Principal diagnosis: Fever, Tmax 101.6F Status post mechanical aortic valve replacement with exclusion of left atrial appendage on September 18, 2016. The patient was sitting up at the bedside in no apparent distress. States he feels better than when he came in, was just worried about having a fever with a new heart valve. Objective - Vital Signs Vital signs: Vital Signs Temp 98.4 F 01/05/17 07:00 Pulse 86 01/05/17 07:00 Resp 16 01/05/17 07:00 BP 112/55 01/05/17 07:00 Pulse Ox 96 01/05/17 08:14 Intake & Output 01/04/17 01/05/17 01/05/17 18:59 06:59 18:59 Intake Total 450 100 Balance 450 100 Weight 72.575 kg Intake: IV 100 cefTRIAXone 1,000 mg In 100 Sodium Chloride 0.9% 50 ml @ 100 mls/hr IVPB ONCE [facility] Rx#:[id number] Oral 450 Other: Voiding Method Toilet Toilet # Voids 1 - Constitutional General appearance: Present: cooperative, no acute distress - Respiratory Details: Currently on room air. Respiratory: bilateral: CTA - Cardiovascular Rhythm: regular Heart sounds: normal: S1, S2 Abnormal Heart Sounds: Present: systolic murmur - Gastrointestinal Gastrointestinal Comment(s): Abdomen soft, nontender, nondistended. Active bowel sounds 4 quadrants. Tolerating diet. - Genitourinary Genitourinary Comment(s): Voiding clear, yellow urine. - Musculoskeletal Musculoskeletal: Present: gait normal, strength equal bilaterally - Psychiatric Psychiatric: Present: A&O x's 3, appropriate affect, intact judgment & insight - Allied health notes Allied health notes reviewed: nursing - Labs CBC & Chem 7: 01/05/17 03:45 01/04/17 22:00 Labs: Abnormal Lab Results - Last 24 Hours (Table) 01/05/17 Range/Units 03:45 WBC 14.6 H (3.8-10.6) k/uL Neutrophils # 10.5 H (1.3-7.7) k/uL Basophils # 0.3 H (0-0.2) k/uL - Imaging and Cardiology Chest x-ray: report reviewed, image reviewed Assessment and Plan (1) Status post aortic valve replacement with metallic valve Status: Acute (2) Urinary tract infection Status: Acute (3) Systolic murmur Status: Acute Plan: Patient was seen this morning with Dr. Hagen. Labs, vitals, medications reviewed. Results of echocardiogram reviewed. No further recommendation for cardiothoracic surgery involvement at this time. Will see as needed. Time with Patient: Greater than 30
--- NOTE | 2017-01-05 16:45 | P.HPIM ---
History of Present Illness H&P Date: 01/05/17 Chief Complaint: Fever Patient is a 46-year-old male, patient of Dr. Theo Haas in the outpatient setting with medical history significant for critical aortic stenosis status post aortic valve replacement with mechanical valve on 2006; myocardial infarction with stent placement to the LAD in July 2016, TIA, and hyperlipidemia. Patient presented to the emergency department with complaints of chills and fevers 1 day. No other complaints. Chest x-ray with no evidence of acute pulmonary process. WBC 15.1 on admission. Urinalysis with small amount of leukocyte esterase and 44 WBC. Influenza and group A strep negative. Patient was started on IV ceftriaxone and admitted to the medical floor with consult to cardiothoracic service and cardiology. Echocardiogram with Doppler with overall left ventricular systolic function with a low to normal EF between 50-55%; aortic valve was not easily visualized, but with no obvious evidence of vegetation. Upon examination, patient is feeling better. Denies chills, fevers, nausea, vomiting, shortness of breath, chest pain, abdominal pain, urinary urgency, dysuria, or hematuria. Denies constipation or diarrhea. Denies numbness or tingling. Denies leg pain or leg swelling. Patient states he quit smoking in September. No further fevers overnight. WBC decreased to 14.6. Preliminary urine culture pending. Throat culture pending. Past Medical History Past Medical History: Chest Pain / Angina, CVA/TIA, Hyperlipidemia, Myocardial Infarction ([place]) Additional Past Medical History / Comment(s): 04/23/15 TIA, denies residual effects. HX: heart murmur, head injury with scalp laceration requiring cira, bronchitis. Last Myocardial Infarction Date:: 07-21-16 History of Any Multi-Drug Resistant Organisms: None Reported Past Surgical History: Heart Catheterization With Stent, Hernia Repair Additional Past Surgical History / Comment(s): L inquinal hernia repair. HEART CATH W/ STENT TO LAD, aortic valve replacement september 2016 Past Anesthesia/Blood Transfusion Reactions: No Reported Reaction Date of Last Stent Placement:: 07-21-16 Past Psychological History: No Psychological Hx Reported Additional Psychological History / Comment(s): Pt lives with his STEPHEN. He is independent. He uses no assistive devices or home care. He drives. Smoking Status: Former smoker Past Alcohol Use History: None Reported Additional Past Alcohol Use History / Comment(s): Pt started smoking at 13 yrs of age and smokes 3-4 cigarettes per day. Past Drug Use History: None Reported - Past Family History Father Family Medical History: AFIB, COPD, Eye Disorder Additional Family Medical History / Comment(s): Father has emphysema, spinal and neck surgeries, neuropathy, spinal stenosis, eye herpes. Mother Family Medical History: CVA/TIA, Hyperlipidemia, Hypertension Additional Family Medical History / Comment(s): Mother has had a recent TIA. Medications and Allergies Home Medications Medication Instructions Recorded Confirmed Type Aspirin EC [Ecotrin Low Dose] 81 mg PO DAILY 08/22/16 01/05/17 History Warfarin Sodium [Coumadin] 2 mg PO MOTH@1800 01/04/17 01/05/17 History Warfarin Sodium [Coumadin] 4 mg PO SUTUWEFRSA@1800 01/04/17 01/05/17 History Allergies Allergy/AdvReac Type Severity Reaction Status Date / Time milk Allergy Rash/Hives Verified 01/05/17 00:13 tetanus immune globulin Allergy Unknown Verified 01/05/17 00:13 Physical Exam Vitals: Vital Signs Temp Pulse Pulse Resp BP BP Pulse Ox 01/05/17 08:14 96 01/05/17 07:00 98.4 F 86 16 112/55 96 01/05/17 00:32 98.4 F 71 18 113/71 95 01/04/17 23:41 99.4 F 72 18 125/72 97 Intake and Output 01/05/17 01/05/17 01/05/17 06:59 14:59 22:59 Intake Total 450 100 Balance 450 100 Intake: IV 100 cefTRIAXone 1,000 mg In 100 Sodium Chloride 0.9% 50 ml @ 100 mls/hr IVPB ONCE [facility] Rx#:[id number] Oral 450 Other: Voiding Method Toilet Toilet # Voids 1 Weight 72.575 kg GENERAL: Pt awake and alert, well-appearing, well-nourished, and in no acute distress. HEAD: Atraumatic, normocephalic. EYES: Pupils equal, round, and reactive to light, extraocular movements intact, sclera anicteric, conjunctiva are normal. ENT: Moist mucous membranes. NECK:Normal range of motion, supple without lymphadenopathy or JVD. LUNGS: Breath sounds clear to auscultation bilaterally. No wheezes, rales, or rhonchi. HEART: Heart S1, S2, no S3 or S4. Regular rate and rhythm. Systolic murmur. ABDOMEN: Soft, nontender, nondistended, normoactive bowel sounds. No guarding, no rebound. No masses or organomegaly appreciated. EXTREMITIES: 2+ peripheral pulses. No edema. No calf tenderness. NEUROLOGICAL: Pt oriented x 3. Cranial nerves II through XII grossly intact. Strength and sensation grossly intact. PSYCH: Normal mood, normal affect. SKIN: Warm, dry, intact. Normal turgor. No rashes or lesions. Results CBC & Chem 7: 01/05/17 03:45 01/04/17 22:00 Labs: Abnormal Lab Results - Last 24 Hours (Table) 01/05/17 Range/Units 03:45 WBC 14.6 H (3.8-10.6) k/uL Neutrophils # 10.5 H (1.3-7.7) k/uL Basophils # 0.3 H (0-0.2) k/uL Chest x-ray: report reviewed Thrombosis Risk Factor Assmnt - DVT/VTE Prophylaxis DVT/VTE Prophylaxis: Pharmacologic Prophylaxis ordered - Choose All That Apply Any of the Below Risk Factors Present?: Yes Each Factor Represents 1 point: Age 41-60 years Other Risk Factors: No Thrombosis Risk Factor Assessment Total Risk Factor Score: 1 Thrombosis Risk Factor Assessment Level: Low Risk Assessment and Plan Plan: Impression: 1. Sepsis, present on admission, possibly from urinary tract infection but will need to rule out other sources. 2. Leukocytosis, present on admission. 3. Possible urinary tract infection. Await results of urine culture. Continue IV ceftriaxone. 4. History of severe bicuspid aortic valve stenosis status post aortic valve replacement using a mechanical valve on 09/18/2016. 2. Coronary artery disease with myocardial infarction in July 2016 with stenting to the distal LAD. 3. History of hyperlipidemia. 4. History of TIA. 5. COPD, mild to moderate with an FEV1 of 69% of predicted baseline. 6. History of nicotine dependence. Plan: 1. Continue to monitor patient. Continue IV antibiotics. Continue to follow urine and blood cultures. Home medications been reviewed and resumed. Continue to follow with consultants. Repeat CBC, BMP, PT/INR in a.m. The above impression and plan have been discussed and directed by Dr. James. Woode COMPUTER DESIGNER-C acting as scribe for Dr. Haas.
[2017-01-05] MEDS ORDERED: WARFARIN 2 MG TAB PO SCH (18:00)
[2017-01-06 07:56] LABS: Basophils # (A) 0.1 k/uL (0-0.2); Basophils % (A) 1 %; CH 31.2; CHCM 33.2; Eosinophils # (A) 0.1 k/uL (0-0.7); Eosinophils % (A) 1 %; HCT 50.3 % (39.0-53.0); HDW 2.71; HGB 16.3 gm/dL (13.0-17.5); Luc # (Auto) 0.23; Luc % (Auto) 2; Lymphocytes # (A) 2.5 k/uL (1.0-4.8); Lymphocytes % (A) 18 %; MCH 30.7 pg (25.0-35.0); MCHC 32.5 g/dL (31.0-37.0); MCV 94.4 fL (80.0-100.0); Monocytes % (A) 7 %; Neutrophils # (A) 10.3 k/uL (1.3-7.7); Neutrophils % (A) 73 %; RBC 5.33 m/uL (4.30-5.90); RDW 14.3 % (11.5-15.5); WBC 14.1 k/uL (3.8-10.6); WBC (Perox) 13.94
[2017-01-06 08:10] LABS: Anion Gap 9 mmol/L; Blood Urea Nitrogen 12 mg/dL (9-20); Carbon Dioxide 23 mmol/L (22-30); Chloride 108 mmol/L (98-107); Glucose 98 mg/dL (74-99); Non-African American GFR(MDRD) >60 (>60 ml/min/1.73 sqM); Potassium 4.7 mmol/L (3.5-5.1); Sodium 140 mmol/L (137-145)
[2017-01-06 08:13] LABS: INR 1.8 (<1.1); Prothrombin Time 17.8 sec (9.0-12.0)
[2017-01-06] MEDS: ATORVASTATIN 40 MG TAB PO SCH (09:33)
[2017-01-06] MEDS: METOPROLOL TARTRATE 25 MG TAB PO SCH (09:33)
[2017-01-06] MEDS: CLOPIDOGREL 75 MG TAB PO SCH (09:33)
[2017-01-06] MEDS: ASPIRIN 81 MG CHEW PO SCH (09:33)
[2017-01-06] MEDS: SODIUM CHLORIDE 0.9% 1,000 ML IV SCH (09:34)
--- NOTE | 2017-01-06 10:18 | P.PN ---
Subjective Principal diagnosis: Status post aVR This is a pleasant 46-year-old gentleman who I see in the office as an outpatient with a known history of CAD and prior LAD stenting, severe aortic stenosis and status post aVR using mechanical valve, as well as severe peripheral arterial disease was admitted to the hospital was fever. Beside the fever, the patient was asymptomatic and he did not have any cough, dysuria, shortness of breath, or chest discomfort. The WBC upon admission to the hospital was elevated and came down after he was started on antibiotic. He underwent a throat culture and that came in positive for strep. Over the last 24 hours, he has been doing good and he has been afebrile. From the cardiovascular standpoint of view, he can be discharged home. Objective - Vital Signs Vital signs: Vital Signs Temp 98.4 F 01/06/17 07:00 Pulse 72 01/06/17 07:00 Resp 16 01/06/17 07:00 BP 116/58 01/06/17 07:00 Pulse Ox 100 01/06/17 07:00 Intake & Output 01/05/17 01/06/17 01/06/17 18:59 06:59 18:59 Intake Total 100 220 360 Balance 100 220 360 Intake: IV 100 cefTRIAXone 1,000 mg In 100 Sodium Chloride 0.9% 50 ml @ 100 mls/hr IVPB ONCE [facility] Rx#:[id number] Intake, IV Titration 220 Amount Sodium Chloride 0.9% 1, 60 000 ml @ 20 mls/hr IV . Q24H [facility] Rx#:[id number] cefTRIAXone 1,000 mg In 160 Sodium Chloride 0.9% 50 ml @ 100 mls/hr IVPB Q12HR [facility] Rx#:[id number] Oral 360 Other: Voiding Method Toilet Toilet - Constitutional General appearance: Present: no acute distress - Respiratory Respiratory: bilateral: CTA - Cardiovascular Rhythm: regular Heart sounds: normal: S1 Abnormal Heart Sounds: Present: systolic murmur - Labs CBC & Chem 7: 01/06/17 07:30 01/06/17 07:30 Labs: Abnormal Lab Results - Last 24 Hours (Table) 01/06/17 01/06/17 01/06/17 Range/Units 07:30 07:30 07:30 WBC 14.1 H (3.8-10.6) k/uL Neutrophils # 10.3 H (1.3-7.7) k/uL PT 17.8 H (9.0-12.0) sec Chloride 108 H (98-107) mmol/L Assessment and Plan Plan: Assessment #1 fever likely related to strep #2 status post aVR using mechanical valve #3 CAD and prior LAD stenting #4 PAD. Plan #1 continue the current medical treatment including the Coumadin. #2 the patient can be discharged home
[2017-01-06] MEDS ORDERED: ENOXAPARIN 100 MG/ML SYRINGE SQ STA (10:36)
--- NOTE | 2017-01-06 11:41 | PN ---
This is a discharge summary Patient is a 46-year-old admitted with fever and sepsis thought to be secondary to UTI. Patient does not have any symptoms and patient does not have any BPH. . Patient had a strep sore throat, which is causing his fevers. Patient' s strep cultures negative. continues to have leukocytosis and because of his recent replacement of aortic valve my concern is bacteremia and endocarditis. Patient's blood cultures were obtained. If they remain negative by tomorrow, the patient will be discharged tomorrow. In my opinion, he needs to stay one more day for the blood cultures and patient is subtherapeutic INR. Patient's target INR should be 2.5 to 3.5. His INR is 1.8 today. Patient will be given bridging Lovenox because of his mechanical heart valve and patient's Coumadin dose will be increased to 5 mg. Will decide on the discharge dosing of Coumadin. REVIEW OF SYSTEMS: CARDIOVASCULAR: No chest pain, no orthopnea, no PND, no palpitations. PULMONARY: Denied any shortness of breath. No cough or hemoptysis. GASTROINTESTINAL: No diarrhea, nausea or vomiting. No abdominal pain. Normoactive bowel sounds. NEUROLOGIC: No headaches, no weakness, no numbness. Medications were reviewed. PHYSICAL EXAMINATION: VITAL SIGNS: Temperature 98.4, pulse of 70, respiratory rate of 16, blood pressure is 116/58, saturating at 100% on room air. GENERAL: The patient is alert and oriented x3, not in any acute distress. Well developed, well nourished. HEENT: Pupils are round and equally reacting to light. EOMI. No scleral icterus. No conjunctival pallor. Normocephalic, atraumatic. No pharyngeal erythema. No thyromegaly. HEART: Aortic area because of mechanical valve, patient has loud heart sounds in that area. No murmurs, rubs or gallops. S1 and S2 present. PULMONARY: Chest is clear to auscultation, no wheezing or crackles. ABDOMEN: Soft, nontender, nondistended, normoactive bowel sounds. No palpable organomegaly. MUSCULOSKELETAL: No joint swelling or deformity. EXTREMITIES: No cyanosis, clubbing, or pedal edema. NEUROLOGICAL: Gross neurological examination did not reveal any focal deficits. SKIN: No rashes. LABORATORY DATA: CBC, CMP are abnormal for elevated WBC count of 14,100. ASSESSMENT AND PLAN: 1. Sepsis most probably related to UTI. We need to rule out endocarditis. Patient will need to stay one more day for blood cultures to finalize. Echocardiogram did not show any significant abnormality on the mechanical heart valve. 2. Aortic valve replacement. Subtherapeutic INR management as mentioned above. Will give him 100 mg of bridging Lovenox 1 dose today. Repeat INR tomorrow. 4. Hyperlipidemia. 5. Chronic obstructive pulmonary disease, not in acute exacerbation. 6. Nicotine dependence. PLAN: As mentioned above. Patient was discharged later in the day as he has his daughter's Prom to attend. I did review the cultures a day later, blood cultures remain negative, Urine showed edgar sensitive UTI. Please refer to depart summary for details of discharge. MTDD
[2017-01-06 14:51] VITALS: BP 122/66; PULSE 77; TEMP 97.4
[2017-01-06] MEDS ORDERED: WARFARIN 5 MG TAB PO SCH (18:00)
[2017-01-08] MEDS ORDERED: WARFARIN 2 MG TAB PO SCH (18:00)
== END 2017-01-06 16:15 | disposition home or self-care (01) | DRG 872 ==
LOC: EC 20:12 → 5MS5E 23:01
PROVIDERS: ADMIT Family Medicine; ATTEND Family Medicine
DX: A41.9 Sepsis, unspecified organism (principal); N39.0 Urinary tract infection, site not specified; I10 Essential (primary) hypertension; J02.0 Streptococcal pharyngitis; E78.5 Hyperlipidemia, unspecified; J44.9 Chronic obstructive pulmonary disease, unspecified; F17.210 Nicotine dependence, cigarettes, uncomplicated; I25.10 Atherosclerotic heart disease of native coronary artery without angina pectoris; I25.2 Old myocardial infarction; I73.9 Peripheral vascular disease, unspecified; E78.00 Pure hypercholesterolemia, unspecified; Z95.2 Presence of prosthetic heart valve; Z95.5 Presence of coronary angioplasty implant and graft; Z86.73 Personal history of transient ischemic attack (TIA), and cerebral infarction without residual deficits; Z82.49 Family history of ischemic heart disease and other diseases of the circulatory system; Z79.01 Long term (current) use of anticoagulants; Z79.02 Long term (current) use of antithrombotics/antiplatelets; Z79.82 Long term (current) use of aspirin; Z79.899 Other long term (current) drug therapy
CPT/HCPCS: 36415; 71020; 80048; 80053; 81001; 82550; 82553; 83605; 84484; 85025; 85610; 85730; 87040; 87077; 87081; 87086; 87186; 87430; 87502; 93005; 93306; 99291

== ENCOUNTER → 2017-03-26 | Outpatient (CLI) | payer BC ==
--- NOTE | 2017-03-26 13:51 | CT ---
EXAMINATION TYPE: CT chest w con DATE OF EXAM: 03/26/2017 COMPARISON: CT chest August 23, 2016 HISTORY: Follow up nodule without chest complaints. CT DLP: 291.4 mGycm. Automated Exposure Control for Dose Reduction was Utilized. TECHNIQUE: CT scan of the thorax is performed following with IV Contrast, patient injected with 100 mL of Omnipaque 300. FINDINGS: LUNGS: There is background mild to moderate emphysematous change present. There is stable 6 x 3 mm sc arlike opacity right lung apex on axial image 10 presumed postinflammatory given no interval change. No new suspicious parenchymal nodule or mass is present bilaterally. No pleural effusion or pneumotho rax is seen. Tracheobronchial tree is patent. MEDIASTINUM: There are no greater than 1 cm hilar or mediastinal lymph nodes. No cardiomegaly or pe ricardial effusion is seen. There is interval sternotomy with new metallic aortic valve and surgical resection of severely calcified tunica-biloxi aortic valve. There is new clip-like density anterior to pulm onary veins along course of ramus intermedius from interval surgery. Mediastinal clips are new from p rior study. OTHER: No additional significant abnormality is seen. IMPRESSION: Mild to moderate emphysematous change with stable right apical scarlike opacity presumed postinflammatory given no interval growth and small size. No new nodule or adenopathy is seen. Interv al open sternotomy changes noted.
== END | disposition home or self-care (01) ==
LOC: RADCTMAIN 11:54
PROVIDERS: ATTEND Internal Medicine Critical Care Medicine
DX: J43.9 Emphysema, unspecified (principal); R91.8 Other nonspecific abnormal finding of lung field; Z98.890 Other specified postprocedural states
CPT/HCPCS: 71260; Q9967

== ENCOUNTER 2017-09-06 16:25 | Emergency (ER) | payer BC ==
[2017-09-06 16:46] VITALS: BP 131/66; PULSE 70; RESP 18; TEMP 97.6
--- NOTE | 2017-09-06 16:56 | ED ---
General Adult HPI - General Chief complaint: ENT Stated complaint: Chills/Sore Throat/Ear Ache Time Seen by Provider: 09/06/17 16:45 Source: patient, RN notes reviewed Mode of arrival: ambulatory Limitations: no limitations - History of Present Illness Initial comments: Patient 47-year-old male who presents emergency room today with a chief complaint of sore throat with some congestion over the last week. Patient does admit to some fullness to the right year. Patient does admit to cough congestion with sputum production in the morning. Patient does admit to chills. Patient denies any other complaints or symptoms. Patient denies any recent shortness of breath, chest pain, back pain, abdominal pain, nausea or vomiting, numbness or tingling, dysuria or hematuria, constipation or diarrhea, headaches or visual changes, or any other complaints. - Related Data Home Medications Medication Instructions Recorded Confirmed Aspirin EC [Ecotrin Low Dose] 81 mg PO DAILY 08/22/16 01/05/17 Previous Rx's Medication Instructions Recorded Clopidogrel [Plavix] 75 mg PO DAILY #30 tab 07/23/16 Atorvastatin [Lipitor] 40 mg PO DAILY #30 tab 09/25/16 Metoprolol Tartrate [Lopressor] 25 mg PO BID #60 tab 09/25/16 Cephalexin [Keflex] 500 mg PO Q6HR #20 cap 01/06/17 Warfarin Sodium [Coumadin] 4 mg PO DAILY #0 01/06/17 Amoxicillin 500 mg PO Q8H 10 Days day 09/06/17 Allergies Allergy/AdvReac Type Severity Reaction Status Date / Time milk Allergy Rash/Hives Verified 09/06/17 16:43 tetanus immune globulin Allergy Unknown Verified 09/06/17 16:43 Review of Systems ROS Statement: Those systems with pertinent positive or pertinent negative responses have been documented in the HPI. ROS Other: All systems not noted in ROS Statement are negative. Past Medical History Past Medical History: Chest Pain / Angina, CVA/TIA, Hyperlipidemia, Myocardial Infarction ([place]) Additional Past Medical History / Comment(s): 04/23/15 TIA, denies residual effects. HX: heart murmur, head injury with scalp laceration requiring cira, bronchitis. Last Myocardial Infarction Date:: 07-21-16 History of Any Multi-Drug Resistant Organisms: None Reported Past Surgical History: Coronary Bypass/CABG, Heart Catheterization With Stent, Hernia Repair Additional Past Surgical History / Comment(s): L inquinal hernia repair. HEART CATH W/ STENT TO LAD, aortic valve replacement september 2016 Past Anesthesia/Blood Transfusion Reactions: No Reported Reaction Date of Last Stent Placement:: 07-21-16 Past Psychological History: No Psychological Hx Reported Smoking Status: Former smoker Past Alcohol Use History: None Reported Past Drug Use History: None Reported - Past Family History Father Family Medical History: AFIB, COPD, Eye Disorder Additional Family Medical History / Comment(s): Father has emphysema, spinal and neck surgeries, neuropathy, spinal stenosis, eye herpes. Mother Family Medical History: CVA/TIA, Hyperlipidemia, Hypertension Additional Family Medical History / Comment(s): Mother has had a recent TIA. General Exam - General Exam Comments Initial Comments: General: The patient is awake and alert, in no distress, and does not appear acutely ill. Eye: Pupils are equal, round and reactive to light, extra-ocular movements are intact. No nystagmus. There is normal conjunctiva bilaterally. No signs of icterus. Ears, nose, mouth and throat: There are moist mucous membranes and no oral lesions. follow some pressure behind the right TM. Uvula midline. Redness and erythema posterior pharynx no exudate. Tolerating oral secretions. Neck: The neck is supple, there is no tenderness or JVD. Cardiovascular: There is a regular rate and rhythm. No murmur, rub or gallop is appreciated. Respiratory: Lungs are clear to auscultation, respirations are non-labored, breath sounds are equal. No wheezes, stridor, rales, or rhonchi. Musculoskeletal: Normal ROM, no tenderness. Strength 5/5. Sensation intact. Pulses equal bilaterally 2+. Neurological: A&O x 3. CN II-XII intact, There are no obvious motor or sensory deficits. Coordination appears grossly intact. Speech is normal. Skin: Skin is warm and dry and no rashes or lesions are noted. Psychiatric: Cooperative, appropriate mood & affect, normal judgment. Limitations: no limitations Course Vital Signs 09/06/17 16:41 Temperature 97.6 F Pulse Rate 70 Respiratory 18 Rate Blood Pressure 131/66 O2 Sat by Pulse 98 Oximetry Medical Decision Making - Medical Decision Making patient will be covered with antibiotics of amoxicillin for right-sided ear infection and his sore throat. Advised follow-up the family doctor over the next 2-5 days. Advised return if symptoms increase or worsen. Disposition Clinical Impression: Otitis media, Acute pharyngitis Disposition: HOME SELF-CARE Condition: Good Instructions: Pharyngitis (ED) Additional Instructions: Please use medication as discussed. Please follow-up with family doctor in the next 2 days of symptoms have not improved. Please return to emergency room if the symptoms increase or worsen or for any other concerns. Prescriptions: Amoxicillin 500 mg PO Q8H 10 Days day Referrals: Theo Haas DO [Primary Care Provider] - 1-2 days Time of Disposition: 16:54
== END 2017-09-06 17:05 | disposition home or self-care (01) ==
LOC: EC 16:25
DX: J02.9 Acute pharyngitis, unspecified (principal); H66.91 Otitis media, unspecified, right ear; I25.2 Old myocardial infarction; Z87.891 Personal history of nicotine dependence; Z79.82 Long term (current) use of aspirin; Z88.7 Allergy status to serum and vaccine; Z91.011 Allergy to milk products
CPT/HCPCS: 99283

== ENCOUNTER 2017-10-26 20:33 | Emergency (ER) | payer BC ==
[2017-10-26 20:59] VITALS: RESP 18
[2017-10-26] MEDS ORDERED: SODIUM CHLORIDE 0.9% 1,000 ML IV ONE (22:09)
[2017-10-26] MEDS ORDERED: MAG HYDROX/AL HYDROX/SIMETH 30 ML, HYOSCYAMINE ELIXIR 10 ML, CIMETIDINE HCL 300 MG PO STA ×3 (22:09)
[2017-10-26] MEDS ORDERED: DICYCLOMINE 10 MG/ML 2 ML AMP IM STA (22:09)
[2017-10-26 22:48] LABS: Basophils # (A) 0.1 k/uL (0-0.2); Basophils % (A) 1 %; Eosinophils # (A) 0.1 k/uL (0-0.7); Eosinophils % (A) 1 %; HCT 47.8 % (39.0-53.0); HGB 15.8 gm/dL (13.0-17.5); Lymphocytes # (A) 1.3 k/uL (1.0-4.8); Lymphocytes % (A) 18 %; MCH 31.2 pg (25.0-35.0); MCHC 33.1 g/dL (31.0-37.0); MCV 94.5 fL (80.0-100.0); Mean Platelet Volume 9.2; Monocytes # (A) 0.7 k/uL (0-1.0); Monocytes % (A) 10 %; Neutrophils # (A) 4.8 k/uL (1.3-7.7); Neutrophils % (A) 69 %; Platelet Count 178 k/uL (150-450); RBC 5.06 m/uL (4.30-5.90); RDW 13.4 % (11.5-15.5)
[2017-10-26 22:59] LABS: ALT 37 U/L (21-72); AST 32 U/L (17-59); Albumin 4.1 g/dL (3.5-5.0); Alkaline Phosphatase 71 U/L (38-126); Anion Gap 12 mmol/L; Blood Urea Nitrogen 17 mg/dL (9-20); Calcium 8.9 mg/dL (8.4-10.2); Carbon Dioxide 19 mmol/L (22-30); Chloride 107 mmol/L (98-107); Glucose 95 mg/dL (74-99); Potassium 4.2 mmol/L (3.5-5.1); Sodium 138 mmol/L (137-145); Total Bilirubin 0.4 mg/dL (0.2-1.3); Total Protein 7.3 g/dL (6.3-8.2)
--- NOTE | 2017-10-26 23:51 | ED ---
General Adult HPI - General Chief complaint: Fever Stated complaint: Fever Time Seen by Provider: 10/26/17 21:40 Source: patient Mode of arrival: ambulatory Limitations: no limitations - History of Present Illness Initial comments: 47-year-old male patient presents to the emergency department today for evaluation of fever and diarrhea. Patient states the diarrhea started today. States he has had 60 episodes of watery brown stools. Patient denies any abdominal pain, nausea, or vomiting with this. States he has had decreased oral intake because when he eats it makes him have a bowel movement. Patient does have a past medical history significant for aortic valve replacement so he is concerned when he developed a fever. He denies any chest pain, shortness of breath, dizziness, or weakness. Denies any recent travel or exposure to sick contacts. Denies any skin color changes. Patient denies any recent rash, back pain, numbness, tingling, hematuria, dysuria, urinary urgency, urinary frequency , headache, visual changes, or any other complaints. - Related Data Home Medications Medication Instructions Recorded Confirmed Aspirin EC [Ecotrin Low Dose] 81 mg PO DAILY 08/22/16 10/26/17 Previous Rx's Medication Instructions Recorded Atorvastatin [Lipitor] 40 mg PO DAILY #30 tab 09/25/16 Metoprolol Tartrate [Lopressor] 25 mg PO BID #60 tab 09/25/16 Warfarin Sodium [Coumadin] 4 mg PO DAILY #0 01/06/17 Allergies Allergy/AdvReac Type Severity Reaction Status Date / Time milk Allergy Rash/Hives Verified 10/26/17 21:51 tetanus immune globulin Allergy Unknown Verified 10/26/17 21:51 Review of Systems ROS Statement: Those systems with pertinent positive or pertinent negative responses have been documented in the HPI. ROS Other: All systems not noted in ROS Statement are negative. Past Medical History Past Medical History: Chest Pain / Angina, CVA/TIA, Hyperlipidemia, Myocardial Infarction ([place]) Additional Past Medical History / Comment(s): 04/23/15 TIA, denies residual effects. HX: heart murmur, head injury with scalp laceration requiring cira, bronchitis. Last Myocardial Infarction Date:: 07-21-16 History of Any Multi-Drug Resistant Organisms: None Reported Past Surgical History: Coronary Bypass/CABG, Heart Catheterization With Stent, Hernia Repair Additional Past Surgical History / Comment(s): L inquinal hernia repair. HEART CATH W/ STENT TO LAD, aortic valve replacement september 2016 Past Anesthesia/Blood Transfusion Reactions: No Reported Reaction Date of Last Stent Placement:: 07-21-16 Past Psychological History: No Psychological Hx Reported Smoking Status: Former smoker Past Alcohol Use History: None Reported Past Drug Use History: None Reported - Past Family History Father Family Medical History: AFIB, COPD, Eye Disorder Additional Family Medical History / Comment(s): Father has emphysema, spinal and neck surgeries, neuropathy, spinal stenosis, eye herpes. Mother Family Medical History: CVA/TIA, Hyperlipidemia, Hypertension Additional Family Medical History / Comment(s): Mother has had a recent TIA. General Exam Limitations: no limitations General appearance: alert, in no apparent distress, other (Physical well- developed, well-nourished adult male patient in no acute distress. Vital signs upon presentation are temperature 101.4F, pulse 94, respirations 18, blood pressure 106/60, pulse ox 95% on room air.) Eye exam: Present: normal appearance, PERRL, EOMI. Absent: scleral icterus, conjunctival injection, periorbital swelling ENT exam: Present: normal exam, normal oropharynx, mucous membranes moist Respiratory exam: Present: normal lung sounds bilaterally. Absent: respiratory distress, wheezes, rales, rhonchi, stridor Cardiovascular Exam: Present: regular rate, normal rhythm, normal heart sounds. Absent: systolic murmur, diastolic murmur, rubs, gallop, clicks GI/Abdominal exam: Present: soft, normal bowel sounds. Absent: distended, tenderness, guarding, rebound, rigid Neurological exam: Present: alert, oriented X3, CN II-XII intact Psychiatric exam: Present: normal affect, normal mood Skin exam: Present: warm, dry, intact, normal color. Absent: rash Course Vital Signs 10/26/17 10/27/17 20:55 00:04 Temperature 101.4 F H 99.3 F Pulse Rate 94 74 Respiratory 18 18 Rate Blood Pressure 106/60 111/58 O2 Sat by Pulse 95 95 Oximetry Medical Decision Making - Medical Decision Making 47-year-old male patient presented to the emergency department today for complaints of fever and diarrhea. Physical examination is unremarkable. Patient did receive IM Bentyl and IV fluids here in the department. He did receive Tylenol prior to coming in. He has not had any bowel movements while being here. Influenza testing was negative. Labs are unremarkable. I did discuss the possibility of a viral diarrhea. I discussed all results. I discussed fever management, fluid intake, and return parameters. We will discharge him home at this time to follow-up with his primary care physician for recheck in 1-2 days. He is instructed to return here immediately for any new, worsening, or concerning symptoms. He verbalizes understanding and agrees with this plan. - Lab Data Result diagrams: 10/26/17 22:32 10/26/17 22:32 Lab Results 10/26/17 10/26/17 10/26/17 Range/Units 21:00 22:32 22:32 WBC 7.0 (3.8-10.6) k/uL RBC 5.06 (4.30-5.90) m/uL Hgb 15.8 (13.0-17.5) gm/dL Hct 47.8 (39.0-53.0) % MCV 94.5 (80.0-100.0) fL MCH 31.2 (25.0-35.0) pg MCHC 33.1 (31.0-37.0) g/dL RDW 13.4 (11.5-15.5) % Plt Count 178 (150-450) k/uL Neutrophils % 69 % Lymphocytes % 18 % Monocytes % 10 % Eosinophils % 1 % Basophils % 1 % Neutrophils # 4.8 (1.3-7.7) k/uL Lymphocytes # 1.3 (1.0-4.8) k/uL Monocytes # 0.7 (0-1.0) k/uL Eosinophils # 0.1 (0-0.7) k/uL Basophils # 0.1 (0-0.2) k/uL Sodium 138 (137-145) mmol/L Potassium 4.2 (3.5-5.1) mmol/L Chloride 107 (98-107) mmol/L Carbon Dioxide 19 L (22-30) mmol/L Anion Gap 12 mmol/L BUN 17 (9-20) mg/dL Creatinine 1.00 (0.66-1.25) mg/dL Est GFR (MDRD) Af Amer >60 (>60 ml/min/1.73 sqM) Est GFR (MDRD) Non-Af >60 (>60 ml/min/1.73 sqM) Glucose 95 (74-99) mg/dL Calcium 8.9 (8.4-10.2) mg/dL Total Bilirubin 0.4 (0.2-1.3) mg/dL AST 32 (17-59) U/L ALT 37 (21-72) U/L Alkaline Phosphatase 71 (38-126) U/L Total Protein 7.3 (6.3-8.2) g/dL Albumin 4.1 (3.5-5.0) g/dL Influenza Type A RNA Not Detected (Not Detectd) Influenza Type B (PCR) Not Detected (Not Detectd) Disposition Clinical Impression: Acute diarrhea Disposition: HOME SELF-CARE Condition: Good Instructions: Fever in Adults (ED), Acute Diarrhea (ED) Additional Instructions: Increase fluids. Alternate Tylenol Motrin for fever control. Return here immediately for any new, worsening, or concerning symptoms. Referrals: Theo Haas DO [Primary Care Provider] - 1-2 days Time of Disposition: 23:51
[2017-10-27 00:05] VITALS: BP 111/58; PULSE 74; TEMP 99.3
== END 2017-10-27 00:05 | disposition home or self-care (01) ==
LOC: EC 20:33
DX: Z88.7 Allergy status to serum and vaccine (principal); R19.7 Diarrhea, unspecified; R50.9 Fever, unspecified; Z91.011 Allergy to milk products; Z87.891 Personal history of nicotine dependence; Z79.82 Long term (current) use of aspirin
CPT/HCPCS: 36415; 80053; 85025; 87040; 87502; 99283; 96372; 96360; 96361; J0500

== ENCOUNTER → 2018-03-18 | Outpatient (CLI) | payer BC ==
--- NOTE | 2018-03-18 15:00 | CT ---
EXAMINATION TYPE: CT chest w con DATE OF EXAM: 03/18/2018 COMPARISON: 03/26/2017 HISTORY: Pulmonary Nodule CT DLP: 279.7 mGycm. Automated Exposure Control for Dose Reduction was Utilized. TECHNIQUE: CT scan of the thorax is performed following with IV Contrast, patient injected with 100 mL of Isovue 300. FINDINGS: LUNGS: There is redemonstration of mild to moderate background emphysematous change. Again the 6 mm b andlike area of density seen in the right lung apex on series 4 image 10 demonstrates no interval argenis wth presumed to represent apical scarring. No new pulmonary nodules identified. Stable intrafissural nodule likely represents a intrafissural lymph node on series 4 image 38. There is no pleural effusi on or pneumothorax seen. The tracheobronchial tree is patent. MEDIASTINUM: There are no greater than 1 cm hilar or mediastinal lymph nodes. No pericardial effusi on is seen. Prior aortic valvular repair is noted with median sternotomy wires and mediastinal clips . OTHER: No gross abnormality within the visualized portions of the upper abdomen. IMPRESSION: Stable right apical 6 mm linear opacity highly favored to represent scarring with backgro und mild to moderate emphysematous change. No new adenopathy.
== END | disposition home or self-care (01) ==
LOC: RADCTMAIN 13:22
PROVIDERS: ATTEND Internal Medicine Critical Care Medicine
DX: R91.8 Other nonspecific abnormal finding of lung field (principal)
CPT/HCPCS: 71260; Q9967

== ENCOUNTER 2019-03-21 15:24 | Emergency (ER) | payer BC ==
[2019-03-21 15:34] VITALS: RESP 18
--- NOTE | 2019-03-21 17:41 | ED ---
Lower Extremity Injury HPI - General Chief Complaint: Extremity Injury, Lower Stated Complaint: Leg pain Time Seen by Provider: 03/21/19 17:14 Source: patient Mode of arrival: ambulatory Limitations: no limitations - History of Present Illness Initial Comments: Patient is a 49-year-old male presenting to the emergency Department with complaints of left calf pain 2 days. Patient states 2 days ago he was walking in a parade up and down hills and noticed pain in his left calf. Patient states the cramping started and he thought he could just walk it off. Patient states he has noticed increase in soreness since then. Patient was concerned for a blood clot. Patient admits to being on Coumadin secondary to a new aortic valve for 3 years now. Patient denies any recent travel. Patient denies fever, chills, cough, trouble breathing. No other concerns at this time. - Related Data Home Medications Medication Instructions Recorded Confirmed Aspirin EC [Ecotrin Low Dose] 81 mg PO DAILY 08/22/16 10/26/17 Previous Rx's Medication Instructions Recorded Atorvastatin [Lipitor] 40 mg PO DAILY #30 tab 09/25/16 Metoprolol Tartrate [Lopressor] 25 mg PO BID #60 tab 09/25/16 Warfarin Sodium [Coumadin] 4 mg PO DAILY #0 01/06/17 Allergies Allergy/AdvReac Type Severity Reaction Status Date / Time milk Allergy Rash/Hives Verified 03/21/19 15:29 tetanus immune globulin Allergy Unknown Verified 03/21/19 15:29 Review of Systems ROS Statement: Those systems with pertinent positive or pertinent negative responses have been documented in the HPI. ROS Other: All systems not noted in ROS Statement are negative. Past Medical History Past Medical History: Chest Pain / Angina, CVA/TIA, Hyperlipidemia, Myocardial Infarction ([place]) Additional Past Medical History / Comment(s): 04/23/15 TIA, denies residual effects. HX: heart murmur, head injury with scalp laceration requiring cira, bronchitis. Last Myocardial Infarction Date:: 07-21-16 History of Any Multi-Drug Resistant Organisms: None Reported Past Surgical History: Coronary Bypass/CABG, Heart Catheterization With Stent, Hernia Repair Additional Past Surgical History / Comment(s): L inquinal hernia repair.07-21-16 HEART CATH W/ STENT TO LAD, aortic valve replacement september 2016 Past Anesthesia/Blood Transfusion Reactions: No Reported Reaction Date of Last Stent Placement:: 07-21-16 Past Psychological History: No Psychological Hx Reported Smoking Status: Former smoker Past Alcohol Use History: None Reported Past Drug Use History: None Reported - Past Family History Father Family Medical History: AFIB, COPD, Eye Disorder Additional Family Medical History / Comment(s): Father has emphysema, spinal and neck surgeries, neuropathy, spinal stenosis, eye herpes. Mother Family Medical History: CVA/TIA, Hyperlipidemia, Hypertension Additional Family Medical History / Comment(s): Mother has had a recent TIA. General Exam - General Exam Comments Initial Comments: GENERAL: Well-appearing, well-nourished and in no acute distress. HEAD: Atraumatic, normocephalic. EYES: Pupils equal round and reactive to light, extraocular movements intact, sclera anicteric, conjunctiva are normal. ENT: TMs normal, nares patent, oropharynx clear without exudates. Moist mucous membranes. NECK: Normal range of motion, supple without lymphadenopathy or JVD. LUNGS: Breath sounds clear to auscultation bilaterally and equal. No wheezes rales or rhonchi. HEART: Regular rate and rhythm without murmurs, rubs or gallops. ABDOMEN: Soft, nontender, normoactive bowel sounds. No guarding, no rebound. No masses appreciated. : Deferred EXTREMITIES: Tenderness to the left gastroc muscle, pain with flexion of the ankle. There is no erythema, swelling of the left calf. NEUROLOGICAL: Cranial nerves II through XII grossly intact. Normal speech, normal gait. PSYCH: Normal mood, normal affect. SKIN: Warm, Dry, normal turgor, no rashes or lesions noted. Limitations: no limitations Course Vital Signs 03/21/19 15:29 Temperature 97.4 F L Pulse Rate 68 Respiratory 18 Rate Blood Pressure 122/82 O2 Sat by Pulse 95 Oximetry Medical Decision Making - Medical Decision Making Patient is a 49-year-old male with complaints of left calf pain 2 days. Patient was walking in a parade and was started having calf pain after that. Patient was concerned for blood clot. Patient admits to be in Coumadin secondary to aortic valve. On exam patient has tenderness of the left gastroc muscle and increased pain with ankle flexion. There is no signs of erythema or swelling. Discussed with patient this is most likely a muscle strain to gastroc muscle. Discussed with patient using ice and/or heat to the area and taking Tylenol for pain. Patient will be discharged home. Patient is in agreement with this plan. Return parameters were discussed with the patient and he verbalized understanding. Disposition Clinical Impression: Gastrocnemius strain, left Disposition: HOME SELF-CARE Condition: Stable Instructions (If sedation given, give patient instructions): Muscle Strain (ED) Additional Instructions: Please return to the Emergency Department if symptoms worsen or any other concerns. Is patient prescribed a controlled substance at d/c from ED?: No Referrals: Theo Haas DO [Primary Care Provider] - 1-2 days
[2019-03-21 18:02] VITALS: BP 120/78; PULSE 70; TEMP 97.5
== END 2019-03-21 17:58 | disposition home or self-care (01) ==
LOC: EC 15:24
DX: S86.112A Strain of other muscle(s) and tendon(s) of posterior muscle group at lower leg level, left leg, initial encounter (principal); I25.2 Old myocardial infarction; Z86.73 Personal history of transient ischemic attack (TIA), and cerebral infarction without residual deficits; Z95.1 Presence of aortocoronary bypass graft; Z95.5 Presence of coronary angioplasty implant and graft; Z95.2 Presence of prosthetic heart valve; Z87.891 Personal history of nicotine dependence; Z79.82 Long term (current) use of aspirin; Z91.011 Allergy to milk products; Z88.7 Allergy status to serum and vaccine; Y93.01 Activity, walking, marching and hiking
CPT/HCPCS: 99283

== ENCOUNTER → 2020-07-21 | Outpatient (CLI) | payer BC | END | disposition home or self-care (01) | LOC: LABWHC1 12:05 | PROVIDERS: ATTEND Emergency Medicine | DX: Z20.828 Contact with and (suspected) exposure to other viral communicable diseases (principal) | CPT/HCPCS: U0003; C9803 ==

== ENCOUNTER → 2023-03-19 | Outpatient (CLI) | payer BC ==
--- NOTE | 2023-03-20 08:29 | CT ---
EXAMINATION TYPE: CT sinus wo con DATE OF EXAM: 03/19/2023 COMPARISON: None HISTORY: Sinus drainage, coughing up green phlem. CT DLP: 532.5 mGycm. Automated Exposure Control for Dose Reduction was Utilized. TECHNIQUE: CT scan of the sinuses is performed without contrast, axial images are obtained, coronal r eformatted images are also reviewed. FINDINGS: The paranasal sinuses demonstrate near complete opacification of the right maxillary sinus moderate to severe mucosal thickening involving the left maxillary sinus. The ostiomeatal complex is occluded bilaterally on the coronal images. There is mild mucosal evolving air cells. Frontal sinuses hypoplastic. Sphenoid sinus demonstrates mi nimal no air-fluid level. Visualized portion of mastoid air cells show no abnormal opacification. The globes are intact bilate rally. Intracranial calcifications are incidentally noted IMPRESSION: 1. Severe bilateral chronic appearing maxillary sinusitis with occlusion of the ostiomeatal complex b ilaterally
== END | disposition home or self-care (01) ==
LOC: RADCTMAIN 16:33
PROVIDERS: ATTEND Otolaryngology
DX: J32.0 Chronic maxillary sinusitis (principal)
CPT/HCPCS: 70486

== ENCOUNTER 2024-11-21 21:56 | Inpatient (IN) | payer BC ==
[2024-11-21 23:18] LABS: Influenza A Not Detected (Not Detectd); Influenza B Not Detected (Not Detectd); RSV Not Detected (Not Detectd)
[2024-11-21] MEDS: ACETAMINOPHEN TAB 325 MG TAB PO STA (23:34)
[2024-11-22] MEDS: LACTATED RINGERS 1,000 ML IV SCH ×2 (00:29→01:14)
[2024-11-22] MEDS: AZITHROMYCIN 500 MG TAB PO STA (00:31)
[2024-11-22 01:20] LABS: Appearance,Urine Clear (Clear); Bilirubin,Urine Negative (Negative); Blood,Urine Moderate (Negative); Color,Urine Yellow; Glucose,Urine (UA) Negative (Negative); Ketones,Urine Negative (Negative); Leukocyte Esterase,Urine Negative (Negative); Mucus,Urine Rare /hpf; Nitrite,Urine Negative (Negative); PH, Urine 6.5 (5.0-8.0); Protein,Urine Trace (Negative); RBC,Urine 15 /hpf (0-5); Specific Gravity,Urine 1.023 (1.001-1.035); Squamous Epithelial Cell,Urine <1 /hpf (0-4); WBC,Urine 1 /hpf (0-5)
[2024-11-22 01:25] LABS: INR 4.4 (<1.2); Partial Thromboplastin Time 44.4 sec (22.0-30.0); Prothrombin Time 43.7 sec (10.0-12.5)
[2024-11-22 01:31] LABS: ALT 14 U/L (4-49); AST 21 U/L (17-59); African American GFR (CKD) >90 (>60 ml/min/1.73 sqM); Albumin 3.5 g/dL (3.5-5.0); Alkaline Phosphatase 58 U/L (38-126); Anion Gap 11 mmol/L; Blood Urea Nitrogen 14 mg/dL (9-20); Calcium 8.4 mg/dL (8.4-10.2); Carbon Dioxide 21 mmol/L (22-30); Chloride 98 mmol/L (98-107); Glucose 98 mg/dL (74-99); Non-African American GFR(CKD) 81 (>60 ml/min/1.73 sqM); Potassium 4.1 mmol/L (3.5-5.1); Sodium 130 mmol/L (137-145); Total Bilirubin 1.4 mg/dL (0.2-1.3); Total Protein 6.4 g/dL (6.3-8.2)
--- NOTE | 2024-11-22 01:34 | XR ---
EXAM: XR Chest, 2 Views CLINICAL HISTORY: ITS.REASON XR Reason: fever TECHNIQUE: Frontal and lateral views of the chest. COMPARISON: No relevant prior studies available. FINDINGS: Lungs: Heterogeneous opacity in the right hilar region Pleural space: No effusion. Heart: No cardiomegaly. Bones/joints: No acute findings. IMPRESSION: Heterogeneous opacity in the right hilar region
[2024-11-22 01:43] LABS: Basophils % (A) 0 %; Eosinophils % (A) 0 %; HCT 43.9 % (39.0-53.0); HGB 14.9 gm/dL (13.0-17.5); Lymphocytes # (A) 1.3 k/uL (1.0-4.8); Lymphocytes % (A) 6 %; MCH 31.9 pg (25.0-35.0); MCV 93.9 fL (80.0-100.0); Mean Platelet Volume 13.1; Monocytes % (A) 5 %; Neutrophils # (A) 19.8 k/uL (1.3-7.7); Neutrophils % (A) 89 %; Platelet Count 157 k/uL (150-450); RBC 4.67 m/uL (4.30-5.90); RDW 12.8 % (11.5-15.5); WBC 22.3 k/uL (3.8-10.6)
[2024-11-22] MEDS ORDERED: PNEUMONIA PROTOCOL UTILIZED 1 EACH MISC PO PRN (02:39)
[2024-11-22] MEDS ORDERED: ALBUTEROL NEBULIZED 2.5 MG/3 ML INHALATION PRN (02:39)
[2024-11-22] MEDS: ASPIRIN 81 MG PO SCH (10:16)
[2024-11-22] MEDS: ATORVASTATIN 40 MG TAB PO SCH (10:16)
[2024-11-22] MEDS: SYMBICORT 160-4.5 MCG INHALER INHALATION SCH (15:19)
--- NOTE | 2024-11-22 15:21 | ED ---
Fever HPI - General Chief Complaint: ENT Stated Complaint: Chills Time Seen by Provider: 11/21/24 22:05 Source: patient Mode of arrival: ambulatory - History of Present Illness Initial Comments: This patient is a 54-year-old man who presents to have evaluation for constellation of symptoms that had started on Sunday. The patient noticed that he he was having fevers and chills as well as nonproductive cough. Over the course of the following 2 days he also was having some bodyaches and the cough became more prominent. When his temperature was remaining high tonight decided to come to emergency for evaluation, he states that as he is a Coumadin user he was told anytime his temperature remains above 102 he should be seen. MD Complaint: fever, other Onset/Timin -: days(s) Temperature Source: subjective Associated Symptoms: chills, cough, nausea Treatments Prior to Arrival: Acetaminophen - Related Data Home Medications Medication Instructions Recorded Confirmed Aspirin EC [Ecotrin Low Dose] 81 mg PO DAILY 08/22/16 11/22/24 Warfarin Sodium 6 mg PO MOTUWEFR@1800 11/22/24 11/22/24 Warfarin Sodium [Coumadin] 4 mg PO SUTHSA@1800 11/22/24 11/22/24 Previous Rx's Medication Instructions Recorded Atorvastatin [Lipitor] 40 mg PO DAILY #30 tab 09/25/16 Metoprolol Tartrate [Lopressor] 25 mg PO BID #60 tab 09/25/16 Allergies Allergy/AdvReac Type Severity Reaction Status Date / Time milk Allergy Rash/Hives Verified 11/22/24 08:55 tetanus immune globulin Allergy Unknown Verified 11/22/24 08:55 Review of Systems ROS Statement: Those systems with pertinent positive or pertinent negative responses have been documented in the HPI. ROS Other: All systems not noted in ROS Statement are negative. Constitutional: Reports: fever, chills. Denies: weakness Respiratory: Reports: cough, dyspnea. Denies: hemoptysis Cardiovascular: Denies: chest pain, palpitations, orthopnea, edema, syncope Gastrointestinal: Denies: abdominal pain, nausea, vomiting, diarrhea Genitourinary: Denies: dysuria, hematuria Musculoskeletal: Reports: myalgia. Denies: back pain Skin: Denies: rash Neurological: Denies: headache, weakness, numbness Past Medical History Past Medical History: Chest Pain / Angina, CVA/TIA, Hyperlipidemia, Myocardial Infarction ([place]) Additional Past Medical History / Comment(s): 04/23/15 TIA, denies residual effects. HX: heart murmur, head injury with scalp laceration requiring cira, bronchitis. Last Myocardial Infarction Date:: 07-21-16 History of Any Multi-Drug Resistant Organisms: None Reported Past Surgical History: Coronary Bypass/CABG, Heart Catheterization With Stent, Hernia Repair Additional Past Surgical History / Comment(s): L inquinal hernia repair.07-21-16 HEART CATH W/ STENT TO LAD, aortic valve replacement september 2016 Past Anesthesia/Blood Transfusion Reactions: No Reported Reaction Date of Last Stent Placement:: 07-21-16 Past Psychological History: No Psychological Hx Reported Additional Psychological History / Comment(s): Pt lives with his STEPHEN. He is independent. He uses no assistive devices or home care. He drives. Smoking Status: Former smoker Past Alcohol Use History: None Reported Additional Past Alcohol Use History / Comment(s): Pt started smoking at 13 yrs of age and smokes 3-4 cigarettes per day. Quit smoking in 2016. Past Drug Use History: None Reported - Past Family History Father Family Medical History: AFIB, COPD, Eye Disorder Additional Family Medical History / Comment(s): Father has emphysema, spinal and neck surgeries, neuropathy, spinal stenosis, eye herpes. Mother Family Medical History: CVA/TIA, Hyperlipidemia, Hypertension Additional Family Medical History / Comment(s): Mother has had a recent TIA. General Exam General appearance: alert, in no apparent distress Head exam: Present: atraumatic, normocephalic Eye exam: Present: normal appearance. Absent: scleral icterus, conjunctival injection ENT exam: Present: normal oropharynx Neck exam: Present: normal inspection Respiratory exam: Present: rales (Right sided). Absent: respiratory distress, wheezes, rhonchi, stridor, accessory muscle use, decreased breath sounds, prolonged expiratory Cardiovascular Exam: Present: regular rate, normal rhythm, normal heart sounds. Absent: systolic murmur, diastolic murmur, rubs, gallop GI/Abdominal exam: Present: soft. Absent: distended, tenderness, guarding, rebound, rigid, mass Extremities exam: Present: normal inspection, normal capillary refill. Absent: pedal edema, calf tenderness Back exam: Present: normal inspection. Absent: CVA tenderness (R), CVA tenderness (L) Neurological exam: Present: alert Skin exam: Present: warm, dry, intact, normal color. Absent: rash Course Vital Signs 11/21/24 11/21/24 11/21/24 21:57 22:10 23:13 Temperature 102.4 F H 100.4 F H 100.5 F H Pulse Rate 55 L 86 Respiratory 20 19 Rate Blood Pressure 93/56 98/61 O2 Sat by Pulse 94 L 92 L Oximetry 11/21/24 11/22/24 11/22/24 23:28 01:00 03:00 Temperature 98.8 F Pulse Rate 87 74 Respiratory 20 18 Rate Blood Pressure 91/49 O2 Sat by Pulse 93 L 91 L Oximetry 11/22/24 03:18 Temperature 98.5 F Pulse Rate 73 Respiratory 18 Rate Blood Pressure 102/46 O2 Sat by Pulse 93 L Oximetry Medical Decision Making - Medical Decision Making The patient had chest x-ray that I interpreted as showing right sided infiltrate. No pneumothorax or congestive heart failure. Was pt. sent in by a medical professional or institution (, PA, CASH SPECIALIST, urgent care, hospital, or detention...) When possible be specific @ -[No] Did you speak to anyone other than the patient for history (EMS, parent, family, police, friend...)? What history was obtained from this source @ -[ the patient's did contribute history Did you review nursing and triage notes (agree or disagree)? Why? @ -[I reviewed and agree with nursing and triage notes] Were old charts reviewed (outside hosp., previous admission, EMS record, old EKG, old radiological studies, urgent care reports/EKG's, detention records)? Report findings @ -[No old charts were reviewed] Differential Diagnosis (chest pain, altered mental status, abdominal pain women, abdominal pain men, vaginal bleeding, weakness, fever, dyspnea, syncope, headache, dizziness, GI bleed, back pain, seizure, CVA, palpatations, mental health, musculoskeletal)? @ -Differential Fever: Pneumonia, viral URI, endocarditis, myocarditis, pericarditis, otitis, sinusitis, peritonsillar Abscess, retropharyngeal Abscess, epiglottitis, p eritonitis, appendicitis, Elly cystitis, diverticulitis, hepatitis, colitis, UTI, PID, TOA, pyelonephritis, prostatitis, epididymitis, meningitis, encephalitis, pulmonary embolism, CVA, thyroid storm, pancreatitis, adrenal crisis, cavernous sinus thrombosis, this is not meant to be an all-inclusive list. It is except EKG interpreted by me (3pts min.). @ -[As above] X-rays interpreted by me (1pt min.). @ -[I Interpreted as above CT interpreted by me (1pt min.). @ -[None done] U/S interpreted by me (1pt. min.). @ -[None done] What testing was considered but not performed or refused? (CT, X-rays, U/S, labs)? Why? @ -[None] What meds were considered but not given or refused? Why? @ -[None] Did you discuss the management of the patient with other professionals (professionals i.e. , PA, CASH SPECIALIST, lab, RT, psych nurse, social service director, polisher hand, teacher, president and chief commercial officer, rn case manager hospice)? Give summary @ -[No] Was smoking cessation discussed for >3mins.? @ -[No] Was critical care preformed (if so, how long)? @ -[No] Were there social determinants of health that impacted care today? How? (Mary Ellen elessness, low income, unemployed, alcoholism, drug addiction, transportation, low edu. Level, literacy, decrease access to med. care, group home, rehab)? @ -[No] Was there de-escalation of care discussed even if they declined (Discuss DNR or withdrawal of care, Hospice)? DNR status @ -[No] What co-morbidities impacted this encounter? (DM, HTN, Smoking, COPD, CAD, Cancer, CVA, ARF, Chemo, Hep., AIDS, mental health diagnosis, sleep apnea, morbid obesity)? @ -[History of prosthetic heart valve Was patient admitted / discharged? Hospital course, mention meds given and route, prescriptions, significant lab abnormalities, going to OR and other pertinent info. @ -[Patient is 54-year-old man presenting with fever and cough. He is found to have right sided pneumonia. The patient initially requesting outpatient antibiotic treatment but after receiving initial antibiotic here, was not feeling as well and after discussion with patient and he would like to stay overnight, and given the patient's history of prosthetic heart valve this does seem reasonable. Patient has received fluids, antibiotics, cultures are pending, and patient admitted for further care. Undiagnosed new problem with uncertain prognosis? @ -[No] Drug Therapy requiring intensive monitoring for toxicity (Heparin, Nitro, Insulin, Cardizem)? @ -[No] Were any procedures done? @ -[No] Diagnosis/symptom? @ -[Acute pneumonia Acute, or Chronic, or Acute on Chronic? @ -[Acute Uncomplicated (without systemic symptoms) or Complicated (systemic symptoms)? @ -[UnComplicated Side effects of treatment? @ -[No] Exacerbation, Progression, or Severe Exacerbation? @ -[No] Poses a threat to life or bodily function? How? (Chest pain, [place], [place], pneumonia, PE, COPD, DKA, ARF, appy, cholecystitis, CVA, Diverticulitis, Homicidal, Suicidal, threat to staff... and all critical care pts) @ -[No] All treatments are based on ideal body weight as in ED triage - Lab Data Result diagrams: 11/22/24 00:33 11/22/24 00:33 Lab Results 11/21/24 11/22/24 11/22/24 Range/Units 22:13 00:33 00:33 WBC 22.3 H (3.8-10.6) k/uL RBC 4.67 (4.30-5.90) m/uL Hgb 14.9 (13.0-17.5) gm/dL Hct 43.9 (39.0-53.0) % MCV 93.9 (80.0-100.0) fL MCH 31.9 (25.0-35.0) pg MCHC 34.0 (31.0-37.0) g/dL RDW 12.8 (11.5-15.5) % Plt Count 157 (150-450) k/uL MPV 13.1 Neutrophils % 89 % Lymphocytes % 6 % Monocytes % 5 % Eosinophils % 0 % Basophils % 0 % Neutrophils # 19.8 H (1.3-7.7) k/uL Lymphocytes # 1.3 (1.0-4.8) k/uL Monocytes # 1.0 (0-1.0) k/uL Eosinophils # 0.0 (0-0.7) k/uL Basophils # 0.0 (0-0.2) k/uL Manual Slide Review Performed PT 43.7 H (10.0-12.5) sec INR 4.4 H (<1.2) APTT 44.4 H (22.0-30.0) sec Sodium (137-145) mmol/L Potassium (3.5-5.1) mmol/L Chloride (98-107) mmol/L Carbon Dioxide (22-30) mmol/L Anion Gap mmol/L BUN (9-20) mg/dL Creatinine (0.66-1.25) mg/dL Est GFR (CKD-EPI)AfAm (>60 ml/min/1.73 sqM) Est GFR (CKD-EPI)NonAf (>60 ml/min/1.73 sqM) Glucose (74-99) mg/dL Plasma Lactic Acid Ron (0.7-2.0) mmol/L Calcium (8.4-10.2) mg/dL Total Bilirubin (0.2-1.3) mg/dL AST (17-59) U/L ALT (4-49) U/L Alkaline Phosphatase (38-126) U/L Total Protein (6.3-8.2) g/dL Albumin (3.5-5.0) g/dL Urine Color Urine Appearance (Clear) Urine pH (5.0-8.0) Ur Specific [place] (1.001-1.035) Urine Protein (Negative) Urine Glucose (UA) (Negative) Urine Ketones (Negative) Urine Blood (Negative) Urine Nitrite (Negative) Urine Bilirubin (Negative) Urine Urobilinogen (<2.0) mg/dL Ur Leukocyte Esterase (Negative) Urine RBC (0-5) /hpf Urine WBC (0-5) /hpf Ur Squamous Epith Cells (0-4) /hpf Urine Mucus (None) /hpf Influenza Type A (PCR) Not Detected (Not Detectd) Influenza Type B (PCR) Not Detected (Not Detectd) RSV (PCR) Not Detected (Not Detectd) SARS-CoV-2 (PCR) Not Detected (Not Detectd) 11/22/24 11/22/24 11/22/24 Range/Units 00:33 00:33 00:36 WBC (3.8-10.6) k/uL RBC (4.30-5.90) m/uL Hgb (13.0-17.5) gm/dL Hct (39.0-53.0) % MCV (80.0-100.0) fL MCH (25.0-35.0) pg MCHC (31.0-37.0) g/dL RDW (11.5-15.5) % Plt Count (150-450) k/uL MPV Neutrophils % % Lymphocytes % % Monocytes % % Eosinophils % % Basophils % % Neutrophils # (1.3-7.7) k/uL Lymphocytes # (1.0-4.8) k/uL Monocytes # (0-1.0) k/uL Eosinophils # (0-0.7) k/uL Basophils # (0-0.2) k/uL Manual Slide Review PT (10.0-12.5) sec INR (<1.2) APTT (22.0-30.0) sec Sodium 130 L (137-145) mmol/L Potassium 4.1 (3.5-5.1) mmol/L Chloride 98 (98-107) mmol/L Carbon Dioxide 21 L (22-30) mmol/L Anion Gap 11 mmol/L BUN 14 (9-20) mg/dL Creatinine 1.04 (0.66-1.25) mg/dL Est GFR (CKD-EPI)AfAm >90 (>60 ml/min/1.73 sqM) Est GFR (CKD-EPI)NonAf 81 (>60 ml/min/1.73 sqM) Glucose 98 (74-99) mg/dL Plasma Lactic Acid Ron 1.5 (0.7-2.0) mmol/L Calcium 8.4 (8.4-10.2) mg/dL Total Bilirubin 1.4 H (0.2-1.3) mg/dL AST 21 (17-59) U/L ALT 14 (4-49) U/L Alkaline Phosphatase 58 (38-126) U/L Total Protein 6.4 (6.3-8.2) g/dL Albumin 3.5 (3.5-5.0) g/dL Urine Color Yellow Urine Appearance Clear (Clear) Urine pH 6.5 (5.0-8.0) Ur Specific [place] 1.023 (1.001-1.035) Urine Protein Trace H (Negative) Urine Glucose (UA) Negative (Negative) Urine Ketones Negative (Negative) Urine Blood Moderate H (Negative) Urine Nitrite Negative (Negative) Urine Bilirubin Negative (Negative) Urine Urobilinogen 3.0 (<2.0) mg/dL Ur Leukocyte Esterase Negative (Negative) Urine RBC 15 H (0-5) /hpf Urine WBC 1 (0-5) /hpf Ur Squamous Epith Cells <1 (0-4) /hpf Urine Mucus Rare H (None) /hpf Influenza Type A (PCR) (Not Detectd) Influenza Type B (PCR) (Not Detectd) RSV (PCR) (Not Detectd) SARS-CoV-2 (PCR) (Not Detectd) Disposition Clinical Impression: Pneumonia Disposition: ADMITTED IP TO THIS HOSP Condition: Stable Is patient prescribed a controlled substance at d/c from ED?: No
[2024-11-22] MEDS: WARFARIN 0.5 MG TAB PO ONE (16:13)
[2024-11-22] MEDS ORDERED: NON FORMULARY DRUG (Warfarin Sodium [Coumadin] 4 MG Tablet) PO SCH (18:00)
--- NOTE | 2024-11-22 18:00 | HP ---
HISTORY AND PHYSICAL CHIEF COMPLAINT: Cough, sputum, shortness of breath, and other complaints. HISTORY OF PRESENT ILLNESS: This 54-year-old gentleman with a past medical history of multiple medical problems including CVA, TIA, history of CAD, CABG, aortic valve replacement, was complaining of some cough and sputum and chills for the last 4 or 5 days. The patient came to the emergency room and chest x-ray showed evidence of right mid and lower lobe pneumonias, and the patient was admitted for further evaluation and treatment. There is no history of fever, rigors, chills at this time. The white count is significantly elevated. PAST MEDICAL HISTORY: Reviewed include CAD and CABG. Rest of the chart is also reviewed. HOME MEDICATIONS: Coumadin 6 mg. Dose and rest of medications reviewed. ALLERGIES: Milk. FAMILY HISTORY: History of COPD. SOCIAL HISTORY: Previous smoking. REVIEW OF SYSTEMS: 14-point review of systems is negative except as mentioned earlier. PHYSICAL EXAMINATION: VITAL SIGNS: Pulse is 82, blood pressure is 108/64, respirations 18, temperature 100. HEENT: Conjunctivae normal. NECK: No JVD. CARDIOVASCULAR: S1, S2. RESPIRATIONS: A few scattered rhonchi and crackles. ABDOMEN: Soft. NERVOUS SYSTEM: Nonfocal. LABORATORY DATA: Reviewed. ASSESSMENT: 1. Acute right multilobar pneumonia with possible sepsis present on admission. 2. Increased WBC. 3. History of cerebrovascular accident, transient ischemic attack. 4. Hyperlipidemia. 5. History of coronary artery disease, CABG. 6. History of aortic valve replacement. RECOMMENDATIONS AND DISCUSSION: This 54-year-old gentleman presented with multiple complex medical issues. We will monitor the patient closely. Continue the current management and continue symptomatic treatment. Recommend bronchodilators, empiric antibiotics, mycoplasma Legionella cultures and evaluation. Consult Pulmonary and Infectious Disease. Resume the home medications. DVT prophylaxis. Pharmacy to monitor Coumadin. Prognosis guarded because of multiple complex medical issues. Further recommendations to follow. The viral titers are negative. MMODL / IJN: [id number] /
[2024-11-22] MEDS: IPRATROPIUM-ALBUTEROL 3 ML NEB INHALATION SCH (19:56)
[2024-11-22] MEDS: METOPROLOL TARTRATE 25 MG TAB PO SCH (20:51)
--- NOTE | 2024-11-23 00:05 | P.CONS ---
History of Present Illness - Reason for Consult Consult date: 11/22/24 Pneumonia Requesting physician: Bartolo Man - Chief Complaint Fever and cough x few days - History of Present Illness Patient is a 54-year-old male with a past medical history nephric and for CVA TIA hyperlipidemia [place] s/p coronary bypass grafting presenting to the hospital for evaluation of fever and this patient symptom started on Sunday that is about 3 days before presentation to hospital patient was complaining of fever with chills he also have a cough moderate intensity but not bring up any sputum patient has significant URI symptoms or headache no chest pain no nausea no vomiting no abdominal pain or any diarrhea with persistent fever he presented to the hospital on arrival to the patient did have a temperature of 102.4 F patient was not tachycardic hypotensive mildly hypoxic currently on 2 L nasal oxygen patient did have a white count of 22.3 with a left shift creatinine 1.04 electrolytes are normal liver enzymes are normal urine has been negative, influenza RSV COVID testing negative patient did have a chest x-ray opacity in the right hilar region patient has been admitted to hospital started on Rocephin and Zithromax infectious disease was consulted for further management of antibiotic therapy Review of Systems Positive point and negatives has been mentioned in the HPI, complete review of systems was performed and all other systems are negative Past Medical History Past Medical History: Chest Pain / Angina, CVA/TIA, Hyperlipidemia, Myocardial Infarction ([place]) Additional Past Medical History / Comment(s): 04/23/15 TIA, denies residual effects. HX: heart murmur, head injury with scalp laceration requiring cira, bronchitis. Last Myocardial Infarction Date:: 07-21-16 History of Any Multi-Drug Resistant Organisms: None Reported Past Surgical History: Coronary Bypass/CABG, Heart Catheterization With Stent, Hernia Repair Additional Past Surgical History / Comment(s): L inquinal hernia repair.07-21-16 HEART CATH W/ STENT TO LAD, aortic valve replacement september 2016 Past Anesthesia/Blood Transfusion Reactions: No Reported Reaction Date of Last Stent Placement:: 07-21-16 Past Psychological History: No Psychological Hx Reported Additional Psychological History / Comment(s): Pt lives with his STEPHEN. He is independent. He uses no assistive devices or home care. He drives. Smoking Status: Former smoker Past Alcohol Use History: None Reported Additional Past Alcohol Use History / Comment(s): Pt started smoking at 13 yrs of age and smokes 3-4 cigarettes per day. Quit smoking in 2017. Past Drug Use History: None Reported - Past Family History Father Family Medical History: AFIB, COPD, Eye Disorder Additional Family Medical History / Comment(s): Father has emphysema, spinal and neck surgeries, neuropathy, spinal stenosis, eye herpes. Mother Family Medical History: CVA/TIA, Hyperlipidemia, Hypertension Additional Family Medical History / Comment(s): Mother has had a recent TIA. Medications and Allergies Home Medications Medication Instructions Recorded Confirmed Type Aspirin EC [Ecotrin Low Dose] 81 mg PO DAILY 08/22/16 11/22/24 History Atorvastatin [Lipitor] 40 mg PO DAILY #30 tab 09/25/16 11/22/24 Rx Metoprolol Tartrate [Lopressor] 25 mg PO BID #60 tab 09/25/16 11/22/24 Rx Warfarin Sodium 6 mg PO MOTUWEFR@1800 11/22/24 11/22/24 History Warfarin Sodium [Coumadin] 4 mg PO SUTHSA@1800 11/22/24 11/22/24 History Allergies Allergy/AdvReac Type Severity Reaction Status Date / Time milk Allergy Rash/Hives Verified 11/22/24 08:55 tetanus immune globulin Allergy Unknown Verified 11/22/24 08:55 Physical Exam Vitals: Vital Signs Temp Pulse Pulse Resp BP BP Pulse Ox 11/22/24 07:24 100.2 F H 82 18 108/64 92 L 11/22/24 04:21 98.6 F 71 15 96/59 96 11/22/24 03:18 98.5 F 73 18 102/46 93 L 11/22/24 03:00 74 91 L 11/22/24 01:00 98.8 F 87 18 91/49 93 L 11/21/24 23:28 20 11/21/24 23:13 100.5 F H 86 19 98/61 92 L 11/21/24 22:10 100.4 F H 11/21/24 21:57 102.4 F H 55 L 20 93/56 94 L Intake and Output 11/22/24 11/22/24 11/22/24 06:59 14:59 22:59 Intake Total 1100 Balance 1100 Intake: IV 1100 Invasive Line 1 1100 Other: Voiding Method Toilet Toilet # Voids 1 Weight 81.647 kg GENERAL DESCRIPTION: Middle-age male lying in bed, no distress. No tachypnea or accessory muscle of respiration use. HEENT: Shows Pallor , no scleral icterus. Oral mucous membrane is dry. No pharyngeal erythema or thrush NECK: Trachea central, no thyromegaly. LUNGS: Unlabored breathing. Decreased intensity of breath sounds no wheeze HEART: S1, S2, regular rate and rhythm. No loud murmur ABDOMEN: Soft, no tenderness , guarding or rigidity, no organomegaly EXTREMITIES: No edema of feet. SKIN: No rash, no masses palpable. NEUROLOGICAL: The patient is awake, alert, oriented x3, mood and affect normal. Results CBC & Chem 7: 11/22/24 00:33 11/22/24 00:33 Labs: Abnormal Lab Results - Last 24 Hours (Table) 11/22/24 11/22/24 11/22/24 Range/Units 00:33 00:33 00:33 WBC 22.3 H (3.8-10.6) k/uL Neutrophils # 19.8 H (1.3-7.7) k/uL PT 43.7 H (10.0-12.5) sec INR 4.4 H (<1.2) APTT 44.4 H (22.0-30.0) sec Sodium 130 L (137-145) mmol/L Carbon Dioxide 21 L (22-30) mmol/L Total Bilirubin 1.4 H (0.2-1.3) mg/dL Urine Protein (Negative) Urine Blood (Negative) Urine RBC (0-5) /hpf Urine Mucus (None) /hpf 11/22/24 Range/Units 00:36 WBC (3.8-10.6) k/uL Neutrophils # (1.3-7.7) k/uL PT (10.0-12.5) sec INR (<1.2) APTT (22.0-30.0) sec Sodium (137-145) mmol/L Carbon Dioxide (22-30) mmol/L Total Bilirubin (0.2-1.3) mg/dL Urine Protein Trace H (Negative) Urine Blood Moderate H (Negative) Urine RBC 15 H (0-5) /hpf Urine Mucus Rare H (None) /hpf Assessment and Plan (1) Pneumonia Current Visit: Yes Status: Acute Code(s): J18.9 - PNEUMONIA, UNSPECIFIED ORGANISM SNOMED Code(s): 632630817 (2) Sepsis Current Visit: No Status: Acute Code(s): A41.9 - SEPSIS, UNSPECIFIED ORGANISM SNOMED Code(s): 09927753 Plan: 1patient presented hospital with sepsis in this patient who did have fever elevated white count meeting criteria for SIRS source is likely pneumonia and likely community-acquired 2-try to obtain sputum for Gram stain and culture 3-patient will be treated with Rocephin and Zithromax while waiting for the workup to be completed We will follow on clinical condition and cultures to further adjust medication if needed Thank you for this consultation we will follow the patient along with you Dictation was produced using [employer] dictation software. please excuse any grammatical, word or spelling errors. Time with Patient: Greater than 30
[2024-11-23 06:32] LABS: INR 3.6 (<1.2); Prothrombin Time 35.7 sec (10.0-12.5)
--- NOTE | 2024-11-23 07:07 | XR ---
EXAMINATION TYPE: XR chest 2V DATE OF EXAM: 11/23/2024 CLINICAL INDICATION: Male, 54 years old with history of pneumonia, TECHNIQUE: Frontal and lateral views of the chest are obtained. COMPARISON: Chest x-ray 2 days earlier FINDINGS: Overlying sternal wires and left atrial appendage clip are redemonstrated. Cardiac valve miller rgical changes redemonstrated. New small to tiny bilateral pleural effusions on lateral x-ray. Persis tent right mid lung increased opacity. Left lung remains clear. Osseous structures are intact. IMPRESSION: Persistent right midlung acute infiltrate and/or atelectasis. New small to tiny bilateral pleural effusions. [facility], , 11/23/2024 7:05 AM
[2024-11-23] MEDS: AZITHROMYCIN 500 MG TAB PO SCH (09:20)
[2024-11-23 09:21] LABS: Basophils # (A) 0.08 X 10*3/uL (0.00-0.10); Basophils % (A) 0.6 %; Eosinophils # (A) 0.39 X 10*3/uL (0.04-0.35); Eosinophils % (A) 2.8 %; HGB 13.8 g/dL (13.0-17.0); Lymphocytes # (A) 1.76 X 10*3/uL (0.90-5.00); Lymphocytes % (A) 12.6 %; MCH 31.9 pg (27.0-32.0); MCHC 33.7 g/dL (32.0-37.0); MCV 94.7 FL (80.0-97.0); Mean Platelet Volume 13.4 FL (9.5-12.2); Monocytes # (A) 1.24 X 10*3/uL (0.20-1.00); Monocytes % (A) 8.9 %; NRBC Per 100 WBC 0 X 10*3/uL (0.00-0.01); Neutrophils # (A) 10.44 X 10*3/uL (1.80-7.70); Neutrophils % (A) 74.7 %; Platelet Count 156 X 10*3/uL (140-440); RBC 4.33 X 10*6/uL (4.40-5.60); RDW 13.2 % (11.5-14.5); WBC 13.97 X 10*3/uL (4.50-10.00)
[2024-11-23 09:41] LABS: ALT 21 U/L (10-49); AST 30 U/L (14-35); Albumin/Globulin Ratio 1.43 Ratio (1.60-3.17); Alkaline Phosphatase 50 U/L (41-126); Blood Urea Nitrogen 10.6 mg/dL (9.0-27.0); Calcium 7.9 mg/dL (8.7-10.3); Carbon Dioxide 23.3 mmol/L (21.6-31.8); Chloride 104 mmol/L (96-109); Globulin 2.1 g/dL (1.6-3.3); Glucose 103 mg/dL (70-110); Potassium 4.3 mmol/L (3.5-5.5); Sodium 136 mmol/L (135-145); Total Bilirubin 0.5 mg/dL (0.3-1.2); Total Protein 5.1 g/dL (6.2-8.2)
[2024-11-23] MEDS ORDERED: RX INFO: IV CONTRAST WAS GIVEN 1 EACH MISC MISCELLANE PRN (10:48)
--- NOTE | 2024-11-23 12:08 | P.CNPUL ---
History of Present Illness Consult date: 11/23/24 Requesting physician: Justyn Johnson Reason for consult: abnormal CXR/CT Chief complaint: Fever, chills History of present illness: This is a pleasant 54-year-old male patient with a known history of TIA, hyperlipidemia, coronary artery disease with previous stent placement, aortic valve replacement in 2017 maintained on warfarin. Quit smoking in 2017. He came to the emergency room on 11/22/2019 5 in the evening with a 2 to 3-day history of fever chills and a dry nonproductive cough. He also developed body aches and a remained febrile for 2 days. Home temperature up to 102. X-ray reveals a heterogenous opacity in the right hilar region. White count 13.9. Hemoglobin 13.8. Platelets 156. INR 3.6. Sodium 136. Potassium 4.3. Bicarb 23. BUN 11. Creatinine 1.0. Glucose 103. Today's chest x-ray shows persistent right midlung acute infiltrate and/or atelectasis. Tiny pleural effusions. He is seen today in consultation on the regular medical floor. He is sitting up in bed. Awake and alert in no acute distress. Maintaining O2 saturations in the 90s on 2 L/min per nasal cannula. He has normal saline at 75 mL/h. Feeling better today compared to yesterday. Currently afebrile. Hemodynamically stable. Review of Systems REVIEW OF SYSTEMS: CONSTITUTIONAL: Positive for febrile illness. Denies any recent significant weight loss or weight gain. EYES: Denies change in vision. EARS, NOSE, MOUTH, THROAT: Denies headaches, denies sore throat. CARDIOVASCULAR: Denies chest pain, palpitations or syncopal episodes. RESPIRATORY: Positive for shortness of breath, cough, congestion no hemoptysis. GASTROINTESTINAL: Denies change in appetite, denies abdominal pain GENITOURINARY: Denies hematuria, denies infections. MUSKULOSKELETAL: Denies pain, denies swelling. INTEGUMENTARY: Denies rash, denies eczema. NEUROLOGICAL: Denies recent memory loss, no recent seizure activity. PSYCHIATRIC: Denies anxiety, denies depression. HEMATOLOGIC/LYMPHATIC: Denies anemia, denies enlarged lymph nodes. Past Medical History Past Medical History: Chest Pain / Angina, CVA/TIA, Hyperlipidemia, Myocardial Infarction (NH) Additional Past Medical History / Comment(s): 04/23/15 TIA, denies residual effects. HX: heart murmur, head injury with scalp laceration requiring cira, bronchitis. Last Myocardial Infarction Date:: 07-21-16 History of Any Multi-Drug Resistant Organisms: None Reported Past Surgical History: Coronary Bypass/CABG, Heart Catheterization With Stent, Hernia Repair Additional Past Surgical History / Comment(s): L inquinal hernia repair.07-21-16 HEART CATH W/ STENT TO LAD, aortic valve replacement september 2016 Past Anesthesia/Blood Transfusion Reactions: No Reported Reaction Date of Last Stent Placement:: 07-21-16 Past Psychological History: No Psychological Hx Reported Additional Psychological History / Comment(s): Pt lives with his STEPHEN. He is independent. He uses no assistive devices or home care. He drives. Smoking Status: Former smoker Past Alcohol Use History: None Reported Additional Past Alcohol Use History / Comment(s): Pt started smoking at 13 yrs of age and smokes 3-4 cigarettes per day. Quit smoking in 2016. Past Drug Use History: None Reported - Past Family History Father Family Medical History: AFIB, COPD, Eye Disorder Additional Family Medical History / Comment(s): Father has emphysema, spinal and neck surgeries, neuropathy, spinal stenosis, eye herpes. Mother Family Medical History: CVA/TIA, Hyperlipidemia, Hypertension Additional Family Medical History / Comment(s): Mother has had a recent TIA. Medications and Allergies Home Medications Medication Instructions Recorded Confirmed Type Aspirin EC [Ecotrin Low Dose] 81 mg PO DAILY 08/22/16 11/22/24 History Atorvastatin [Lipitor] 40 mg PO DAILY #30 tab 09/25/16 11/22/24 Rx Metoprolol Tartrate [Lopressor] 25 mg PO BID #60 tab 09/25/16 11/22/24 Rx Warfarin Sodium 6 mg PO MOTUWEFR@1800 11/22/24 11/22/24 History Warfarin Sodium [Coumadin] 4 mg PO SUTHSA@1800 11/22/24 11/22/24 History Allergies Allergy/AdvReac Type Severity Reaction Status Date / Time milk Allergy Rash/Hives Verified 11/22/24 08:55 tetanus immune globulin Allergy Unknown Verified 11/22/24 08:55 Physical Exam Vitals: Vital Signs Temp Pulse Pulse Resp BP Pulse Ox 11/23/24 08:12 84 11/23/24 07:55 84 11/23/24 07:30 99.4 F 77 16 103/67 94 L 11/23/24 01:05 98.7 F 74 16 100/58 95 11/22/24 20:05 85 11/22/24 19:58 85 11/22/24 18:51 99.1 F 85 16 116/67 95 11/22/24 15:00 98.5 F 72 16 106/64 94 L Intake and Output 11/22/24 11/23/24 11/23/24 22:59 06:59 14:59 Intake Total 590 360 Balance 590 360 Intake: Oral 590 360 Other: Voiding Method Toilet Toilet # Voids 2 3 # Bowel Movements 1 1 GENERAL EXAM: Alert, active, pleasant 54-year-old male patient, on 2 L nasal cannula, comfortable in no apparent distress. HEAD: Normocephalic. EYES: Normal reaction of pupils, equal size. NOSE: Clear with pink turbinates. THROAT: No erythema or exudates. NECK: No masses, no JVD. CHEST: No chest wall deformity. LUNGS: Equal air entry with few scattered rhonchi over the right lung. CVS: S1 and S2 normal with no audible murmur, regular rhythm. ABDOMEN: No hepatosplenomegaly, normal bowel sounds, no guarding or rigidity. SPINE: No scoliosis or deformity SKIN: No rashes CENTRAL NERVOUS SYSTEM: No focal deficits, tone is normal in all 4 extremities. EXTREMITIES: There is no peripheral edema. No clubbing, no cyanosis. Peripheral pulses are intact. Results - Laboratory Findings CBC and BMP: 11/23/24 05:05 11/23/24 05:05 PT/INR, D-dimer PT 35.7 sec (10.0-12.5) H 11/23/24 05:05 INR 3.6 (<1.2) H 11/23/24 05:05 Abnormal lab findings: Abnormal Labs 11/22/24 11/22/24 11/22/24 00:33 00:33 00:33 WBC 22.3 H RBC MPV Immature Gran # Neutrophils # 19.8 H Monocytes # Eosinophils # PT 43.7 H INR 4.4 H APTT 44.4 H Sodium 130 L Carbon Dioxide 21 L BUN/Creatinine Ratio Calcium Total Bilirubin 1.4 H Total Protein Albumin Albumin/Globulin Ratio Urine Protein Urine Blood Urine RBC Urine Mucus 11/22/24 11/23/24 11/23/24 00:36 05:05 05:05 WBC 13.97 H RBC 4.33 L MPV 13.4 H Immature Gran # 0.06 H Neutrophils # 10.44 H Monocytes # 1.24 H Eosinophils # 0.39 H PT INR APTT Sodium Carbon Dioxide BUN/Creatinine Ratio 10.60 L Calcium 7.9 L Total Bilirubin Total Protein 5.1 L Albumin 3.0 L Albumin/Globulin Ratio 1.43 L Urine Protein Trace H Urine Blood Moderate H Urine RBC 15 H Urine Mucus Rare H 11/23/24 05:05 WBC RBC MPV Immature Gran # Neutrophils # Monocytes # Eosinophils # PT 35.7 H INR 3.6 H APTT Sodium Carbon Dioxide BUN/Creatinine Ratio Calcium Total Bilirubin Total Protein Albumin Albumin/Globulin Ratio Urine Protein Urine Blood Urine RBC Urine Mucus - Diagnostic Findings Chest x-ray: image reviewed Assessment and Plan Assessment: Acute hypoxemic respiratory failure secondary to an acute community-acquired right lung pneumonia Febrile illness secondary to above Former smoker History of aortic valve replacement 2016, maintained on warfarin Coronary disease with previous stent placement History of TIA Hyperlipidemia Plan: The patient was seen and evaluated Chest x-rays, labs and medications reviewed Will obtain a CT scan of the chest Continue ceftriaxone and azithromycin Continue DuoNeb inhalations, Symbicort Anticoagulated with warfarin Titrate down the FiO2 as tolerated Increase his activity as tolerated We will continue to follow and make further recommendations based on his clinical status I have personally seen and examined the patient, performed the documentation and the assessment and plan as written. Number of minutes spent on the visit: 20 Dictation was produced using [employer] dictation software. Please excuse any grammatical, word or spelling errors. Time with Patient: Greater than 30
[2024-11-23] MEDS: WARFARIN 0.5 MG TAB PO ONE (13:34)
--- NOTE | 2024-11-23 16:43 | P.PN ---
Subjective Progress Note Date: 11/23/24 Principal diagnosis: Reason for follow-up is pneumonia Patient is a 54-year-old male with a past medical history nephric and for CVA TIA hyperlipidemia [place] s/p coronary bypass grafting presenting to the hospital for evaluation of fever, patient be diagnosed with sepsis and pneumonia prompted this consultation. On today's evaluation that is 11/23/2024, Patient did have resolution of his fever and is afebrile this morning, patient is currently on 2 L nasal oxygen and denies having any shortness of breath, the patient denies any chest pain, cough decreased in intensity, the patient denies any nausea vomiting did not have any abdominal pain and no diarrhea. Patient white count is down to 13.97, creatinine is 1.0 blood and sputum cultures currently pending Objective - Vital Signs Vital signs: Vital Signs Temp 99.4 F 11/23/24 07:30 Pulse 84 11/23/24 08:12 Resp 16 11/23/24 07:30 BP 103/67 11/23/24 07:30 Pulse Ox 94 L 11/23/24 07:30 FiO2 Intake & Output 11/22/24 11/23/24 11/23/24 18:59 06:59 18:59 Intake Total 590 360 Balance 590 360 Intake: Oral 590 360 Other: Voiding Method Toilet Toilet Toilet # Voids 2 3 # Bowel Movements 1 1 - Exam GENERAL DESCRIPTION: Middle aged male lying in bed in no distress RESPIRATORY SYSTEM: Unlabored breathing , decreased breath sounds at bases HEART: S1 S2 regular rate and rhythm , ABDOMEN: Soft , no tenderness EXTREMITIES: No edema feet - Labs CBC & Chem 7: 11/23/24 05:05 11/23/24 05:05 Labs: Abnormal Lab Results - Last 24 Hours (Table) 11/23/24 11/23/24 11/23/24 Range/Units 05:05 05:05 05:05 WBC 13.97 H (4.50-10.00) X 10*3/uL RBC 4.33 L (4.40-5.60) X 10*6/uL MPV 13.4 H (9.5-12.2) FL Immature Gran # 0.06 H (0.00-0.04) X 10*3/uL Neutrophils # 10.44 H (1.80-7.70) X 10*3/uL Monocytes # 1.24 H (0.20-1.00) X 10*3/uL Eosinophils # 0.39 H (0.04-0.35) X 10*3/uL PT 35.7 H (10.0-12.5) sec INR 3.6 H (<1.2) BUN/Creatinine Ratio 10.60 L (12.00-20.00) Ratio Calcium 7.9 L (8.7-10.3) mg/dL Total Protein 5.1 L (6.2-8.2) g/dL Albumin 3.0 L (3.8-4.9) g/dL Albumin/Globulin Ratio 1.43 L (1.60-3.17) Ratio Microbiology - Last 24 Hours (Table) 11/22/24 17:32 Gram Stain - Preliminary Sputum Assessment and Plan (1) Pneumonia Current Visit: Yes Status: Acute Code(s): J18.9 - PNEUMONIA, UNSPECIFIED ORGANISM SNOMED Code(s): 714541803 (2) Sepsis Current Visit: No Status: Acute Code(s): A41.9 - SEPSIS, UNSPECIFIED ORGANISM SNOMED Code(s): 12440645 Plan: 1patient presented hospital with sepsis in this patient who did have fever elevated white count meeting criteria for SIRS source is likely pneumonia and likely community-acquired 2-blood and sputum culture obtained which are currently pending 3-patient did have resolution of his fever and will continue with Rocephin and Zithromax while waiting for cultures to be finalized Dictation was produced using [employer] dictation software. please excuse any grammatical, word or spelling errors. Time with Patient: Less than 30
--- NOTE | 2024-11-24 01:27 | PN ---
PROGRESS NOTE DATE OF SERVICE: 11/23/2024 SUBJECTIVE: This is a 54-year-old gentleman admitted with right-sided pneumonia, is on antibiotics. Pulmonology recommended CT scan tomorrow. No chest pain. No palpitation. OBJECTIVE: VITAL SIGNS: Pulse is 84, blood pressure 103/65, respirations 16. CHEST: A few scattered rhonchi. ABDOMEN: Soft. NERVOUS SYSTEM: Nonfocal. LABORATORY DATA: WBC 13.97. ASSESSMENT: 1. Acute right multifocal pneumonia with possible sepsis present on admission. 2. Increased WBC. 3. History of cerebrovascular accident, transient ischemic attack. 4. Multiple complex medical issues. RECOMMENDATIONS: Recommend to continue current management and continue symptomatic treatment. Otherwise, CT per Dr. Morocho. Continue with antibiotics. Prognosis guarded. Further recommendations to follow. MMODL / IJN: [id number] /
[2024-11-24 05:38] LABS: INR 2.7 (<1.2)
[2024-11-24 05:41] LABS: Mycoplasma IgG Antibody (EIA) 3.04 INDEX (<=0.90); Mycoplasma IgM Antibody 0.77 INDEX (<=0.90)
--- NOTE | 2024-11-24 12:42 | P.PN ---
Subjective Progress Note Date: 11/24/24 This is a pleasant 54-year-old male patient with a known history of TIA, hyperlipidemia, coronary artery disease with previous stent placement, aortic valve replacement in 2017 maintained on warfarin. Quit smoking in 2017. He came to the emergency room on 11/22/2019 5 in the evening with a 2 to 3-day his tory of fever chills and a dry nonproductive cough. He also developed body aches and a remained febrile for 2 days. Home temperature up to 102. X-ray reveals a heterogenous opacity in the right hilar region. White count 13.9. Hemoglobin 13.8. Platelets 156. INR 3.6. Sodium 136. Potassium 4.3. Bicarb 23. BUN 11. Creatinine 1.0. Glucose 103. Today's chest x-ray shows persistent right midlung acute infiltrate and/or atelectasis. Tiny pleural effusions. He is seen today in consultation on the regular medical floor. He is sitting up in bed. Awake and alert in no acute distress. Maintaining O2 saturations in the 90s on 2 L/min per nasal cannula. He has normal saline at 75 mL/h. Feeling better today compared to yesterday. Currently afebrile. Hemodynamically stable. The patient is seen today November 24, 2024 in follow-up on the regular medical floor. He is currently sitting up in bed. Awake and alert in no acute distress. Doing better today compared to yesterday. Maintaining O2 saturations in the 90s on 2 L/min per nasal cannula. He has lactated Ringer's at 75 mL/h. Blood culture revealed no growth. Sputum culture reveals no growth. INR 2.7. He remains on DuoNeb inhalations, Symbicort. Antibiotics in the form of ceftriaxone. Completed azithromycin. Anticoagulated with warfarin. Objective - Vital Signs Vital signs: Vital Signs Temp 98.7 F 11/24/24 07:00 Pulse 84 11/24/24 08:40 Resp 16 11/24/24 07:00 BP 118/73 11/24/24 07:00 Pulse Ox 94 L 11/24/24 07:00 FiO2 Intake & Output 11/23/24 11/24/24 11/24/24 18:59 06:59 18:59 Intake Total 600 221 Balance 600 221 Intake: Oral 600 221 Other: Voiding Method Toilet Toilet # Voids 3 2 - Exam GENERAL EXAM: Alert, active, pleasant 54-year-old male, on 2 L nasal cannula, comfortable in no apparent distress. HEAD: Normocephalic. EYES: Normal reaction of pupils, equal size. NOSE: Clear with pink turbinates. THROAT: No erythema or exudates. NECK: No masses, no JVD. CHEST: No chest wall deformity. LUNGS: Equal air entry with few scattered rhonchi over the right lung. CVS: S1 and S2 normal with no audible murmur, regular rhythm. ABDOMEN: No hepatosplenomegaly, normal bowel sounds, no guarding or rigidity. SPINE: No scoliosis or deformity SKIN: No rashes CENTRAL NERVOUS SYSTEM: No focal deficits, tone is normal in all 4 extremities. EXTREMITIES: There is no peripheral edema. No clubbing, no cyanosis. Peripheral pulses are intact. - Labs CBC & Chem 7: 11/23/24 05:05 11/23/24 05:05 Labs: Abnormal Lab Results - Last 24 Hours (Table) 11/22/24 11/24/24 Range/Units 00:33 05:16 PT 27.0 H (10.0-12.5) sec INR 2.7 H (<1.2) Mycoplasma pneumon IgG 3.04 H (<=0.90) INDEX Microbiology - Last 24 Hours (Table) 11/22/24 17:32 Gram Stain - Preliminary Sputum Sputum Culture - Preliminary 11/22/24 00:33 Blood Culture - Preliminary Blood Assessment and Plan Assessment: Acute hypoxemic respiratory failure secondary to an acute community-acquired right lung pneumonia Febrile illness secondary to above Former smoker History of aortic valve replacement 2016, maintained on warfarin Coronary disease with previous stent placement History of TIA Hyperlipidemia Plan: The patient was seen and evaluated Labs and medications reviewed Will obtain a CT scan of the chest Continue ceftriaxone Completed azithromycin Continue DuoNeb inhalations, Symbicort Anticoagulated with warfarin Titrate down the FiO2 as tolerated Increase his activity as tolerated This patient was seen independently by the pulmonary nurse practitioner addressing pulmonary issues I have personally seen and examined the patient, performed the documentation and the assessment and plan as written. Number of minutes spent on the visit: 25 Dictation was produced using [employer] dictation software. Please excuse any grammatical, word or spelling errors.
--- NOTE | 2024-11-24 13:06 | CT ---
EXAMINATION TYPE: CT chest w con DATE OF EXAM: 11/24/2024 11:45 AM COMPARISON: 03/18/2018.. CLINICAL INDICATION: Male, 54 years old with history of Pneumonia, nodule; PHH, PNE, lung nodules TECHNIQUE: Multiple axial images were obtained through the chest. Sagittal and coronal reformats were created for review. MIP was performed on a separate workstation. Contrast used:100 ml mL of Isovue 300 with IV Contrast (None if empty) Oral contrast used: (None if empty) CT DLP: 305.90 mGycm, Automated exposure control for dose reduction was used. FINDINGS: LUNGS/ PLEURA: Moderate to severe centrilobular emphysema changes with superimposed airspace opacitie s in the right lung. Trace or pleural fusion. Right apical nodular like changes unchanged from 018 likely scarring. No focal consolidation, pneumothorax or pleural effusion. AIRWAY: Patent and unremarkable. HEART: Size within normal limits. Valve repair changes. Coronary artery atherosclerotic changes and stents present. MEDIASTINUM: No gross evidence of adenopathy. VASCULATURE: No aortic aneurysm. MUSCULOSKELETAL: No acute osseous abnormalities, sternotomy wires present. SOFT TISSUES/LYMPH NODES: Unremarkable. LOWER NECK: No significant findings. UPPER ABDOMEN: No significant findings. IMPRESSION: Moderate severe emphysema superimposed airspace disease predominantly in the right lung with suspecte d parapneumonic effusion. Stable right apical suspected scarring compared to 2018. No new or enlargin g pulmonary nodules. [facility], , 11/24/2024 1:04 PM
--- NOTE | 2024-11-24 16:45 | P.PN ---
Subjective Progress Note Date: 11/24/24 Principal diagnosis: Reason for follow-up is pneumonia Patient is a 54-year-old male with a past medical history nephric and for CVA TIA hyperlipidemia [place] s/p coronary bypass grafting presenting to the hospital for evaluation of fever, patient be diagnosed with sepsis and pneumonia prompted this consultation. On today's evaluation that is 11/24/2024, patient has been afebrile, patient is breathing comfortably and is currently on room air, patient denies having any chest pain and cough is decreased in intensity, patient denies nausea vomiting or diarrhea and no abdominal pain. Blood and sputum cultures are pending INR is 2.7 no CBC was done today Objective - Vital Signs Vital signs: Vital Signs Temp 98.7 F 11/24/24 07:00 Pulse 84 11/24/24 08:40 Resp 16 11/24/24 07:00 BP 118/73 11/24/24 07:00 Pulse Ox 94 L 11/24/24 07:00 FiO2 Intake & Output 11/23/24 11/24/24 11/24/24 18:59 06:59 18:59 Intake Total 600 221 Balance 600 221 Intake: Oral 600 221 Other: Voiding Method Toilet Toilet # Voids 3 2 - Exam GENERAL DESCRIPTION: Middle aged male lying in bed in no distress RESPIRATORY SYSTEM: Unlabored breathing , decreased breath sounds at bases HEART: S1 S2 regular rate and rhythm , ABDOMEN: Soft , no tenderness EXTREMITIES: No edema feet - Labs CBC & Chem 7: 11/23/24 05:05 11/23/24 05:05 Labs: Abnormal Lab Results - Last 24 Hours (Table) 11/22/24 11/24/24 Range/Units 00:33 05:16 PT 27.0 H (10.0-12.5) sec INR 2.7 H (<1.2) Mycoplasma pneumon IgG 3.04 H (<=0.90) INDEX Microbiology - Last 24 Hours (Table) 11/22/24 00:33 Blood Culture - Preliminary Blood 11/22/24 17:32 Gram Stain - Preliminary Sputum Assessment and Plan (1) Pneumonia Current Visit: Yes Status: Acute Code(s): J18.9 - PNEUMONIA, UNSPECIFIED ORGANISM SNOMED Code(s): 768160161 (2) Sepsis Current Visit: No Status: Acute Code(s): A41.9 - SEPSIS, UNSPECIFIED ORGANISM SNOMED Code(s): 48453094 Plan: 1patient presented hospital with sepsis in this patient who did have fever elevated white count meeting criteria for SIRS source is likely pneumonia and likely community-acquired 2-blood and sputum culture obtained which are currently pending 3-patient did have resolution of his fever and white count was down as of yesterday no CBC was done today 4we will treat with Rocephin Zithromax while waiting for the culture to finalize to determine discharge antibiotics Dictation was produced using [employer] dictation software. please excuse any grammatical, word or spelling errors. Time with Patient: Less than 30
[2024-11-24] MEDS ORDERED: NON FORMULARY DRUG (Warfarin Sodium [Warfarin Sodium] 4 MG Tablet) PO SCH (18:00)
[2024-11-24] MEDS: WARFARIN 3 MG TAB PO ONE (18:29)
[2024-11-25 06:10] LABS: INR 2.3 (<1.2); Prothrombin Time 23.3 sec (10.0-12.5)
--- NOTE | 2024-11-25 06:33 | P.PN ---
Subjective Progress Note Date: 11/24/24 This is a very pleasant 54-year-old male who was recently admitted with right- sided pneumonia being closely followed by infectious disease and pulmonary at this time. Repeat CT of the chest is ordered and pending. Patient is continued on breathing treatments along with IV antibiotics and awaiting cultures. Patient also continued on 2 L via nasal cannula and reports does not wear oxygen outpatient. Recommend incentive spirometer use and increase activity as tolerated. Will discontinue IV fluids as patient is eating and drinking with no difficulties. Review of systems: Constitutional: No reports of fatigue, fever, or chills Cardiovascular: No reports of chest pain or palpitations Respiratory: reports of shortness of breath and cough GI: No reports of nausea, no reports of vomiting, no diarrhea : No reports of dysuria or retention Neurovascular: No reports of generalized weakness All medications have been reviewed PHYSICAL EXAMINATION: GENERAL: The patient is alert and oriented x4, Well developed, thin built. HEENT: Pupils are round and equally reacting to light. EOMI. no scleral icterus. No conjunctival pallor. Normocephalic, atraumatic. No pharyngeal erythema. No thyromegaly. CARDIOVASCULAR: S1 and S2 muffled PULMONARY: diminished breath sounds bilaterally with no wheezing noted. Course rhonchi noted at the bases ABDOMEN: soft. Nontender on exam. Thin. non-distended, normoactive bowel sounds. No palpable organomegaly. MUSCULOSKELETAL: No joint swelling or deformity. EXTREMITIES: No cyanosis, clubbing, or pedal edema. NEUROLOGICAL: Gross neurological examination did not reveal any focal deficits. SKIN: No rashes. Assessment: Acute right multifocal pneumonia with sepsis, present on admission, community- acquired pneumonia Leukocytosis, secondary to above Acute hypoxic respiratory failure secondary to acuity acquired pneumonia History of CVA/TIA History of previous myocardial infarction with stenting History of CABG maintained on Coumadin Hyperlipidemia GI prophylaxis DVT prophylaxis Full code Plan: Recommend to continue with current medications and management per infectious disease and pulmonary. Patient scheduled to undergo CT chest this morning which was done although report is pending per pulmonary Awaiting cultures with infectious disease following maintained on antibiotics to determine appropriate discharge antibiotics Wean FiO2 as tolerated as patient does not wear oxygen outpatient currently maintained on 2 L Recommend incentive spirometer use at least 10 times every hour while awake Encourage increase activity as tolerated Will discuss with other consultations regarding discharge planning Repeat labs in the a.m. Due to multiple complex medical issues, overall prognosis is guarded The impression and plan of care has been dictated by Jennifer Negron, nurse practitioner as directed. Dr. Fadumo MD I have performed a history and examination and MDM of this patient, discussed the same with the dictator, and agree with the dictator's assessment and plan as written ,documented as a scribe. Based on total visit time, I have performed more than 50% of the visit. Any additional findings or plans will be noted. Objective - Vital Signs Vital signs: Vital Signs Temp 99.4 F 11/25/24 02:00 Pulse 79 11/25/24 02:00 Resp 17 11/25/24 02:00 BP 106/63 11/25/24 02:00 Pulse Ox 94 L 11/25/24 02:00 FiO2 Intake & Output 11/24/24 11/24/24 11/25/24 06:59 18:59 06:59 Intake Total 663 Balance 663 Intake: Oral 663 Other: Voiding Method Toilet Toilet # Voids 2 3 2 - Labs CBC & Chem 7: 11/23/24 05:05 11/23/24 05:05 Labs: Abnormal Lab Results - Last 24 Hours (Table) 11/24/24 11/25/24 Range/Units 11:34 05:35 PT 23.3 H (10.0-12.5) sec INR 2.3 H (<1.2) Procalcitonin 0.61 H (0.02-0.50) ng/mL Microbiology - Last 24 Hours (Table) 11/22/24 00:33 Blood Culture - Preliminary Blood 11/22/24 17:32 Gram Stain - Preliminary Sputum Sputum Culture - Preliminary
[2024-11-25 08:22] LABS: Basophils # (A) 0.09 X 10*3/uL (0.00-0.10); Eosinophils # (A) 0.36 X 10*3/uL (0.04-0.35); Eosinophils % (A) 3.8 %; HCT 41.6 % (39.6-50.0); HGB 14.3 g/dL (13.0-17.0); Lymphocytes # (A) 1.96 X 10*3/uL (0.90-5.00); Lymphocytes % (A) 20.8 %; MCH 32.3 pg (27.0-32.0); MCHC 34.4 g/dL (32.0-37.0); MCV 93.9 FL (80.0-97.0); Mean Platelet Volume 12.9 FL (9.5-12.2); Monocytes # (A) 1.12 X 10*3/uL (0.20-1.00); Monocytes % (A) 11.9 %; NRBC Per 100 WBC 0 X 10*3/uL (0.00-0.01); Neutrophils # (A) 5.77 X 10*3/uL (1.80-7.70); Neutrophils % (A) 61.1 %; Platelet Count 240 X 10*3/uL (140-440); RBC 4.43 X 10*6/uL (4.40-5.60); RDW 13.3 % (11.5-14.5); WBC 9.43 X 10*3/uL (4.50-10.00)
[2024-11-25 09:05] LABS: ALT 91 U/L (10-49); AST 78 U/L (14-35); Albumin 3.2 g/dL (3.8-4.9); Albumin/Globulin Ratio 1.23 Ratio (1.60-3.17); Alkaline Phosphatase 56 U/L (41-126); BUN/Creat Ratio 7.11 Ratio (12.00-20.00); Blood Urea Nitrogen 6.4 mg/dL (9.0-27.0); Calcium 8.1 mg/dL (8.7-10.3); Carbon Dioxide 21.4 mmol/L (21.6-31.8); Chloride 104 mmol/L (96-109); Globulin 2.6 g/dL (1.6-3.3); Glucose 116 mg/dL (70-110); Potassium 4.1 mmol/L (3.5-5.5); Sodium 135 mmol/L (135-145); Total Bilirubin 0.5 mg/dL (0.3-1.2); Total Protein 5.8 g/dL (6.2-8.2)
--- NOTE | 2024-11-25 11:35 | P.PN ---
Subjective Progress Note Date: 11/25/24 This is a pleasant 54-year-old male patient with a known history of TIA, hyperlipidemia, coronary artery disease with previous stent placement, aortic valve replacement in 2017 maintained on warfarin. Quit smoking in 2017. He came to the emergency room on 11/22/2019 5 in the evening with a 2 to 3-day his tory of fever chills and a dry nonproductive cough. He also developed body aches and a remained febrile for 2 days. Home temperature up to 102. X-ray reveals a heterogenous opacity in the right hilar region. White count 13.9. Hemoglobin 13.8. Platelets 156. INR 3.6. Sodium 136. Potassium 4.3. Bicarb 23. BUN 11. Creatinine 1.0. Glucose 103. Today's chest x-ray shows persistent right midlung acute infiltrate and/or atelectasis. Tiny pleural effusions. He is seen today in consultation on the regular medical floor. He is sitting up in bed. Awake and alert in no acute distress. Maintaining O2 saturations in the 90s on 2 L/min per nasal cannula. He has normal saline at 75 mL/h. Feeling better today compared to yesterday. Currently afebrile. Hemodynamically stable. The patient is seen today November 24, 2024 in follow-up on the regular medical floor. He is currently sitting up in bed. Awake and alert in no acute distress. Doing better today compared to yesterday. Maintaining O2 saturations in the 90s on 2 L/min per nasal cannula. He has lactated Ringer's at 75 mL/h. Blood culture revealed no growth. Sputum culture reveals no growth. INR 2.7. He remains on DuoNeb inhalations, Symbicort. Antibiotics in the form of ceftriaxone. Completed azithromycin. Anticoagulated with warfarin. Patient is seen today November 25, 2024 in follow-up on the regular medical floor. He is awake and alert in no acute distress. Sitting up in bed. Feeling a bit better today compared to yesterday. He is maintaining good O2 saturations in the 90s on 2 L/min per nasal cannula. He has been afebrile. Hemodynamically stable. CT scan of the chest revealed moderate to severe emphysema superimposed airspace disease prominently in the right lung with suspected parapneumonic e ffusion. Stable right apical scarring. No new or enlarging pulmonary nodules. Blood culture revealed no growth. Sputum culture revealed no growth. Count 9.4. Hemoglobin 14.3. Platelets 240. INR 2.3. Sodium 135. Potassium 4.1. Bicarb 21. BUN 6. Creatinine 0.9. Glucose 116. Procalcitonin was elevated at 0.61. He remains on ceftriaxone and completed azithromycin. Continued on DuoNeb inhalations, Symbicort. Anticoagulated with warfarin. Objective - Vital Signs Vital signs: Vital Signs Temp 98.4 F 11/25/24 07:00 Pulse 78 11/25/24 08:22 Resp 18 11/25/24 07:00 BP 105/66 11/25/24 07:00 Pulse Ox 93 L 11/25/24 07:00 FiO2 Intake & Output 11/24/24 11/25/24 11/25/24 18:59 06:59 18:59 Intake Total 663 118 Balance 663 118 Intake: Oral 663 118 Other: Voiding Method Toilet Toilet # Voids 3 2 - Exam GENERAL EXAM: Alert, pleasant 54-year-old male, sitting up in bed, on 2 L nasal cannula, comfortable in no apparent distress. HEAD: Normocephalic. EYES: Normal reaction of pupils, equal size. NOSE: Clear with pink turbinates. THROAT: No erythema or exudates. NECK: No masses, no JVD. CHEST: No chest wall deformity. LUNGS: Equal air entry with few scattered rhonchi over the right lung. CVS: S1 and S2 normal with no audible murmur, regular rhythm. ABDOMEN: No hepatosplenomegaly, normal bowel sounds, no guarding or rigidity. SPINE: No scoliosis or deformity SKIN: No rashes CENTRAL NERVOUS SYSTEM: No focal deficits, tone is normal in all 4 extremities. EXTREMITIES: There is no peripheral edema. No clubbing, no cyanosis. Peripheral pulses are intact. - Labs CBC & Chem 7: 11/25/24 05:35 11/25/24 05:35 Labs: Abnormal Lab Results - Last 24 Hours (Table) 11/24/24 11/25/24 11/25/24 Range/Units 11:34 05:35 05:35 MCH 32.3 H (27.0-32.0) pg MPV 12.9 H (9.5-12.2) FL Immature Gran # 0.13 H (0.00-0.04) X 10*3/uL Monocytes # 1.12 H (0.20-1.00) X 10*3/uL Eosinophils # 0.36 H (0.04-0.35) X 10*3/uL PT 23.3 H (10.0-12.5) sec INR 2.3 H (<1.2) Carbon Dioxide (21.6-31.8) mmol/L BUN (9.0-27.0) mg/dL BUN/Creatinine Ratio (12.00-20.00) Ratio Glucose (70-110) mg/dL Calcium (8.7-10.3) mg/dL AST (14-35) U/L ALT (10-49) U/L Total Protein (6.2-8.2) g/dL Albumin (3.8-4.9) g/dL Albumin/Globulin Ratio (1.60-3.17) Ratio Procalcitonin 0.61 H (0.02-0.50) ng/mL 11/25/24 Range/Units 05:35 MCH (27.0-32.0) pg MPV (9.5-12.2) FL Immature Gran # (0.00-0.04) X 10*3/uL Monocytes # (0.20-1.00) X 10*3/uL Eosinophils # (0.04-0.35) X 10*3/uL PT (10.0-12.5) sec INR (<1.2) Carbon Dioxide 21.4 L (21.6-31.8) mmol/L BUN 6.4 L (9.0-27.0) mg/dL BUN/Creatinine Ratio 7.11 L (12.00-20.00) Ratio Glucose 116 H (70-110) mg/dL Calcium 8.1 L (8.7-10.3) mg/dL AST 78 H (14-35) U/L ALT 91 H (10-49) U/L Total Protein 5.8 L (6.2-8.2) g/dL Albumin 3.2 L (3.8-4.9) g/dL Albumin/Globulin Ratio 1.23 L (1.60-3.17) Ratio Procalcitonin (0.02-0.50) ng/mL Microbiology - Last 24 Hours (Table) 11/22/24 17:32 Gram Stain - Final Sputum Sputum Culture - Final 11/22/24 00:33 Blood Culture - Preliminary Blood Assessment and Plan Assessment: Acute hypoxemic respiratory failure secondary to an acute community-acquired right lung pneumonia. CT scan of the chest revealed moderate to severe emphysema superimposed airspace disease predominantly in the right lung with suspected parapneumonic effusion. Stable right apical scarring compared to 2018. No new pulmonary nodules Febrile illness secondary to above Chronic obstructive pulmonary disease Former smoker History of aortic valve replacement 2017, maintained on warfarin Coronary disease with previous stent placement History of TIA Hyperlipidemia Plan: The patient was seen and evaluated Labs and medications reviewed CT scan of the chest reviewed Continue ceftriaxone Continue DuoNeb inhalations, Symbicort Anticoagulated with warfarin Titrate down the FiO2 as tolerated Increase his activity as tolerated Probable discharge in the a.m. This patient was seen independently by the pulmonary nurse practitioner addressing pulmonary issues I have personally seen and examined the patient, performed the documentation and the assessment and plan as written. Number of minutes spent on the visit: 24 Dictation was produced using [employer] dictation software. Please excuse any grammatical, word or spelling errors.
--- NOTE | 2024-11-25 15:49 | P.PN ---
Subjective Progress Note Date: 11/25/24 Principal diagnosis: Reason for follow-up is pneumonia Patient is a 54-year-old male with a past medical history nephric and for CVA TIA hyperlipidemia [place] s/p coronary bypass grafting presenting to the hospital for evaluation of fever, patient be diagnosed with sepsis and pneumonia prompted this consultation. On today's evaluation that is 11/25/2024, Patient is afebrile this morning patient denies having any chest pain shortness of breath and cough is decreased in intensity, the patient is currently on 1 L nasal oxygen patient denies any abdominal pain no diarrhea no nausea no vomiting. Patient white count normalized to 9.43, creatinine 0.9 blood and sputum culture have been negative so far Objective - Vital Signs Vital signs: Vital Signs Temp 98.4 F 11/25/24 07:00 Pulse 78 11/25/24 08:22 Resp 18 11/25/24 07:00 BP 105/66 11/25/24 07:00 Pulse Ox 93 L 11/25/24 07:00 FiO2 Intake & Output 11/24/24 11/25/24 11/25/24 18:59 06:59 18:59 Intake Total 663 118 Balance 663 118 Intake: Oral 663 118 Other: Voiding Method Toilet Toilet # Voids 3 2 - Exam GENERAL DESCRIPTION: Middle aged male lying in bed in no distress RESPIRATORY SYSTEM: Unlabored breathing , decreased breath sounds at bases HEART: S1 S2 regular rate and rhythm , ABDOMEN: Soft , no tenderness EXTREMITIES: No edema feet - Labs CBC & Chem 7: 11/25/24 05:35 11/25/24 05:35 Labs: Abnormal Lab Results - Last 24 Hours (Table) 11/24/24 11/25/24 11/25/24 Range/Units 11:34 05:35 05:35 MCH 32.3 H (27.0-32.0) pg MPV 12.9 H (9.5-12.2) FL Immature Gran # 0.13 H (0.00-0.04) X 10*3/uL Monocytes # 1.12 H (0.20-1.00) X 10*3/uL Eosinophils # 0.36 H (0.04-0.35) X 10*3/uL PT 23.3 H (10.0-12.5) sec INR 2.3 H (<1.2) Carbon Dioxide (21.6-31.8) mmol/L BUN (9.0-27.0) mg/dL BUN/Creatinine Ratio (12.00-20.00) Ratio Glucose (70-110) mg/dL Calcium (8.7-10.3) mg/dL AST (14-35) U/L ALT (10-49) U/L Total Protein (6.2-8.2) g/dL Albumin (3.8-4.9) g/dL Albumin/Globulin Ratio (1.60-3.17) Ratio Procalcitonin 0.61 H (0.02-0.50) ng/mL 11/25/24 Range/Units 05:35 MCH (27.0-32.0) pg MPV (9.5-12.2) FL Immature Gran # (0.00-0.04) X 10*3/uL Monocytes # (0.20-1.00) X 10*3/uL Eosinophils # (0.04-0.35) X 10*3/uL PT (10.0-12.5) sec INR (<1.2) Carbon Dioxide 21.4 L (21.6-31.8) mmol/L BUN 6.4 L (9.0-27.0) mg/dL BUN/Creatinine Ratio 7.11 L (12.00-20.00) Ratio Glucose 116 H (70-110) mg/dL Calcium 8.1 L (8.7-10.3) mg/dL AST 78 H (14-35) U/L ALT 91 H (10-49) U/L Total Protein 5.8 L (6.2-8.2) g/dL Albumin 3.2 L (3.8-4.9) g/dL Albumin/Globulin Ratio 1.23 L (1.60-3.17) Ratio Procalcitonin (0.02-0.50) ng/mL Microbiology - Last 24 Hours (Table) 11/22/24 00:33 Blood Culture - Preliminary Blood 11/22/24 17:32 Gram Stain - Final Sputum Sputum Culture - Final Assessment and Plan (1) Pneumonia Current Visit: Yes Status: Acute Code(s): J18.9 - PNEUMONIA, UNSPECIFIED ORGANISM SNOMED Code(s): 840827874 (2) Sepsis Current Visit: No Status: Acute Code(s): A41.9 - SEPSIS, UNSPECIFIED ORGANISM SNOMED Code(s): 05019699 Plan: 1patient presented hospital with sepsis in this patient who did have fever elevated white count meeting criteria for SIRS source is likely pneumonia and likely community-acquired 2-blood and sputum culture obtained which are currently pending 3-patient did have resolution of his fever and white count was down as of yesterday no CBC was done today 4patient has shown clinical improvement on Rocephin his white count normalized sputum culture have been negative he will be evaluated therapy with oral Ceftin on discharge Dictation was produced using [employer] dictation software. please excuse any grammatical, word or spelling errors. Time with Patient: Less than 30
[2024-11-25] MEDS: WARFARIN 2 MG TAB PO ONE (17:50)
[2024-11-26 04:42] LABS: INR 2.4 (<1.2); Prothrombin Time 23.7 sec (10.0-12.5)
[2024-11-26 05:36] VITALS: RESP 16
[2024-11-26] MEDS: CEFDINIR 300 MG CAP PO SCH (08:50)
[2024-11-26 10:47] LABS: ALT 101 U/L (10-49); AST 66 U/L (14-35); Albumin 3.2 g/dL (3.8-4.9); Albumin/Globulin Ratio 1.19 Ratio (1.60-3.17); Alkaline Phosphatase 58 U/L (41-126); BUN/Creat Ratio 9.25 Ratio (12.00-20.00); Blood Urea Nitrogen 7.4 mg/dL (9.0-27.0); Calcium 8.1 mg/dL (8.7-10.3); Carbon Dioxide 21.3 mmol/L (21.6-31.8); Chloride 106 mmol/L (96-109); Globulin 2.7 g/dL (1.6-3.3); Glucose 122 mg/dL (70-110); Potassium 4.2 mmol/L (3.5-5.5); Sodium 137 mmol/L (135-145); Total Bilirubin 0.3 mg/dL (0.3-1.2); Total Protein 5.9 g/dL (6.2-8.2)
--- NOTE | 2024-11-26 10:47 | P.PN ---
Subjective Progress Note Date: 11/25/24 This is a very pleasant 54-year-old male who was recently admitted with right- sided pneumonia being closely followed by infectious disease and pulmonary at this time. Repeat CT of the chest is ordered and pending. Patient is continued on breathing treatments along with IV antibiotics and awaiting cultures. Patient also continued on 2 L via nasal cannula and reports does not wear oxygen outpatient. Recommend incentive spirometer use and increase activity as tolerated. Will discontinue IV fluids as patient is eating and drinking with no difficulties. 11/25/2024 Patient is seen in follow-up today with no acute overnight issues noted. Patient is currently maintained on 1 L of oxygen via nasal cannula and working on weaning as patient does not wear oxygen outpatient. Patient being followed by pulmonary recommend monitoring another 24 hours and reeval prior to discharging. Patient is continued on antibiotics and will continue at this time. Sputum and blood cultures thus far are negative. Encouraged increase activity as tolerated and will discuss possible discharge planning in the next 24 hours Review of systems: Constitutional: No reports of fatigue, fever, or chills Cardiovascular: No reports of chest pain or palpitations Respiratory: reports of shortness of breath and cough although feels is improving GI: No reports of nausea, no reports of vomiting, no diarrhea : No reports of dysuria or retention Neurovascular: No reports of generalized weakness All medications have been reviewed PHYSICAL EXAMINATION: GENERAL: The patient is alert and oriented x4, Well developed, thin built. HEENT: Pupils are round and equally reacting to light. EOMI. no scleral icterus. No conjunctival pallor. Normocephalic, atraumatic. No pharyngeal erythema. No thyromegaly. CARDIOVASCULAR: S1 and S2 muffled PULMONARY: diminished breath sounds bilaterally with no wheezing noted. Course rhonchi noted at the bases ABDOMEN: soft. Nontender on exam. Thin. non-distended, normoactive bowel sounds. No palpable organomegaly. MUSCULOSKELETAL: No joint swelling or deformity. EXTREMITIES: No cyanosis, clubbing, or pedal edema. NEUROLOGICAL: Gross neurological examination did not reveal any focal deficits. SKIN: No rashes. Assessment: Acute right multifocal pneumonia with sepsis, present on admission, community- acquired pneumonia Leukocytosis, secondary to above Acute hypoxic respiratory failure secondary to acuity acquired pneumonia History of CVA/TIA History of previous myocardial infarction with stenting History of CABG maintained on Coumadin Hyperlipidemia GI prophylaxis DVT prophylaxis Full code Plan: Recommend to continue with current medications and management per infectious disease and pulmonary. Awaiting cultures with infectious disease following maintained on antibiotics to determine appropriate discharge antibiotics. Sputum cultures are negative and blood cultures thus far negative Wean FiO2 as tolerated as patient does not wear oxygen outpatient currently maintained on 1 L Recommend incentive spirometer use at least 10 times every hour while awake Encourage increase activity as tolerated Will discuss with other consultations regarding discharge planning possibly in the next 24 hours Repeat labs in the a.m. Due to multiple complex medical issues, overall prognosis is guarded The impression and plan of care has been dictated by Jennifer Negron, nurse practitioner as directed. Dr. Fadumo MD I have performed a history and examination and MDM of this patient, discussed the same with the dictator, and agree with the dictator's assessment and plan as written ,documented as a scribe. Based on total visit time, I have performed more than 50% of the visit. Any additional findings or plans will be noted. Objective - Vital Signs Vital signs: Vital Signs Temp 98.4 F 11/25/24 07:00 Pulse 78 11/25/24 08:22 Resp 18 11/25/24 07:00 BP 105/66 11/25/24 07:00 Pulse Ox 93 L 11/25/24 07:00 FiO2 Intake & Output 11/24/24 11/25/24 11/25/24 18:59 06:59 18:59 Intake Total 663 118 Balance 663 118 Intake: Oral 663 118 Other: Voiding Method Toilet Toilet # Voids 3 2 - Labs CBC & Chem 7: 11/25/24 05:35 11/25/24 05:35 Labs: Abnormal Lab Results - Last 24 Hours (Table) 11/24/24 11/25/24 11/25/24 Range/Units 11:34 05:35 05:35 MCH 32.3 H (27.0-32.0) pg MPV 12.9 H (9.5-12.2) FL Immature Gran # 0.13 H (0.00-0.04) X 10*3/uL Monocytes # 1.12 H (0.20-1.00) X 10*3/uL Eosinophils # 0.36 H (0.04-0.35) X 10*3/uL PT 23.3 H (10.0-12.5) sec INR 2.3 H (<1.2) Carbon Dioxide (21.6-31.8) mmol/L BUN (9.0-27.0) mg/dL BUN/Creatinine Ratio (12.00-20.00) Ratio Glucose (70-110) mg/dL Calcium (8.7-10.3) mg/dL AST (14-35) U/L ALT (10-49) U/L Total Protein (6.2-8.2) g/dL Albumin (3.8-4.9) g/dL Albumin/Globulin Ratio (1.60-3.17) Ratio Procalcitonin 0.61 H (0.02-0.50) ng/mL 11/25/24 Range/Units 05:35 MCH (27.0-32.0) pg MPV (9.5-12.2) FL Immature Gran # (0.00-0.04) X 10*3/uL Monocytes # (0.20-1.00) X 10*3/uL Eosinophils # (0.04-0.35) X 10*3/uL PT (10.0-12.5) sec INR (<1.2) Carbon Dioxide 21.4 L (21.6-31.8) mmol/L BUN 6.4 L (9.0-27.0) mg/dL BUN/Creatinine Ratio 7.11 L (12.00-20.00) Ratio Glucose 116 H (70-110) mg/dL Calcium 8.1 L (8.7-10.3) mg/dL AST 78 H (14-35) U/L ALT 91 H (10-49) U/L Total Protein 5.8 L (6.2-8.2) g/dL Albumin 3.2 L (3.8-4.9) g/dL Albumin/Globulin Ratio 1.23 L (1.60-3.17) Ratio Procalcitonin (0.02-0.50) ng/mL Microbiology - Last 24 Hours (Table) 11/22/24 17:32 Gram Stain - Final Sputum Sputum Culture - Final 11/22/24 00:33 Blood Culture - Preliminary Blood
--- NOTE | 2024-11-26 11:35 | P.PN ---
Subjective Progress Note Date: 11/26/24 This is a pleasant 54-year-old male patient with a known history of TIA, hyperlipidemia, coronary artery disease with previous stent placement, aortic valve replacement in 2017 maintained on warfarin. Quit smoking in 2017. He came to the emergency room on 11/22/2019 5 in the evening with a 2 to 3-day his tory of fever chills and a dry nonproductive cough. He also developed body aches and a remained febrile for 2 days. Home temperature up to 102. X-ray reveals a heterogenous opacity in the right hilar region. White count 13.9. Hemoglobin 13.8. Platelets 156. INR 3.6. Sodium 136. Potassium 4.3. Bicarb 23. BUN 11. Creatinine 1.0. Glucose 103. Today's chest x-ray shows persistent right midlung acute infiltrate and/or atelectasis. Tiny pleural effusions. He is seen today in consultation on the regular medical floor. He is sitting up in bed. Awake and alert in no acute distress. Maintaining O2 saturations in the 90s on 2 L/min per nasal cannula. He has normal saline at 75 mL/h. Feeling better today compared to yesterday. Currently afebrile. Hemodynamically stable. The patient is seen today November 24, 2024 in follow-up on the regular medical floor. He is currently sitting up in bed. Awake and alert in no acute distress. Doing better today compared to yesterday. Maintaining O2 saturations in the 90s on 2 L/min per nasal cannula. He has lactated Ringer's at 75 mL/h. Blood culture revealed no growth. Sputum culture reveals no growth. INR 2.7. He remains on DuoNeb inhalations, Symbicort. Antibiotics in the form of ceftriaxone. Completed azithromycin. Anticoagulated with warfarin. Patient is seen today November 25, 2024 in follow-up on the regular medical floor. He is awake and alert in no acute distress. Sitting up in bed. Feeling a bit better today compared to yesterday. He is maintaining good O2 saturations in the 90s on 2 L/min per nasal cannula. He has been afebrile. Hemodynamically stable. CT scan of the chest revealed moderate to severe emphysema superimposed airspace disease prominently in the right lung with suspected parapneumonic e ffusion. Stable right apical scarring. No new or enlarging pulmonary nodules. Blood culture revealed no growth. Sputum culture revealed no growth. Count 9.4. Hemoglobin 14.3. Platelets 240. INR 2.3. Sodium 135. Potassium 4.1. Bicarb 21. BUN 6. Creatinine 0.9. Glucose 116. Procalcitonin was elevated at 0.61. He remains on ceftriaxone and completed azithromycin. Continued on DuoNeb inhalations, Symbicort. Anticoagulated with warfarin. The patient is seen today November 26, 2024 in follow-up on the regular medical floor. He is resting comfortably in bed. Awake and alert in no acute distress. Maintaining O2 saturations in the 90s on 1 L/min per nasal cannula. INR is 2.4. Procalcitonin was 0.61. His ceftriaxone will be switched to Omnicef. He is continued on DuoNeb inhalations, Symbicort. Anticoagulated with warfarin. Sodium 137. Potassium 4.2. Bicarb 21. BUN 7. Creatinine 0.8. Glucose 122. AST 66. ALT 101. Objective - Vital Signs Vital signs: Vital Signs Temp 98.2 F 11/26/24 08:15 Pulse 78 11/26/24 08:15 Resp 16 11/26/24 08:15 BP 114/69 11/26/24 08:15 Pulse Ox 91 L 11/26/24 08:15 FiO2 Intake & Output 11/25/24 11/26/24 11/26/24 18:59 06:59 18:59 Intake Total 678 Balance 678 Intake: Oral 678 Other: Voiding Method Toilet Toilet # Voids 2 - Exam GENERAL EXAM: Alert, pleasant 54-year-old male, on 1 L nasal cannula, comfortable in no apparent distress. HEAD: Normocephalic. EYES: Normal reaction of pupils, equal size. NOSE: Clear with pink turbinates. THROAT: No erythema or exudates. NECK: No masses, no JVD. CHEST: No chest wall deformity. LUNGS: Equal air entry with few scattered rhonchi over the right lung. CVS: S1 and S2 normal with no audible murmur, regular rhythm. ABDOMEN: No hepatosplenomegaly, normal bowel sounds, no guarding or rigidity. SPINE: No scoliosis or deformity SKIN: No rashes CENTRAL NERVOUS SYSTEM: No focal deficits, tone is normal in all 4 extremities. EXTREMITIES: There is no peripheral edema. No clubbing, no cyanosis. Peripheral pulses are intact. - Labs CBC & Chem 7: 11/25/24 05:35 11/26/24 05:58 Labs: Abnormal Lab Results - Last 24 Hours (Table) 11/26/24 11/26/24 Range/Units 04:15 05:58 PT 23.7 H (10.0-12.5) sec INR 2.4 H (<1.2) Carbon Dioxide 21.3 L (21.6-31.8) mmol/L BUN 7.4 L (9.0-27.0) mg/dL BUN/Creatinine Ratio 9.25 L (12.00-20.00) Ratio Glucose 122 H (70-110) mg/dL Calcium 8.1 L (8.7-10.3) mg/dL AST 66 H (14-35) U/L ALT 101 H (10-49) U/L Total Protein 5.9 L (6.2-8.2) g/dL Albumin 3.2 L (3.8-4.9) g/dL Albumin/Globulin Ratio 1.19 L (1.60-3.17) Ratio Microbiology - Last 24 Hours (Table) 11/22/24 00:33 Blood Culture - Preliminary Blood 11/22/24 17:32 Gram Stain - Final Sputum Sputum Culture - Final Assessment and Plan Assessment: Acute hypoxemic respiratory failure secondary to an acute community-acquired right lung pneumonia. CT scan of the chest revealed moderate to severe emphysema superimposed airspace disease predominantly in the right lung with suspected parapneumonic effusion. Stable right apical scarring compared to 2018. No new pulmonary nodules Febrile illness secondary to above Chronic obstructive pulmonary disease Former smoker History of aortic valve replacement 2017, maintained on warfarin Coronary disease with previous stent placement History of TIA Hyperlipidemia Plan: The patient was seen and evaluated Labs and medications reviewed Cleared for discharge Disontinue ceftriaxone Initiate 5 more days of Omnicef Continue Symbicort, albuterol HFA Anticoagulated with warfarin Evaluate for possible home oxygen Follow-up in our office in 1 week This patient was seen independently by the pulmonary nurse practitioner addressing pulmonary issues I have personally seen and examined the patient, performed the documentation and the assessment and plan as written. Number of minutes spent on the visit: 25 Dictation was produced using [employer] software. Please excuse any grammatical, word or spelling errors.
[2024-11-26 15:14] VITALS: BP 120/72; PULSE 78; TEMP 98.6
[2024-11-26] MEDS ORDERED: WARFARIN 2 MG TAB PO ONE (18:00)
--- NOTE | 2024-11-27 13:10 | P.PN ---
Subjective Progress Note Date: 11/26/24 Principal diagnosis: Reason for follow-up is pneumonia Patient is a 54-year-old male with a past medical history nephric and for CVA TIA hyperlipidemia CA s/p coronary bypass grafting presenting to the hospital for evaluation of fever, patient be diagnosed with sepsis and pneumonia prompted this consultation. On today's evaluation that is 11/26/2024,the patient denies any fever or any chills, patient is breathing comfortably on room air, the patient denies chest pain shortness of breath and cough is decreased in intensity, patient denies abdominal pain, no nausea vomiting or diarrhea. Patient white count of 9.4 as of yesterday no CBC was done today creatinine 0.8. Blood and sputum culture have been negative Objective - Vital Signs Vital signs: Vital Signs Temp 98.2 F 11/26/24 08:15 Pulse 78 11/26/24 08:15 Resp 16 11/26/24 08:15 BP 114/69 11/26/24 08:15 Pulse Ox 91 L 11/26/24 08:15 FiO2 Intake & Output 11/25/24 11/26/24 11/26/24 18:59 06:59 18:59 Intake Total 678 Balance 678 Intake: Oral 678 Other: Voiding Method Toilet Toilet # Voids 2 - Exam GENERAL DESCRIPTION: Middle aged male lying in bed in no distress RESPIRATORY SYSTEM: Unlabored breathing , decreased breath sounds at bases HEART: S1 S2 regular rate and rhythm , ABDOMEN: Soft , no tenderness EXTREMITIES: No edema feet - Labs CBC & Chem 7: 11/25/24 05:35 11/26/24 05:58 Labs: Abnormal Lab Results - Last 24 Hours (Table) 11/26/24 11/26/24 Range/Units 04:15 05:58 PT 23.7 H (10.0-12.5) sec INR 2.4 H (<1.2) Carbon Dioxide 21.3 L (21.6-31.8) mmol/L BUN 7.4 L (9.0-27.0) mg/dL BUN/Creatinine Ratio 9.25 L (12.00-20.00) Ratio Glucose 122 H (70-110) mg/dL Calcium 8.1 L (8.7-10.3) mg/dL AST 66 H (14-35) U/L ALT 101 H (10-49) U/L Total Protein 5.9 L (6.2-8.2) g/dL Albumin 3.2 L (3.8-4.9) g/dL Albumin/Globulin Ratio 1.19 L (1.60-3.17) Ratio Microbiology - Last 24 Hours (Table) 11/22/24 00:33 Blood Culture - Preliminary Blood 11/22/24 17:32 Gram Stain - Final Sputum Sputum Culture - Final Assessment and Plan (1) Pneumonia Status: Acute Code(s): J18.9 - PNEUMONIA, UNSPECIFIED ORGANISM SNOMED Code(s): 084110382 (2) Sepsis Status: Acute Code(s): A41.9 - SEPSIS, UNSPECIFIED ORGANISM SNOMED Code(s): 81842940 Plan: 1patient presented hospital with sepsis in this patient who did have fever elevated white count meeting criteria for SIRS source is likely pneumonia and likely community-acquired 2-blood and sputum culture obtained which are currently pending 3-patient did have resolution of his fever and white count was down as of yesterday no CBC was done today 4patient has shown clinical improvement his white count has normalized culture negative for resistant pathogen we will be able to finish therapy with oral Ceftin Dictation was produced using [employer] dictation software. please excuse any grammatical, word or spelling errors. Time with Patient: Less than 30
--- NOTE | 2024-11-27 15:46 | P.DS ---
Providers Date of admission: 11/22/24 02:42 Expected date of discharge: 11/26/24 Attending physician: Bartolo Man Consults: 11/22/24 14:54 Consult Physician Routine Consulting Provider: Michael Morocho Consult Reason/Comments: pneumonia Do you want consulting provider notified?: Yes 11/22/24 14:55 Consult Physician Routine Consulting Provider: Betina Donnelly Consult Reason/Comments: pneumonia Do you want consulting provider notified?: Yes Primary care physician: Theo Haas Hospital Course: Final diagnosis Acute right multifocal pneumonia with sepsis, present on admission, community- acquired pneumonia Leukocytosis, secondary to above, improving Acute hypoxic respiratory failure secondary to community acquired pneumonia, improved and on room air, does not qualify for home oxygen at this time History of CVA/TIA History of previous myocardial infarction with stenting History of CABG maintained on Coumadin Hyperlipidemia GI prophylaxis DVT prophylaxis Full code Discharge disposition Patient is being discharged in a stable condition with guarded prognosis to home. Patient will follow-up with Dr. Haas in the outpatient setting upon discharge. Patient is to continue with current antibiotics and close outpatient follow-up with pulmonary as scheduled. Recommend outpatient follow-up with cardiology as well as he does take Coumadin and they monitor his INRs. Total time taken is greater than 35 minutes. Hospital course This is a 54-year-old male who was recently admitted with shortness of breath with acute hypoxic respiratory failure secondary to acute right multifocal pneumonia, community-acquired with sepsis, present on admission. Patient being evaluated by infectious disease along with pulmonary showing some slow clinical improvements and will transition to oral antibiotics on discharge and recommend close outpatient follow-up with pulmonary as well as cardiology. Patient was evaluated for possible home O2 although does not qualify as the lowest reading with exertion was 89% and recovered. Please refer to consultation notes for further HPI. Currently no reports of chest pain, shortness of breath, or palpitations. Patient is afebrile. No reports of nausea or vomiting and patient is tolerating diet. Patient will be discharged home today. Physical exam: Gen: This is a 54-year-old male who is awake, alert and oriented x 3, thin buil t, appears older than stated age HEENT: Head is atraumatic, normocephalic. Pupils equal, round. Sclerae is anicteric. NECK: Supple. No JVD. No lymphadenopathy. No thyromegaly. LUNGS: Diminished breath sounds bilaterally otherwise clear to auscultation. No wheezes or rhonchi. No intercostal retractions. HEART: S1, S2 are muffled ABDOMEN: Soft. Thin. Bowel sounds are present. No masses. No tenderness. EXTREMITIES: No pedal edema. No calf tenderness. NEUROLOGICAL: Patient is awake, alert and oriented x3. Cranial nerves 2 through 12 are grossly intact. Please refer to medication reconciliation sheet for a list of medications. The impression and plan of care has been dictated by Jennifer Negron, Nurse Practitioner as directed. Dr. Fadumo MD I have performed a history and examination and MDM of this patient, discussed the same with the dictator, and agree with the dictator's assessment and plan as written ,documented as a scribe. Based on total visit time, I have performed more than 50% of the visit. Patient Condition at Discharge: Stable Plan - Discharge Summary Discharge Rx Participant: No New Discharge Prescriptions: New Cefdinir [Omnicef] 300 mg PO BID 5 Days #10 cap Albuterol Inhaler [Ventolin Hfa Inhaler] 2 puff INHALATION Q6H PRN 30 Days #1 each PRN Reason: Shortness Of Breath Budesonide-Formot 160-4.5 Mcg [Symbicort 160-4.5 Mcg Inhaler] 2 puff INHALATION RT-BID 30 Days #1 each Continue Aspirin EC [Ecotrin Low Dose] 81 mg PO DAILY Atorvastatin [Lipitor] 40 mg PO DAILY #30 tab Metoprolol Tartrate [Lopressor] 25 mg PO BID #60 tab Warfarin Sodium [Coumadin] 4 mg PO [id number]@1800 Warfarin Sodium 6 mg PO MOTUWEFR@1800 Discharge Medication List Aspirin EC [Ecotrin Low Dose] 81 mg PO DAILY 08/22/16 [History] Atorvastatin [Lipitor] 40 mg PO DAILY #30 tab 09/25/16 [Rx] Metoprolol Tartrate [Lopressor] 25 mg PO BID #60 tab 09/25/16 [Rx] Warfarin Sodium 6 mg PO MOTUWEFR@1800 11/22/24 [History] Warfarin Sodium [Coumadin] 4 mg PO SUTHSA@1800 11/22/24 [History] Albuterol Inhaler [Ventolin Hfa Inhaler] 2 puff INHALATION Q6H PRN 30 Days #1 each 11/26/24 [Rx] Budesonide-Formot 160-4.5 Mcg [Symbicort 160-4.5 Mcg Inhaler] 2 puff INHALATION RT-BID 30 Days #1 each 11/26/24 [Rx] Cefdinir [Omnicef] 300 mg PO BID 5 Days #10 cap 11/26/24 [Rx] Follow up Appointment(s)/Referral(s): Michael Morocho MD [STAFF PHYSICIAN] - 12/15/24 9:00 am Brian Harris MD [STAFF PHYSICIAN] - 12/08/24 4:15 pm ([place] ) Theo Haas DO [Primary Care Provider] - 1 Week Patient Instructions/Handouts: Community Acquired Pneumonia (GEN) Activity/Diet/Wound Care/Special Instructions: Activity limited until follow-up Follow-up with primary care provider on discharge Follow-up with cardiology outpatient regarding INR testing Follow-up with pulmonary outpatient in 1 to 2 weeks Continue taking medications as prescribed Continue using incentive spirometer at least 10 times every hour while awake and/or coughing and deep breathing Discharge/Stand Alone Forms: Work/School Release / Restrict Discharge Disposition: HOME SELF-CARE
== END 2024-11-26 15:37 | disposition home or self-care (01) | DRG 871 ==
LOC: EC 21:56 → 6NMEDSUR 11-22 02:41 → OBSVTOIN 11-22 02:42 → 6NMEDSUR 11-22 03:13
PROVIDERS: ADMIT Hospitalist; ATTEND Hospitalist
DX: A41.89 Other specified sepsis (principal); J18.8 Other pneumonia, unspecified organism; J96.01 Acute respiratory failure with hypoxia; J43.9 Emphysema, unspecified; Z95.2 Presence of prosthetic heart valve; Z95.1 Presence of aortocoronary bypass graft; E78.5 Hyperlipidemia, unspecified; Z86.73 Personal history of transient ischemic attack (TIA), and cerebral infarction without residual deficits; Z11.52 Encounter for screening for COVID-19; I25.2 Old myocardial infarction; I25.10 Atherosclerotic heart disease of native coronary artery without angina pectoris; Z79.01 Long term (current) use of anticoagulants; Z79.82 Long term (current) use of aspirin; Z79.899 Other long term (current) drug therapy; Z82.49 Family history of ischemic heart disease and other diseases of the circulatory system; Z87.891 Personal history of nicotine dependence; Z95.5 Presence of coronary angioplasty implant and graft; Z88.7 Allergy status to serum and vaccine; Z91.011 Allergy to milk products; Z87.19 Personal history of other diseases of the digestive system
CPT/HCPCS: 36415; 71046; 71260; 80053; 81001; 83605; 84145; 85025; 85610; 85730; 86738; 87040; 87070; 87205; 87449; 87636; 94640; 96361; 96365; 99285